=== PATIENT | female | born 1965 | race Caucasian/White ===

== ENCOUNTER 2019-09-07 13:32 | Emergency (ER) | payer OTHER, MEDICAID ==
[~2019-09-07] VITALS: Ht 165.1 cm; Wt 58.1 kg
[2019-09-07 13:39] VITALS: BP 115/72
--- NOTE | 2019-09-07 14:08 | NUR ---
C/O FALL ON THURSDAY AT [facility]. PER CAREGIVER PT FELL ON THURSDAY AND WAS UNCONSCIOUS FOR 2-3 MINUTES. CAREGIVER REPORTS THAT SINCE THE FALL, PT HAS HAD AN UNSTEADY GAIT. PTS BASELINE IS AMBULATING INDEPENDENTLY. CAREGIVER STATES PTS MENTAL STATUS IS UNCHANGED, DENIES N/V/D. PT ABLE TO STAND FROM WHEELCHAIR AND SIT ON BED. PUPILS PERRL. HX: CEREBRAL PALSY, EPILEPSY RX: SEE MED REC
--- NOTE | 2019-09-07 14:14 | NUR ---
PTR TO CT VIA [facility]
--- NOTE | 2019-09-07 14:32 | NUR ---
PT RETURNED FROM CT
--- NOTE | 2019-09-07 14:33 | NUR ---
UNABLE TO GIVE URINE AT THIS TIME
--- NOTE | 2019-09-07 14:41 | NUR ---
LAB AT BEDSIDE
[2019-09-07] MEDS ORDERED: COL100L GT (14:44)
[2019-09-07] MEDS ORDERED: LACT10SO1 PO (14:44)
[2019-09-07] MEDS ORDERED: FOLI0.8T PO (14:44)
[2019-09-07] MEDS ORDERED: OLAN2.5T1 PO (14:44)
[2019-09-07] MEDS ORDERED: FLUO40CA6 PO (14:44)
[2019-09-07] MEDS ORDERED: LAM200 PO (14:44)
[2019-09-07] MEDS ORDERED: BACL10TA4 PO (14:44)
[2019-09-07] MEDS ORDERED: RISP0.5T3 PO (14:44)
[2019-09-07] MEDS ORDERED: TRAZ-343 PO (14:44)
[2019-09-07] MEDS ORDERED: SENN8.8S12 PO (14:44)
[2019-09-07] MEDS ORDERED: [UNRECOGNIZED DRUG - CODE] PO (14:44)
[2019-09-07] MEDS ORDERED: MIRABULK PO (14:44)
[2019-09-07] MEDS ORDERED: CALC500C17 PO (14:44)
[2019-09-07] MEDS ORDERED: DIT5 PO (14:44)
[2019-09-07] MEDS ORDERED: CLON0.5T PO (14:44)
[2019-09-07 14:47] LABS: BASOPHILS % (AUTO) 0.1 % (0.0-2.0); EOSINOPHILS % (AUTO) 0.5 % (0.0-4.0); HEMATOCRIT 37.3 % (36-48); HEMOGLOBIN 12.9 g/dL (12.0-16.0); LYMPHOCYTES # (AUTO) 0.9 K/uL (2.5-16.5); LYMPHOCYTES % (AUTO) 10.9 % (20.5-51.1); MEAN CORPUSCULAR HEMOGLOBIN 32 pg (27-31); MEAN CORPUSCULAR HGB CONC 35 g/dL (33-37); MONOCYTES # (AUTO) 0.9 K/uL (0.8-1.0); NEUTROPHILS # (AUTO) 6.7 K/uL (1.8-7.7); NEUTROPHILS % (AUTO) 77.5 % (42.2-75.2); PLATELET COUNT (AUTO) 244 K/uL (140-450); RED BLOOD CELL COUNT(AUTO) 4.05 MIL/uL (4.20-5.40); RED CELL DISTRIBUTION WIDTH 12.7 % (11.6-13.7); WHITE BLOOD COUNT (AUTO) 8.6 K/uL (4.8-10.8)
[2019-09-07 15:12] LABS: ALBUMIN 3.5 g/dL (3.4-5.0); ANION GAP 12.2 (8-16); CARBON DIOXIDE 29.7 mmol/L (21-32); CREATININE 1.2 mg/dL (0.6-1.3); POTASSIUM 3.9 mmol/L (3.5-5.1); TOTAL BILIRUBIN 0.2 mg/dL (0.0-1.0)
[2019-09-07 15:53] LABS: FREE T4 (FREE THYROXINE) 1.33 ng/dL (0.76-1.46); THYROID STIMULATING HORMONE 1.07 uIU/mL (0.34-3.74)
[2019-09-07 16:23] VITALS: BP 132/76
--- NOTE | 2019-09-07 16:23 | NUR ---
Patient discharged with v/s stable. Written and verbal after care instructions given and explained. Patient alert, oriented and verbalized understanding of instructions. Wheel Chair Assisted with by caregiver. All questions addressed prior to discharge. ID band removed. Patient advised to follow up with PMD. Rx of MACROBID given. Patient educated on indication of medication including possible reaction and side effects. Opportunity to ask questions provided and answered. PT AND CAREGIVER GIVEN LAB AND CT RESULTS
[2019-09-07 19:30] LABS: APPEARANCE,URINE CLEAR (CLEAR); BILIRUBIN,URINE NEGATIVE (NEGATIVE); BLOOD, URINE 1+ (NEGATIVE); COLOR,URINE YELLOW (YELLOW); LEUKOCYTE ESTERASE ,URINE 3+ (NEGATIVE); NITRITE, URINE NEGATIVE (NEGATIVE); PH,URINE 7.5 (5.0-9.0); UGLUCOSE NEGATIVE (NEGATIVE)
[2019-09-07 19:47] LABS: WBC,URINE 16-25 (MOD) /HPF (0-5)
== END 2019-09-07 16:23 | disposition home or self-care (01) ==
LOC: MED 13:32
DX: S09.90XA Unspecified injury of head, initial encounter (principal); G40.909 Epilepsy, unspecified, not intractable, without status epilepticus; G80.9 Cerebral palsy, unspecified; Z79.899 Other long term (current) drug therapy; Z88.0 Allergy status to penicillin; W18.30XA Fall on same level, unspecified, initial encounter; Y93.89 Activity, other specified; Y92.89 Other specified places as the place of occurrence of the external cause; Y99.8 Other external cause status
CPT/HCPCS: 36415; 70450; 71045; 80053; 81001; 84439; 84443; 84479; 84484; 85025; 87086; 93005; 99285; Q0092

== ENCOUNTER 2019-09-12 02:55 | Inpatient (IN) | payer OTHER, MEDICAID ==
[2019-09-12] VITALS (64 sets, daily range): BP systolic 57–120; BP diastolic 24–70
[~2019-09-12] VITALS: Ht 165.1 cm; Wt 57.6 kg
[~2019-09-12 02:55] MED LIST: BACL10TA4 PO; CALC500C17 PO; CLON0.5T PO; COL100L GT; DIT5 PO; FLUO40CA6 PO; FOLI0.8T PO; LACT10SO1 PO; LAM200 PO; MIRABULK PO; OLAN2.5T1 PO; RISP0.5T3 PO; SENN8.8S12 PO; TRAZ-343 PO; [UNRECOGNIZED DRUG - CODE] PO
--- NOTE | 2019-09-12 02:55 | NUR ---
53 YEAR OLD FEMALE BIBA FROM [facility]ARE [facility]. PER EMS PATIENT STARTED HAVING SOB X 30MINS AGO AND O2 SATURATION WAS 72% BEFORE BREATHING TREATMENT ON ROUTE TO MAKE IT 86%. PATIENT ARRIVED TO EMERGENCY ROOM WITH 4 RNS, RT, AND DR LUCAS AT BEDSIDE. PATIENT GCS 3, AOX0, BREATHING LABORED WITH RETRACTIONS ON BREATHING MASK. SPO2 86%, RR 31, HR 125, BP 95/65, BLOOD SUGAR 127. SKIN WARM AND DRY. BED IN LOWEST POSITION, LOCKED, BED RAIL UPX2. PMH - NEURO EPILEPSY, SEIZURES, DEPRESSION ALLERGIES - PCN
--- NOTE | 2019-09-12 02:55 | NUR ---
PATIENT IS ON AMBU BAG BY RT, SPO2 95%
--- NOTE | 2019-09-12 02:55 | NUR ---
PATIENT ARRIVED IN ER. RT AT BEDSIDE, DR LUCAS AT BEDSIDE. MULTIPLE RNS AT BEDSIDE. EMT AT BEDSIDE.
--- NOTE | 2019-09-12 03:05 | NUR ---
INTUBATION PROCESS HAS BEGUN, MEDICATIONS OF ROCURONIUM AND ETOMIDATE WILL BE GIVEN ORDERED BY DR LUCAS. RT AT BEDSIDE, DR LUCAS AT BEDSIDE. 3 RNS AT BEDSIDE
--- NOTE | 2019-09-12 03:05 | NUR ---
Dyan bolanosmary in [facility] - 09/12/19 at 0635 by MEDJJ PATIENT IS ON AMBU BAG BY RT, SPO2 95%
--- NOTE | 2019-09-12 03:05 | NUR ---
Dyan jarquin in [facility] - 09/12/19 at 0613 by MEDCHARILE INTUBATION PROCESS HAS BEGUN, MEDICATIONS OF ROCURONIUM AND ETOMIDATE WILL BE GIVEN ORDERED BY DR LUCAS
[2019-09-12] MEDS ORDERED: VANCOMYCIN 1,000 MG in DEXTROSE 5% 250 ML IV ONE (03:15)
--- NOTE | 2019-09-12 03:15 | NUR ---
SPO2 96%, RR 21 PATIENT ON MECHANICAL VENTILATION, RT AT BEDSIDE.
--- NOTE | 2019-09-12 03:15 | NUR ---
INTUBATION BY DR LANCE WELLS
[2019-09-12] MEDS ORDERED: fentaNYL 1 MG in NACL 0.9% 80 ML IV PRN (03:20)
[2019-09-12] MEDS ORDERED: NACL 0.9% 1,000 ML IV ONE ×3 (03:20→06:45)
[2019-09-12] MEDS ORDERED: MIDAZOLAM MDV 50 MG in NACL 0.9% 40 ML IV PRN ×2 (03:20→13:00)
--- NOTE | 2019-09-12 03:25 | NUR ---
EKG PERFORMED AT BEDSIDE
[2019-09-12] MEDS ORDERED: ETOMIDATE 20 MG/10 ML VIAL IVP ONE (03:30)
[2019-09-12] MEDS ORDERED: ROCURONIUM 50 MG/5 ML VIAL IV ONE (03:30)
[2019-09-12] MEDS ORDERED: CEFEPIME 1,000 MG in DEXTROSE 5% 50 ML IV ONE (03:30)
--- NOTE | 2019-09-12 03:30 | NUR ---
Physician order given to place soft type restraints for patient to prevent pulling on tubing and intubation equipment. Resraints placed with quick-release ties to bed frame. Pt under observation with nurse 1-1. Restraints placed with 2 fingergap distance in upper bilateral extremities, radial pulse +2, cap refill < 2 seconds.
--- NOTE | 2019-09-12 03:35 | NUR ---
PATIENT MEDS FOR SEDATION NOT IN STOCK, COORDINATOR VOLUNTEER SERVICES CALLED REGARDING MEDS
[2019-09-12] MEDS ORDERED: fentaNYL 0.05 MG/ML VIAL ONE ×2 (03:44→03:46)
--- NOTE | 2019-09-12 03:44 | NUR ---
VERSED NOT IN STOCK, DYE STAND LOADER CALLED
[2019-09-12] MEDS ORDERED: MIDAZOLAM 2 MG/2 ML VIAL IVP ONE ×2 (03:45)
--- NOTE | 2019-09-12 03:46 | NUR ---
FLU SWAB OBTAINED
[2019-09-12] MEDS ORDERED: MIDAZOLAM MDV 50 MG/10 ML VIAL IV ONE (03:48)
[2019-09-12] MEDS ORDERED: VANCOMYCIN 1,000 MG VIAL ONE (03:51)
[2019-09-12] MEDS ORDERED: CEFEPIME 1,000 MG VIAL ONE (03:51)
--- NOTE | 2019-09-12 04:00 | NUR ---
MEDICATIONS FOR SEDATION RECEIVED FROM INFORMATION TECHNOLOGY DIRECTOR, WILL PREPARE MEDICATION AND GIVE ORDERED
--- NOTE | 2019-09-12 04:00 | NUR ---
PT BIBA HYPOXIC, AGONAL BREATHING, AND NON-RESPONSIVE. ER MD MADE AWARE. DECISION WAS MADE BY PHYSICIAN TO INTUBATE. PATIENT BAGGED WITH 100% FIO2. INTUBATED WITH 7. 5 ETT AT 24 CM TEETH LINE. ETT PLACEMENT CONFIRMED WITH COLORMETRIC CO2 DETECTOR, CHEST RISE, CONDENSATION IN ETT AND EQUAL BILATERAL BREATH SOUNDS. BREATH SOUNDS COARSE. AIRWAY SECURE AND PATENT. SPUTUM SAMPLE OBTAINED AND SENT TO LAB. ABG DRAWN AT PHYSICIAN ORDERED SETTINGS. ABG RESULTS GIVEN TO PHYSICIAN, NO NEW ORDERS AT THIS TIME. WILL TITRATE OXYGEN TO MAINTAIN ADEQUATE OXYGENATION. VENT CHECK DONE. VENT ALARMS ON AND AUDIBLE. AMBU BAG AT [facility]. WILL CONTINUE TO MONITOR CLOSELY.
[2019-09-12 04:01] LABS: EOSINOPHILS % (AUTO) 0.3 % (0.0-4.0); HEMATOCRIT 33.5 % (36-48); HEMOGLOBIN 11.6 g/dL (12.0-16.0); LYMPHOCYTES # (AUTO) 0.2 K/uL (2.5-16.5); MEAN CORPUSCULAR HEMOGLOBIN 32 pg (27-31); MEAN CORPUSCULAR HGB CONC 35 g/dL (33-37); MEAN CORPUSCULAR VOLUME 91.3 fL (80-94); MONOCYTES # (AUTO) 0.1 K/uL (0.8-1.0); MONOCYTES % (AUTO) 1.6 % (1.7-9.3); NEUTROPHILS % (AUTO) 95.7 % (42.2-75.2); PLATELET COUNT (AUTO) 170 K/uL (140-450); RED BLOOD CELL COUNT(AUTO) 3.67 MIL/uL (4.20-5.40); WHITE BLOOD COUNT (AUTO) 6.3 K/uL (4.8-10.8)
[2019-09-12 04:17] LABS: ALBUMIN 2.7 g/dL (3.4-5.0); ANION GAP 20.6 (8-16); CARBON DIOXIDE 20.9 mmol/L (21-32); CREATININE 3.5 mg/dL (0.6-1.3); POTASSIUM 3.5 mmol/L (3.5-5.1); TOTAL BILIRUBIN 0.7 mg/dL (0.0-1.0)
--- NOTE | 2019-09-12 04:30 | NUR ---
SOFT RESTRAINTS ASSESSED. RADIAL PULSE + 2, CAP REFILL < 3 SECONDS, NO DISCOLORATION
[2019-09-12 04:31] LABS: LYMPHOCYTES % (AUTO) 2.4 % (20.5-51.1)
--- NOTE | 2019-09-12 04:32 | NUR ---
DR LUCAS AT BEDSIDE
--- NOTE | 2019-09-12 04:45 | NUR ---
PER ERMD HE WANTS NACL FLUID TO BOLUS INSTEAD OF ORDERED 100 ML/HR. HE ALSO STATES HE WILL PUT ANOTHER ORDER FOR ANOTHER 1L BOLUS.
[2019-09-12] MEDS ORDERED: ONDANSETRON 4 MG/2 ML VIAL IVP PRN (05:00)
[2019-09-12] MEDS ORDERED: ACETAMINOPHEN 325 MG TAB PO PRN (05:00)
--- NOTE | 2019-09-12 05:20 | NUR ---
PATIENT IS IN PROCESS OF TRANSFERING, SPENCER DELVALLE AND RT AND EMT AT BEDSIDE ON ROUTE TO ICU
--- NOTE | 2019-09-12 05:20 | NUR ---
Dyan jarquin in ED - 09/12/19 at 0558 by MEDJJ PATIENT IS IN PROCESS OF TRANSFERING, RT AND EMT AT BEDSIDE ON ROUTE TO ICU
--- NOTE | 2019-09-12 05:30 | NUR ---
SOFT RESTRAINTS ASSESSED. RADIAL PULSE + 2, CAP REFILL < 3 SECONDS, NO DISCOLORATION.
--- NOTE | 2019-09-12 05:40 | NUR ---
Patient will be admitted to care of Dr Coyle. Admited to ICU. Will go to room 2. Belongings list completed. Report to Janell PALMER.
--- NOTE | 2019-09-12 05:40 | NUR ---
RECEIVED PT FROM SUPERVISOR ENGINES ROAD, ADELIA. PT UNABLE TO RESPOND VERBALLY. PERRL. INTUBATED. ETT 23CM AT LIP LINE. VENT SETTINGS FOLLOWS: AC MODE FI02 60%, TV 450, RATE 22, PEEP 5. HR 122 BPM ON MONITOR. + S1, S2 UPON AUSCULTATION. LUNGS CLEAR THROUGHOUT, SLIGHTLY DIMINISHED TO RLL. ABDOMEN FIRM/ DISTENDED. BULL PLACED WITH 2L STRAW-COLORED URINE WITH LARGE AMOUNT OF SEDIMENT. ABDOMEN NOW SOFT WITH ACTIVE BOWEL SOUNDS. IV TO RT HAND, RT FA, LT HAND, LT FA, ALL 20 GAUGE. NS RUNNING WIDE OPEN. FENTANYL INFUSING AT 3.2 ML/HR, VERSED AT 1MG/HR. BP 67/45. MD NOTIFIED OF HYPOTENSION. NEW ORDERS OBTAINED AND IMPLEMENTED. SKIN WARM, DRY, AND INTACT. SAFETY PRECAUTIONS IMPLEMENTED. BED LOW AND LOCKED. WILL FOLLOW-UP. Addendum: 09/12/19 at 0654 by Janell Ashley RN DRY WEIGHT 64KG PER ER Addendum: 09/12/19 at 0723 by Janell Ashley RN SOFT-WRIST RESTRAINTS IN PLACE D/T PT ATTEMPTING TO REMOVE ETT.
--- NOTE | 2019-09-12 05:40 | NUR ---
TRANSFER COMPLETED, RN SHREYAS UNDERSTANDS URINE WAS NOT OBTAINED WELL 2ND FLUID BOLUS OF NACL.
[2019-09-12] MEDS ORDERED: LORazepam 2 MG/ML VIAL IM/IVP PRN (05:55)
--- NOTE | 2019-09-12 06:00 | NUR ---
INSERTED BULL CATH AND EMPTIED AROUND 2 LITERS YELLOW URINE OUTPUT WITH LOTS OF WHITISH SEDIMENTS.
[2019-09-12 06:03] LABS: CHOL/HDL RATIO 7.6 (1-4.5); MAGNESIUM 2.4 mg/dL (1.8-2.4); PHOSPHORUS 3.9 mg/dL (2.5-4.9); THYROID STIMULATING HORMONE 1.16 uIU/mL (0.34-3.74)
[2019-09-12 06:10] LABS: PROTHROMBIN TIME 11.1 secs (10.8-13.4)
--- NOTE | 2019-09-12 06:26 | NUR ---
REC'D PT ON [place] VENT SETTINGS AC 12 VT 450 PEEP 5 FIO2 60% ALARMS ON AND AUDIBLE AND AMBU BAG AT HOB VENT IS PLUGGED INTO RED OUTLET, SXN PT SMALL AMT OF CREAM COLOR SECRETIONS, B\S ARE COARSE BILATERALLY, PT IS ORALLY INTUBATED WITH 7.5 ETT SECURED WITH ANCHOR FAST AT [address] MYLES GIVEN THE ABG RESULTS AND DECREASED RR TO 20 AND DECREASED FIO2 TO 40%
--- NOTE | 2019-09-12 06:38 | NUR ---
BP LOW 69/43 REFERRED TO RESIDENT ON DUTY DR. CROWELL WITH ORDER TO GIVE ANOTHER 1 LITER BOLUS NORMAL SALINE; INFORMED HIM TOO ABOUT PATIENT'S URINE OUT RIGHT AFTER INSERTING BULL CATHETER.
[2019-09-12] MEDS ORDERED: AZITHROMYCIN 500 MG in DEXTROSE 5% 250 ML IV SCH (06:40)
[2019-09-12] MEDS ORDERED: HEPARIN PER PHARMACY MC PRN (06:50)
[2019-09-12] MEDS ORDERED: cefTRIAXone 1,000 MG VIAL ONE (06:59)
[2019-09-12] MEDS ORDERED: AZITHROMYCIN 500 MG INJ VIAL IV ONE (07:00)
--- NOTE | 2019-09-12 07:30 | NUR ---
RECEIVED PT FROM PM SHIFT RN. PT INTUBATED. BEDSIDE MONITOR SHOWS ST 120S. BP: 67/43. RR 20. PT NON VERBAL. PUPILS 3 MM, ACTIVE. ETT TO VENT WITH SETTING FIO2=40 %, VT 450, A/C 20, PEEP 5. LUNG SOUND COURSE. PT HAS IV TO LEFT AC RUNNING 0.9% NS AT 1200 CC/HR. ABD SOFT, F/C IN PLACE WITH CLOUDY YELLOW URINE NOTED. SKIN INTACT. WILL CONTINUE TO MONITOR.
--- NOTE | 2019-09-12 07:50 | NUR ---
DR. YEE IN TO SEE PT. PT'S SECOND L 0.9% NS IS ALMOST DONE. PER DR. YEE, GIVE THE THIRD LITER OF 0.9% NS. CARRIED OUT.
[2019-09-12] MEDS: NACL 0.9% 1,000 ML IV SCH (08:00)
[2019-09-12 08:04] LABS: APPEARANCE,URINE CLEAR (CLEAR); BILIRUBIN,URINE NEGATIVE (NEGATIVE); BLOOD, URINE 3+ (NEGATIVE); COLOR,URINE YELLOW (YELLOW); LEUKOCYTE ESTERASE ,URINE 3+ (NEGATIVE); NITRITE, URINE NEGATIVE (NEGATIVE); UGLUCOSE NEGATIVE (NEGATIVE)
[2019-09-12 08:10] LABS: BARBITURATE, URINE NEG. ng/ml (NEG <=200); BENZODIAZEPINE, URINE NEG. ng/mL (NEG <=200); CANNABINOID, URINE NEG. ng/mL (NEG <=50); COCAINE, URINE NEG. ng/mL (NEG <=300); OPIATE, URINE NEG. ng/mL (NEG <=2000); PHENCYCLIDINE SCREEN,URINE NEG. ng/mL (NEG <=25)
--- NOTE | 2019-09-12 08:15 | NUR ---
DR. ROBLES AT BEDSIDE. PLAN IS TO INSERT CENTRAL LINE. CALLED ATILIO DHILLON [phone] FOR CONSENT. STATES SHE WILL CALL THEIR FABRIC AWNING REPAIRER TO CALL ME BACK.
[2019-09-12 08:31] LABS: RBC,URINE 11-20 (MOD) /HPF (0-5); URINE AMORPHOUS URATE 1+ /HPF (None Seen); WBC,URINE 80-100 /HPF (0-5)
--- NOTE | 2019-09-12 08:40 | NUR ---
SPOKE TO ROSARIO MUNOZ, WHOLESALER OF THE FACILITY RE: NEED FOR CONSENT FOR CENTRAL LINE. GAVE THE NAME OF [facility] INTER FOLD ROLL CUTTER LYNETTE BACA, . DR. ROBLES NOTIFIED.
--- NOTE | 2019-09-12 08:41 | NUR ---
US TECH AT BEDSIDE.
--- NOTE | 2019-09-12 08:49 | NUR ---
PATIENT HAS BEEN SCREENED AND CATEGORIZED HIGH NUTRITION RISK. PATIENT WILL BE SEEN WITHIN 1-2 DAYS OF ADMISSION. 09/12/19-09/13/[address]
[2019-09-12] MEDS ORDERED: NOREPINEPHRINE 4 MG in DEXTROSE 5% 250 ML IV PRN (08:50)
--- NOTE | 2019-09-12 09:00 | NUR ---
SPOKE LYNETTE BACA FROM [facility] RE; NEED FOR CENTRAL LINE. STATES TWO PHYSICIANS CAN SIGN THE CONSENT. DR. MARGARET BURCIAGA.
--- NOTE | 2019-09-12 09:13 | NUR ---
AT BEDSIDE TO INSERT CENTRAL LINE. TIME OUT DONE! ATIVAN 0.[address] ROBLES ORDERED.
--- NOTE | 2019-09-12 09:15 | NUR ---
CELESTE CLAIRE OF THE FACILITY CALLED, . UPDATED ON PT'S CONDITION. STATES SHE WILL BE HERE TO SEE PT. SHE WANTS TO BE CALLED IF WE NEED ANYTHING RE: PT.
--- NOTE | 2019-09-12 09:41 | NUR ---
DR. ROBLES ORDERED 1 L 0.9 % NS BOLUS.
[2019-09-12] MEDS: OLANZapine 2.5 MG TAB PO SCH (09:51)
[2019-09-12] MEDS: DOCUSATE SODIUM 100 MG GELCAP PO SCH ×2 (09:51→20:29)
[2019-09-12] MEDS: FAMOTIDINE 20 MG TAB PO SCH (09:51)
[2019-09-12] MEDS: LACTULOSE 20 GM/30 ML UDC PO SCH (09:51)
[2019-09-12] MEDS: risperiDONE 1 MG TAB PO SCH ×2 (09:52→20:29)
[2019-09-12] MEDS: clonazePAM 0.5 MG TAB GT SCH (09:53)
--- NOTE | 2019-09-12 09:57 | NUR ---
received phone call from PICC LINE NURSE HERBERTH, PER HERBERTH, HE WILL BE HERE ABOUT 1130. CHARGE NURSE MADE AWARE. Addendum: 09/12/19 at 1016 by Cassy Romeo RN NOTIFIED PICC LINE NURSE, PT HAS HEPARIN DRIP ORDER. PER PICC LINE NURSE, DO NOT START HEPARIN DRIP UNTIL PICC LINE INSERTION DONE. CHARGE NURSE JULIA MADE AWARE.
[2019-09-12] MEDS ORDERED: LORazepam 2 MG/ML VIAL IM/IVP SCH (10:00)
[2019-09-12] MEDS ORDERED: CRUSHER, PILL MC ONE (10:00)
[2019-09-12] MEDS: OXYBUTYNIN 5 MG TAB PO SCH ×2 (10:25→20:29)
[2019-09-12] MEDS: FLUoxetine 20 MG CAP PO SCH (10:25)
--- NOTE | 2019-09-12 11:36 | NUR ---
DISCHARGE PLANNING: THIS IS A 53 Y/O FEMALE PATIENT FROM [facility], WHO WAS BIBA DUE TO SOB. PAST MEDICAL HISTORY INCLUDE SEIZURE AND PSYCHIATRIC DISORDER. INITIAL DIAGNOSIS OF ACUTE RESPIRATORY FAILURE. WAS ORALLY INTUBATED INT HE ED, FIO2 40%. CURRENT LABS INCLUDE WBC 6.3, H/H 11.6/33.5, NA/K 141/3.5, BUN/CREA 83/3.5, LACTIC ACID ON ADMISSION 6.8-5.0, TROP 0.069-0.212. URINE, SPUTUM AND BLOOD CULTURES PENDING. ON LEVOPHED DRIP. ON AZITHROMYCIN AND ROCEPHIN. NEPHRO AND PULMO CONSULTS IN PLACE. DC PLAN PENDING ON PATIENT'S RESPONSE TO TREATMENT. Addendum: 09/14/19 at 1116 by Sugey Iglesias STILL IN ICU. ORALLY INTUBATED TO VENT, FIO2 30%. CURRENT LABS INCLUDE WBC 20.0, H/H 8.9/25.3, NA/K 145/3.0, BUN/CREA 23/0.9, LACTIC ACID 1.5, TROP 0.362. ON VANCOMYCIN AND MERREM. SEDATED WITH VERSED AND FENTANYL DRIP. CARDIO, PULMO, ID, SURGICAL AND NEPHRO CONSULTS IN PLACE. DC PLAN PENDING ON PATIENT'S RESPONSE TO TREATMENT. Addendum: 09/16/19 at 0915 by Sugey Iglesias CM STILL IN ICU, ORALLY INTUBATED FIO2 25%. CURRENT LABS INCLUDE WBC 6.7, H/H 9.2/26.5, NA/K 141/3.6, BUN/CREA 18/0.8, MAG 1.2 AND TROP 0.232. URINE AND BLOOD C/S CAME BACK POSITIVE FOR E COLI. SPUTUM C/S POSITIVE FOR MORAXELLA CATARRHALIS. ON VANCOMYCIN, TAMIFLU AND MEROPENEM. ON FENTANYL DRIP. PULMO, CARDIO, ID, NEPHRO AND SURGICAL CONSULTS IN PLACE. Addendum: 09/19/19 at 1458 by Sugey Iglesias CM RECEIVED A CALL BACK FROM PATIENT'S DAUGHTER RAY AGARWAL. DISCUSSED DC PLAN TO [facility] AND IS IN AGREEMENT. IMM AND CHOICE OF VENDOR LETTERS DISCUSSED WITH HER, ABLE TO VERBALIZE UNDERSTANDING. COPY PLACED IN THE CHART. Addendum: 09/22/19 at 1038 by Margo Epstein CM DC PLANNING: FAXED ALL THE PAPERWORK TO [facility], CM TO FOLLOW. Addendum: 09/22/19 at 1554 by Margo Epstein CM DC PLANNING RECEIVED A CALL FROM ANGIE AT [facility] ACCEPTED PATIENT. DC PLAN FOR THURSDAY CM TO FOLLOW Addendum: 09/23/19 at 1635 by Margo Epstein CM DC PLANNING: RECEIVED A CALL FROM АНДРЕЙ AT [facility] STATED THEY ARE UNABLE TO ACCEPT PATIENT BECAUSE OF HER DX ACUTE RESPIRATORY DISTRESS. FAXED TO CHANELL MCGRAW AND AYANNA NEAL CM TO FOLLOW Addendum: 09/24/19 at 1116 by Margo Epstein CM DC PLANNING: CALLED [facility] SPOKE WITH DANNY GARNICA STATED THEY ARE UNABLE TO ACCEPT PATIENT BECAUSE OF DX ACUTE RESP DISTRESS. NOTIFIED DR ROBLES ,FAXED TO CLAIRE NEAL, AYANNA NEAL ,ANDREW AND MICHELLE Schmid CM TO FOLLOW Addendum: 09/24/19 at 1501 by Margo Epstein CM DC PLANNING RECEIVED A CALL FROM RAY GARNICA AT [facility] ACCEPTED PT. AND CAN GO TO ROOM 29B , # TO GIVE REPORT [phone] ARRANGED TRANSPORT WITH [facility] TIME 5PM NOTIFIED [employer] PALMER CALLED MALIA MONUMENT LETTERER [phone] LEFT A MESSAGE THAT PT IS GOING TO [facility] Addendum: 09/24/19 at 1644 by Margo Epstein CM DC PLANNING: RECEIVED A CALL FROM LYNETTE HERRERA OF [facility]PER[facility] [phone] STATED SHE WANTED PT TO GO BACK TO [facility] WILL COME TO PICK HER UP . CANCELED [facility] AND [facility]
--- NOTE | 2019-09-12 11:45 | NUR ---
PICC line nurse at bedside, time out form done.
[2019-09-12] MEDS: hePARIN / DEXT 5% PREMIX 250 ML IV SCH (12:38)
--- NOTE | 2019-09-12 12:38 | NUR ---
started heparin drip at 1100 units/hr and bolus 4200 units given.
--- NOTE | 2019-09-12 12:50 | NUR ---
US TECH AT BEDSIDE.
--- NOTE | 2019-09-12 12:52 | NUR ---
PT. ADMITTED WITH LOW MARY SCALE AT RISK, CONTINUE TO FOLLOW PRESSURE ULCER PREVENTION INTERVENTIONS. -TURN AND REPOSITION PATIENT Q 2H -ASSESS AND MONITOR SKIN CONDITION DURING POSITION CHANGE -OFFLOAD BILATERAL HEELS BY PLACING PILLOWS UNDER CALVES AT ALL TIMES, UNLESS OTHERWISE CONTRAINDICATED -PRESSURE REDISTRIBUTION BY PLACING PILLOWS AND OFFLOADING SACRALCOCCYX -KEEP SKIN CLEAN AND DRY AT ALL TIMES.
--- NOTE | 2019-09-12 13:47 | NUR ---
09/12/19 INITIAL ASSESSMENT COMPLETED PLEASE REFER TO NUTRITION ASSESSMENT UNDER CARE ACTIVITY FOR ESTIMATED NUTRITIONAL NEEDS. 1. CONTINUE NPO MEDICALLY APPROPRIATE 2. IF/WHEN MEDICALLY STABLE CONSIDER TUBE FEEDING IF PATIENT IS STILL INTUBATED. RECOMMEND NEPRO 1.8 @ 40 ML/HR AND FREE WATER FLUSH OF 150 ML Q4H -THIS WILL PROVIDE 697 ML OF WATER, 1728 KCAL AND 77 GM OF PROTEIN, WHICH MEETS 100% OF NUTRIENT NEEDS 3. IF PATIENT IS EXTUBATED, AWAKE AND ALERT, CONSIDER ADVANCING DIET IF NO DYSPHAGIA IS PRESENT 4. RD TO FOLLOW-UP 2-3 DAYS, HIGH RISK ANTOLIN COPPOLA RD
--- NOTE | 2019-09-12 14:11 | NUR ---
PT LEFT FOR CT. ACCOMPANIED BY RN, RT AND FIBERGLASS BOAT PARTS FINISHER.
--- NOTE | 2019-09-12 14:48 | NUR ---
Sales Agent Business Services Note: SW attempted to conduct assessment. SW will follow up.
[2019-09-12] MEDS: NOREPINEPHRINE 16 MG in DEXTROSE 5% 250 ML IV PRN (15:34)
--- NOTE | 2019-09-12 17:32 | NUR ---
NUC MEDS TECH AT BEDSIDE.
[2019-09-12] MEDS ORDERED: KCL 20 MEQ/WATER INJ PREMIX 200 ML IV SCH (18:00)
--- NOTE | 2019-09-12 18:30 | NUR ---
PT STAYING IN BED, BEDSIDE MONITOR SHOWS ST 110S. NO S/S OF RESPIRATORY DISTRESS NOTED. BP IN NORMAL RANGE WHILE PT ON LEVOPHED.
[2019-09-12 18:46] LABS: HEMATOCRIT 31.7 % (36-48); HEMOGLOBIN 10.6 g/dL (12.0-16.0); MEAN CORPUSCULAR HEMOGLOBIN 31 pg (27-31); MEAN CORPUSCULAR HGB CONC 34 g/dL (33-37); MEAN CORPUSCULAR VOLUME 92.4 fL (80-94); PLATELET COUNT (AUTO) 167 K/uL (140-450); RED BLOOD CELL COUNT(AUTO) 3.43 MIL/uL (4.20-5.40); RED CELL DISTRIBUTION WIDTH 13.7 % (11.6-13.7)
[2019-09-12 18:55] LABS: WHITE BLOOD COUNT (AUTO) 31.1 K/uL (4.8-10.8)
[2019-09-12] MEDS: ACETYLCYSTEINE 10% (100 MG/ML) 100 MG/ML VIAL INH SCH (19:08)
[2019-09-12] MEDS: ALBUTEROL SULFATE/IPRATROPIU 3 ML SOL IH SCH (19:08)
--- NOTE | 2019-09-12 19:10 | NUR ---
ENDORSED TO PM SHIFT RN.
[2019-09-12] MEDS ORDERED: LEVOFLOXACIN 750 MG/D5W PREMIX 150 ML IV SCH (19:25)
--- NOTE | 2019-09-12 19:26 | NUR ---
MUCOMIST WAS GIVEN WITH HHNTX 10% AT 100ML WITH BRONCHODILATOR
[2019-09-12 19:27] LABS: ANION GAP 17.8 (8-16); CARBON DIOXIDE 21.6 mmol/L (21-32); POTASSIUM 3.4 mmol/L (3.5-5.1)
[2019-09-12 19:29] LABS: CREATININE 2.5 mg/dL (0.6-1.3)
--- NOTE | 2019-09-12 19:30 | NUR ---
APTT RESULTS BACK, PER LAB. HEPARIN DRIP HELD AT THIS TIME.
--- NOTE | 2019-09-12 19:30 | NUR ---
RECEIVED PT FROM LATA PALMER. PT UNABLE TO RESPOND VERBALLY. PERRL. INTUBATED. ETT 23CM AT LIP LINE. VENT SETTINGS FOLLOWS: AC MODE FI02 40%, TV 450, RATE 20, PEEP 5. HR 116 BPM ON MONITOR. + S1, S2 UPON AUSCULTATION. LUNGS CLEAR THROUGHOUT. ABDOMEN SOFT, NON-DISTENDED WITH ACTIVE BOWEL SOUNDS. BULL IN PLACE DRAINING STRAW-COLORED URINE WITH SEDIMENT. IV TO RT HAND, RT FA, LT HAND, LT FA, ALL 20 GAUGE. NS RUNNING @ 50ML/HR TO PICC TO MILAGRO. HEPARIN INFUSING @ 800U/HR. PT REMAINS ON APTT BLOOD DRAWS Q6H. HEPARIN BEING TITRATED PER PROTOCOL. SKIN WARM, DRY, AND INTACT. SOFT-WRIST RESTRAINTS IN PLACE D/T PT ATTEMPTING TO REMOVE ETT. CIRCULATION CHECK WNL, CAP REFILL <3SEC. SAFETY PRECAUTIONS REMAIN IN PLACE. BED LOW AND LOCKED. WILL FOLLOW-UP. DRY WEIGHT 64KG. Addendum: 09/13/19 at 2019 by Janell Ashley RN ERROR--------- INCORRECT DOCUMENTATION DATE/TIME
--- NOTE | 2019-09-12 19:30 | NUR ---
PT UNABLE TO RESPOND VERBALLY. PERRL. INTUBATED. ETT 23CM AT LIP LINE. VENT SETTINGS FOLLOWS: AC MODE FI02 40%, TV 450, RATE 20, PEEP 5. HR 116 BPM ON MONITOR. + S1, S2 UPON AUSCULTATION. LUNGS CLEAR THROUGHOUT. ABDOMEN SOFT, NON-DISTENDED AND NON-TENDER WITH BOWEL SOUNDS PRESENT X4. BULL IN PLACE WITH STRAW-COLORED URINE WITH LARGE AMOUNT OF SEDIMENT NOTED. PICC TO MILAGRO PLACED DURING AM SHIFT. NS INFUSING AT 50ML/HR. K-RIDER 20 MEQ, LEVOPHED 25MCG/HR (23.42ML/HR) DRY WEIGHT 64KG. BP 102/64. HR 116 BPM. IV TO RT HAND, RT FA, LT HAND, LT FA, ALL 20 GAUGE. SOFT-WRIST RESTRAINTS IN PLACE D/T PT ATTEMPTING TO REMOVE ETT. SKIN WARM, DRY. SAFETY PRECAUTIONS IMPLEMENTED. BED LOW AND LOCKED. WILL FOLLOW-UP.
[2019-09-12 20:15] LABS: BASOPHILS % (MANUAL) 0 % (0-2); EOSINOPHILS % (MANUAL) 0 % (0-4); LYMPHOCYTES % (MANUAL) 4 % (20-46); MONOCYTES % (MANUAL) 5 % (5-12)
[2019-09-12] MEDS: traZODone 50 MG TAB PO SCH (20:29)
[2019-09-12] MEDS ORDERED: metroNIDAZOLE 500 MG/NS PREMIX 100 ML IV SCH (21:00)
--- NOTE | 2019-09-12 21:40 | NUR ---
CALLED RESIDENT UPA @ THIS TIME TO REORDER PT/PTT/INR FOR 0000. PT REMAINS ON HEPARIN DRIP.
[2019-09-12] MEDS ORDERED: VANCOMYCIN PER PHARMACY MC PRN (22:30)
--- NOTE | 2019-09-12 22:51 | NUR ---
PHONE CALL FROM [facility] REGARDING MEROPENEM ORDERED BY DR CAMPBELL; PT IS ALLERGIC TO PENICILLIN; DR CAMPBELL STILL IN THE UNIT AND I INFORMED MD; DR CAMPBELL SAID TO GIVE THE MEROPENEM.
[2019-09-13] VITALS (95 sets, daily range): BP systolic 86–146; BP diastolic 38–85
--- NOTE | 2019-09-13 00:28 | NUR ---
BP 170/101, HR 96. CLONIDINE PRN ADMINISTERED ORDERED. SAFETY PRECAUTIONS REMAIN IN PLACE. BED LOW AND LOCKED. WILL CONT TO MONITOR. Addendum: 09/13/19 at 0121 by Janell Ashley RN ERROR WRONG CHART/ WRONG DOCUMENTATION
[2019-09-13 00:50] LABS: PROTHROMBIN TIME 12.5 secs (10.8-13.4)
--- NOTE | 2019-09-13 00:51 | NUR ---
PT RESTLESS WITH JERKING MOVEMENTS TO BUE. ATIVAN PRN ADMINISTERED ORDERED. SAFETY PRECAUTIONS REMAIN IN PLACE. BED LOW AND LOCKED, HOB 30 DEGREES. WILL CONT TO MONITOR.
[2019-09-13] MEDS: NACL 0.9% 1,000 ML IV SCH (00:56)
--- NOTE | 2019-09-13 02:00 | NUR ---
VAP ORAL CARE PROVIDED. REPOSITIONED WITH SCD'S IN PLACE. FLACC 0. SAFETY PRECAUTIONS REMAIN IN PLACE. WILL CONTINUE TO MONITOR FOR CHANGES.
[2019-09-13] MEDS ORDERED: VANCOMYCIN 1GM/DEXT 5% PREMIX 200 ML IV SCH (03:00)
[2019-09-13] MEDS: NOREPINEPHRINE 16 MG in DEXTROSE 5% 250 ML IV PRN ×2 (03:57→23:55)
--- NOTE | 2019-09-13 04:00 | NUR ---
BED BATH PROVIDED. REPOSITIONED WITH PRESSURE AREAS OFFLOADED. FLACC O. CONTINUES ON LEVOPHED TO MAINTAIN BP. BED LOW AND LOCKED WITH SIDE RAILS UP X3. WILL CONT TO MONITOR.
[2019-09-13] MEDS ORDERED: MEROPENEM 500 MG VIAL IV ONE (05:20)
[2019-09-13] MEDS: MEROPENEM 500 MG in NACL 0.9% 50 ML IV SCH ×3 (05:40→20:30)
--- NOTE | 2019-09-13 06:00 | NUR ---
RESPIRATORY AT BEDSIDE. FIO2 LOWERED TO 30% PER RT. SUJATA
[2019-09-13 06:18] LABS: HEMATOCRIT 29.3 % (36-48); HEMOGLOBIN 10.2 g/dL (12.0-16.0); MEAN CORPUSCULAR HEMOGLOBIN 32 pg (27-31); MEAN CORPUSCULAR HGB CONC 35 g/dL (33-37); MEAN CORPUSCULAR VOLUME 91.2 fL (80-94); PLATELET COUNT (AUTO) 166 K/uL (140-450); RED BLOOD CELL COUNT(AUTO) 3.21 MIL/uL (4.20-5.40); RED CELL DISTRIBUTION WIDTH 13.2 % (11.6-13.7)
[2019-09-13 06:25] LABS: HEPATITIS A ANTIBODY IGM Negative (Negative); HEPATITIS B CORE AB TOTAL Negative (Negative); HEPATITIS B SURFACE ANTIBODY Reactive (.); HEPATITIS B SURFACE ANTIGEN Negative (Negative)
[2019-09-13 06:43] LABS: ANION GAP 12.8 (8-16); CARBON DIOXIDE 24.6 mmol/L (21-32); CREATININE 1.7 mg/dL (0.6-1.3); POTASSIUM 3.4 mmol/L (3.5-5.1); WHITE BLOOD COUNT (AUTO) 27.5 K/uL (4.8-10.8)
[2019-09-13 06:44] LABS: EOSINOPHILS % (MANUAL) 2 % (0-4); LYMPHOCYTES % (MANUAL) 7 % (20-46); MONOCYTES % (MANUAL) 6 % (5-12)
[2019-09-13 06:47] LABS: MAGNESIUM 2.1 mg/dL (1.8-2.4); PHOSPHORUS 3.3 mg/dL (2.5-4.9)
[2019-09-13] MEDS: ACETYLCYSTEINE 10% (100 MG/ML) 100 MG/ML VIAL INH SCH ×3 (06:51→19:50)
[2019-09-13] MEDS: ALBUTEROL SULFATE/IPRATROPIU 3 ML SOL IH SCH ×3 (06:51→19:48)
--- NOTE | 2019-09-13 07:30 | NUR ---
RECEIVED PT FROM PM SHIFT RN. BEDSIDE MONITOR SHOWS ST 110S. ETT 23CM AT LIP LINE TO VENT SETTINGS AC VC FI02 = 30%, TV 450, RATE 20, PEEP 5. LUNGS CLEAR THROUGHOUT, NO S/S OF RESPIRATORY DISTRESS NOTED. PICC TO MILAGRO RUNNING HEPARIN AT 800 UNIT/HR AND LEVOPHED AT 16 MCG/MIN=14.94 ML/HRAND 1/2 NS INFUSING AT 50ML/HR. IV TO RT FA, LT HAND, LT FA, ALL 20 GAUGE. ABDOMEN SOFT, NON-TENDER WITH BOWEL SOUNDS PRESENT X4. BULL IN PLACE WITH STRAW-COLORED URINE WITH SEDIMENT NOTED. SKIN WARM, DRY. SAFETY PRECAUTIONS IMPLEMENTED. BED LOW AND LOCKED. WILL CONTINUE TO MONITOR.
[2019-09-13] MEDS: LACTULOSE 20 GM/30 ML UDC PO SCH (08:36)
[2019-09-13] MEDS: risperiDONE 1 MG TAB PO SCH ×2 (08:36→20:31)
[2019-09-13] MEDS: DOCUSATE SODIUM 100 MG GELCAP PO SCH (08:37)
[2019-09-13] MEDS: OLANZapine 2.5 MG TAB PO SCH (08:37)
[2019-09-13] MEDS: clonazePAM 0.5 MG TAB GT SCH (08:38)
[2019-09-13] MEDS: OSELTAMIVIR PHOSPHATE 30 MG CAP PO SCH ×2 (08:39→20:31)
[2019-09-13] MEDS: NACL 0.45% 1,000 ML IV SCH ×2 (08:50→13:07)
[2019-09-13] MEDS: OXYBUTYNIN 5 MG TAB PO SCH ×2 (09:00→20:30)
[2019-09-13] MEDS: DOCUSATE 100 MG/10 ML UDC GT SCH ×2 (09:00→20:31)
[2019-09-13] MEDS ORDERED: KCL 20 MEQ/WATER INJ PREMIX 100 ML IV SCH (09:00)
[2019-09-13] MEDS: FLUoxetine 20 MG CAP PO SCH (09:00)
[2019-09-13] MEDS: FAMOTIDINE 20 MG TAB PO SCH (09:00)
--- NOTE | 2019-09-13 09:50 | NUR ---
received phone call from afsaneh Sutton, hold po meds and he will call me back to notify time to do Hida scan. hold prozac, pepcisaw, thaniatropan. charge nurse made aware.
[2019-09-13] MEDS ORDERED: PROBIOTIC SCREEN 1 EA MISC MC PRN (10:25)
--- NOTE | 2019-09-13 10:45 | NUR ---
received phone call from tyrone Cote, the ETA FOR HIDA SCAN IS 2PM-3PM.
--- NOTE | 2019-09-13 11:51 | NUR ---
@[address], accompanied with RN, RT, AND FIRE CREW WORKER. CAME BACK AT 1151 . PT TOLERATED WELL.
--- NOTE | 2019-09-13 13:00 | NUR ---
APTT 49.4, HEPARIN DRIP RATE NO CHANGE PER PROTOCOL.
--- NOTE | 2019-09-13 14:32 | NUR ---
PER ROSARIO MUNOZ. PT HAD FLU SHOT IN APR 2019, NO RECORD FOR PNA SHOT.
[2019-09-13] MEDS: hePARIN / DEXT 5% PREMIX 250 ML IV SCH (16:38)
--- NOTE | 2019-09-13 19:30 | NUR ---
[facility] REST[facility] IN BED COMFORTABLY. PERRL. UNABLE TO RESPOND VERBALLY. ORALLY INTUBATED WITH ETT @ 24CM @ LIP LINE. VENT SETTING FOLLOWS: AC/VC: FI02 30%, TV 450, RATE 20, PEEP 5. ST ON MONITOR, 110 BPM, SINUS RHYTHM. LUNGS CLEAR THROUGHOUT. +S1, S2 UPON AUSCULTATION. BOWEL SOUNDS ACTIVE X4. ABD SOFT, NON-DISTENDED, AND NON-TENDER UPON PALPATION. INDWELLING URINARY CATH IN PLACE DRAINING CLEAR, YELLOW URINE TO GRAVITY. NO SEDIMENT NOTED AT THIS TIME. PICC TO MILAGRO INFUSING 1/2 NS @ 50ML/HR, HEPARIN @ 800U/HR, LEVOPHED @ 11.18ML/HR, VERSED @ 4MG/HR TO ACHIEVE RASS -1. FLACC 0. BED LOW AND LOCKED WITH SIDE RAILS UP X3. HOB AT 30 DEGREES. WILL CONT TO MONITOR FOR CHANGES.
--- NOTE | 2019-09-13 20:11 | NUR ---
RECEIVED INTUBATED PT WITH ETT SIZE 7.5 SECURED WITH ANCHOR-FAST AT 24CM @ THE LIP. PT IS ON VENT SETTINGS AC 20, 450, PEEP 5, FiO2 30%. VENT PLUGGED IN RED OUTLET, ALARMS SET AND AUDIBLE, BVM AT BEDSIDE, AND HOB > 30. PT IS IN NO APPARENT RESPIRATORY DISTRESS AT THIS TIME: RR 20, SPO2 97%, AND COARSE BREATH SOUNDS ON THE UPPER LOBES AND COARSE BREATH SOUNDS ON THE LOWER BASES. HHN TX GIVEN ORDERED WITH NO ADVERSE REACTIONS. SUCTION SMALL AMOUNT OF WANG THICK SECRETIONS FROM ETT. WILL CONTINUE TO MONITOR PT.
[2019-09-13] MEDS: traZODone 50 MG TAB PO SCH (20:31)
--- NOTE | 2019-09-13 22:00 | NUR ---
REPOSITIONED WITH PRESSURE AREAS OFFLOADED. ORAL CARE PROVIDED. FLACC O. SAFETY PRECAUTIONS REMAIN IN PLACE. BED LOW AND LOCKED WITH SIDE RAILS UP X3. WILL CONT TO MONITOR.
[2019-09-13] MEDS: MIDAZOLAM MDV 100 MG in NACL 0.9% 80 ML IV PRN (23:23)
[2019-09-14] VITALS (106 sets, daily range): BP systolic 91–147; BP diastolic 47–105
--- NOTE | 2019-09-14 | NUR ---
PT RESTING IN BED. FLACC 0. SAFETY PRECAUTIONS REMAIN IN PLACE. WILL CONT TO MONITOR
--- NOTE | 2019-09-14 02:00 | NUR ---
REPOSITIONED AT THIS TIME WITH PRESSURE AREAS OFFLOADED. SAFETY PRECAUTIONS IN PLACE. WILL CONT TO MONITOR.
--- NOTE | 2019-09-14 04:00 | NUR ---
BED BATH PROVIDED AT THIS TIME. ORAL CARE PROVIDED. FLACC 0. BED LOW AND LOCKED. HOB 30 DEGREES. WILL CONT TO MONITOR.
[2019-09-14] MEDS: MEROPENEM 500 MG in NACL 0.9% 50 ML IV SCH ×3 (04:28→21:41)
[2019-09-14] MEDS: ACETYLCYSTEINE 10% (100 MG/ML) 100 MG/ML VIAL INH SCH ×3 (06:45→20:22)
[2019-09-14] MEDS: ALBUTEROL SULFATE/IPRATROPIU 3 ML SOL IH SCH ×3 (06:45→20:22)
[2019-09-14 06:58] LABS: BASOPHILS % (AUTO) 0.1 % (0.0-2.0); EOSINOPHILS # (AUTO) 0.1 K/uL (0-0.4); EOSINOPHILS % (AUTO) 0.4 % (0.0-4.0); HEMATOCRIT 25.3 % (36-48); HEMOGLOBIN 8.9 g/dL (12.0-16.0); LYMPHOCYTES # (AUTO) 1.6 K/uL (2.5-16.5); LYMPHOCYTES % (AUTO) 8.1 % (20.5-51.1); MEAN CORPUSCULAR HEMOGLOBIN 32 pg (27-31); MEAN CORPUSCULAR HGB CONC 35 g/dL (33-37); MONOCYTES # (AUTO) 0.8 K/uL (0.8-1.0); MONOCYTES % (AUTO) 4.1 % (1.7-9.3); NEUTROPHILS # (AUTO) 17.5 K/uL (1.8-7.7); NEUTROPHILS % (AUTO) 87.3 % (42.2-75.2); PLATELET COUNT (AUTO) 162 K/uL (140-450); RED BLOOD CELL COUNT(AUTO) 2.81 MIL/uL (4.20-5.40); RED CELL DISTRIBUTION WIDTH 13.2 % (11.6-13.7)
[2019-09-14 06:59] LABS: ANION GAP 10.3 (8-16); CARBON DIOXIDE 26.7 mmol/L (21-32); CREATININE 0.9 mg/dL (0.6-1.3)
[2019-09-14 07:05] LABS: MAGNESIUM 1.8 mg/dL (1.8-2.4); PHOSPHORUS 1.5 mg/dL (2.5-4.9)
--- NOTE | 2019-09-14 07:16 | NUR ---
RECIVED PT ON VENT WITH SETTINGS CHARTED BREATH SOUNDS PRESENT BILAT CLEAR SXN PT WITH MIN AMT OFF WHITE SECS ETT SITE SECURE AMBU BAG AT BEDSIDE VENT PLUGGED INTO RED OUTLET WILL CONTINUE TO MONITOR PT ON VENT
--- NOTE | 2019-09-14 07:30 | NUR ---
RECEIVED BEDSIDE REPORT FROM CAMPAIGN MANAGER RN. PT IS SEDATED, RASS -1. FALCC 0. PERRL. TEMP 98.0. NORMAL SINUS RHYTHM ON MONITOR. S1 S2 HEARD. CAP REFILL < 2 SEC. PULSES PALPABLE TO ALL EXTREMITIES. PT IS ETT TO VENT W/ SETTINGS: A/C VC FIO2 30%, VT 450, RR 20, PEEP 5. ETT 24 CM TAPED AT LIP LINE. LUNGS SOUND CLEAR BILATERALLY. NO SOB NOTED. BREATHING EVEN AND UNLABORED. NGT IN PLACE TO LEFT NARE, PLACEMENT CONFIRMED, NO RESIDUALS. ABDOMEN ROUND, SOFT, NONTENDER W/ ACTIVE BOWEL SOUNDS X 4 QUADRANTS. PICC LINE TO RIGHT UPPER ARM AND PERIPHERAL IV G20 TO RIGHT FOREARM ASYMPTOMATIC, PATENT AND INTACT. PT IS RECEIVING LEVOPHED DRIP AT 8 MCG/MIN, VERSED DRIP AT 4 MG/HR, HEPARIN DRIP AT 800 UNITS/HR AND IV FLUID 1/2NS AT 50 ML/HR. BULL CATH IN PLACE DRAINING CLEAR DARK YELLOW URINE TO GRAVITY. SKIN INTACT, DRY AND WARM TO TOUCH. SCDS IN PLACE FOR VTE PROPHYLAXIS. HOB AT 30 DEGREES. BED IN LOWEST POSITION, LOCKED. CALL LIGHT WITHIN REACH. SAFETY PRECAUTIONS IN PLACE. NO S/SX OF DISTRESS NOTED AT THIS TIME. WILL CONTINUE TO MONITOR.
--- NOTE | 2019-09-14 08:25 | NUR ---
DR. VAUGHN IN TO SEE PT. WILL FOLLOW UP ON ORDERS.
--- NOTE | 2019-09-14 08:30 | NUR ---
DR. GILLETTE AND RESIDENT GROUP IN TO SEE PT. DR. ROBLES MADE AWARE OF POTASSIUM LEVEL 3.0 AND PHOSPHORUS 1.5. WILL FOLLOW UP ON ORDERS.
[2019-09-14] MEDS ORDERED: KCL 20 MEQ/WATER INJ PREMIX 200 ML IV SCH (09:00)
[2019-09-14] MEDS ORDERED: VANCOMYCIN 750 MG in DEXTROSE 5% 250 ML IV SCH (09:00)
[2019-09-14] MEDS ORDERED: SODIUM PHOS / POTASSIUM PHOS 1 PKT PDR NG SCH (09:00)
[2019-09-14] MEDS: VANCOMYCIN 1,000 MG in DEXTROSE 5% 250 ML IV SCH (09:21)
[2019-09-14] MEDS: OXYBUTYNIN 5 MG TAB PO SCH ×2 (09:21→20:55)
[2019-09-14] MEDS: LACTULOSE 20 GM/30 ML UDC PO SCH (09:21)
[2019-09-14] MEDS: OLANZapine 2.5 MG TAB PO SCH (09:22)
[2019-09-14] MEDS: clonazePAM 0.5 MG TAB GT SCH (09:22)
[2019-09-14] MEDS: FAMOTIDINE 20 MG TAB PO SCH (09:22)
[2019-09-14] MEDS: OSELTAMIVIR PHOSPHATE 30 MG CAP PO SCH ×2 (09:23→20:57)
[2019-09-14] MEDS: LACTOBACILLUS RHAMNOSUS GG 1 EACH CAP PO SCH (09:23)
[2019-09-14] MEDS: DOCUSATE 100 MG/10 ML UDC GT SCH ×2 (09:23→22:08)
[2019-09-14] MEDS: FLUoxetine 20 MG CAP PO SCH (09:23)
[2019-09-14] MEDS: risperiDONE 1 MG TAB PO SCH ×2 (09:24→20:56)
--- NOTE | 2019-09-14 09:30 | NUR ---
MEDICATIONS ADMINISTERED ORDERED. PT TOLERATED WELL.
--- NOTE | 2019-09-14 10:20 | NUR ---
PT SEEN AND EXAMINED BY DR. ELKINS. NO NEW ORDER RECEIVED AT THIS TIME.
--- NOTE | 2019-09-14 12:00 | NUR ---
VAP ORAL CARE GIVEN. TURNED AND REPOSITIONED FOR COMFORT AND PRESSURE AREAS OFF LOADED. PT STILL ON LEVOPHED AND VERSED DRIPS. RASS -1. AFEBRILE. FLACC 0. SAFETY PRECAUTIONS IN PLACE. WILL CONTINUE TO MONITOR.
--- NOTE | 2019-09-14 14:20 | NUR ---
ROSARIO UMNOZ OF [facility]S HOME IN THE UNIT. UPDATES GIVEN ON PT'S CONDITION.
--- NOTE | 2019-09-14 16:00 | NUR ---
VAP ORAL CARE GIVEN. TURNED AND REPOSITIONED. PT TOLERATED WELL.
--- NOTE | 2019-09-14 17:44 | NUR ---
CONTINUED TO MONITOR PT ON VENT WITH SETTINGS CHARTED BREATH SOUNDS PRESENT BILAT COARSE SXN PT WITH MIN AMT OFF WHITE SECS ETT SECURE AMBU BAG AT BEDSIDE VENT PLUGGED INTO RED OUTLET
--- NOTE | 2019-09-14 19:21 | NUR ---
REPORT GIVEN TO AUDIO VISUAL DESIGN ENGINEER RN FOR CONTINUITY OF CARE. NO S/SX OF ACUTE DISTRESS NOTED AT THIS TIME.
--- NOTE | 2019-09-14 19:30 | NUR ---
RECEIVED REPORT FROM LATA PATIENT IS INTUBATED WITH ETT SIZE NO.7.5 AND ON CONTINOUS MRCHANICAL VENT ON AC VC WITH FIO2 30%,PEEP OF 5.PATIENT IS ASLEEP AT THIS TIME AND PATIENT IS ON VERSED DRIP AT 4M/HRAND ON LEVOPHED AT 8 MCG/MIN INFUSING THRU HIS PICC LINE ON RIGHT UPPER FOREARM.PATIENT IS IN SINUS RYTHM.NGT IN PLACE ON LEFT NARES AND CLAMPED PATIENT IS NPO AND NGT STAS FOR MEDS ONLY.BULL CATH IN PLace urine is clear mikey. patient repositioned to side with head of bewd elevated
--- NOTE | 2019-09-14 20:22 | NUR ---
RECEIVED INTUBATED PT WITH ETT SIZE 7.5 SECURED WITH ANCHOR-FAST AT 23CM @ THE TEETH. PT IS ON VENT SETTINGS AC 20, 450, PEEP 5, FiO2 30%. VENT PLUGGED IN RED OUTLET, ALARMS SET AND AUDIBLE, BVM AT BEDSIDE, AND HOB > 30. PT IS IN NO APPARENT RESPIRATORY DISTRESS AT THIS TIME: RR 20, HR 86, SPO2 97%, AND COARSE BREATH SOUNDS ON THE UPPER LOBES AND LOWER BASES. HHN TX GIVEN ORDERED WITH NO ADVERSE REACTIONS. SUCTION SMALL AMOUNT OF YELLOW THICK SECRETIONS FROM ETT. WILL CONTINUE TO MONITOR PT.
--- NOTE | 2019-09-14 21:00 | NUR ---
PATIENT IS AWAKE AND APPEARING ANXIOUS NOW SCRATCHING HER FACE AND NOSE AND SOMETIMES TRIES TO HOLD THE ETT. PATIENT IS SHOWING FASCIAL FROWNING. FENTANYL DRIP RESTARTED. AT 0.5MCG/KG/MIN
[2019-09-14] MEDS: traZODone 50 MG TAB PO SCH (21:07)
[2019-09-14] MEDS ORDERED: fentaNYL 0.05 MG/ML VIAL ONE (21:25)
[2019-09-14] MEDS: fentaNYL 1 MG in NACL 0.9% 80 ML IV PRN (21:55)
[2019-09-15] VITALS (98 sets, daily range): BP systolic 84–138; BP diastolic 39–84
[2019-09-15] MEDS: VANCOMYCIN 1,000 MG in DEXTROSE 5% 250 ML IV SCH ×2 (03:12→20:44)
[2019-09-15] MEDS: fentaNYL 1 MG in NACL 0.9% 80 ML IV PRN (03:32)
[2019-09-15] MEDS: MEROPENEM 500 MG in NACL 0.9% 50 ML IV SCH ×3 (05:46→20:44)
[2019-09-15 06:24] LABS: BASOPHILS % (AUTO) 0.3 % (0.0-2.0); EOSINOPHILS # (AUTO) 0.1 K/uL (0-0.4); EOSINOPHILS % (AUTO) 1.4 % (0.0-4.0); HEMOGLOBIN 8.9 g/dL (12.0-16.0); LYMPHOCYTES # (AUTO) 2.2 K/uL (2.5-16.5); LYMPHOCYTES % (AUTO) 23.8 % (20.5-51.1); MEAN CORPUSCULAR HEMOGLOBIN 32 pg (27-31); MEAN CORPUSCULAR HGB CONC 36 g/dL (33-37); MEAN CORPUSCULAR VOLUME 90.7 fL (80-94); MONOCYTES # (AUTO) 0.5 K/uL (0.8-1.0); MONOCYTES % (AUTO) 5.5 % (1.7-9.3); NEUTROPHILS # (AUTO) 6.3 K/uL (1.8-7.7); PLATELET COUNT (AUTO) 162 K/uL (140-450); RED BLOOD CELL COUNT(AUTO) 2.76 MIL/uL (4.20-5.40); RED CELL DISTRIBUTION WIDTH 13.1 % (11.6-13.7); WHITE BLOOD COUNT (AUTO) 9.2 K/uL (4.8-10.8)
[2019-09-15 06:59] LABS: ANION GAP 10.3 (8-16); CARBON DIOXIDE 26.9 mmol/L (21-32); CREATININE 0.8 mg/dL (0.6-1.3); POTASSIUM 3.2 mmol/L (3.5-5.1)
[2019-09-15 07:01] LABS: MAGNESIUM 1.2 mg/dL (1.8-2.4); PHOSPHORUS 1.6 mg/dL (2.5-4.9)
--- NOTE | 2019-09-15 07:15 | NUR ---
RECEIVED REPORT BEDSIDE FROM SCHOOL COMMISSIONER RN, PT IS AT RASS -1, FLACC 0, PERRL, TEMP 97.9F, NORMAL SINUS RHYTHM HR 71, PULSES PALPABLE BILATERALLY UPPER AND LOWER EXTREMITIES, PT IS ETT TO VENT FI02 25%, AC 20 VT 450 RESP 20, PEEP 5, NO SOB OBSERVED LUNG SOUNDS COARSE BILATERAL BREATHING EVEN UNLABORED. PATIENT HAS PATENT NG TUBE LEFT NARE WITH RESIDUAL 0ML, ABDOMEN NON TENDER WITH ACTIVE BOWEL SOUNDS ALL 4 QUADRANTS, PT HAS PICC LINE RIGHT UPPER ARM, IV 20 GAUGE RIGHT FOREARM, VERSED DRIP 6 ML/HR, HALF NS 50 ML/HR, NOREPINEPHRINE INFUSING 4 MCG/MIN, BULL CATHETER DRAINING CLEAR DARK YELLOW URINE. SKIN IS INTACT WITH SCARS NOTED ALONG THE PATIENTS BACK SKIN IS BLANCHABLE. FALL PRECAUTIONS, IN PLACE NO RESTRAINTS IN PLACE, NO AGITATION OBSERVED, HOB ABOVE 30 DEGREE, BED AT LOWEST SETTING. Addendum: 09/15/19 at 1610 by Stoney Ivey RN PATIENT DRY WEIGHT 63 KG
[2019-09-15] MEDS: ACETYLCYSTEINE 10% (100 MG/ML) 100 MG/ML VIAL INH SCH ×3 (07:28→18:54)
[2019-09-15] MEDS: ALBUTEROL SULFATE/IPRATROPIU 3 ML SOL IH SCH ×3 (07:28→18:54)
[2019-09-15] MEDS: LACTULOSE 20 GM/30 ML UDC PO SCH (08:27)
[2019-09-15] MEDS: DOCUSATE 100 MG/10 ML UDC GT SCH ×2 (08:32→20:44)
[2019-09-15] MEDS: LACTOBACILLUS RHAMNOSUS GG 1 EACH CAP PO SCH (08:34)
[2019-09-15] MEDS: OLANZapine 2.5 MG TAB PO SCH (08:34)
[2019-09-15] MEDS: risperiDONE 1 MG TAB PO SCH ×2 (08:35→20:45)
[2019-09-15] MEDS: FAMOTIDINE 20 MG TAB PO SCH (08:35)
[2019-09-15] MEDS: OXYBUTYNIN 5 MG TAB PO SCH ×2 (08:35→20:47)
[2019-09-15] MEDS: FLUoxetine 20 MG CAP PO SCH (08:38)
[2019-09-15] MEDS: clonazePAM 0.5 MG TAB GT SCH (08:39)
--- NOTE | 2019-09-15 08:45 | NUR ---
pt placed on cpap weaning attempt cpap peep 5 ps 10 pt unable to [address] dr damon aware
[2019-09-15] MEDS ORDERED: POTASSIUM CHLORIDE 20% 40 MEQ/15 ML UDC PO SCH (09:00)
[2019-09-15] MEDS ORDERED: POTASSIUM CHLORIDE 20% 40 MEQ/15 ML UDC GT SCH (09:00)
[2019-09-15] MEDS ORDERED: MAG SULF 2000 MG/WATER PREMIX 50 ML IV SCH (09:00)
[2019-09-15] MEDS: OSELTAMIVIR PHOSPHATE 75 MG CAP PO SCH ×2 (09:44→20:45)
--- NOTE | 2019-09-15 10:00 | NUR ---
BATHED PT AND ASSESSED SKIN INTEGRITY, SKIN INTACT AND DRY. POSITIONED PATIENT IN A POSITION OF COMFORT SUPPORTED WITH PILLOWS TO PREVENT PRESSURE INJURY
[2019-09-15] MEDS ORDERED: POTASSIUM PHOSPHATE 15 MM in NACL 0.9% 250 ML IV SCH (11:00)
[2019-09-15] MEDS: NACL 0.45% 1,000 ML IV SCH ×2 (11:03→20:50)
--- NOTE | 2019-09-15 12:00 | NUR ---
PT AGITATED CHEWING ON TUBE RT PUT ON BITE GAURD TURNED OFF LIGHT FOR PT, PT CALMED DOWN WILL CONTINUE TO MONITOR
--- NOTE | 2019-09-15 14:00 | NUR ---
STARTED TUBE FEEDING FOR PT 20ML FIRST 4 HOURS AND 150 ML WATER FLUSH Q4 HOURS, PATIENT SEDATED RASS -1 WILL CONTINUE TO MONITOR
--- NOTE | 2019-09-15 15:05 | NUR ---
09/15/19 RD FOLLOW UP COMPLETED PLEASE REFER TO NUTRITION ASSESSMENT UNDER CARE ACTIVITY FOR ESTIMATED NUTRITIONAL NEEDS. 1. RECOMMEND VITAL AF 1.2 @ 50 ML/HR X 24HR -THIS WILL PROVIDE 1440 KCAL AND 90 GM OF PROTEIN WHICH MEETS 100% OF ESTIMATED NUTRIENT NEEDS 2. RECOMMEND FREE WATER FLUSH OF 115 ML Q6H 3. IF PATIENT IS EXTUBATED, AWAKE AND ALERT, CONSIDER A SWALLOW EVALUATION TO BEGIN PO INTAKE 4. RD TO FOLLOW-UP 2-3 DAYS, HIGH RISK ANTOLIN COPPOLA RD
--- NOTE | 2019-09-15 17:15 | NUR ---
CONTINUED TO MONITOR PT ON VENT WITH SETTINGS CHARTED BREATH SOUNDS PRESENT BILAT RALES SXN PT WITH MIN AMT OFF WHITE SECS BITE BLOCK PLACED ON PT PT BITTING ETT ETT SECURE AMBU BAG AT BEDSIDE VENT PLUGGED INTO RED OUTLET
--- NOTE | 2019-09-15 18:00 | NUR ---
CHANGED TUBE FEEDING TO 40ML/HR WITH 150 WATER FLUSH Q4 AFTER CHECKING RESIDUALS WILL CONTINUE TO MONITOR
--- NOTE | 2019-09-15 19:00 | NUR ---
GAVE CHANGE OF SHIFT REPORT TO MACHINE SEWER NURSE PT STABLE
--- NOTE | 2019-09-15 19:15 | NUR ---
PT SEDATED, RASS-1 @ THIS TIME. FLACC 0. FENTANYL @ 1.0 MCG/KG/HR, VERSED @ 6 MG/HR.
--- NOTE | 2019-09-15 19:15 | NUR ---
RECEIVED BEDSIDE SHIFT REPORT FROM DAY SHIFT NURSE. PT APPEARS RESTLESS. A&OX1 TO NAME. GCS=9. ABLE TO FOLLOW COMMANDS. EYES PERRL 3MM. PT HAS NGT OF THE LEFT NARE. PT IS ETT TO VENT. TUBE TAPED AT 25. FIO2 25% VT 450 RATE 20 PEEP 5. LUNG SOUNDS CLEAR THROUGHOUT ALL LOBES. BOWEL SOUNDS PRESENT. PT HAS TUBE FEEDING VIA NEPRO AT 40 ML/HR W/ FWF AT 150 Q4HR. PT HAS BULL CATHETER. CLEAR YELLOW URINE NOTED. PT HAS PIV ON RIGHT FOREARM 20G THAT IS ASYMPTOMATIC, PATENT AND INTACT. PT ALSO HAS RIGHT UPPER ARM PICC LINE. PT HAS VERSED AT 5 MG/HR AND FENTANYL AT 1 MCG/KG/MIN TO MAINTAIN RASS OF -1. PT IS ON LEVOPHED AT 4 MCG/MIN TO MAINTAIN SBP ABOVE 90. THERE IS OLD SCARRING AND SCRATCHES IN THE SACRAL AREA. BED IS LOCKED IN LOW POSITION, CALL LIGHT WITHIN REACH. WILL CONTINUE TO MONITOR.
--- NOTE | 2019-09-15 19:25 | NUR ---
DR AGUILAR @ BEDSIDE, PT HAS EYES OPEN RESTLESS @ THIS TIME. RR 28-30. DR AGUILAR STATED SHE WOULD TALK TO DR SANTOS MINING SUPPORT WORKER REGARDING SEDATION 1934: RASS SCORE CHANGED RASS SCORE TO -2. Addendum: 09/15/19 at 2207 by Herve Marroquin RN * DR AGUILAR ORDERED TO INCREASE SEDATION RASS -2
[2019-09-15] MEDS: traZODone 50 MG TAB PO SCH (20:46)
--- NOTE | 2019-09-15 21:17 | NUR ---
PT APPEARS RESTLESS, ANXIOUS, RR28-30 FOLLOWING COMMANDS @ THIS TIME. RASS +1, FENTANYL INCREASED TO 94.5 MCG/HR, SAFETY PRECAUTIONS IN PLACE, TUBES LINES REPOSITIONED FROM PT REACH. WILL CONTINUE TO OBSERVE.
--- NOTE | 2019-09-15 21:32 | NUR ---
PT APPEARS RELAXED, SEDATED, FLACC 0, RASS-2 RR20 SPO2 98%.
--- NOTE | 2019-09-15 22:23 | NUR ---
CHECKED ON PT. PT EYES ARE CLOSED. APPEARS TO BE RESTING. NO APPARENT SIGNS OF DISTRESS. BED IS LOCKED IN LOW POSITION. CALL LIGHT WITHIN REACH. WILL CONTINUE TO MONITOR.
[2019-09-15] MEDS: MIDAZOLAM MDV 100 MG in NACL 0.9% 80 ML IV PRN (23:18)
[2019-09-15] MEDS: NOREPINEPHRINE 16 MG in DEXTROSE 5% 250 ML IV PRN (23:25)
--- NOTE | 2019-09-15 23:45 | NUR ---
SPOKE TO MD FOR CHANGE IN DIET FORMULA FROM KRISTEN TO VITAL AF.
[2019-09-16] VITALS (105 sets, daily range): BP systolic 84–136; BP diastolic 45–84
--- NOTE | 2019-09-16 00:30 | NUR ---
CHECKED IN ON PT. PT EYES ARE CLOSED. APPEARS TO BE SLEEPING. NO APPARENT SIGNS OF DISTRESS. BED IS LOCKED IN LOWEST POSITION. CALL LIGHT WITHIN REACH. WILL CONTINUE TO MONITOR.
--- NOTE | 2019-09-16 00:35 | NUR ---
PROVIDED VAP ORAL CARE AND TURNED PT.
--- NOTE | 2019-09-16 02:50 | NUR ---
pt restless, fighting ventilator, coughing. pt suctioned, no secretions noted. Rass+2 Fentanyl drip increased to 126 mcg/kg/hr.
[2019-09-16] MEDS: LORazepam 2 MG/ML VIAL IVP PRN ×5 (03:06→21:42)
--- NOTE | 2019-09-16 03:06 | NUR ---
pt agitated, Ett tube placement assessed @ 22cm @ this time, lung sounds equal clear even RR 28. Rass 0 to -1 @ this time. PRN ativan given for agitaiton. [id number] @ this time. RT called for ETT placement. RT then advanced tubing to correct positioning to 24 cm@ teeth.
--- NOTE | 2019-09-16 03:11 | NUR ---
pt reassessed, sedated rass -2 @ this time. flacc 0. pt repositioned for comfort. will continue to observe.
--- NOTE | 2019-09-16 04:00 | NUR ---
STOPPED NEPRO TUBE FEEDING. STARTED VITAL AF 20 ML/HR W/ FWF 115 Q6HR.
[2019-09-16] MEDS: fentaNYL 1 MG in NACL 0.9% 80 ML IV PRN ×3 (04:02→20:23)
[2019-09-16] MEDS: MEROPENEM 500 MG in NACL 0.9% 50 ML IV SCH ×3 (05:08→20:40)
--- NOTE | 2019-09-16 06:30 | NUR ---
MD @ BEDSIDE PT AWAKE TRYING TO PULL TUBES, STATED TO INCREASE SEDATION. FENTANYL DRIP INCREASED. WILL CONTINUE TO OBSERVE.
[2019-09-16 06:31] LABS: BASOPHILS % (AUTO) 0.4 % (0.0-2.0); EOSINOPHILS # (AUTO) 0.1 K/uL (0-0.4); EOSINOPHILS % (AUTO) 1.4 % (0.0-4.0); HEMATOCRIT 26.5 % (36-48); HEMOGLOBIN 9.2 g/dL (12.0-16.0); LYMPHOCYTES # (AUTO) 1.4 K/uL (2.5-16.5); LYMPHOCYTES % (AUTO) 21.4 % (20.5-51.1); MEAN CORPUSCULAR HEMOGLOBIN 32 pg (27-31); MEAN CORPUSCULAR HGB CONC 35 g/dL (33-37); MEAN CORPUSCULAR VOLUME 92.9 fL (80-94); MONOCYTES # (AUTO) 0.6 K/uL (0.8-1.0); MONOCYTES % (AUTO) 8.6 % (1.7-9.3); NEUTROPHILS # (AUTO) 4.6 K/uL (1.8-7.7); NEUTROPHILS % (AUTO) 68.2 % (42.2-75.2); PLATELET COUNT (AUTO) 179 K/uL (140-450); RED BLOOD CELL COUNT(AUTO) 2.86 MIL/uL (4.20-5.40); RED CELL DISTRIBUTION WIDTH 13.2 % (11.6-13.7); WHITE BLOOD COUNT (AUTO) 6.7 K/uL (4.8-10.8)
[2019-09-16 06:56] LABS: MAGNESIUM 1.2 mg/dL (1.8-2.4); PHOSPHORUS 3.5 mg/dL (2.5-4.9)
[2019-09-16 07:04] LABS: ANION GAP 12.8 (8-16); CARBON DIOXIDE 25.8 mmol/L (21-32); CREATININE 0.8 mg/dL (0.6-1.3); POTASSIUM 3.6 mmol/L (3.5-5.1)
[2019-09-16] MEDS: ALBUTEROL SULFATE/IPRATROPIU 3 ML SOL IH SCH ×3 (07:12→19:37)
[2019-09-16] MEDS: ACETYLCYSTEINE 10% (100 MG/ML) 100 MG/ML VIAL INH SCH ×3 (07:12→19:37)
--- NOTE | 2019-09-16 07:15 | NUR ---
RECEIVED CHANGE OF SHIFT REPORT FROM PM RN
--- NOTE | 2019-09-16 08:00 | NUR ---
G TUBE RESIDUAL 40ML, INCREASED TUBE FEEDING TO 40ML/HR, WATER FLUSH 115ML Q6H
[2019-09-16] MEDS: FAMOTIDINE 20 MG TAB PO SCH (08:23)
[2019-09-16] MEDS: OSELTAMIVIR PHOSPHATE 75 MG CAP PO SCH ×2 (08:23→20:40)
[2019-09-16] MEDS: LACTOBACILLUS RHAMNOSUS GG 1 EACH CAP PO SCH (08:24)
[2019-09-16] MEDS: OLANZapine 2.5 MG TAB PO SCH (08:25)
[2019-09-16] MEDS: risperiDONE 1 MG TAB PO SCH ×2 (08:26→20:40)
[2019-09-16] MEDS: LACTULOSE 20 GM/30 ML UDC PO SCH (08:26)
[2019-09-16] MEDS: DOCUSATE 100 MG/10 ML UDC GT SCH ×2 (08:26→20:40)
[2019-09-16] MEDS: FLUoxetine 20 MG CAP PO SCH (08:28)
[2019-09-16] MEDS: clonazePAM 0.5 MG TAB GT SCH (08:29)
[2019-09-16] MEDS: OXYBUTYNIN 5 MG TAB PO SCH ×2 (08:29→20:40)
[2019-09-16] MEDS: VANCOMYCIN 1,000 MG in DEXTROSE 5% 250 ML IV SCH ×2 (08:29→21:37)
[2019-09-16] MEDS ORDERED: MAG SULF 2000 MG/WATER PREMIX 50 ML IV SCH (09:30)
--- NOTE | 2019-09-16 09:50 | NUR ---
DR YEE WANTS TO SEE IF PT CAN DO WEANING TRIAL. DR YEE SAID TRY TO DECREASE SEDATION. IF PT CAN'T NOT BE WEAN OFF, TURN SEDATION BACK.
--- NOTE | 2019-09-16 10:00 | NUR ---
SEDATION WAS TURNED OFF AT 0950 FOR SBT. PATIENT BECAME APNEIC EVEN THOUGH PT WAS ABLE TO OPEN EYES AND FOLLOW COMMANDS. MADE DR YEE AWARE.
--- NOTE | 2019-09-16 10:00 | NUR ---
ATTEMPTED TO PLACE PT ON SBT CPAP 5 PS 10 WITH NURSE BEDSIDE PT BECAME APNEIC. RETRIED PT ON SBT PT ALARMS TO LOW RR TO APNEIC.
--- NOTE | 2019-09-16 10:30 | NUR ---
PT NOT ABLE TO TOLERATE SBT. RESUMED SEDATION
--- NOTE | 2019-09-16 12:30 | NUR ---
G TUBE RESIDUAL 90ML. KEPT THE RATE AT 40ML WILL RECHECK LATER.
[2019-09-16] MEDS: NACL 0.45% 1,000 ML IV SCH (12:34)
--- NOTE | 2019-09-16 14:24 | NUR ---
PT IRRITABLE AT THIS TIME MOVING AROUND IN BED. NURSE BEDSIDE. WILL CONTINUE TO MONITOR.
--- NOTE | 2019-09-16 15:20 | NUR ---
MADE DR ROBLES AWARE THAT PT URINE OUTPUT IS ABOUT 2300ML SO FAR FOR THE SHIFT.
--- NOTE | 2019-09-16 17:39 | NUR ---
PT REMAINS ON DOCUMENTED VENT SETTINGS. ETT IS SECURE WITH PATENT AIRWAY. VENT ALARMS REMAIN ON AND FUNCTIONING.
[2019-09-16] MEDS: MIDAZOLAM MDV 100 MG in NACL 0.9% 80 ML IV PRN (18:00)
--- NOTE | 2019-09-16 19:30 | NUR ---
REPORT RECEIVED FROM AM NURSE AT BEDSIDE. PT IN STABLE CONDITION. AAOX1-2. NO COMPLAINTS OF PAIN. FLACC 0. NO SOB ET TUBE TO VENT. VENT SETTINGS ACVC FIO2 25%, VT 450, RR 20, PEEP 5. AFEBRILE. PT HAS NG TUBE LEFT NARES RUNNING TUBE FEEDING VITAL AF 1.2@40ML/HR WITH 115ML H2O FLUSH Q6H PATENT AND INTACT. BULL IN PLACE. RASS-2. DRY WEIGHT 63KG. IV SITE R FA 20G RUNNING 1/2NS@50ML/HR PATENT AND INTACT. R UA PICC LINE DOUBLE LUMEN RUNNING LEVOPHED@6MCG/MIN OR 5.61ML/HR PATENT AND INTACT. FENTANYL@2.5MCG/KG/HR OR 15.75ML/HR PATENT AND ITNACT. VERSED 7MG/HR OR 7ML/HR PATENT AND INTACT. SKIN WARM, DRY, AND INTACT WITH NO OPEN WOUNDS. BED LOCKED IN LOW POSITION. CALL TONG WITHIN REACH. SAFETY PRECAUTION IN PLACE. ALL NEEDS MET AT THIS TIME.
--- NOTE | 2019-09-16 20:00 | NUR ---
ORAL CARE GIVEN.
--- NOTE | 2019-09-16 20:23 | NUR ---
FENTANYL NEW BAG HUNG. PREVIOUS BAG 0ML WASTE.
--- NOTE | 2019-09-16 20:40 | NUR ---
ALLAN TORRES AND RUNNING. COLACE, KLONIPIN, DITROPAN, RISPERDAL, TAMIFLU, AND DESYREL GIVEN THROUGH GTUBE. HEPARIN GIVEN SUBQ. PT TOLERATED WELL.
[2019-09-16] MEDS: traZODone 50 MG TAB PO SCH (20:41)
--- NOTE | 2019-09-16 21:37 | NUR ---
OSWALD TORRES AND CYNTHIA.
--- NOTE | 2019-09-16 21:42 | NUR ---
ATIVAN GIVEN FOR AGITATION. PT TOLERATED WELL.
[2019-09-17] VITALS (102 sets, daily range): BP systolic 82–149; BP diastolic 36–120
--- NOTE | 2019-09-17 | NUR ---
ORAL CARE GIVEN.
--- NOTE | 2019-09-17 00:16 | NUR ---
INCREASED VERSED DRIP DUE TO SEDATION LEVEL DECREASING. RASS-1. INCREASED VERSED TO 8MG/HR.
[2019-09-17] MEDS: fentaNYL 1 MG in NACL 0.9% 80 ML IV PRN ×4 (02:35→19:10)
--- NOTE | 2019-09-17 02:35 | NUR ---
FENTANYL DRIP NEW BAG HUNG. 0ML WASTE PREVIOUS BAG.
[2019-09-17] MEDS: MEROPENEM 500 MG in NACL 0.9% 50 ML IV SCH ×4 (02:45→21:08)
[2019-09-17] MEDS: LORazepam 2 MG/ML VIAL IVP PRN ×2 (02:45→20:04)
--- NOTE | 2019-09-17 02:45 | NUR ---
ATIVAN GIVEN FOR AGITATION. PT TOLERATED WELL.
--- NOTE | 2019-09-17 03:15 | NUR ---
FENTANYL INCREASED TO 18.9ML/HR RASS-1. INCREASED RATE FOR GOAL RASS-2
--- NOTE | 2019-09-17 04:15 | NUR ---
BULL CARE COMPLETE. ORAL CARE DONE. LINENS CHANGED.
--- NOTE | 2019-09-17 04:49 | NUR ---
ALLAN HUNG AND RUNNING. PT TOLERATING WELL.
--- NOTE | 2019-09-17 05:00 | NUR ---
LEVOPHED DRIP REDUCED BY 2MCG/MIN. CURRENTLY@4MCG/MIN OR 3.73ML/HR.
--- NOTE | 2019-09-17 05:30 | NUR ---
FEEDING CHANGED. Addendum: 09/17/19 at 0614 by Steve Ahumada RN 0 ML RESIDUAL.
--- NOTE | 2019-09-17 06:28 | NUR ---
NEW FENTANYL BAG HUNG. PREVIOUS BAG 0ML RESIDUAL.
[2019-09-17] MEDS: ALBUTEROL SULFATE/IPRATROPIU 3 ML SOL IH SCH ×3 (06:51→19:34)
[2019-09-17] MEDS: ACETYLCYSTEINE 10% (100 MG/ML) 100 MG/ML VIAL INH SCH (06:51)
[2019-09-17] MEDS: MIDAZOLAM MDV 100 MG in NACL 0.9% 80 ML IV PRN (06:51)
--- NOTE | 2019-09-17 06:51 | NUR ---
NEW VERSED BAG HUNG. PREVIOUS BAG 0ML WASTED.
--- NOTE | 2019-09-17 06:51 | NUR ---
RECEIVED INTUBATED PT WITH A 7.5 ETT SECURED @24 TEETH/GUMS ON VENT. SETTINGS AC 20, VT 450, PEEP 5 AND FIO2 25%. PT IS SEDATED AT THIS TIME NOT IN ANY DISTRESS. AIRWAY IS PATENT AND ETT IS SECURE WITH ANCHOR FAST DEVICE. VENT IS PLUGGED INTO A RED OUTLET WITH ALARMS ON AND FUNCTIONING. WILL CONTINUE TO MONITOR.
[2019-09-17 07:00] LABS: BASOPHILS # (AUTO) 0.1 K/uL (0.00-0.22); BASOPHILS % (AUTO) 0.8 % (0.0-2.0); EOSINOPHILS # (AUTO) 0.2 K/uL (0-0.4); EOSINOPHILS % (AUTO) 2.4 % (0.0-4.0); HEMATOCRIT 27.3 % (36-48); HEMOGLOBIN 9.3 g/dL (12.0-16.0); LYMPHOCYTES # (AUTO) 2.1 K/uL (2.5-16.5); LYMPHOCYTES % (AUTO) 29.3 % (20.5-51.1); MEAN CORPUSCULAR HEMOGLOBIN 32 pg (27-31); MEAN CORPUSCULAR HGB CONC 34 g/dL (33-37); MEAN CORPUSCULAR VOLUME 93.5 fL (80-94); MONOCYTES # (AUTO) 0.6 K/uL (0.8-1.0); MONOCYTES % (AUTO) 8.9 % (1.7-9.3); NEUTROPHILS # (AUTO) 4.1 K/uL (1.8-7.7); NEUTROPHILS % (AUTO) 58.6 % (42.2-75.2); PLATELET COUNT (AUTO) 216 K/uL (140-450); RED BLOOD CELL COUNT(AUTO) 2.92 MIL/uL (4.20-5.40); RED CELL DISTRIBUTION WIDTH 13.3 % (11.6-13.7)
--- NOTE | 2019-09-17 07:00 | NUR ---
RECEIVED SHIFT REPORT FROM ALISIA PALMER
[2019-09-17 07:01] LABS: MAGNESIUM 1.3 mg/dL (1.8-2.4); PHOSPHORUS 3.2 mg/dL (2.5-4.9)
--- NOTE | 2019-09-17 07:15 | NUR ---
REPORT GIVEN TO AM NURSE AT BEDSIDE. PT IN STABLE CONDITION.
[2019-09-17 07:23] LABS: ANION GAP 9.4 (8-16); CARBON DIOXIDE 29.1 mmol/L (21-32); CREATININE 0.7 mg/dL (0.6-1.3); POTASSIUM 3.5 mmol/L (3.5-5.1)
--- NOTE | 2019-09-17 08:00 | NUR ---
ORAL CARE PERFORMED
--- NOTE | 2019-09-17 09:01 | NUR ---
09/17/19 RD FOLLOW UP COMPLETED PLEASE REFER TO NUTRITION PROGRESS NOTE UNDER CARE ACTIVITY FOR ESTIMATED NUTRITION NEEDS. RD RECOMMENDATIONS: 1. RECOMMEND MOTILITY AGENT D/T HIGH GASTRIC RESIDUALS. 2. IF/WHEN GRV < 100 ML, RESUME VITAL AF 1.2 @ 20 ML/HR, INCREASING BY 10 ML Q4H TOLERATED UNTIL GOAL RATE OF 50 ML/HR IS REACHED. -THIS WILL PROVIDE 1440 KCAL AND 90GM OF PROTEIN WHICH MEETS 100% OF ESTIMATED NUTRIENT NEEDS 3. CONTINUE FWF 115 ML Q6H 4. IF PATIENT IS EXTUBATED, AWAKE AND ALERT, CONSIDER A SWALLOW EVALUATION TO BEGIN PO INTAKE 5. RD TO FOLLOW-UP 2-3 DAYS, HIGH RISK SHARONA FIELDS, MS, RDN
[2019-09-17] MEDS: DOCUSATE 100 MG/10 ML UDC GT SCH ×2 (09:27→20:11)
[2019-09-17] MEDS: LACTULOSE 20 GM/30 ML UDC PO SCH (09:27)
[2019-09-17] MEDS: OLANZapine 2.5 MG TAB PO SCH (09:28)
[2019-09-17] MEDS: LACTOBACILLUS RHAMNOSUS GG 1 EACH CAP PO SCH (09:28)
[2019-09-17] MEDS: OSELTAMIVIR PHOSPHATE 75 MG CAP PO SCH ×2 (09:28→20:11)
[2019-09-17] MEDS: FAMOTIDINE 20 MG TAB PO SCH (09:29)
[2019-09-17] MEDS: risperiDONE 1 MG TAB PO SCH ×2 (09:31→20:11)
[2019-09-17] MEDS: clonazePAM 0.5 MG TAB GT SCH (09:32)
[2019-09-17] MEDS: MAG SULF 2000 MG/WATER PREMIX 50 ML IV SCH ×2 (09:40→11:26)
[2019-09-17] MEDS: FLUoxetine 20 MG CAP PO SCH (09:41)
[2019-09-17] MEDS: OXYBUTYNIN 5 MG TAB PO SCH ×2 (09:42→20:11)
[2019-09-17] MEDS: DEXMEDETOMIDINE HCL 400 MCG in NACL 0.9% 96 ML IV PRN ×3 (10:18→22:30)
--- NOTE | 2019-09-17 11:16 | NUR ---
PT SLIGHTLY AGITATED MOVING IN BED. NOT IN RESPIRATORY DISTRESS.WILL CONTINUE TO MONITOR.
--- NOTE | 2019-09-17 11:45 | NUR ---
PRECEDEX INCREASED TO 14.17 ML/HR. VERSED DECREASED TO 5 ML/HR.
[2019-09-17] MEDS: NACL 0.45% 1,000 ML IV SCH (12:56)
--- NOTE | 2019-09-17 14:30 | NUR ---
RT AT BEDSIDE, ATTEMPTED SBT. PT DID NOT TOLERATE. APNEIC.
[2019-09-17] MEDS: NOREPINEPHRINE 16 MG in DEXTROSE 5% 250 ML IV PRN (15:41)
--- NOTE | 2019-09-17 17:10 | NUR ---
PT REMAINS ON DOCUMENTED VENT SETTINGS. ETT REMAINS SECURE WITH A PATENT AIRWAY. VENT ALARMS ON AND FUNCTIONING.
--- NOTE | 2019-09-17 19:25 | NUR ---
PT AGITATED RASS+1, ANXIOUS, REDIRECTED PT, EDUCATED PT ABOUT ETT TUBE AND SAFETY PRECAUTIONS, INCREASED PRECEDEX DRIP TO 1.2 MCG/KG/HR. WILL CONTINUE TO OBSERVE
--- NOTE | 2019-09-17 19:30 | NUR ---
REASSESSED PT, RASS-2 @ THIS TIME. WILL CONTINUE TO OBSERVE.
--- NOTE | 2019-09-17 19:35 | NUR ---
RECEIVED REPORT FROM DAY SHIFT RN. PT SEDATED RASS- 2 PRECEDEX @ 1.2 MCG/KG/HR, FENTANYL DRIP @2.0 MCG/KG/HR, OPENS EYES TO NAME UNABLE TO FOLLOW COMMANDS @ THIS TIME, PT ABLE TO X4 EXTREMITIES. ETT TO VENT 7.5, 24 CM @ TEETH, CREAMY SECRETIONS NOTED, LUNGS COARSE BREATH SOUNDS. SINUS RHYTHM 80S, PALPABLE PULSES TO EXTREMITIES, LEVOPHED DRIP @ 4 MCG/MIN. ABD SOFT NON DISTENDED, NGT TO L NARES + PLACEMENT VIA AUSCULTATION, 50 ML RESIDUAL NOTED VITAL AF TUBE FEEDING RUNNING @ 50 ML/HR. BULL CATH IN PLACE, YELLOW URINE WITH SEDIMENTS. SKIN INTACT, BLANCHABLE REDNESS NOTED. PICC LINE TO R UPPER ARM NOTED PATENT. SCDS IN PLACE, HOB > 30 DEGREES NOTED. SAFETY AND SEIZURE PRECAUTIONS IN PLACE. WILL CONTINUE TO OBSERVE.
--- NOTE | 2019-09-17 19:45 | NUR ---
RECEIVED PT FROM DAY SHIFT ON DOCUMENTED SETTINGS. VENT PLUGGED INTO RED OUTLET. BMV AT BEDSIDE. ALARMS AUDIBLE AND WORKING. ETT 7.5@ 24 SECURED WITH ANKORFAST. PT IS AWAKE AND ALERT. WILL CONT TO MONITOR
--- NOTE | 2019-09-17 20:04 | NUR ---
PT TURNED REPOSITIONED, VAP ORAL CARE DONE, PT AGITATED, FIGHTING VENTILATOR, PRN ATIVAN GIVEN. WILL CONTINUE TO OBSERVE.
--- NOTE | 2019-09-17 20:09 | NUR ---
PT RASS-2 NOW, WILL CONTINUE TO OBSERVE.
[2019-09-17] MEDS: traZODone 50 MG TAB PO SCH (20:12)
[2019-09-17] MEDS ORDERED: OLANZapine 5 MG TAB PO SCH (21:40)
--- NOTE | 2019-09-17 21:40 | NUR ---
PT AWAKE AGITATED, BITING TUBE, PAGED DR. PAGAN FOR FURTHER ORDERS, ZYPREXA PO ORDERED, WILL CONTINUE TO OBSERVE.
--- NOTE | 2019-09-17 21:59 | NUR ---
PT REEDUCATED ABOUT VENTILATOR AND ETT TUBE, ZYPREXA GIVEN PER MD ORDER. WILL CONTINUE TO OBSERVE.
--- NOTE | 2019-09-17 22:30 | NUR ---
PT CALM RELAXED IN BED, RASS-2, FLACC 0.
[2019-09-18] VITALS (96 sets, daily range): BP systolic 80–132; BP diastolic 38–88
--- NOTE | 2019-09-18 00:15 | NUR ---
VAP ORAL CARE DONE, PT TURNED AND REPOSITIONED, PT CONTINUES TO BITE ETTUBE OCCASSIONALLY, REDIRECTED PT, PT ABLE TO FOLLOW COMMANDS WILL CONTINUE TO OBSERVE.
[2019-09-18] MEDS: NACL 0.45% 1,000 ML IV SCH (03:11)
--- NOTE | 2019-09-18 03:30 | NUR ---
AM CARE DONE, PT TURNED REPOSITIONED, LINEN CHANGED, PT TOLERATED TURNING WELL, ABLE TO MOVE ON COMMAND. SCDS TAKEN OFF REAPPLIED. SKIN INTACT. NO DISTRESS NOTED.
[2019-09-18] MEDS: fentaNYL 1 MG in NACL 0.9% 80 ML IV PRN ×2 (04:12→04:18)
[2019-09-18] MEDS: MEROPENEM 500 MG in NACL 0.9% 50 ML IV SCH ×3 (04:21→20:44)
[2019-09-18] MEDS: DEXMEDETOMIDINE HCL 400 MCG in NACL 0.9% 96 ML IV PRN ×3 (05:08→20:53)
--- NOTE | 2019-09-18 05:15 | NUR ---
PT MOVING EXTREMITIES, RESTRAINTS IN PLACE, RELEASED AND REAPPLIED. PT CONTINUES TO TRY TO SWING LEGS ON TO SIDE RAILS, REDIRECTED. PT NODDING HEAD, FOLLOWING COMMANDS. WILL CONTINUE TO OBSERVE.
--- NOTE | 2019-09-18 06:06 | NUR ---
PT REMAINS ON DOCUMENTED SETTING. BMV AT BEDSIDE. VENT PLUGGED INTO RED OUTLET. ALARMS AUDIBLE AND WORKING. ETT IS SECURED WITH AN ANKORFAST. PT IS IN NO DISTRESS. WILL CONT TO MONITOR.
[2019-09-18] MEDS: ALBUTEROL SULFATE/IPRATROPIU 3 ML SOL IH SCH ×3 (07:01→19:48)
[2019-09-18 07:14] LABS: BASOPHILS # (AUTO) 0.1 K/uL (0.00-0.22); BASOPHILS % (AUTO) 0.9 % (0.0-2.0); EOSINOPHILS # (AUTO) 0.2 K/uL (0-0.4); EOSINOPHILS % (AUTO) 3.5 % (0.0-4.0); HEMATOCRIT 25.9 % (36-48); HEMOGLOBIN 8.7 g/dL (12.0-16.0); LYMPHOCYTES # (AUTO) 1.7 K/uL (2.5-16.5); LYMPHOCYTES % (AUTO) 30.1 % (20.5-51.1); MEAN CORPUSCULAR HEMOGLOBIN 32 pg (27-31); MEAN CORPUSCULAR HGB CONC 34 g/dL (33-37); MEAN CORPUSCULAR VOLUME 93.9 fL (80-94); MONOCYTES # (AUTO) 0.4 K/uL (0.8-1.0); MONOCYTES % (AUTO) 7.6 % (1.7-9.3); NEUTROPHILS # (AUTO) 3.3 K/uL (1.8-7.7); NEUTROPHILS % (AUTO) 57.9 % (42.2-75.2); PLATELET COUNT (AUTO) 212 K/uL (140-450); RED BLOOD CELL COUNT(AUTO) 2.76 MIL/uL (4.20-5.40); WHITE BLOOD COUNT (AUTO) 5.8 K/uL (4.8-10.8)
--- NOTE | 2019-09-18 07:19 | NUR ---
ATTEMPTED SBT CPAP 5 PS 10, PT INADEQUATE VT, THEN PT BECAME APNEIC. NURSE BEDSIDE AND AWARE.
--- NOTE | 2019-09-18 07:30 | NUR ---
RECEIVED REPORT FROM PM NOTE. DRY WEIGHT 63 KG. PT UNDER SEDATION: FENTANYL 12.6ML/HR, PRECEDEX 18.9ML/HR, LEVOPHED 1.87 ML/HR. IV FLUID 1/2 NS @ 50ML/HR. PT. NG TUBE FEEDING ON LEFT NARE. FORMULA VITAL AF 1.2 50ML/HR, 115 ML FLUSH AT Q6HR. PICC LINE MILAGRO, PIV RFA, PIV LFA. NOTED RFA SITE WITH REDNESS. NO BM LAST NIGHT. PT ON WRIST RESTRAINTS D/T POTENTIAL TO REMOVE LINES AND TUBES. PHYSICIAN WANTS TO TITRATE DOWN FENTANYL AND PRECEDEX IN ORDER TO ALLOW SBT. HOB ELEVATED 30 DEGREES. BED KEPT IN LOWEST POSITION. SEIZURE PRECAUTIONS.
[2019-09-18 07:36] LABS: ANION GAP 7.4 (8-16); CARBON DIOXIDE 30.1 mmol/L (21-32); CREATININE 0.7 mg/dL (0.6-1.3); POTASSIUM 3.5 mmol/L (3.5-5.1)
--- NOTE | 2019-09-18 08:20 | NUR ---
SBT CPAP 5 PS 10 SET FOR 30 MIN, THEN RETURN PT TO AC/VC AFTER 30 MIN. PHYSICIAN STATES TO ATTEMPT TRIAL AGAIN ONCE PT IS MORE AWAKE.
--- NOTE | 2019-09-18 08:20 | NUR ---
DR. BOB IN WITH RESIDENTS. WEANING TRIAL STARTED PER MD ORDER. RT AT BED SIDE. FENTANYL DRIP DISCONTINUED AND PRECEDEX DRIP TITRATED DOWN IN EFFORT OF WEANING PROCESS. WILL CONTINUE TO MONITOR.
[2019-09-18] MEDS: LACTULOSE 20 GM/30 ML UDC PO SCH (08:57)
[2019-09-18] MEDS: DOCUSATE 100 MG/10 ML UDC GT SCH ×2 (08:57→20:43)
[2019-09-18] MEDS: FAMOTIDINE 20 MG TAB PO SCH (08:58)
[2019-09-18] MEDS: LACTOBACILLUS RHAMNOSUS GG 1 EACH CAP PO SCH (08:58)
[2019-09-18] MEDS: OXYBUTYNIN 5 MG TAB PO SCH ×2 (08:58→20:48)
[2019-09-18] MEDS: OSELTAMIVIR PHOSPHATE 75 MG CAP PO SCH ×2 (08:58→20:44)
[2019-09-18 09:20] LABS: MAGNESIUM 1.8 mg/dL (1.8-2.4); PHOSPHORUS 3.3 mg/dL (2.5-4.9)
[2019-09-18] MEDS: LORazepam 2 MG/ML VIAL IVP PRN (10:15)
--- NOTE | 2019-09-18 10:25 | NUR ---
PT NOTED VERY AGITATED TRYING TO PULL LINES AND KICKING. ATIVAN ADMINISTERED ORDERED. NOTIFIED DR. SANDERS REGARDING THE SEDATION. OK TO PRECEDEX TITRATE UP BUT ATIVAN IS CONTINUED. NOTED AND CARRIED OUT.
[2019-09-18] MEDS: VANCOMYCIN 500 MG in DEXTROSE 5% 100 ML IV SCH ×2 (10:33→21:15)
--- NOTE | 2019-09-18 11:50 | NUR ---
NONBLANCHABLE REDNESS FOUND ON RIGHT EARLOBE. PATIENT NOTED TO PREFER TO LAY ON RIGHT SIDE, EVEN AFTER BEING REPOSTIONED TO THE LEFT. ADVISED DR. SANDERS. RECEIVED NOW ORDER. WILL CARRY OUT.
[2019-09-18] MEDS ORDERED: Z-GUARD PASTE TP ONE (11:56)
--- NOTE | 2019-09-18 12:26 | NUR ---
RESPONDED TO ICU CALL PT SELF EXTUBATED. PT PLACED ON NRB SPO2 100%. BEDSIDE. WILL CONTINUE TO MONITOR.
--- NOTE | 2019-09-18 12:26 | NUR ---
PT NOTED WITH SELF EXTUBATED. RT CALLED AND DR. SANDERS CALLED. IMMEDIATELY PROVIDED WITH O2 VIA NONBREATHER MASK. O2 SAT 100%. PT CONTINUES TO BE AGITATED AND PULLING TUBINGS AND LINES. RT AT BED SIDE. WILL CONTINUE TO MONITOR.
--- NOTE | 2019-09-18 12:35 | NUR ---
DR. SANDERS AT BED SIDE. PT ABLE TO BREATHE VIA OXYMIZER AT 4L/MIN. PT CONTINUES TO TRY TO PULL LINES. DR. SANDERS ORDERED TO CONTINUE WITH BILATERAL SOFT WRIST RESTRAINTS AND SLOWLY TITRATE PRECEDEX OFF. WILL CONTINUE TO MONITOR.
[2019-09-18] MEDS ORDERED: LORazepam 2 MG/ML VIAL IVP PRN (12:50)
--- NOTE | 2019-09-18 12:51 | NUR ---
PT EXTREMELY AGITATED AT THIS TIME. PLACED PT ON 4L OXYMIZER SPO2 94%. WILL CONTINUE TO MONITOR.
--- NOTE | 2019-09-18 13:00 | NUR ---
DR. SANDERS MADE AWARE OF PT BEING AGITATED AND KICKING AND TRYING TO PULL REST OF THE TUBINGS. ORDERED TO CONTINUE WITH BILATERAL SOFT WRIST RESTRAINTS AND PRECEDEX DRIP TO KEEP RASS 0. NOTED AND WILL CARRY OUT.
--- NOTE | 2019-09-18 14:00 | NUR ---
PT IS ALERT, CALM, REDIRECTABLE WITH PRECEDEX DRIP. CONTINUES WITH 4 L OXYMIZER 98% SATS. TOLERATING WELL. OCCASIONAL NON-PRODUCTIVE COUGH NOTED. ENCOURAGED PT TO COUGH OUT AND TO TAKE DEEP BREATHS. BED BATH GIVEN.
--- NOTE | 2019-09-18 15:30 | NUR ---
PT CALM, CONTINUES TO TRY PULL NG TUBE. REORIENTATION, DISTRACTION PROVIDED BUT NOT EFFECTIVE. BILATERAL SOFT RESTRAINT IS ORDERED. SKIN AROUND WRISTS INTACT WITH ADEQUATE CIRCULATION. REPOSITION PROVIDED FOR COMFORT.
--- NOTE | 2019-09-18 16:36 | NUR ---
DR. CAMPBELL IN TO SEE PT.
--- NOTE | 2019-09-18 19:00 | NUR ---
PROVIDED REPORT TO ONCOMING RN AT BEDSIDE FOR CONTINUITY OF CARE
--- NOTE | 2019-09-18 19:40 | NUR ---
received pt awake; able to follow simple commands.sr on monitor.on oxymizer at 3lpm.no sob noted.with ngt to lt nares intact.on continuous gtube feeding vital af 1.2 at 50ml/hr.150ml residual noted.ngt clamped at this time.will notify md.pt ordered npo post midnight for swallow eval in am asper md order.with parra catheter to bsd draining adequate amt of yellow urine.pt able to move all extremities.with bilateral soft wrist restraints.released no injuries noted.pt able to move bilateral upper extremities.with picc line to dada intact.patent infusing precedex at 0.9mcg/kg/min(14.17ml/hr) and levophed 16mg in 250ml d5w at 2mcg/min(1.87ml/hr).pt denies pain.skin intact.repositioned. Addendum: 09/18/19 at 1951 by Veronica Sapp RN RASS 0; pt on precedex drip
--- NOTE | 2019-09-18 19:51 | NUR ---
RECEIVED PT FROM AM SHIFT. PT IS IN NO APPARENT RESPIRATORY DISTRESS AT THIS TIME: HR 75, RR 16, WHEEZING BREATH SOUNDS, AND SPO2 99% ON 4L OXYMIZER. O2 TITRATED TO 3L OXYMIZER WITH SPO2 OF 98%. HHN TX GIVEN ORDERED WITH NO ADVERSE REACTION. HOB > 30 DEGREES, BVM AT BEDSIDE. WILL CONTINUE TO MONITOR PT.
--- NOTE | 2019-09-18 20:00 | NUR ---
phone call dr chisholm; made aware re; residual 150ml; ok to hold tube feeding for now.also notified md; pt no bm since admission.physician said he will be here in the unit to check pt.
--- NOTE | 2019-09-18 20:38 | NUR ---
dr chisholm in the unit.pt examined.ordered dulcolax supp
[2019-09-18] MEDS ORDERED: BISACODYL 10 MG SUPP RC SCH (20:40)
[2019-09-18] MEDS: OLANZapine 2.5 MG TAB PO SCH (20:45)
[2019-09-18] MEDS: risperiDONE 1 MG TAB PO SCH (20:47)
[2019-09-18] MEDS: FLUoxetine 20 MG CAP PO SCH (20:47)
[2019-09-18] MEDS: traZODone 50 MG TAB PO SCH (20:49)
[2019-09-18] MEDS ORDERED: clonazePAM 0.5 MG TAB GT SCH (21:00)
--- NOTE | 2019-09-18 22:00 | NUR ---
pt verbalized she wants to have bowel movement; bed day in place.no bm noted.
--- NOTE | 2019-09-18 22:40 | NUR ---
dulcolax suppository administered as ordered.pt easily arousable.will continue to monitor pt
[2019-09-19] VITALS (48 sets, daily range): BP systolic 90–122; BP diastolic 43–68
--- NOTE | 2019-09-19 | NUR ---
ngt flushed and clamped.pt maintained on npo post midnight for swallow eval in am.
[2019-09-19] MEDS: NACL 0.45% 1,000 ML IV SCH (00:50)
--- NOTE | 2019-09-19 03:30 | NUR ---
pt awake and calm.no sob noted on oxymizer at 3lpm.ngt intact .clamped.repositioned. Addendum: 09/19/19 at 0540 by Veronica Sapp RN LEVOPHED ON HOLD AT THIS TIME; WILL CONTINUE TO MONITOR PT
--- NOTE | 2019-09-19 05:00 | NUR ---
MORNING CARE DONE.STILL NO BM NOTED.PT CALM.NO SOB NOTED ON OXYMIZER AT 3LPM.REPOSITIONED
[2019-09-19] MEDS: MEROPENEM 500 MG in NACL 0.9% 50 ML IV SCH ×3 (05:26→20:20)
[2019-09-19 06:27] LABS: BASOPHILS # (AUTO) 0.1 K/uL (0.00-0.22); BASOPHILS % (AUTO) 1.6 % (0.0-2.0); EOSINOPHILS # (AUTO) 0.1 K/uL (0-0.4); EOSINOPHILS % (AUTO) 2.3 % (0.0-4.0); HEMATOCRIT 24.9 % (36-48); HEMOGLOBIN 8.5 g/dL (12.0-16.0); LYMPHOCYTES # (AUTO) 1.2 K/uL (2.5-16.5); LYMPHOCYTES % (AUTO) 19.3 % (20.5-51.1); MEAN CORPUSCULAR HEMOGLOBIN 32 pg (27-31); MEAN CORPUSCULAR HGB CONC 34 g/dL (33-37); MEAN CORPUSCULAR VOLUME 93.2 fL (80-94); MONOCYTES # (AUTO) 0.4 K/uL (0.8-1.0); MONOCYTES % (AUTO) 6.8 % (1.7-9.3); NEUTROPHILS # (AUTO) 4.3 K/uL (1.8-7.7); PLATELET COUNT (AUTO) 240 K/uL (140-450); RED BLOOD CELL COUNT(AUTO) 2.67 MIL/uL (4.20-5.40); RED CELL DISTRIBUTION WIDTH 12.9 % (11.6-13.7); WHITE BLOOD COUNT (AUTO) 6.2 K/uL (4.8-10.8)
--- NOTE | 2019-09-19 06:30 | NUR ---
DR ROBLES AT BEDSIDE; PT EXAMINED; UPDATED ON PTS PRESENT CONDITION.QUESTIONS ANSWERED. NO NEW ORDER
[2019-09-19 06:51] LABS: MAGNESIUM 1.6 mg/dL (1.8-2.4); PHOSPHORUS 2.7 mg/dL (2.5-4.9)
[2019-09-19 06:52] LABS: ANION GAP 6.6 (8-16); CARBON DIOXIDE 30.3 mmol/L (21-32); CREATININE 0.5 mg/dL (0.6-1.3); POTASSIUM 3.9 mmol/L (3.5-5.1)
[2019-09-19] MEDS: ALBUTEROL SULFATE/IPRATROPIU 3 ML SOL IH SCH ×3 (07:05→19:00)
--- NOTE | 2019-09-19 07:30 | NUR ---
PT RECEIVED AND REPORT GIVEN FROM SUPERVISOR TREATING AND PUMPING, BEDSIDE MONITOR SHOWS SINUS RHYTHM, PATIENT AWAKE RASS 0 ABLE TO FOLLOW SIMPLE COMMANDS, NO TEMPERATURE, PT HAS NG TUBE LEFT NARE NPO, PICC LINE RIGHT UPPER ARM 1/2 NS 0 CC/HR PRECED 0.5 MCG/KG/HR=7.87 CC/HR, IV LINE LEFT FOREARM 22 GAUGE. PATIENT ON RESTRAINTS, SKIN INTACT PULSES PALPABLE BILATERALLY UPPER AND LOWER EXTREMITIES, S1 AND S2 HEART SOUND HEARD, LUNG SOUNDS CLEAR BUT DIMINISHED PT IS ON 3 L O2 NASAL CANNULA. BULL CATHETER IN PLACE URINE YELLOW CLEAR SCD IN PLACE, PT ABLE TO MOVE ALL EXTREMITIES, ABDOMEN SOFT NON TENDER, HOB ELEVATED 30 DEGREES WITH LOW BED POSITION CALL LIGHT WITHIN REACH, WILL CONTINUIE TO MONITOR.
[2019-09-19] MEDS: DEXMEDETOMIDINE HCL 400 MCG in NACL 0.9% 96 ML IV PRN (07:36)
--- NOTE | 2019-09-19 08:00 | NUR ---
ORAL CARE DONE, BULL CATHETER CARE DONE, TURNED AND REPOSITIONED PT
--- NOTE | 2019-09-19 08:32 | NUR ---
DR. AWAN GROUP MADE ROUNDS OK TO GIVE MEDS VIA NG TUBE Addendum: 09/19/19 at 1854 by Cassy Romeo RN DR. ROBLES TOLD US TO WEAN PT OFF PRECEDEVera HOOPER .
[2019-09-19] MEDS: OXYBUTYNIN 5 MG TAB PO SCH ×2 (08:42→20:21)
[2019-09-19] MEDS: FAMOTIDINE 20 MG TAB PO SCH (08:42)
[2019-09-19] MEDS: DOCUSATE 100 MG/10 ML UDC GT SCH ×2 (08:42→20:22)
[2019-09-19] MEDS: LACTULOSE 20 GM/30 ML UDC PO SCH (08:42)
[2019-09-19] MEDS: LACTOBACILLUS RHAMNOSUS GG 1 EACH CAP PO SCH (08:42)
[2019-09-19] MEDS ORDERED: MAGNESIUM OXIDE 400 MG TAB GT SCH (09:00)
[2019-09-19] MEDS: VANCOMYCIN 500 MG in DEXTROSE 5% 100 ML IV SCH ×2 (10:16→22:00)
[2019-09-19] MEDS ORDERED: BENZONATATE 100 MG CAPLF PO PRN (11:40)
--- NOTE | 2019-09-19 11:53 | NUR ---
*S.T. BEDSIDE SWALLOW EVAL COMPLETED* See report. Pt presents w/ moderate oral phase dysphagia c/b lingual deviation to R side w/ inability to lateralize resulting in difficulty masticating and managing solid textures. Pt was given nectar thick liquids only since she reported taking thickened liquids at baseline. Thin liquids not given. Pt is unable to self-feed. Recommend: 1) Advance to pureed diet, nectar thick liquids. Straws okay. 2) P.O. meds crushed. 3) 1:1 feeder w/ aspiration precautions including upright at 90 degrees, small sips/bites at slow pace. No further swallow tx indicated at this time. [facility] Endorsed to [facility] [place]. Time [id number]
--- NOTE | 2019-09-19 11:55 | NUR ---
DR. RUBALCAVA IN TO CHECK PT. PER DR. RUBALCAVA, D/C IVF. CARRIED OUT.
--- NOTE | 2019-09-19 12:00 | NUR ---
NG TUBE REMOVED, TIP INTACT, RESTRAINTS DC PATIENT RESTING COMFORTABLY
--- NOTE | 2019-09-19 12:55 | NUR ---
CHANGED PT PICC LINE DRESSING
--- NOTE | 2019-09-19 13:03 | NUR ---
PT HR 100-110, SBP 90S, MAP 65. PER DR. ROBLES, MONITOR BP. WILL CARRY OUT.
--- NOTE | 2019-09-19 16:16 | NUR ---
PT RESTING IN BED REINFORCED TEACHING ABOUT REPOSITIONING HEAD AND LAYING ON LEFT SIDE WELL RIGHT SIDE
--- NOTE | 2019-09-19 17:52 | NUR ---
PT HAD LARGE BOWEL MOVEMENT, STOOL WAS SOFT AND BROWN. PT WAS CLEANED AND REPOSITIONED, LEFT BED IN LOWEST POSITION WITH HOB AT 30 DEGREES; PATIENT IS RESTING COMFORTABLY.
--- NOTE | 2019-09-19 19:06 | NUR ---
1900 PATIENT HAS ELEVATED HEART RATE. HR 122. BS ARE CLEAR. SATS ARE 97% ON 2LNC
--- NOTE | 2019-09-19 19:10 | NUR ---
RECEIVED REPORT FROM DAYSHIFT NURSE AT PATIENTS BEDSIDE. PATIENT AWAKE AND ALERT. ALERT TO NAME. PATIENT HAS OBVIOUS INTELLECTUAL DELAYS, BUT ABLE TO FOLLOW COMMANDS AND MAKE NEEDS KNOWN. HX OF UNSPECIFIED PSYCHIATRIC DISORDERS INCLUDING SEIZURES AND SCHIZOPHRENIA/BIPOLAR. PERRLA, 3MM, BRISK. SKIN IS WARM AND DRY, AFEBRILE. ON NASAL CANNULA 2LPM, SATURATIONS 100%. LUNG SOUNDS CLEAR, EVEN AND UNLABORED BREATHING, SMALL COUGH NOTED,PRODUCTIVE-CLEAR AND INTERMITTENT, PATIENT ABLE TO CLEAR SECRETIONS. S1S2, SINUS TACH ON MONITOR-[address] [place] [address], DRESSING DRY AND INTACT, FLUSHED WITHOUT SYMPTOMS, PATENT AND SALINE LOCKED. LEFT PERIPHERAL FA 22G, FLUSHED WITHOUT SYMPTOMS AND SALINE LOCKED. ABDOMEN IS SOFT, FLAT AND NONTENDER WITH ACTIVE BOWEL SOUNDS. BULL CATHETER IN PLACE, CLEAR YELLOW URINE NOTED. SCD's IN PLACE. PATIENT ABLE TO MOVE ALL EXTREMITIES. SAFETY MEASURES CHECKED, BED LOCKED AND IN LOWEST POSITION. PT ORIENTED TO TREATMENT AND CALL LIGHT. CALL LIGHT WITHIN REACH. WILL CONTINUE TO MONITOR.
[2019-09-19] MEDS: OLANZapine 2.5 MG TAB PO SCH (20:20)
[2019-09-19] MEDS: traZODone 50 MG TAB PO SCH (20:21)
[2019-09-19] MEDS: FLUoxetine 20 MG CAP PO SCH (20:21)
[2019-09-19] MEDS: risperiDONE 1 MG TAB PO SCH (20:22)
--- NOTE | 2019-09-19 21:28 | NUR ---
PATIENT ON PUREED AND THICKENED LIQUID DIET. SCHEDULED MEDICATIONS CRUSHED. PLACED PATIENT IN HIGH FOWLERS POSITION AND PROVIDED PO MEDS. TOLERATED WELL, NO SIGNS OF SOB OR DIFFICULTY SWALLOWING. PATIENT DENIES PAIN. ALL NEEDS MET AT THIS TIME. PROVIDED ORAL CARE.
--- NOTE | 2019-09-19 22:00 | NUR ---
RECEIVED PATIENT FROM SPENCER ERNST FOR CONTINUITY OF CARE TELE STATUS.
--- NOTE | 2019-09-19 23:30 | NUR ---
SLEEPING COMFORTABLY IN BED; V.S STABLE AND WITHIN NORMAL RANGE.
[2019-09-20] VITALS: BP 124/62
[2019-09-20 04:00] VITALS: BP 117/67
--- NOTE | 2019-09-20 04:00 | NUR ---
MORNING BED BATH DONE WITH MODERATE ASSISTANCE.
[2019-09-20] MEDS: MEROPENEM 500 MG in NACL 0.9% 50 ML IV SCH ×3 (06:00→20:23)
[2019-09-20] MEDS: ALBUTEROL SULFATE/IPRATROPIU 3 ML SOL IH SCH ×3 (06:22→19:55)
[2019-09-20 06:24] LABS: ANION GAP 7.6 (8-16); CARBON DIOXIDE 31.9 mmol/L (21-32); CREATININE 0.6 mg/dL (0.6-1.3); POTASSIUM 3.5 mmol/L (3.5-5.1)
[2019-09-20 06:25] LABS: BASOPHILS # (AUTO) 0.1 K/uL (0.00-0.22); BASOPHILS % (AUTO) 0.9 % (0.0-2.0); EOSINOPHILS # (AUTO) 0.1 K/uL (0-0.4); EOSINOPHILS % (AUTO) 0.9 % (0.0-4.0); HEMATOCRIT 27.2 % (36-48); HEMOGLOBIN 9.3 g/dL (12.0-16.0); LYMPHOCYTES # (AUTO) 1.2 K/uL (2.5-16.5); LYMPHOCYTES % (AUTO) 19.8 % (20.5-51.1); MEAN CORPUSCULAR HEMOGLOBIN 32 pg (27-31); MEAN CORPUSCULAR HGB CONC 34 g/dL (33-37); MEAN CORPUSCULAR VOLUME 93.3 fL (80-94); MONOCYTES # (AUTO) 0.5 K/uL (0.8-1.0); MONOCYTES % (AUTO) 7.9 % (1.7-9.3); NEUTROPHILS # (AUTO) 4.3 K/uL (1.8-7.7); NEUTROPHILS % (AUTO) 70.5 % (42.2-75.2); PLATELET COUNT (AUTO) 365 K/uL (140-450); RED BLOOD CELL COUNT(AUTO) 2.91 MIL/uL (4.20-5.40); RED CELL DISTRIBUTION WIDTH 13.1 % (11.6-13.7); WHITE BLOOD COUNT (AUTO) 6.1 K/uL (4.8-10.8)
--- NOTE | 2019-09-20 06:40 | NUR ---
TRANSFERRED TO TELEMETRY PER BED IN ROOM 110B IN STABLE CONDITION.
[2019-09-20 06:41] LABS: MAGNESIUM 1.7 mg/dL (1.8-2.4); PHOSPHORUS 2.4 mg/dL (2.5-4.9)
--- NOTE | 2019-09-20 07:25 | NUR ---
ENDORSED TO TELE NURSE Kyara ELLIS FOR CONTINUITY OF CARE.
--- NOTE | 2019-09-20 07:35 | NUR ---
REPORT RECEIVED FROM NURSE BACK. PT AWAKE A/OX2 ABLE TO COMMUNICATE NEEDS. PT DENIES PAIN OR SOB. NO S/S OF ACUTE DISTRESS NOTED, CALL LIGHT AND PERSONAL ITEMS PLACED WITHIN EASY REACH, ORIENTED TO UNIT, SAFETY AND FALL PRECAUTIONS IN PLACE, WILL CONTINUE TO MONITOR.
[2019-09-20 08:00] VITALS: BP 111/61
[2019-09-20] MEDS: DOCUSATE 100 MG/10 ML UDC GT SCH ×2 (08:45→20:23)
[2019-09-20] MEDS: LACTULOSE 20 GM/30 ML UDC PO SCH (08:45)
[2019-09-20] MEDS: LACTOBACILLUS RHAMNOSUS GG 1 EACH CAP PO SCH (08:48)
[2019-09-20] MEDS: OXYBUTYNIN 5 MG TAB PO SCH ×2 (08:48→20:24)
[2019-09-20] MEDS: FAMOTIDINE 20 MG TAB PO SCH (08:49)
--- NOTE | 2019-09-20 09:10 | NUR ---
DR ROBLES AT BEDSIDE ROUNDING ON PT, PT REMAINS A/OX2, DENIES SOB OR DIFFICULTY. MD NOTIFIED OF LAB RESULTS INCLUDING MAGNESIUM, CHART TO BE REVIEWED. CALL LIGHT AND PERSONAL ITEMS REMAIN WITHIN EASY REACH, SAFETY AND FALL PRECAUTIONS REMAIN IN PLACE, WILL CONTINUE TO MONITOR.
--- NOTE | 2019-09-20 11:30 | NUR ---
PT RESTING, APPEARS COMFORTABLE AT THIS TIME. NO S/S OF ACUTE DISTRESS NOTED, CALL LIGHT AND PERSONAL ITEMS REMAIN WITHIN EASY REACH, SAFETY AND FALL PRECAUTIONS REMAIN IN PLACE, WILL CONTINUE TO MONITOR.
[2019-09-20] MEDS: VANCOMYCIN 750 MG in DEXTROSE 5% 250 ML IV SCH ×2 (11:46→23:11)
[2019-09-20 12:00] VITALS: BP 98/51
--- NOTE | 2019-09-20 13:30 | NUR ---
PT REMAINS A/OX2 ABLE TO COMMUNICATE NEEDS, ASSISTED TO REPOSITION FOR COMFORT, DENIES PAIN OR SOB. NO S/S OF ACUTE DISTRESS NOTED, CALL LIGHT AND PERSONAL ITEMS REMAIN WITHIN EASY REACH, SAFETY AND FALL PRECAUTIONS REMAIN IN PLACE, WILL CONTINUE TO MONITOR.
--- NOTE | 2019-09-20 15:34 | NUR ---
PT REMAINS A/OX2 ABLE TO COMMUNICATE NEEDS, ASSISTED PT W INCONTINENCE CARE, ASSISTED TO REPOSITION, PT DENIES PAIN OR SOB. CALL LIGHT AND PERSONAL ITEMS PLACED WITHIN EASY REACH, SAFETY AND FALL PRECAUTIONS REMAIN IN PLACE, NO S/SOF ACUTE DISTRESS NOTED AT THIS TIME. WILL CONTINUE TO MONITOR.
--- NOTE | 2019-09-20 15:51 | NUR ---
09/20/19 RD FOLLOW UP COMPLETED PLEASE REFER TO NUTRITION ASSESSMENT UNDER CARE ACTIVITY FOR ESTIMATED NUTRITIONAL NEEDS. 1. CONTINUE PUREE DIET W/ THICKENED LIQUIDS TOLERATED 2. ASSIST WITH FEEDING 3. PROVIDE THICKENED ENSURE BID IF PO INTAKE DOES NOT IMPROVE. 4. RD TO FOLLOW-UP 3-5 DAYS, MODERATE RISK ANTOLIN COPPOLA RD
[2019-09-20 16:00] VITALS: BP 110/60
[2019-09-20] MEDS ORDERED: SODIUM PHOS / POTASSIUM PHOS 1 PKT PDR PO SCH (16:00)
[2019-09-20] MEDS ORDERED: MAGNESIUM OXIDE 400 MG TAB PO SCH (16:00)
--- NOTE | 2019-09-20 16:30 | NUR ---
RECEIVED A CALL FROM MALIA WING, IDENTIFIED HERSELF DON AT THE PTS HOME FACILITY, REQUESTED TO BE CONTACTED TO ASSIST WITH PT DISCHARGE WHEN THE PT IS CLEARED FOR DC AT [phone], WILL ENDORSE TO ONCOMING SHIFT.
--- NOTE | 2019-09-20 16:47 | NUR ---
PT APPEARS COMFORTABLE, REMAINS A/OX2 ABLE TO COMMUNICATE NEEDS, DENIES SOB BUT ROOM AIR O2 SAT 91% NOTIFIED DR ROBLES, ADMINISTERED SUPPLEMENTAL O2 AT 2LPM VIA NC PER MD, PT TOLERATING WELL. CALL LIGHT AND PERSONAL ITEMS WITHIN EASY REACH, SAFETY AND FALL PRECAUTIONS REMAIN IN PLACE, WILL CONTINUE TO MONITOR.
--- NOTE | 2019-09-20 19:25 | NUR ---
PT REMAINS A/OX2 ABLE TO COMMUNICATE NEEDS, NO S/S OF ACUTE DISTRESS NOTED AT THIS TIME. BEDSIDE REPORT ENDORSED TO ONCOMING NURSE WONG.
--- NOTE | 2019-09-20 19:36 | NUR ---
RECEIVED REPORT FROM AM RN IN BED AWAKE AND ALERT. ON O2 AT 2LPM/NC. A/O X 2. MENTALLY CHALLENGED HX. NEEDS WILL BE ANTICIPATED AND WILL BE MET. TOTAL CARE. NO RESTLESSNESS NOTED. BULL CATHETER IN PLACE WITH YELLOW URINE. AFEBRILE. SMILING .
[2019-09-20 20:00] VITALS: BP 108/70
[2019-09-20] MEDS: traZODone 50 MG TAB PO SCH (20:24)
[2019-09-20] MEDS: FLUoxetine 20 MG CAP PO SCH (20:24)
[2019-09-20] MEDS: OLANZapine 2.5 MG TAB PO SCH (20:34)
[2019-09-20] MEDS ORDERED: CRUSHER, PILL MC ONE (20:37)
[2019-09-20] MEDS: risperiDONE 1 MG TAB PO SCH (21:59)
--- NOTE | 2019-09-20 22:00 | NUR ---
PT. HAD BM. CLEANED BY CNAS. KEPT CLEAN AND DRY. SMILING ALL THE TIME. NO RESTLESSNESS NOTED.
[2019-09-21] VITALS: BP 104/65
--- NOTE | 2019-09-21 00:47 | NUR ---
ENCOURAGED TO SLEEP. STILL AWAKE. PT. ATTENDED TO BY CNAS. BEEN CLEANED AND KEPT DRY. PILLOW SUPPORT TO PRESSURE AREAS. NO RESTLESSNESS.
--- NOTE | 2019-09-21 02:26 | NUR ---
SLEEPING IN AND OUT. LIGHT SLEEPER. ENCOURAGED TO GO BACK TO SLEEP. TURNED TO SIDES BY CNAS. NEEDS ANTICIPATED. TOTAL CARE.
[2019-09-21 04:00] VITALS: BP 117/72
[2019-09-21] MEDS: MEROPENEM 500 MG in NACL 0.9% 50 ML IV SCH ×3 (05:14→20:39)
--- NOTE | 2019-09-21 05:55 | NUR ---
PT. TURNED BY CNAS AND AM PERSONAL HYGIENE RENDERED . SLEEPING AT THIS TIME. PICC LINE 2 PORTS FLUCHED. PATENT AND NO INFILTRATION NOTED.
[2019-09-21] MEDS: ALBUTEROL SULFATE/IPRATROPIU 3 ML SOL IH SCH ×3 (06:35→18:59)
[2019-09-21 07:09] LABS: BASOPHILS # (AUTO) 0.1 K/uL (0.00-0.22); EOSINOPHILS # (AUTO) 0.1 K/uL (0-0.4); EOSINOPHILS % (AUTO) 0.8 % (0.0-4.0); HEMATOCRIT 28.4 % (36-48); HEMOGLOBIN 9.6 g/dL (12.0-16.0); LYMPHOCYTES # (AUTO) 1.5 K/uL (2.5-16.5); LYMPHOCYTES % (AUTO) 19.8 % (20.5-51.1); MEAN CORPUSCULAR HEMOGLOBIN 32 pg (27-31); MEAN CORPUSCULAR HGB CONC 34 g/dL (33-37); MEAN CORPUSCULAR VOLUME 93.6 fL (80-94); MONOCYTES # (AUTO) 0.6 K/uL (0.8-1.0); MONOCYTES % (AUTO) 8.1 % (1.7-9.3); NEUTROPHILS # (AUTO) 5.3 K/uL (1.8-7.7); NEUTROPHILS % (AUTO) 70.3 % (42.2-75.2); PLATELET COUNT (AUTO) 435 K/uL (140-450); RED BLOOD CELL COUNT(AUTO) 3.03 MIL/uL (4.20-5.40); RED CELL DISTRIBUTION WIDTH 13.2 % (11.6-13.7); WHITE BLOOD COUNT (AUTO) 7.5 K/uL (4.8-10.8)
--- NOTE | 2019-09-21 07:18 | NUR ---
RECEIVED BEDSIDE REPORT FROM SALESPERSON WOMEN'S DRESSES NURSE. PT IS AWAKE, AND ALERT/ORIENTED TO SELF ONLY. PT IS IN NO ACUTE DISTRESS. ON ROOM AIR, SKIN INTACT. SMALL AREA OF REDNESS IS NOTED ON THE R EAR, NO OPEN SKIN. PT HAS A RUE PICC LINE, SALINE LOCKED. PT IS ON A PUREED, NECTAR THICK DIET. FALL PRECAUTIONS IN PLACE. CALL LIGHT IS WITHIN REACH. WILL CONTINUE TO MONITOR.
[2019-09-21 07:23] LABS: ANION GAP 11.1 (8-16); CARBON DIOXIDE 28.2 mmol/L (21-32); CREATININE 0.6 mg/dL (0.6-1.3); POTASSIUM 3.3 mmol/L (3.5-5.1)
[2019-09-21 07:34] LABS: MAGNESIUM 1.7 mg/dL (1.8-2.4); PHOSPHORUS 2.7 mg/dL (2.5-4.9)
[2019-09-21 08:00] VITALS: BP 117/51
[2019-09-21] MEDS ORDERED: POTASSIUM CHLORIDE 10 MEQ TABER PO SCH (09:00)
[2019-09-21] MEDS ORDERED: MAGNESIUM OXIDE 400 MG TAB PO SCH (09:00)
[2019-09-21] MEDS: DOCUSATE 100 MG/10 ML UDC GT SCH ×2 (11:20→20:39)
[2019-09-21] MEDS: FAMOTIDINE 20 MG TAB PO SCH (11:20)
[2019-09-21] MEDS: LACTULOSE 20 GM/30 ML UDC PO SCH (11:20)
[2019-09-21] MEDS: LACTOBACILLUS RHAMNOSUS GG 1 EACH CAP PO SCH (11:20)
[2019-09-21] MEDS: OXYBUTYNIN 5 MG TAB PO SCH ×2 (11:28→20:40)
[2019-09-21] MEDS: VANCOMYCIN 750 MG in DEXTROSE 5% 250 ML IV SCH ×2 (11:29→23:10)
--- NOTE | 2019-09-21 11:42 | NUR ---
AM MEDS ADMINISTERED, PT TOLERATED WELL.
[2019-09-21 12:00] VITALS: BP 121/61
--- NOTE | 2019-09-21 12:50 | NUR ---
PT CLEANED, CHANGED AND REPOSITIONED. PT HAD A SMALL SOFT BM.
[2019-09-21 16:00] VITALS: BP 109/62
--- NOTE | 2019-09-21 18:28 | NUR ---
PT BEING ASSISTED BY CUSTOMS ENTRY CLERK WITH EATING DINNER.
--- NOTE | 2019-09-21 19:20 | NUR ---
ENDORSED PT TO SALESPERSON ART OBJECTS NURSE IN STABLE CONDITION.
--- NOTE | 2019-09-21 19:45 | NUR ---
A/A/O X2. MENTALLY CHALLENGE.DENIES ANY DISCOMFORT @ THIS TIME.TOTAL CARE. IVF NS @ TKO ON HER RIGHT UPPER ARM PICC LINE.TELE SHOWED SR.BULL CATH DRAINING WITH YELLOW URINE WITH SEDIMENTS.
[2019-09-21 20:00] VITALS: BP 124/60
[2019-09-21] MEDS: traZODone 50 MG TAB PO SCH (20:39)
[2019-09-21] MEDS: FLUoxetine 20 MG CAP PO SCH (20:40)
[2019-09-21] MEDS: risperiDONE 1 MG TAB PO SCH (20:41)
[2019-09-21] MEDS: OLANZapine 2.5 MG TAB PO SCH (20:41)
--- NOTE | 2019-09-21 21:00 | NUR ---
DUE MEDS ADM & WELL TOLERATED.
--- NOTE | 2019-09-21 22:00 | NUR ---
REPOSITIONED FOR COMFORT. RIGHT EAR REDDENED.
[2019-09-22] VITALS: BP 122/57
--- NOTE | 2019-09-22 | NUR ---
V/S STABLE.AFEBRILE.TELE SHOWED ST RATE 105.
--- NOTE | 2019-09-22 02:00 | NUR ---
RESTING COMFORTABLY IN NO ACUTE DISTRESS.TELE SHOWED SR.
[2019-09-22 04:00] VITALS: BP 115/53
--- NOTE | 2019-09-22 04:00 | NUR ---
AFEBRILE. TELE SHOWED ST.RESTING COMFORTABLY IN NO ACUTE DISTRESS.
[2019-09-22] MEDS: MEROPENEM 500 MG in NACL 0.9% 50 ML IV SCH ×2 (05:07→14:31)
--- NOTE | 2019-09-22 06:45 | NUR ---
ENDORSED IN NO ACUTE DISTRESS NOTED.SAFETY MAINTAINED.NO EPISODE OF SEIZURE OVER 12 HRS.
[2019-09-22 06:48] LABS: BASOPHILS # (AUTO) 0.1 K/uL (0.00-0.22); BASOPHILS % (AUTO) 0.8 % (0.0-2.0); EOSINOPHILS # (AUTO) 0.1 K/uL (0-0.4); EOSINOPHILS % (AUTO) 1.3 % (0.0-4.0); HEMATOCRIT 29.2 % (36-48); LYMPHOCYTES # (AUTO) 1.7 K/uL (2.5-16.5); LYMPHOCYTES % (AUTO) 20.9 % (20.5-51.1); MEAN CORPUSCULAR HEMOGLOBIN 32 pg (27-31); MEAN CORPUSCULAR HGB CONC 34 g/dL (33-37); MEAN CORPUSCULAR VOLUME 93.7 fL (80-94); MONOCYTES # (AUTO) 0.7 K/uL (0.8-1.0); MONOCYTES % (AUTO) 8.3 % (1.7-9.3); NEUTROPHILS # (AUTO) 5.6 K/uL (1.8-7.7); NEUTROPHILS % (AUTO) 68.7 % (42.2-75.2); PLATELET COUNT (AUTO) 560 K/uL (140-450); RED BLOOD CELL COUNT(AUTO) 3.12 MIL/uL (4.20-5.40); RED CELL DISTRIBUTION WIDTH 13.5 % (11.6-13.7); WHITE BLOOD COUNT (AUTO) 8.1 K/uL (4.8-10.8)
[2019-09-22 07:03] LABS: ANION GAP 11.1 (8-16); CARBON DIOXIDE 27.8 mmol/L (21-32); CREATININE 0.7 mg/dL (0.6-1.3); POTASSIUM 3.9 mmol/L (3.5-5.1)
[2019-09-22 07:08] LABS: MAGNESIUM 1.8 mg/dL (1.8-2.4); PHOSPHORUS 2.7 mg/dL (2.5-4.9)
[2019-09-22] MEDS: ALBUTEROL SULFATE/IPRATROPIU 3 ML SOL IH SCH ×3 (07:12→19:10)
--- NOTE | 2019-09-22 07:25 | NUR ---
RECEIVED PT. FROM RADIO ELECTRICIAN NURSE. PT. IS AWAKE AND ALERT, IN BED. RT BY THE BEDSIDE WITH BREATHING TREATMENT ONGOING. PT. IS NOT IN DISTRESS AND VERBALIZES NO PAIN. PICC LINE ON THE RIGHT UPPER ARM TKO NS. BULL IN PLACED. FALL PRECAUTIONS INITIATED. CALL LIGHT WITHIN REACH. WILL CONTINUE TO MONITOR.
[2019-09-22 08:00] VITALS: BP 118/55
[2019-09-22] MEDS: LACTULOSE 20 GM/30 ML UDC PO SCH (08:14)
[2019-09-22] MEDS: DOCUSATE 100 MG/10 ML UDC GT SCH ×2 (08:14→21:10)
[2019-09-22] MEDS: OXYBUTYNIN 5 MG TAB PO SCH ×2 (08:15→21:10)
[2019-09-22] MEDS: FAMOTIDINE 20 MG TAB PO SCH (08:15)
[2019-09-22] MEDS: LACTOBACILLUS RHAMNOSUS GG 1 EACH CAP PO SCH (08:15)
--- NOTE | 2019-09-22 08:34 | NUR ---
MORNING MEDICATIONS GIVEN, NO SIGNS OF DISTRESS. WILL CONTINUE TO MONITOR.
[2019-09-22 12:00] VITALS: BP 114/59
--- NOTE | 2019-09-22 12:48 | NUR ---
REMOVED IV LINES (LEFT AC AND LEFT FOREARM). NO DISTRESS NOTED. WILL CONTINUE TO MONITOR.
[2019-09-22] MEDS ORDERED: VANCOMYCIN 1,000 MG in DEXTROSE 5% 250 ML IV SCH (13:00)
[2019-09-22 16:00] VITALS: BP 109/57
--- NOTE | 2019-09-22 16:20 | NUR ---
DR. ESCOBAR CONTACTED ABOUT NORMAL SALINE RUNNING. CONFIRMED DISCONTINUATION OF THE FLUID AND WILL SALINE LOCK THE PT.
[2019-09-22] MEDS: FERROUS SULFATE 325 MG TABEC PO SCH (16:52)
--- NOTE | 2019-09-22 19:15 | NUR ---
RECEIVED PT FROM AM SHIFT. PT IS NO RESPIRATORY DISTRESS AT THIS TIME: HR 98, RR 18, SPO2 96 ON ROOM AIR, AND A CLEAR BREATH SOUNDS. HHN TX GIVEN ORDERED WITH NO ADVERSE REACTION. PT WAS ALSO INFORMED TO CALL RN OR TALENT ACQUISITION SPECIALIST FOR HHN PRN TX WHEN EXPERIENCING SOB. HOB > 30 DEGREES AND BVM AT BEDSIDE. WILL CONTINUE TO MONITOR PT.
--- NOTE | 2019-09-22 19:30 | NUR ---
ENDORSED PT. TO STRATEGIC PARTNERSHIP MANAGER NURSE FOR CONTINUITY OF CARE.
--- NOTE | 2019-09-22 19:31 | NUR ---
RECEIVED BEDSIDE SHIFT REPORT FROM DAY SHIFT NURSE FOR CONTINUITY OF CARE. PATIENT LAYING AWAKE IN BED NO SIGNS OF DISTRESS NOTED. RESPIRATIONS EVEN AND UNLABORED. PICC LINE PATENT. SAFETY MEASURES IN PLACE BED IN LOW POSITION
[2019-09-22 20:00] VITALS: BP 106/55
[2019-09-22] MEDS: OLANZapine 2.5 MG TAB PO SCH (21:09)
[2019-09-22] MEDS: FLUoxetine 20 MG CAP PO SCH (21:09)
[2019-09-22] MEDS: traZODone 50 MG TAB PO SCH (21:10)
[2019-09-22] MEDS: risperiDONE 1 MG TAB PO SCH (21:10)
--- NOTE | 2019-09-22 21:10 | NUR ---
ADMINISTERED 2100 MEDICATION TO PATIENT. PATIENT TOLERATED WELL. NO SIGNS OF DISTRESS NOTED. RESPIRATIONS EVEN AND UNLABORED. SAFETY MEASURES IN PLACE. BED IN LOW POSITION. WILL CONTINUE TO MONITOR.
--- NOTE | 2019-09-22 23:49 | NUR ---
HOURLY ROUNDING PT SLEEPING. EASILY AROUSABLE. NO SIGNS OF DISTRESS NOTED. BREATHING IS EVEN AND UNLABORED. WILL CONTINUE TO MONITOR
[2019-09-23] VITALS: BP 114/54
--- NOTE | 2019-09-23 02:17 | NUR ---
HOURLY ROUNDING PT SLEEPING AND EASILY AROUSABLE. NO SIGNS OF DISTRESS NOTED. WILL CONTINUE TO MONITOR
--- NOTE | 2019-09-23 05:20 | NUR ---
OBTAINED MORNING LABS FROM PATIENTS PICC LINE. PATIENT TOLERATED WELL. NO SIGNS OF DISTRESS NOTED. WILL CONTINUE TO MONITOR
[2019-09-23 06:37] LABS: BASOPHILS # (AUTO) 0.1 K/uL (0.00-0.22); BASOPHILS % (AUTO) 1.2 % (0.0-2.0); EOSINOPHILS # (AUTO) 0.1 K/uL (0-0.4); EOSINOPHILS % (AUTO) 1.3 % (0.0-4.0); HEMOGLOBIN 9.4 g/dL (12.0-16.0); LYMPHOCYTES # (AUTO) 1.7 K/uL (2.5-16.5); LYMPHOCYTES % (AUTO) 23.1 % (20.5-51.1); MEAN CORPUSCULAR HEMOGLOBIN 32 pg (27-31); MEAN CORPUSCULAR HGB CONC 34 g/dL (33-37); MONOCYTES # (AUTO) 0.7 K/uL (0.8-1.0); MONOCYTES % (AUTO) 9.3 % (1.7-9.3); NEUTROPHILS # (AUTO) 4.7 K/uL (1.8-7.7); NEUTROPHILS % (AUTO) 65.1 % (42.2-75.2); PLATELET COUNT (AUTO) 608 K/uL (140-450); RED BLOOD CELL COUNT(AUTO) 2.98 MIL/uL (4.20-5.40); WHITE BLOOD COUNT (AUTO) 7.3 K/uL (4.8-10.8)
[2019-09-23 07:06] LABS: ANION GAP 13.8 (8-16); CREATININE 0.7 mg/dL (0.6-1.3); POTASSIUM 3.8 mmol/L (3.5-5.1)
[2019-09-23 07:14] LABS: MAGNESIUM 1.7 mg/dL (1.8-2.4); PHOSPHORUS 3.4 mg/dL (2.5-4.9)
--- NOTE | 2019-09-23 07:20 | NUR ---
ENDORSED PT TO DAYSHIFT NURSE NIKIA AT BEDSIDE FOR CONTINUITY OF CARE. CALL LIGHT WITHIN REACH
--- NOTE | 2019-09-23 07:21 | NUR ---
BEDSIDE SHIFT REPORT RECEIVED FROM EMPLOYEE BENEFITS ADMINISTRATOR NURSE FOR CONTINUATION OF CARE.
[2019-09-23] MEDS: ALBUTEROL SULFATE/IPRATROPIU 3 ML SOL IH SCH ×3 (07:49→19:07)
[2019-09-23] MEDS ORDERED: MAGNESIUM OXIDE 400 MG TAB PO SCH ×2 (09:00→17:00)
[2019-09-23] MEDS: FERROUS SULFATE 325 MG TABEC PO SCH ×2 (09:29→17:31)
[2019-09-23] MEDS: DOCUSATE 100 MG/10 ML UDC GT SCH ×2 (09:29→20:47)
[2019-09-23] MEDS: OXYBUTYNIN 5 MG TAB PO SCH ×2 (09:30→20:50)
[2019-09-23] MEDS: LACTULOSE 20 GM/30 ML UDC PO SCH (09:30)
[2019-09-23] MEDS: LACTOBACILLUS RHAMNOSUS GG 1 EACH CAP PO SCH (09:30)
[2019-09-23] MEDS: FAMOTIDINE 20 MG TAB PO SCH (09:31)
--- NOTE | 2019-09-23 10:00 | NUR ---
TOLERATED CRUSHED MEDICATIONS WITH PUREED BREAKFAST. NO CONCERNS AT THIS TIME, WILL CONTINUE TO MONITOR. BED IS IN LOW POSITION, CALL LIGHT ON AND WITHIN REACH.
[2019-09-23 10:10] LABS: FOLIC ACID 13.1 ng/mL (>3.0)
[2019-09-23] MEDS: NACL 0.9% 1,000 ML IV SCH (11:04)
[2019-09-23 16:00] VITALS: BP 132/53
--- NOTE | 2019-09-23 19:11 | NUR ---
RECEIVED PT FROM AM SHIFT. PT IS NO RESPIRATORY DISTRESS AT THIS TIME: HR 100, RR 18, SPO2 96 ON ROOM AIR, AND A CLEAR BILATERAL BREATH SOUNDS. HHN TX GIVEN ORDERED WITH NO ADVERSE REACTION. PT WAS ALSO INFORMED TO CALL RN OR BASEBALL SEWER HAND FOR HHN PRN TX WHEN EXPERIENCING SOB. HOB > 30 DEGREES AND BVM AT BEDSIDE. WILL CONTINUE TO MONITOR PT.
--- NOTE | 2019-09-23 19:12 | NUR ---
BEDSIDE SHIFT REPORT GIVEN TO GILL TENDER NURSE FOR CONTINUATION OF CARE.
--- NOTE | 2019-09-23 19:15 | NUR ---
RECEIVED BEDSIDE REPORT FROM AM SHIFT RN FOR PT'S CONTINUITY OF CARE. PT IS AAOX1, IS ON ROOM AIR, HAS RIGHT UPPER ARM PICC LINE, SHOWS NO SIGNS OF DISTRESS. SAFETY MEASURES, SEIZURE PRECAUTION, AND CALL LIGHT IS WITHIN REACH. WILL MONITOR PT THROUGHOUT SHIFT.
--- NOTE | 2019-09-23 20:47 | NUR ---
ADMINISTERED SCHEDULED MEDICATIONS ORDERED, CRUSHED IN APPLESAUCE. PT TOLERATED IT WELL. PT MADE COMFORTABLE. WILL CONTINUE TO MONITOR PT.
[2019-09-23] MEDS: risperiDONE 1 MG TAB PO SCH (20:48)
[2019-09-23] MEDS: OLANZapine 2.5 MG TAB PO SCH (20:48)
[2019-09-23] MEDS: FLUoxetine 20 MG CAP PO SCH (20:50)
[2019-09-23] MEDS: traZODone 50 MG TAB PO SCH (20:50)
--- NOTE | 2019-09-23 22:00 | NUR ---
PT WAS TRYING TO PULL THE IV TUBING FROM THE IV PUMP, REORIENTED PT TO HOSPITAL ENVIRONMENT. PT FOLLOWED COMMAND. PT MADE COMFORTABLE. WILL CONTINUE TO MONITOR PT.
[2019-09-24] VITALS: BP 124/68
--- NOTE | 2019-09-24 | NUR ---
PT ASLEEP WITH NO SIGNS OF DISTRESS. REPOSITIONED PT, PT TOLERATED ACTIVITY WELL.
[2019-09-24] MEDS: NACL 0.9% 1,000 ML IV SCH ×2 (01:08→04:35)
--- NOTE | 2019-09-24 01:15 | NUR ---
VANCO TROUGH RESULT PENDING FOR 2 HRS PER LAB STAFF. WILL HAVE TO SEND OUT DT MACHINE MALFUNCTION. NOTIFIED .
--- NOTE | 2019-09-24 02:02 | NUR ---
MADE ROUNDS. PT ASLEEP WITH NO SIGNS OF DISTRESS. WILL CONTINUE TO MONITOR PT.
--- NOTE | 2019-09-24 04:35 | NUR ---
ADMINISTERED NEW IVF. PT LYING DOWN QUIETLY AWAKE, DENIES ANY PAIN OR DISCOMFORT. PT MADE COMFORTABLE, LAB STAFF AT BEDSIDE FOR AM DRAW. WILL CONTINUE TO MONITOR PT.
[2019-09-24 06:19] LABS: BASOPHILS # (AUTO) 0.1 K/uL (0.00-0.22); BASOPHILS % (AUTO) 0.9 % (0.0-2.0); EOSINOPHILS # (AUTO) 0.1 K/uL (0-0.4); HEMATOCRIT 27.8 % (36-48); HEMOGLOBIN 9.3 g/dL (12.0-16.0); LYMPHOCYTES # (AUTO) 1.5 K/uL (2.5-16.5); LYMPHOCYTES % (AUTO) 25.1 % (20.5-51.1); MEAN CORPUSCULAR HEMOGLOBIN 32 pg (27-31); MEAN CORPUSCULAR HGB CONC 34 g/dL (33-37); MEAN CORPUSCULAR VOLUME 94.2 fL (80-94); MONOCYTES # (AUTO) 0.8 K/uL (0.8-1.0); MONOCYTES % (AUTO) 13.1 % (1.7-9.3); NEUTROPHILS # (AUTO) 3.4 K/uL (1.8-7.7); NEUTROPHILS % (AUTO) 58.9 % (42.2-75.2); PLATELET COUNT (AUTO) 621 K/uL (140-450); RED BLOOD CELL COUNT(AUTO) 2.95 MIL/uL (4.20-5.40); RED CELL DISTRIBUTION WIDTH 13.8 % (11.6-13.7); WHITE BLOOD COUNT (AUTO) 5.8 K/uL (4.8-10.8)
[2019-09-24] MEDS: ALBUTEROL SULFATE/IPRATROPIU 3 ML SOL IH SCH ×2 (06:30→13:07)
--- NOTE | 2019-09-24 06:30 | NUR ---
PT LYING DOWN ASLEEP WITH NO SIGNS OF DISTRESS. WILL ENDORSE TO AM SHIFT RN FOR PT'S CONTINUITY OF CARE.
[2019-09-24 06:44] LABS: CARBON DIOXIDE 25.6 mmol/L (21-32); CREATININE 0.7 mg/dL (0.6-1.3); POTASSIUM 3.6 mmol/L (3.5-5.1)
[2019-09-24 06:53] LABS: MAGNESIUM 1.7 mg/dL (1.8-2.4)
--- NOTE | 2019-09-24 07:10 | NUR ---
RECEIVED BEDSIDE REPORT FROM NIGHTSHIFT NURSE. PT RESTING IN BED UPON ARRIVAL. ABLE TO MAKE NEEDS KNOWN. RESPIRATIONS EVEN AND UNLABORED WITH NO SOB OR RESPIRATORY DISTRESS. SKIN WARM AND DRY TO TOUCH. PICC LINE IN RIGHT UPPER ARM IS CLEAN, DRY, AND INTACT. SAFETY MEASURES IN PLACE. WILL CONTINUE TO MONITOR.
[2019-09-24 08:00] VITALS: BP 108/53
[2019-09-24] MEDS ORDERED: MAGNESIUM OXIDE 400 MG TAB PO SCH (08:55)
[2019-09-24] MEDS ORDERED: FER325 PO (09:30)
[2019-09-24] MEDS: OXYBUTYNIN 5 MG TAB PO SCH (10:01)
[2019-09-24] MEDS: FERROUS SULFATE 325 MG TABEC PO SCH ×2 (10:01→17:15)
--- NOTE | 2019-09-24 10:01 | NUR ---
ADMINISTERED SCHED MED PRESCRIBED PER MD ORDER. PT TOLERATED WELL. MEDICATION EDUCATION PERFORMED. PT VERBALIZED UNDERSTANDING. SAFETY MEASURES IN PLACE. WILL CONTINUE TO MONITOR.
[2019-09-24] MEDS: LACTULOSE 20 GM/30 ML UDC PO SCH (10:02)
[2019-09-24] MEDS: DOCUSATE 100 MG/10 ML UDC GT SCH (10:02)
[2019-09-24] MEDS: LACTOBACILLUS RHAMNOSUS GG 1 EACH CAP PO SCH (10:03)
[2019-09-24] MEDS: FAMOTIDINE 20 MG TAB PO SCH (10:03)
--- NOTE | 2019-09-24 12:10 | NUR ---
HOURLY ROUNDING. PT RESTING IN BED UPON ARRIVAL. ABLE TO MAKE NEEDS KNOWN. RESPIRATIONS EVEN AND UNLABORED WITH NO SOB OR RESPIRATORY DISTRESS. SKIN WARM AND DRY TO TOUCH. SAFETY MEASURES IN PLACE. WILL CONTINUE TO MONITOR
--- NOTE | 2019-09-24 14:30 | NUR ---
HOURLY ROUNDING. PT IS ASLEEP. RESPONSIVE TO VERBAL AND TACTILE STIMULI. NO DISTRESS NOTED. SAFETY MEASURES IN PLACE.
[2019-09-24 16:00] VITALS: BP 113/56
--- NOTE | 2019-09-24 16:15 | NUR ---
PT IS NO LONGER TO [facility] PER LYNETTE MOSLEY'S REQUEST. PT WILL NOW BE GOING TO [facility]. LYNETTE WILL ARRIVE AND BE THE ONE TAKING THE PATIENT TO THE SNF. PT IS AWARE. SAFETY MEASURES IN PLACE
--- NOTE | 2019-09-24 16:20 | NUR ---
REPORT GIVEN TO SPENCER FINLEY AT [facility]. NURSE VERBALIZED UNDERSTANDING AND READ BACK INFORMATION. SAFETY MEASURES IN PLACE. WILL CONTINUE TO MONITOR
[2019-09-24 16:45] VITALS: BP 113/56
--- NOTE | 2019-09-24 18:10 | NUR ---
WENT OVER DISCHARGE INSTRUCTIONS WITH PATIENT AND SENIOR PROCUREMENT MANAGER. INSTRUCTED TO VISIT ED FOR ANY SIGNS OF DISTRESS. PT UNABLE TO COMPREHEND. SENIOR PROCUREMENT MANAGER VERBALIZED UNDERSTANDING. INTACT BULL CATHETER AND INTACT PICC LINE WERE REMOVED. PT TOLERATED WELL. ID BAND AND ALLERGY BAND REMOVED. PT CHANGED INTO ORANGE GOWN AND HER BELONGINGS WERE GATHERED. PT IS SAFELY TRANSFERRED TO [facility] VIA PRIVATE VEHICLE. PT IS STABLE.
== END 2019-09-24 18:10 | DRG 870 ==
LOC: MED 02:55 → MIC 05:03 → MTU 09-20 06:40
PROVIDERS: ADMIT General Practice; ATTEND General Practice
PROC: 5A1955Z Respiratory Ventilation, Greater than 96 Consecutive Hours (ICD-10-PCS; principal; 2019-09-12)
PROC: 05HY33Z Insertion of Infusion Device into Upper Vein, Percutaneous Approach (ICD-10-PCS; 2019-09-12)
PROC: B54MZZA Ultrasonography of Right Upper Extremity Veins, Guidance (ICD-10-PCS; 2019-09-12)
PROC: 0BH17EZ Insertion of Endotracheal Airway into Trachea, Via Natural or Artificial Opening (ICD-10-PCS; 2019-09-12)
DX: A41.59 Other Gram-negative sepsis (principal); E43 Unspecified severe protein-calorie malnutrition; R65.21 Severe sepsis with septic shock; J69.0 Pneumonitis due to inhalation of food and vomit; I21.A1 Myocardial infarction type 2; J15.6 Pneumonia due to other Gram-negative bacteria; J96.01 Acute respiratory failure with hypoxia; N17.0 Acute kidney failure with tubular necrosis; N39.0 Urinary tract infection, site not specified; A41.51 Sepsis due to Escherichia coli [E. coli]; Z68.23 Body mass index [BMI] 23.0-23.9, adult; F20.9 Schizophrenia, unspecified; G40.909 Epilepsy, unspecified, not intractable, without status epilepticus; R13.11 Dysphagia, oral phase; Z88.0 Allergy status to penicillin; Z79.899 Other long term (current) drug therapy; N13.9 Obstructive and reflux uropathy, unspecified; K72.90 Hepatic failure, unspecified without coma; E87.6 Hypokalemia; E83.42 Hypomagnesemia; E83.39 Other disorders of phosphorus metabolism; D64.9 Anemia, unspecified; Z68.21 Body mass index [BMI] 21.0-21.9, adult
CPT/HCPCS: 31500; 36415; 36600; 70450; 71045; 71250; 76705; 76770; 78445; 78582; 80048; 80053; 80202; 80305; 81001; 82140; 82607; 82728; 82746; 82803; 83036; 83540; 83605; 83690; 83735; 83880; 84100; 84300; 84443; 84484; 85025; 85045; 85379; 85610; 85730; 86704; 86706; 86708; 86709; 86803; 86886; 86900; 86901; 87040; 87070; 87081; 87086; 87186; 87205; 87340; 87804; 92610; 93005; 93970; 94002; 94003; 94640; 96361; 96365; 96368; 97110; 97116; 97161-GP; 97530; 99291; C1751; J0456; J0692; J0696; J1642; J1644; J2060; J2185; J2250; J3010; J3370; J3475; J3480; J3490; J7030; J7060; Q0092

== ENCOUNTER 2019-09-25 00:54 | Emergency (ER) | payer OTHER, MEDICAID ==
[~2019-09-25] VITALS: Ht 165.1 cm; Wt 63.5 kg
[~2019-09-25 00:54] MED LIST changes: +FER325 PO
--- NOTE | 2019-09-25 01:02 | NUR ---
PT ZAIN AND TAKEN TO BED 6 VIA GURNEY.
[2019-09-25 01:05] VITALS: BP 132/75
--- NOTE | 2019-09-25 01:10 | NUR ---
BIBA FOR C/O MULTIPLE SEIZURES TODAY AT B/C. PT VERBALLY NON-RESPONSIVE, WITHDRAWS TO PAINFUL STIMULI. DOES NOT OPEN EYES OR TRACE. PUPILS 3MM, SLUGGISH. UNABLE TO FOLLOW SIMPLE COMMANDS. SPO2 WNL. NO RESPIRATORY DISTRESS NOTED. PMH- LIMITED D/T PT CONDITION, SEIZURES, DM, PSYCHIATRIC. ALLERGIES- PENICILLIN MEDS-UNKNOWN
--- NOTE | 2019-09-25 01:44 | NUR ---
CONTACT ADMINISTRATION LYNETTE MOSLEY [phone], FACILITY [facility]
[2019-09-25 01:45] LABS: BASOPHILS % (AUTO) 0.9 % (0.0-2.0); EOSINOPHILS # (AUTO) 0.1 K/uL (0-0.4); EOSINOPHILS % (AUTO) 2.7 % (0.0-4.0); HEMATOCRIT 31.5 % (36-48); HEMOGLOBIN 10.6 g/dL (12.0-16.0); LYMPHOCYTES # (AUTO) 1.8 K/uL (2.5-16.5); LYMPHOCYTES % (AUTO) 33.5 % (20.5-51.1); MEAN CORPUSCULAR HEMOGLOBIN 32 pg (27-31); MEAN CORPUSCULAR HGB CONC 34 g/dL (33-37); MEAN CORPUSCULAR VOLUME 94.4 fL (80-94); MONOCYTES # (AUTO) 0.5 K/uL (0.8-1.0); MONOCYTES % (AUTO) 9.6 % (1.7-9.3); NEUTROPHILS # (AUTO) 2.8 K/uL (1.8-7.7); NEUTROPHILS % (AUTO) 53.3 % (42.2-75.2); PLATELET COUNT (AUTO) 710 K/uL (140-450); RED BLOOD CELL COUNT(AUTO) 3.34 MIL/uL (4.20-5.40); WHITE BLOOD COUNT (AUTO) 5.4 K/uL (4.8-10.8)
[2019-09-25 02:09] LABS: ANION GAP 11.4 (8-16); CARBON DIOXIDE 30.4 mmol/L (21-32); CREATININE 0.6 mg/dL (0.6-1.3); POTASSIUM 3.8 mmol/L (3.5-5.1)
[2019-09-25 02:11] LABS: PHENYTOIN (DILANTIN) 0.9 ug/ml (10.0-20.0)
--- NOTE | 2019-09-25 02:21 | NUR ---
PT TRANSFER TO CT AND XR [facility]IA [facility].
[2019-09-25 02:24] LABS: PHENOBARBITAL < 1 ug/ml (15-40)
--- NOTE | 2019-09-25 02:33 | NUR ---
PT RETURNED BACK FROM CT AND XR VIA [facility].
--- NOTE | 2019-09-25 03:58 | NUR ---
CALLLED [facility] AND GAVE REPORT TO LYNETTE MOSLEY, BUSINESS PROJECT ANALYST. ALL QUESTIONS AND CONCERNS ANSWERED AT THIS TIME. LYNETTE SAID THEY ARE ABLE TO ARRANGE TRANSPORTATION BUT, NOT UNTIL 0500 TODAY. ERMD AWARE.
--- NOTE | 2019-09-25 04:02 | NUR ---
LYE BATH OPERATOR: LYNETTE MOSLEY PHONE # [phone].
--- NOTE | 2019-09-25 05:25 | NUR ---
PT IS SLEEPING COMFORTABLY. EQUAL CHEST RISE AND FALL. NO DISTRESS NOTED.
--- NOTE | 2019-09-25 06:03 | NUR ---
CALLED ADMINASTRATOR LYNETTE MOSLEY FROM [facility] FOR FOLLOW UP ON TRANSPORTATION. LYNETTE SAID SHES STILL WAITING ON THE EMPLOYEES TO CALL HER BACK. SHE ALSO SAID ANOTHER TRANSPORT EMPLOYEE COMES IN AT 0700.
[2019-09-25 06:59] VITALS: BP 113/56
--- NOTE | 2019-09-25 06:59 | NUR ---
Patient discharged with v/s stable. Written and verbal after care instructions given and explained. Patient verbalized understanding. Wheel Chair Assisted with by caregiver. All questions addressed prior to discharge. Advised to follow up with PMD.
== END 2019-09-25 06:59 | disposition home or self-care (01) ==
LOC: MED 00:54
DX: R56.9 Unspecified convulsions (principal); Z88.0 Allergy status to penicillin; Z79.899 Other long term (current) drug therapy
CPT/HCPCS: 36415; 70450; 71045; 80048; 80156; 80184; 80185; 82140; 83605; 84484; 85025; 93005; 99285; Q0092

== ENCOUNTER 2020-05-04 11:26 | Emergency (ER) | payer OTHER, MEDICAID ==
[~2020-05-04] VITALS: Ht 165.1 cm; Wt 53.5 kg
[2020-05-04 11:38] VITALS: BP 107/73
--- NOTE | 2020-05-04 11:58 | NUR ---
PATIENT PRESENTS TO ED WITH RIGHT HAND NUMBNESS SINCE TODAY . PT STATES SHE CAN FEEL ALL FINGERS AND NO PAIN . DENIES N/V/D; SKIN IS PINK/WARM/DRY; AAOX2 WITH EVEN AND STEADY GAIT; LUNGS CLEAR BL; HR EVEN AND REGULAR; PT DENIES ANY FEVER, CP, SOB, OR COUGH AT THIS TIME; PATIENT STATES PAIN OF 0/10 AT THIS TIME; VSS; PATIENT POSITIONED FOR COMFORT; HOB ELEVATED; BEDRAILS UP X2; BED DOWN. ER MD MADE AWARE OF PT STATUS.
[2020-05-04 15:21] VITALS: BP 107/73
== END 2020-05-04 15:21 | disposition home or self-care (01) ==
LOC: MED 11:26
DX: R20.0 Anesthesia of skin (principal); E11.9 Type 2 diabetes mellitus without complications; R56.9 Unspecified convulsions; Z88.0 Allergy status to penicillin; Z79.899 Other long term (current) drug therapy; Z96.653 Presence of artificial knee joint, bilateral
CPT/HCPCS: 99282

== ENCOUNTER 2022-06-22 08:57 | Inpatient (IN) | payer OTHER, MEDICAID ==
[~2022-06-22] VITALS: Ht 160 cm; Wt 59.0 kg
[~2022-06-22 08:57] MED LIST changes: -COL100L GT; -DIT5 PO; +DOCU50LI8 GT; -FOLI0.8T PO; +FOLI0.8T9 PO; +LACT-103 PO; -LACT10SO1 PO; +OXYB5TAB44 PO; -SENN8.8S12 PO; +SENN8.8S21 PO
--- NOTE | 2022-06-22 08:59 | NUR ---
pt placed in bed 08 from [facility]
--- NOTE | 2022-06-22 09:00 | NUR ---
PT RECEIVED, CARE ASSUMED. PT BIB EMS FROM SNF FOR EVALUATION OF ALOC. STAFF STATED, THAT PT IS MORE ALTERED THAN USUAL. AWAITING TO BE SEEN BY
[2022-06-22 09:04] VITALS: BP 93/61
[2022-06-22] MEDS ORDERED: NACL 0.9% 1,000 ML IV ONE (09:05)
--- NOTE | 2022-06-22 09:55 | NUR ---
Flu swab obtained, handed to tech at bedside.
[2022-06-22 10:08] LABS: APPEARANCE,URINE CLOUDY (CLEAR); BILIRUBIN,URINE NEGATIVE (NEGATIVE); BLOOD, URINE NEGATIVE (NEGATIVE); COLOR,URINE AMBER (YELLOW); LEUKOCYTE ESTERASE ,URINE 1+ (NEGATIVE); NITRITE, URINE POSITIVE (NEGATIVE); UGLUCOSE NEGATIVE (NEGATIVE)
[2022-06-22 10:19] LABS: BARBITURATE, URINE NEGATIVE ng/ml (NEG <=200); BENZODIAZEPINE, URINE POSITIVE ng/mL (NEG <=200); CANNABINOID, URINE NEGATIVE ng/mL (NEG <=50); COCAINE, URINE NEGATIVE ng/mL (NEG <=300); OPIATE, URINE NEGATIVE ng/mL (NEG <=2000); PHENCYCLIDINE SCREEN,URINE NEGATIVE ng/mL (NEG <=25)
[2022-06-22 10:20] LABS: EOSINOPHILS % (AUTO) 0.1 % (0.0-4.0); HEMATOCRIT 33.2 % (36-48); HEMOGLOBIN 11.3 g/dL (12.0-16.0); LYMPHOCYTES # (AUTO) 0.4 K/uL (2.5-16.5); LYMPHOCYTES % (AUTO) 3.7 % (20.5-51.1); MEAN CORPUSCULAR HEMOGLOBIN 32 pg (27-31); MEAN CORPUSCULAR HGB CONC 34 g/dL (33-37); MEAN CORPUSCULAR VOLUME 92.7 fL (80-94); MONOCYTES # (AUTO) 0.6 K/uL (0.8-1.0); MONOCYTES % (AUTO) 4.9 % (1.7-9.3); NEUTROPHILS # (AUTO) 10.6 K/uL (1.8-7.7); NEUTROPHILS % (AUTO) 91.3 % (42.2-75.2); PLATELET COUNT (AUTO) 162 K/uL (140-450); RED BLOOD CELL COUNT(AUTO) 3.58 MIL/uL (4.20-5.40); RED CELL DISTRIBUTION WIDTH 14.5 % (11.6-13.7); WHITE BLOOD COUNT (AUTO) 11.6 K/uL (4.8-10.8)
[2022-06-22 10:29] LABS: OTHER CASTS, URINE None Seen /LPF (None Seen)
--- NOTE | 2022-06-22 10:30 | NUR ---
56 y/o female biba from [facility] x today. Per staff at facility, "patient is not acting at baseline and is not acting like herself." Patient denies any pain or discomfort. Medical History:Cerebral Palsy ALLERGY:PENICILLINS
[2022-06-22 10:32] LABS: ALBUMIN 2.6 g/dL (3.4-5.0); ASPARTATE AMINOTRANSFERASE 51 U/L (15-37); CARBON DIOXIDE 32.1 mmol/L (21-32); CHLORIDE 113 mmol/L (98-107); CREATININE 0.9 mg/dL (0.6-1.3); GFR ARICAN-AMERICAN 83 mL/min (>90); GLUCOSE 121 mg/dL (74-106); POTASSIUM 3.1 mmol/L (3.5-5.1); SODIUM SERUM 151 mmol/L (136-145); TOTAL BILIRUBIN 0.3 mg/dL (0.0-1.0); UREA NITROGEN, BLOOD 28 mg/dL (7-18)
--- NOTE | 2022-06-22 10:43 | NUR ---
Ultrasound at bedside.
[2022-06-22] MEDS ORDERED: KCL 20 MEQ/WATER INJ PREMIX 100 ML IV ONE (10:45)
[2022-06-22 11:48] LABS: MAGNESIUM 1.5 mg/dL (1.8-2.4); PHOSPHORUS 2.7 mg/dL (2.5-4.9)
[2022-06-22] MEDS ORDERED: cefTRIAXone 1,000 MG VIAL ONE (11:53)
[2022-06-22] MEDS ORDERED: DEXTROSE 5% 1,000 ML IV ONE (12:05)
--- NOTE | 2022-06-22 12:11 | NUR ---
Patient is alert and verbally responsive. All needs met by staff.
--- NOTE | 2022-06-22 14:22 | NUR ---
Spoke to Jennifer and updated her on patients status.
[2022-06-22] MEDS ORDERED: HYDROcodone/APAP 5/325 MG 1 TAB TAB GT PRN (14:35)
[2022-06-22] MEDS ORDERED: ACETAMINOPHEN 650 MG/20.3 ML UDC GT PRN (14:50)
--- NOTE | 2022-06-22 15:25 | NUR ---
Called Jennifer to ask for a list of medication. No answer left a voicemail.
--- NOTE | 2022-06-22 15:30 | NUR ---
Called and spoke to Jennifer for a list of medication. Per Jennifer, she will see if anyone can drop it off. Staff is unable to fax list of medication.
[2022-06-22] MEDS ORDERED: AZITHROMYCIN 500 MG INJ VIAL IV ONE (15:46)
--- NOTE | 2022-06-22 16:00 | NUR ---
Staff from [facility] dropped off med list and emergency contact info.
[2022-06-22] MEDS: AZITHROMYCIN 500 MG in DEXTROSE 5% 250 ML IV SCH (16:01)
--- NOTE | 2022-06-22 16:32 | NUR ---
Called Jennifer, to ask if there is an updated med list. No answer. Left voicemail.
[2022-06-22] MEDS ORDERED: ASCO500T95 PO (16:47)
[2022-06-22] MEDS ORDERED: GABA100C PO (16:47)
[2022-06-22] MEDS ORDERED: CHLO473S62 PO (16:47)
[2022-06-22] MEDS ORDERED: TRAZ-343 PO (16:47)
[2022-06-22] MEDS ORDERED: RISP0.5T3 PO (16:47)
[2022-06-22] MEDS ORDERED: MULT-2171 PO (16:47)
[2022-06-22] MEDS ORDERED: OLAN7.5T1 PO (16:47)
--- NOTE | 2022-06-22 18:20 | NUR ---
Per Jam at [facility], ok to crush Baclofen and give with apple sauce.
[2022-06-22] MEDS ORDERED: CRUSHER, PILL MC ONE ×2 (18:38→21:14)
[2022-06-22] MEDS: BACLOFEN 10 MG TAB GT SCH (18:43)
--- NOTE | 2022-06-22 18:58 | NUR ---
Patient was turned and repositioned, diaper changed. Patient had a BM.
--- NOTE | 2022-06-22 19:20 | NUR ---
Report given to SPENCER Ortiz for transfer of care.
--- NOTE | 2022-06-22 19:30 | NUR ---
RECEIVED REPORT ON PATIENT. PATIENT RESTING IN BED WITH EYES CLOSED. DOESNT APPEAR TO BE IN DISTRESS. PATIENT ATTACHED ON BEDSIDE MONITOR. BED LOW AND LOCKED. BENJAMIN SIDE RAILS FOR SAFETY. CALL LIGHT IN REACH. ALL NEEDS MET.
--- NOTE | 2022-06-22 20:30 | NUR ---
RT AT BEDSIDE
[2022-06-22] MEDS: IPRATROPIUM 0.02% 0.5 MG/2.5 ML NEBU INH SCH (20:32)
[2022-06-22] MEDS: ALBUTEROL 0.083% 2.5 MG/3 ML NEBU INH SCH (20:33)
[2022-06-22] MEDS: CALCIUM CARB 600 MG TAB GT SCH (21:27)
[2022-06-22] MEDS: risperiDONE 1 MG TAB GT SCH (21:27)
[2022-06-22] MEDS: DOCUSATE 100 MG/10 ML UDC GT SCH (21:27)
[2022-06-22] MEDS: traZODone 50 MG TAB GT SCH (21:27)
[2022-06-22] MEDS: FERROUS SULFATE 300 MG/5 ML UDC GT SCH (21:27)
--- NOTE | 2022-06-22 21:27 | NUR ---
PATIENT MEDICATED PER ORDERS. TOLERATED WELL.
--- NOTE | 2022-06-22 23:18 | NUR ---
PATIENT PULLED OUT IV, CANNULA INTACT. 4X4 PLACED. BED LOW AND LOCKED. BENJAMIN SIDE RAILS FOR SAFETY. ALL NEEDS MET
--- NOTE | 2022-06-22 23:18 | NUR ---
PATIENT ANXIOUS AND AGGITATED. PULLED OUT IV AND BEDSIDE MONITOR LEADS. PRN MEDICATION GIVEN ORDERED.
[2022-06-22] MEDS: LORazepam 2 MG/ML VIAL IVP PRN (23:24)
--- NOTE | 2022-06-23 00:09 | NUR ---
PATIENT RESTING IN BED WITH EYES CLOSED. DOESNT APPEAR TO BE IN DISTRESS. PATIENT ATTACHED ON BEDSIDE MONITOR. BED LOW AND LOCKED. BENJAMIN SIDE RAILS FOR SAFETY. CALL LIGHT IN REACH. ALL NEEDS MET.
--- NOTE | 2022-06-23 01:30 | NUR ---
CHANGED AND REPOSITIONED PT. PROVIDED NEW LINEN. PATIENT CONTINUES TO BE ON LAUNDROMAT WORKER. BED LOW AND LOCKED. BENJAMIN SIDE RAILS FOR SAFETY. ALL NEEDS MET.
[2022-06-23] MEDS: IPRATROPIUM 0.02% 0.5 MG/2.5 ML NEBU INH SCH ×3 (01:39→19:40)
--- NOTE | 2022-06-23 01:39 | NUR ---
RT AT BEDSIDE
[2022-06-23] MEDS: ALBUTEROL 0.083% 2.5 MG/3 ML NEBU INH SCH ×3 (01:40→19:40)
--- NOTE | 2022-06-23 05:33 | NUR ---
LAB AT BEDSIDE
--- NOTE | 2022-06-23 05:46 | NUR ---
PATIENT SITTING IN BED. DOESNT APPEAR TO BE IN DISTRESS. PATIENT ATTACHED ON BEDSIDE MONITOR. BED LOW AND LOCKED. BENJAMIN SIDE RAILS FOR SAFETY. CALL LIGHT IN REACH. ALL NEEDS MET.
--- NOTE | 2022-06-23 06:00 | NUR ---
MATT HAD A BOWEL MOVEMENT. CHANGED AND PROVIDED NEW LINEN. PATIENT CONTINUES TO BE ON PERSONNEL SPECIALIST. BED LOW AND LOCKED. BENJAMIN SIDE RAILS FOR SAFETY. ALL NEEDS MET.
[2022-06-23 06:23] LABS: BASOPHILS % (AUTO) 0.2 % (0.0-2.0); EOSINOPHILS # (AUTO) 0.1 K/uL (0-0.4); HEMATOCRIT 31.9 % (36-48); LYMPHOCYTES % (AUTO) 11.7 % (20.5-51.1); MEAN CORPUSCULAR HEMOGLOBIN 32 pg (27-31); MEAN CORPUSCULAR HGB CONC 34 g/dL (33-37); MEAN CORPUSCULAR VOLUME 92.6 fL (80-94); MONOCYTES # (AUTO) 0.3 K/uL (0.8-1.0); MONOCYTES % (AUTO) 3.6 % (1.7-9.3); NEUTROPHILS # (AUTO) 7.5 K/uL (1.8-7.7); NEUTROPHILS % (AUTO) 83.5 % (42.2-75.2); PLATELET COUNT (AUTO) 122 K/uL (140-450); RED BLOOD CELL COUNT(AUTO) 3.45 MIL/uL (4.20-5.40); RED CELL DISTRIBUTION WIDTH 14.7 % (11.6-13.7)
[2022-06-23 07:02] LABS: ALBUMIN 2.2 g/dL (3.4-5.0); ANION GAP 10.2 (8-16); CARBON DIOXIDE 31.6 mmol/L (21-32); CREATININE 0.7 mg/dL (0.6-1.3); MAGNESIUM 1.6 mg/dL (1.8-2.4); PHOSPHORUS 2.6 mg/dL (2.5-4.9); TOTAL BILIRUBIN 0.3 mg/dL (0.0-1.0)
--- NOTE | 2022-06-23 07:20 | NUR ---
REPORT GIVEN TO USAMA AGUILA. TRANSFER OF CARE
--- NOTE | 2022-06-23 07:25 | NUR ---
REPORT RECEIVED FROM STARLA PALMER. ASSUMED CARE AT THIS TIME
--- NOTE | 2022-06-23 07:28 | NUR ---
RT AT BEDSIDE
[2022-06-23 07:34] LABS: POTASSIUM 2.8 mmol/L (3.5-5.1)
[2022-06-23 08:00] VITALS: BP 96/50
--- NOTE | 2022-06-23 08:27 | NUR ---
X-Ray at bedside.
--- NOTE | 2022-06-23 08:37 | NUR ---
Patient will be admitted to care of MD ESCOBAR. Admited to [facility]. Will go to room TELE . Belongings list completed. Report to DASHA PALMER .
[2022-06-23] MEDS ORDERED: OXYBUTYNIN 5 MG TAB GT SCH (09:00)
[2022-06-23] MEDS ORDERED: SENNA 8.6 MG TAB GT SCH (09:00)
[2022-06-23] MEDS ORDERED: VITAMIN D 400 IU TAB GT SCH (09:00)
[2022-06-23] MEDS ORDERED: FOLIC ACID 1 MG TAB GT SCH (09:00)
[2022-06-23] MEDS ORDERED: FLUoxetine 20 MG CAP GT SCH (09:00)
[2022-06-23] MEDS ORDERED: POLYETHYLENE GLYCOL 17 GM/PKT GT SCH (09:00)
[2022-06-23] MEDS: CALCIUM CARB 600 MG TAB GT SCH ×2 (09:41→21:00)
[2022-06-23] MEDS: DOCUSATE 100 MG/10 ML UDC GT SCH ×2 (09:41→21:00)
[2022-06-23] MEDS: FERROUS SULFATE 300 MG/5 ML UDC GT SCH ×2 (09:42→21:00)
[2022-06-23] MEDS: BACLOFEN 10 MG TAB GT SCH ×3 (09:43→17:00)
--- NOTE | 2022-06-23 10:10 | NUR ---
PATIENT HAS BEEN SCREENED AND CATEGORIZED LOW NUTRITION RISK. PATIENT WILL BE SEEN WITHIN 7 DAYS OF ADMISSION. 06/29/[address] Addendum: 06/23/22 at [address] REFERRAL RECEIVED NOT APPLICABLE MADY [address]ITING RD Addendum: 06/25/22 at [address] PATIENT HAS BEEN RE-SCREENED AND CATEGORIZED MODERATE NUTRITION RISK. PATIENT WILL BE SEEN WITHIN 3-5 DAYS OF ADMISSION. 06/25/2212/16/[address]
[2022-06-23] MEDS ORDERED: POTASSIUM CHL 40 MEQ/ D5-1/2NS 1,000 ML IV SCH (10:25)
[2022-06-23] MEDS: KCL 20 MEQ/WATER INJ PREMIX 100 ML IV SCH ×2 (12:51→14:55)
--- NOTE | 2022-06-23 13:00 | NUR ---
DC PLANNING SHELLIE OUTREACHED TO PT BOARD AND CARE AND SPOKE WITH LYNETTE MOSLEY, B&C ADMIN TO GATHER COLLATERAL INFORMATION. LYNETTE BAH PT IS RESIDENT OF [facility], WHICH IS AN INTERMEDIATE CARE FACILITY FOR INDIVIDUALS WITH INTELLECTUAL DISABILITIES. PT ADMITTED TO FACILITY IN 2018. LYNETTE BAH PT IS FOLLOWED BY DR. SKY AT FACILITY AND IS COMPLIANT WITH ALL CARE. LYNETTE REPORTS WHEN PT BECOMES ANGRY SHE WILL YELL AND SCREAM HOWEVER, LYNETTE REPORTS PT DOES NOT DISPLAY ANY PHYSICAL AGGRESSION. PT IS REPORTED TO BE VERBAL AND ABLE TO MAKE NEEDS KNOWN. PT UTILIZES FWW, WC AT FACILITY AND REQUIRES ASSISTANCE W/ ADL'S. LYNETTE REPORTS NO KNOWN FAMILY INVOLVEMENT AND REPORTS PT IS NOT CONSERVED. PT IS HOWEVER [facility], [facility], RANDAL BACA, . LYNETTE BAH DC PLAN IS FOR PT TO RETURN TO FACILITY. LYNETTE BAH [facility] DOES PROVIDE TRANSPORTATION HOWEVER, TRANSPORTATION MUST BE ARRANGED PRIOR TO 3PM. SHELLIE INQUIRED ON RESOURCES NEEDED, LYNETTE DECLINED. Addendum: 06/24/22 at 0814 by Sharif HARDIN Amended: Links added. Addendum: 07/01/22 at 1224 by Sharif HARDIN OUTREACHED TO [facility] TO FOLLOW UP ON PTS MDM THE NUMBER PROVIDED FOR [facility] WORKER CONNECTS WITH A WORKER BY THE NAME OF AMALIA REGAN. NO ANSWER BY [facility] ADMIN, THEREFOR MESSAGE WAS LEFT REQUESTING A RETURN PHONE CALL. Addendum: 07/01/22 at 1484 by Sharif HARDIN OBTAINED [facility] WORKER LYNETTE BACA'S PHONE NUMBER FROM . OUTREACHED TO LYNETTE BACA [phone] WHO REPORTS [facility] IS DECISION MAKER FOR PT, PT HAS NO ACTIVE FAMILY INVOLVEMENT. LYNETTE BAH [facility] HAS MADE HER AWARE PT IS CURRENTLY IN ICU, INTUBATED. LYNETTE OLVIN [facility] OFFICE WILL BE CLOSED FROM WEDNESDAY 07/04-07/07 AND 07/11-07/15. SW INQUIRED ON WHO TO REACH IN THE EVENT MEDICAL DECISIONS HAVE TO BE MADE, LYNETTE REPORTS TO CALL HER AND LEAVE MESSAGE AND TO CALL [facility] DIRECT NUMBER AT [phone], A MESSAGE SHOULD BE LEFT AND SOMEONE SHOULD RETURN PHONE CALL. LYNETTE REQUESTING CLINICAL UPDATE ON PT. LYNETTE TRANSFERRED TO FOR CLINICAL UPDATE.
[2022-06-23] MEDS: clonazePAM 0.5 MG TAB PO SCH ×2 (14:24→21:00)
[2022-06-23] MEDS: AZITHROMYCIN 500 MG in DEXTROSE 5% 250 ML IV SCH (15:07)
[2022-06-23 16:00] VITALS: BP 100/58
[2022-06-23 20:00] VITALS: BP 112/63
[2022-06-23] MEDS: DEXTROSE 5% 1,000 ML IV SCH (20:45)
[2022-06-23] MEDS: traZODone 50 MG TAB GT SCH (21:00)
[2022-06-23] MEDS: risperiDONE 1 MG TAB GT SCH (21:00)
[2022-06-23] MEDS: FAMOTIDINE 20 MG/2 ML VIAL IV SCH (21:00)
--- NOTE | 2022-06-23 21:59 | NUR ---
REFER TO DR Sharmaine ESCOBAR Addendum: 06/24/22 at 0820 by Bhavna Holley RN REFER TO DR. ESCOBAR . IF PT IS NPO OR NPO EXCEPT MEDS , I TOLD HIM PT'S ABD IS BLOATED , AND ST EVAL IS NOT YET DONE , PER DR. ESCOBAR . STAT X RAY ABD Addendum: 06/24/22 at 0821 by Bhavna Holley RN INFORM SHAWN IF WILL REMAIN PT ON NPO WHILE WAITING THE RESULT OF ABD. XRAY . I TOLD HIM HOW ABOUT THE LAMICTAL - NO RESPONSE FROM DR. ESCOBAR .
[2022-06-24] VITALS: BP 111/70
[2022-06-24] MEDS: ALBUTEROL SULFATE/IPRATROPIU 3 ML SOL IH SCH ×4 (01:37→20:35)
--- NOTE | 2022-06-24 02:32 | NUR ---
O2 AT 2 .5 LLPM/ NC - HIGHEST O2 SAT 90% , VERY OCASSIONALLY 93% - REFERRED TO RT - PER RT THAT IS OK , WILL CONT. TO MONITOR .CALL LIGHT WITHIN REACH .
[2022-06-24 04:00] VITALS: BP 105/62
--- NOTE | 2022-06-24 04:00 | NUR ---
ROUNDS , NO S/SX OF ACUTE DISTRESS NOTED . O2 SAT WNL .
--- NOTE | 2022-06-24 04:35 | NUR ---
SATS DROPPED TO 87% PLACED PT ON 4LNC WITH BUBBLE HUMIDIFIER
--- NOTE | 2022-06-24 06:00 | NUR ---
ROUNDS , O2SAT 9 3 % , NO S/SX OFACUTE DISTRESS NOTED .
[2022-06-24 06:08] LABS: BASOPHILS % (AUTO) 0.1 % (0.0-2.0); EOSINOPHILS % (AUTO) 0.2 % (0.0-4.0); HEMATOCRIT 32.9 % (36-48); HEMOGLOBIN 11.4 g/dL (12.0-16.0); LYMPHOCYTES # (AUTO) 0.4 K/uL (2.5-16.5); LYMPHOCYTES % (AUTO) 4.5 % (20.5-51.1); MEAN CORPUSCULAR HEMOGLOBIN 32 pg (27-31); MEAN CORPUSCULAR HGB CONC 35 g/dL (33-37); MEAN CORPUSCULAR VOLUME 92.6 fL (80-94); MONOCYTES # (AUTO) 0.3 K/uL (0.8-1.0); MONOCYTES % (AUTO) 3.2 % (1.7-9.3); NEUTROPHILS # (AUTO) 8.4 K/uL (1.8-7.7); PLATELET COUNT (AUTO) 131 K/uL (140-450); RED BLOOD CELL COUNT(AUTO) 3.56 MIL/uL (4.20-5.40); RED CELL DISTRIBUTION WIDTH 15.2 % (11.6-13.7); WHITE BLOOD COUNT (AUTO) 9.1 K/uL (4.8-10.8)
[2022-06-24] MEDS: DEXTROSE 5% 1,000 ML IV SCH (06:23)
[2022-06-24 06:28] LABS: ANION GAP 11.1 (8-16); CARBON DIOXIDE 31.4 mmol/L (21-32); CREATININE 0.6 mg/dL (0.6-1.3); POTASSIUM 3.5 mmol/L (3.5-5.1)
[2022-06-24 08:00] VITALS: BP 96/61
--- NOTE | 2022-06-24 08:00 | NUR ---
RECEIVED PT. IN BED, AWAKE, ALERT AND ORIENTED TO PERSON. PATIENT IS POOR HISTORIAN BUT ABLE TO COMMUNICATE NEEDS. NOT IN ANY FORM OF DISTRESS. DR. ESCOBAR SEEN AND EXAMINED THE PATIENT.
--- NOTE | 2022-06-24 08:06 | NUR ---
PMHX: CERBRAL PALSY SEIZURES; PATIENT UNABLE TO FOLLOW COMMANDS FOR INCENTIVE SPIROMETRY THERAPY
[2022-06-24] MEDS: ENOXAPARIN 40 MG/0.4 ML SYR SUBQ SCH (09:00)
[2022-06-24] MEDS: FAMOTIDINE 20 MG/2 ML VIAL IV SCH ×2 (09:00→21:00)
[2022-06-24] MEDS ORDERED: HYDROcodone/APAP 5/325 MG 1 TAB TAB PO PRN (09:40)
[2022-06-24] MEDS: clonazePAM 0.5 MG TAB PO SCH ×2 (10:34→21:00)
[2022-06-24] MEDS: BACLOFEN 10 MG TAB PO SCH ×2 (13:53→17:27)
[2022-06-24] MEDS: POLYETHYLENE GLYCOL 17 GM/PKT PO SCH ×2 (14:26→21:00)
[2022-06-24] MEDS: POTASSIUM CHL 30 MEQ/ D5-1/2NS 1,000 ML IV SCH (14:27)
[2022-06-24] MEDS ORDERED: FUROSEMIDE 20 MG/2 ML VIAL IVP SCH (14:55)
[2022-06-24] MEDS: AZITHROMYCIN 500 MG in DEXTROSE 5% 250 ML IV SCH (15:00)
[2022-06-24 16:00] VITALS: BP 96/74
[2022-06-24] MEDS: SENNA 8.6 MG TAB PO SCH (17:27)
[2022-06-24 20:00] VITALS: BP 99/52
[2022-06-24] MEDS: PANTOPRAZOLE 40 MG TABEC PO SCH (21:00)
[2022-06-24] MEDS: DOCUSATE 100 MG/10 ML UDC PO SCH (21:00)
[2022-06-24] MEDS: risperiDONE 1 MG TAB PO SCH (21:00)
[2022-06-24] MEDS: traZODone 50 MG TAB PO SCH (21:00)
[2022-06-24] MEDS ORDERED: FERROUS SULFATE 300 MG/5 ML UDC PO SCH (21:00)
[2022-06-24] MEDS: CALCIUM CARB 600 MG TAB PO SCH (21:00)
[2022-06-24] MEDS: METOCLOPRAMIDE 10 MG/2 ML INJ VIAL IVP SCH (21:00)
[2022-06-24 23:54] VITALS: BP 100/58
[2022-06-25] VITALS (12 sets, daily range): BP systolic 81–128; BP diastolic 43–74
[2022-06-25] MEDS: POTASSIUM CHL 30 MEQ/ D5-1/2NS 1,000 ML IV SCH (00:47)
[2022-06-25] MEDS: ALBUTEROL SULFATE/IPRATROPIU 3 ML SOL IH SCH ×4 (01:06→19:40)
[2022-06-25] MEDS: LORazepam 2 MG/ML VIAL IVP PRN ×2 (02:23→02:30)
[2022-06-25] MEDS: METOCLOPRAMIDE 10 MG/2 ML INJ VIAL IVP SCH ×3 (05:31→20:10)
--- NOTE | 2022-06-25 07:26 | NUR ---
CLOSING NO CHANGE ON STATUS, NO DISTRESS NOTED, REPORT GIVEN TO SPENCER JOY PER SBAR AT BEDSIDE.
[2022-06-25 07:28] LABS: MAGNESIUM 1.7 mg/dL (1.8-2.4); PHOSPHORUS 3.6 mg/dL (2.5-4.9)
[2022-06-25 07:35] LABS: ALBUMIN 2.2 g/dL (3.4-5.0); ANION GAP 8.7 (8-16); CARBON DIOXIDE 31.7 mmol/L (21-32); CREATININE 0.8 mg/dL (0.6-1.3); POTASSIUM 3.4 mmol/L (3.5-5.1); TOTAL BILIRUBIN 0.3 mg/dL (0.0-1.0)
[2022-06-25] MEDS ORDERED: SENNA 8.6 MG TAB PO SCH (09:00)
[2022-06-25] MEDS ORDERED: POLYETHYLENE GLYCOL 17 GM/PKT PO SCH (09:00)
[2022-06-25] MEDS ORDERED: OXYBUTYNIN 5 MG TAB PO SCH (09:00)
[2022-06-25] MEDS ORDERED: POTASSIUM CHLORIDE 10 MEQ TABER PO SCH (09:06)
[2022-06-25] MEDS: ENOXAPARIN 40 MG/0.4 ML SYR SUBQ SCH (09:11)
[2022-06-25] MEDS: FAMOTIDINE 20 MG/2 ML VIAL IV SCH ×2 (09:12→20:11)
[2022-06-25] MEDS: FOLIC ACID 1 MG TAB PO SCH (09:12)
[2022-06-25] MEDS: DOCUSATE 100 MG/10 ML UDC PO SCH ×2 (09:12→20:09)
[2022-06-25] MEDS: VITAMIN D 400 IU TAB PO SCH (09:12)
[2022-06-25] MEDS: CALCIUM CARB 600 MG TAB PO SCH ×2 (09:12→20:28)
[2022-06-25] MEDS: BACLOFEN 10 MG TAB PO SCH ×3 (09:13→17:43)
[2022-06-25] MEDS: clonazePAM 0.5 MG TAB PO SCH ×2 (09:13→20:14)
[2022-06-25] MEDS: PANTOPRAZOLE 40 MG TABEC PO SCH ×2 (09:13→20:10)
[2022-06-25] MEDS: POLYETHYLENE GLYCOL 17 GM/PKT PO SCH ×2 (09:13→20:11)
[2022-06-25] MEDS: FLUoxetine 20 MG CAP PO SCH (09:14)
[2022-06-25] MEDS: SENNA 8.6 MG TAB PO SCH ×3 (09:14→17:44)
[2022-06-25] MEDS ORDERED: MAG SULF 2000 MG/WATER PREMIX 50 ML IV SCH ×2 (09:30→11:00)
[2022-06-25] MEDS ORDERED: POTASSIUM CHLORIDE 10 MEQ TABER PO ONE (10:50)
--- NOTE | 2022-06-25 11:29 | NUR ---
PT SATURATION VARIES FROM LOW 80S TO HIGH 90S, SHE PULLS OFF THE OXY MASK REPEATEDLY. SWITCHED TO 5L BUBBLE WITH NASAL CANNULA. INFORMED NURSE. WILL CONTINUE TO MONITOR.
--- NOTE | 2022-06-25 12:17 | NUR ---
PATIENT DESATING TO 70'S ON 15L BUBBLE MASK NC. RT CALLED. DR. ESCOBAR NOTIFIED. ORDERS GIVEN FOR CHEST X-RAY AND ABG'S. RT NOTIFIED TO DO ABG'S. RT PLACED PATIENT ON NON REBREATHER. DR. SMITH CALLED TO BE NOTIFIED. Noy KING RN.
--- NOTE | 2022-06-25 12:28 | NUR ---
ORDERS RECEIVED TO TRANSFER PATIENT TO ICU. Noy KING RN.
--- NOTE | 2022-06-25 13:00 | NUR ---
RECEIVED BEDSIDE REPORT FROM RUFINO. PT TRANSFERRED FROM [facility] TO ICU VIA GURNEY WITH HIGH FLOW 40L, 100% O2. A&O X1. SR ON MONITOR. MECHANICAL SOFT DIET. INCONTINENT. NO BULL IN PLACE. IV TO LT WRIST 22G, RUNNING D5 1/2 NS KCL 30 MEQ @20 MLS/HR. BED TO LOWEST POSITION, HOB ELEVATED TO 30 DEGREE, CALL LIGHT WITHIN REACH, WILL CONTINUE TO MONITOR.
--- NOTE | 2022-06-25 13:01 | NUR ---
PATIENT TRANSFERRED TO ICU BED 5 VIA BED. REPORT GIVEN TO SPENCER FAJARDO. Noy KING RN.
--- NOTE | 2022-06-25 13:10 | NUR ---
REPORTED PT STATUS TO DR SMITH, ORDERED TO PUT PT ON BIPAP.
--- NOTE | 2022-06-25 13:57 | NUR ---
PER PT PLACED ON BIPAP 18/8, R20 AND FIO2 100%. BIPAP SETTINGS TAKEN DOWN BY ICU NURSE VIA TELEPHONE. ALARMS ON AND FUNCTIONING. WILL CONTINUE TO MONITOR.
--- NOTE | 2022-06-25 14:00 | NUR ---
DR MANN ROUNDING AT BEDSIDE. ORDER NPO AND INSERT NGT.
--- NOTE | 2022-06-25 14:07 | NUR ---
TX NOT GIVEN AT THIS TIME DUE TO PT RESPONSE TO BIPAP. WILL CONTINUE TO MONITOR.
[2022-06-25] MEDS: AZITHROMYCIN 500 MG in DEXTROSE 5% 250 ML IV SCH (15:30)
--- NOTE | 2022-06-25 15:40 | NUR ---
PAGED DR SMITH, REGARDING PT BP TRENDING DOWN.
--- NOTE | 2022-06-25 15:50 | NUR ---
RECEIVED ORDERS PER DR SMITH VIA PHONE CALL, NS 500ML BOLUS AND MIDODRINE 10 MG Q 6H PO, HOLD IF SBP >120. IF PT BP NOT IMPROVED AFTER 1 HOUR, START VASOPRESSOR AND GET PICC LINE INSERTION.
[2022-06-25] MEDS ORDERED: NACL 0.9% 500 ML IV SCH (16:00)
--- NOTE | 2022-06-25 16:03 | NUR ---
06/25/22 RD INITIAL ASSESSMENT COMPLETED PLEASE REFER TO NUTRITION ASSESSMENT UNDER CARE ACTIVITY FOR ESTIMATED NUTRITIONAL NEEDS. 1. MONITOR NPO STATUS 2. WHEN/IF PT REQUIRES TF, RECOMMEND JEVITY 1.2 @ 55ML/HR, FWF 100ML Q6H TO MEET 100% ESTIMATED ENERGY NEEDS -RECOMMEND STARTING AT 20ML/HR AND INCREASING BY 10ML Q4H TOLERATED 3. RECOMMEND REPEATING SWALLOW EVAL TO ADVANCE DIET 4. RD TO FOLLOW-UP 2-3 DAYS, HIGH RISK REVIEWED BY FAUSTINO WHITING RD Addendum: 06/26/22 at [address] FNS CONSULT HAS BEEN RECEIVED FOR TUBE FEEDING. PATIENT WILL BE SEEN WITHIN 1-2 DAYS OF RECEIVING THE FNS CONSULT. RD WILL PROVIDE TUBE FEEDING RECOMMENDATIONS. REVIEWED BY FAUSTINO WHITING RD
[2022-06-25] MEDS: MIDODRINE 5 MG TAB PO SCH ×2 (16:26→22:00)
[2022-06-25] MEDS: NOREPINEPHRINE 4 MG in DEXTROSE 5% 250 ML IV PRN (17:21)
--- NOTE | 2022-06-25 17:21 | NUR ---
STARTED LEVO @2 MCG/MIN.
--- NOTE | 2022-06-25 19:26 | NUR ---
ENDORSED TO ORDER EDITOR NURSE VAN RN FOR CONTINUITY OF CARE. ALL QUESTIONS ANSWERED.
--- NOTE | 2022-06-25 19:50 | NUR ---
AT BEDSIDE, NOTICED PT DESATURATING INTO LOW 80s ON BiPAP IPAP 18, EPAP 8, FiO2 100%. TITRATED BiPAP SETTING TO IPAP 20, EPAP 12. SPO2 IMPROVED TO 87% TO 89%. WILL CONTINUE TO MONITOR
--- NOTE | 2022-06-25 20:00 | NUR ---
RECEIVED REPORT FROM AM SHIFT SPENCER GUTIERREZ. PT A&O X0. UNABLE TO ANSWER GENERAL QUESTIONS. PT IS ON BIPAP. NPO DIET. SR TO BEDSIDE MONITOR. PERIPHERAL IV ACCESS TO 22 GAUGE ON LEFT WRIST. LEFT AC 20 GAUGE. D5 1/2 NS KCL MEQ AT 20 ML/HR. LEVO RUNNING AT 20MCG/KG/HR. FLACC 0.
[2022-06-25] MEDS: risperiDONE 1 MG TAB PO SCH (20:10)
--- NOTE | 2022-06-25 20:25 | NUR ---
Dr. VO CALLED BACK. DOCTOR WAS UPDATED ON PTs CHANGE IN CONDITION. INCREASED IN BiPAP SETTINGS AND SPO2 STILL IN 80s. DOCTOR SAID TO GET READY FOR INTUBATION.
[2022-06-25] MEDS: traZODone 50 MG TAB PO SCH (20:29)
--- NOTE | 2022-06-25 20:30 | NUR ---
PT 02 DROPPING TO 80'S. RT CAMMY PAGECarri VO. ORDERED FOR INTUBATION.
--- NOTE | 2022-06-25 20:55 | NUR ---
Dr. VO AT BEDSIDE, PT WAS INTUBATED WITH ETT SIZE 8.0 AND SECURED 23cm AT TEETH. NOTICED COLOR CHANGE ON CO2 DETECTOR. BILATERAL BREATH SOUNDS ON AUSCULTATION. PT WAS PLACED ON VENT SETTINGS AC/PRVC RR 20, VT350, PEEP14, FiO2 100%. VENT CONNECTED TO RED OUTLET. ALARMS SET AND AUDIBLE.
--- NOTE | 2022-06-25 20:55 | NUR ---
INTUBATION BY DR. VO DONE.
[2022-06-25] MEDS: PROPOFOL 1000 MG/100 ML PREMIX 100 ML IV PRN (21:15)
--- NOTE | 2022-06-25 21:40 | NUR ---
EMERGENCY CENTRAL LINE PLACEMENT TO LEFT IJ. Addendum: 06/26/22 at 0656 by Todd Hatch RN CENTRAL LINE TO LEFT SUBCLAVIAN.
[2022-06-25] MEDS ORDERED: VANCOMYCIN PER PHARMACY MC PRN (21:50)
[2022-06-25] MEDS ORDERED: fentaNYL citrate 0.05 MG/ML VIAL IVP PRN (21:50)
--- NOTE | 2022-06-25 21:58 | NUR ---
CHEST X-RAY DONE FOR INTUBATION AND CENTRAL LINE. BOTH ARE IN PLACE.
--- NOTE | 2022-06-25 22:15 | NUR ---
BULL CATHETER INSERTION SUCCESSFUL. INTACT AND FLOWING WELL.
--- NOTE | 2022-06-25 22:19 | NUR ---
PHONE CALL TO LESLIE MEADOWS, PULMO CLOTHING WORKER, PER PHYSICIAN OK TO USE CENTRAL LINE AND OK TO INSERT BULL CATHETER.ALSO INFORMED DR VO THAT AFTER HOURS PHARMACY CALLED EARLIER TO VERIFY ANTIBIOTIC ORDERS, PER DR VO, PT FOR VANCO AND CEFIPIME AND TO VINEET [email or web address].[email or web address], PHARMACIST NOTIFIED
[2022-06-25] MEDS ORDERED: VANCOMYCIN 1,000 MG VIAL ONE (22:56)
[2022-06-25] MEDS ORDERED: VANCOMYCIN 1,000 MG in DEXTROSE 5% 250 ML IV ONE (23:00)
--- NOTE | 2022-06-25 23:28 | NUR ---
TITRATED FiO2 FROM 90% TO 70%. PT TOLERATING WELL AT THIS TIME. WILL CONTINUE TO MONITOR
[2022-06-26] VITALS (16 sets, daily range): BP systolic 91–122; BP diastolic 55–74
--- NOTE | 2022-06-26 01:00 | NUR ---
PT INTUBATED. TEMP 96.
[2022-06-26] MEDS: ALBUTEROL SULFATE/IPRATROPIU 3 ML SOL IH SCH ×2 (01:40→20:33)
--- NOTE | 2022-06-26 01:48 | NUR ---
TITRATED FiO2 FROM 70% TO 50%. SPO2 99%. PT TOLERATING WELL AT THIS TIME. WILL CONTINUE TO MONITOR
[2022-06-26] MEDS ORDERED: NOREPINEPHRINE 4 MG/4 ML VIAL IV ONE (03:22)
[2022-06-26] MEDS: NOREPINEPHRINE 4 MG in DEXTROSE 5% 250 ML IV PRN ×2 (03:34→11:15)
[2022-06-26] MEDS: PROPOFOL 1000 MG/100 ML PREMIX 100 ML IV PRN ×3 (03:36→19:39)
[2022-06-26] MEDS: MIDODRINE 5 MG TAB PO SCH ×5 (04:00→21:36)
--- NOTE | 2022-06-26 04:50 | NUR ---
TITRATED PEEP FROM [id number] TO [id number]. SPO2 98%. WILL CONTINUE TO MONITOR PT.
--- NOTE | 2022-06-26 05:00 | NUR ---
MIDODRINE HELD DUE TO SBP HIGHER THAN 120. AM MEDS GIVEN.
[2022-06-26] MEDS ORDERED: CEFEPIME 1,000 MG VIAL ONE (05:42)
[2022-06-26 05:53] LABS: BASOPHILS % (AUTO) 0.3 % (0.0-2.0); EOSINOPHILS # (AUTO) 0.1 K/uL (0-0.4); EOSINOPHILS % (AUTO) 0.8 % (0.0-4.0); HEMATOCRIT 31.6 % (36-48); HEMOGLOBIN 10.7 g/dL (12.0-16.0); LYMPHOCYTES # (AUTO) 0.7 K/uL (2.5-16.5); LYMPHOCYTES % (AUTO) 10.3 % (20.5-51.1); MEAN CORPUSCULAR HEMOGLOBIN 32 pg (27-31); MEAN CORPUSCULAR HGB CONC 34 g/dL (33-37); MONOCYTES # (AUTO) 0.4 K/uL (0.8-1.0); MONOCYTES % (AUTO) 5.6 % (1.7-9.3); NEUTROPHILS # (AUTO) 5.5 K/uL (1.8-7.7); PLATELET COUNT (AUTO) 154 K/uL (140-450); RED CELL DISTRIBUTION WIDTH 15.2 % (11.6-13.7); WHITE BLOOD COUNT (AUTO) 6.6 K/uL (4.8-10.8)
[2022-06-26] MEDS: METOCLOPRAMIDE 10 MG/2 ML INJ VIAL IVP SCH ×3 (05:53→21:30)
[2022-06-26] MEDS: CEFEPIME 500 MG in DEXTROSE 5% 50 ML IV SCH ×3 (05:53→22:40)
--- NOTE | 2022-06-26 07:20 | NUR ---
REPORT GIVEN TO AM SHIFT SPENCER WEBB.
--- NOTE | 2022-06-26 07:21 | NUR ---
RECEIVED BEDSIDE REPORT FROM FORKLIFT TRUCK MECHANIC RNLYUDMILA, FOR CONTINUITY OF CARE. PT A/OX0, PERRLA. ETT TO VENT AC/PRVC FIO2 50%, VT 350, RR 20, PEEP 10. SR ON MONITOR. TRIPLE LUMEN CENTRAL LINE TO L SUBCLAVIAN INFUSING PROPOFOL AT 30MCG/KG/MIN, LEVOPHED AT 10 MCG/MIN, D5 1/2NS/20MEQ K+ AT 20 ML/HR, AND NS TKO. 22G IV TO L WRIST AND 20G IV TO LAC SALINE LOCK. NGT TO L NARE, CLAMPED. F/C TO GRAVITY. BILATERAL SOFT WRIST RESTRAINTS IN PLACE, NO S/SX OF INJURY. GENERALIZED WEAKNESS. BED LOCKED AND IN LOWEST POSITION. Addendum: 06/26/22 at 1741 by Antonia Stallworth RN 5D 1/2NS/30MEQ K+, NOT 20MEQ K+
[2022-06-26 07:24] LABS: POTASSIUM 3.1 mmol/L (3.5-5.1)
[2022-06-26 07:25] LABS: ANION GAP 11.1 (8-16); CREATININE 0.8 mg/dL (0.6-1.3)
[2022-06-26 07:26] LABS: MAGNESIUM 2.1 mg/dL (1.8-2.4); PHOSPHORUS 3.5 mg/dL (2.5-4.9)
[2022-06-26] MEDS: POLYETHYLENE GLYCOL 17 GM/PKT PO SCH ×2 (08:14→21:26)
[2022-06-26] MEDS: FAMOTIDINE 20 MG/2 ML VIAL IV SCH ×2 (08:14→21:29)
[2022-06-26] MEDS: ENOXAPARIN 40 MG/0.4 ML SYR SUBQ SCH (08:14)
[2022-06-26] MEDS: SENNA 8.6 MG TAB PO SCH ×3 (08:15→16:35)
[2022-06-26] MEDS: DOCUSATE 100 MG/10 ML UDC PO SCH ×2 (08:15→21:23)
[2022-06-26] MEDS: VITAMIN D 400 IU TAB PO SCH (08:15)
[2022-06-26] MEDS: BACLOFEN 10 MG TAB PO SCH ×3 (08:15→16:35)
[2022-06-26] MEDS: clonazePAM 0.5 MG TAB PO SCH ×2 (08:22→21:25)
[2022-06-26] MEDS: PANTOPRAZOLE 40 MG INJ VIAL IVP SCH ×2 (08:23→21:30)
[2022-06-26] MEDS: FOLIC ACID 1 MG TAB PO SCH (08:27)
[2022-06-26] MEDS: FLUoxetine 20 MG CAP PO SCH (08:27)
[2022-06-26] MEDS: CALCIUM CARB 600 MG TAB PO SCH ×2 (08:28→21:23)
[2022-06-26] MEDS ORDERED: POTASSIUM CHLORIDE 20% 40 MEQ/15 ML UDC GT SCH (09:15)
[2022-06-26] MEDS ORDERED: MAG SULF 2000 MG/WATER PREMIX 50 ML IV SCH (09:45)
--- NOTE | 2022-06-26 10:13 | NUR ---
RT TITRATED PEEP FROM 10 TO 8. ABG RESULTS SHOWED PO2 IS 100%. PAGED DR LENZ @1475 TO NOTIFY CHANGE TO THE PEEP. PT IS STABLE AND TOLERATING TITRATION WELL. SPO2 99% HR 66. NO DISTRESS NOTED. RN AND CHARGE AWARE OF CHANGE.
[2022-06-26] MEDS: methylPREDNISolone SS 40 MG/ML VIAL IVP SCH ×2 (10:14→21:30)
[2022-06-26] MEDS: DEXT 5% / NACL 0.45% 1,000 ML IV SCH ×2 (10:15→19:50)
[2022-06-26] MEDS: VANCOMYCIN 750 MG in DEXTROSE 5% 250 ML IV SCH ×2 (10:15→23:00)
--- NOTE | 2022-06-26 10:31 | NUR ---
DC PLANN[age] YRS OLD FEMALE PATIENT WAS ADMITTED FROM [facility] WITH A DX OF UTI ALOC. PATIENT HAS A HX OF CEREBRAL PALSY DM,SZ, INSOMNIA AND OVER ACTIVE BLADDER AND CONSTIPATION. PT WAS TRANSFERRED TO ICU INTUBATED SEDATED FIO2 50% ON PROPOFOL AND LEVO DRIP. PULMO AND NEPHRO FOLLOWING. CALLED [facility] TUB OPERATOR RANDAL BACA [phone] UPDATED PT'S CLINICAL. PER RANDAL PATIENT HAS NO FAMILY MEMBER. FOR ANY DECISION MAKER TO CONTACT HER. NOTIFIED DR SHAWN Sethi CM TO FOLLOW Addendum: 07/04/22 at 1057 by Margo Epstein RN DC PLANNING: PATIENT STILL INTUBATED SEDATED FIO2 65% CONTINUED PROPOFOL AND LEVO DRIP CONTINUED IV ABX CEFEPIME AND FLAGYL. PER DR VO NOTES NO MAJOR CHANGE WILL LIKELY REQUIRE TRACHEOSTOMY. CALLED RANDAL [facility] TUB OPERATOR HER VOICE MAIL STATED SHE WILL BE ON VACATION AND BE BACK ON JUL 15, 2022. CM TO FOLLOW Addendum: 07/08/22 at 1359 by Margo Epstein RN DC PLANNING: CALLED [facility] [phone] SPOKE WITH AUBREY CHAVEZ COVERING FOR LYNETTE NOTIFIED HER THAT PT'S NEEDS A CONSENT TO BE SIGNED FOR TRACH AND PEG BY DR DANIELS PROVIDE DR DANIELS'S PHONE NUMBER. PER DIDIER WILL SUBMIT THE PAPERWORK AND WILL CALL US BACK AJIT TO FOLLOW Addendum: 07/09/22 at 0856 by Margo Epstein RN LATE ENTRY: 07/08/22 AT 15:30 RECEIVED A MESSAGE FROM DIDIER CHAVEZ [facility] TUB OPERATOR STATED TO HOLD OFF THE PLAN TO HAVE TRACH AND PEG FOR A FEW DAYS. WILL NOTIFY MD. FONG TO FOLLOW Addendum: 07/11/22 at 0845 by Marog Epstein RN DC PLANNING: CM DISCUSSED THE PLAN WITH DR VO ([facility]) STATED HE SPOKE WITH [facility] TUB OPERATOR RANDAL AND NOT WILLING TO AUTHORIZE TO PERFORM TRACH AND PEG. RECOMMENDED LTAC EVAL, DR ESCOBAR AGREED AND FAXED TO [facility]. CM TO FOLLOW Addendum: 07/11/22 at 1504 by Margo Epstein RN DC PLANNING: PER DAMON PATIENT GOT ACCEPTED AT [facility]. CALLED [facility] SPOKE WITH THE ADMIN RANDAL DISCUSSED THE TRANSFER TO [facility] PER RANDAL WANTED TO SEE HER BEFORE WE TRANSFER HER. PATIENT IS ON BIPAP FOR THE LAST 2 HRS TOLERATING WELL AND HOLD OFF LT[facility]. CM TO FOLLOW Addendum: 07/15/22 at 1154 by Margo Epstein RN DC PLANNING: PATIENT FAILED CPAP, SBT TRIAL, REINTUBATED SEDATED FIO2 28% ON PRECEDEX AND LEVOPHED DRIP. BIANCA LE, CALLED [facility] SPOKE WITH DAMON, REQUESTED LATEST CLINICAL TO BE FAXED AND WILL CONTACT [facility] TUB OPERATOR PROVIDE RANDAL BACA'S NUMBER CM TO FOLLOW. Addendum: 07/15/22 at 1536 by Margo Epstein RN DC PLANNING: CALLED [facility] TUB OPERATOR [phone] SPOKE WITH RANDAL LIVE SHE IS AWAITING FOR THE NURSE TO REVIEW THE CASE TO PROVIDE CONSENT FOR TRACH AND PEG PLACEMENT. SHE STATED MIGHT BE READY TODAY. CM TO FOLLOW Addendum: 07/21/22 at 1118 by Margo Epstein RN DC PLANNING: PATIENT GOT ACCEPTED AT [facility] CAN GO TO ROOM 2C # TO GIVE REPORT [phone] ARRANGED [employer] WITH [employer] CALLED AND LEFT A MESSAGE FOR RANDAL BACA [phone]. NOTIFIED BUSINESS CENTER MANAGERSharmaine FONG TO FOLLOW Addendum: 07/21/22 at 1139 by Margo Epstein RN DC PLANNING: [facility] WILL SOLDERER DIPPER PATIENT WITH IN 90 MIN. NOTIFIED DELROY PALMER.
[2022-06-26] MEDS ORDERED: DEXTROSE 50% 50 ML SYR IVP PRN (12:45)
--- NOTE | 2022-06-26 12:55 | NUR ---
DR CONDON CHANGED VENT SETTINGS VT FROM 350 TO 450 STATED THEY WERE TOO SMALL OF VOLUMES FOR PT. ALSO TITRATED PTs PEEP FROM 8 TO 6. PT IS TOLERATING CHANGES WELL. NO DISTRESS NOTED. NO NEW ORDERS PLACED BY . PT CURRENT SETTINS NOW ARE AC/PRVC 450 RR20 +6 50% . WILL CONTINUE TO MONITOR.
[2022-06-26] MEDS: metroNIDAZOLE 500 MG/NS PREMIX 100 ML IV SCH ×2 (13:31→21:30)
[2022-06-26] MEDS: POTASSIUM CHL 30 MEQ/ D5-1/2NS 1,000 ML IV SCH (14:00)
[2022-06-26] MEDS: AZITHROMYCIN 500 MG in DEXTROSE 5% 250 ML IV SCH (15:09)
--- NOTE | 2022-06-26 16:30 | NUR ---
STARTED TUBE FEEDING PER ORDER AND DIETARY RECOMMENDATION. NGT TO L NARE INFUSING JEVITY AT 20ML/HR FWF 100 Q6H. GOAL OF 55ML/HR.
[2022-06-26] MEDS: BLOOD GLUCOSE MONITORING 1 DEV DEV FS SCH (18:26)
[2022-06-26] MEDS: INSULIN LISPRO SLIDING SCALE 100 UNITS/ML VIAL SUBQ PRN (18:29)
--- NOTE | 2022-06-26 19:30 | NUR ---
ENDORSED BEDSIDE REPORT TO LYUDMILA FUEL CELL REPAIRER RN, FOR CONTINUITY OF CARE.
--- NOTE | 2022-06-26 19:51 | NUR ---
RECEIVED REPORT FROM AM SHIFT SPENCER WEBB. VENT SETTINGS FI02 50 VT 450 RATE 20 PEEP 6. JEVITY 1.2 RUNNING AT 20ML/HR FREE WATER FLUSH AT 100 Q6H. BULL CATHETER INTACT AND FLOWING WELL WITH YELLOW URINE. SR TO BEDSIDE MONITOR. CENTRAL LINE TO LEFT SUBCLAVIAN. LEFT WRIST PERIPHERAL IV ACCESS 22 GAUGE. LEFT AC PERIPHERAL IV ACCESS 20 GAUGE. FLACC 0.
--- NOTE | 2022-06-26 20:33 | NUR ---
RECEIVED REPORT FROM AM SHIFT. PATIENT WAS SEEN AND ASSESSED. PATIENT IS INTUBATED WITH ETT SIZE 8.0 AND SECURED WITH A BITING BLOCK ANCHOR-FAST 23cm @ TEETH. PATIENT IS ON VENTILATOR SUPPORT. VENTILATOR PLUGGED IN RED OUTLET. VENTILATOR ALARMS SET APPROPRIATELY AND AUDIBLE TO ENVIRONMENT. AMBU BAG AT BEDSIDE. HEAD OF BED GREATER THAN 30 DEGREES. NOTICED ADEQUATE BILATERAL CHEST RISE AND FALL. PATIENT IS IN NO RESPIRATORY DISTRESS AT THIS TIME. VENT SETTINGS: AC/PRVC RR 20, TARGETED Vt 450, PEEP 6, FiO2 50% WITH SPO2 OF 98%. BILATERAL BREATH SOUNDS ON AUSCULTATION; UPPER LOBES: COARSE CRACKLES LOWER LOBES: COARSE CRACKLES. SUCTION: SMALL AMOUNT OF WHITE/YELLOW THICK SECRETIONS FROM ETT AND SMALL WHITE THIN ORALLY. SCHEDULE TX GIVEN ORDERED AND PT TOLERATED WELL WITH NO ADVERSE REACTION. WILL CONTINUE TO MONITOR PATIENT.
[2022-06-26] MEDS: risperiDONE 1 MG TAB PO SCH (21:23)
[2022-06-26] MEDS: traZODone 50 MG TAB PO SCH (21:24)
--- NOTE | 2022-06-26 21:50 | NUR ---
PM MEDS GIVEN.
[2022-06-27] VITALS (27 sets, daily range): BP systolic 93–126; BP diastolic 38–75
[2022-06-27] MEDS: INSULIN LISPRO SLIDING SCALE 100 UNITS/ML VIAL SUBQ PRN ×4 (00:30→17:59)
[2022-06-27] MEDS: BLOOD GLUCOSE MONITORING 1 DEV DEV FS SCH ×4 (00:31→17:25)
[2022-06-27] MEDS: ALBUTEROL SULFATE/IPRATROPIU 3 ML SOL IH SCH ×4 (00:52→20:15)
--- NOTE | 2022-06-27 01:20 | NUR ---
PT TEMP 96.2.
[2022-06-27] MEDS: MIDODRINE 5 MG TAB PO SCH ×2 (04:00→09:29)
[2022-06-27] MEDS: PROPOFOL 1000 MG/100 ML PREMIX 100 ML IV PRN ×4 (04:45→22:10)
[2022-06-27] MEDS: CEFEPIME 500 MG in DEXTROSE 5% 50 ML IV SCH ×3 (05:39→21:23)
[2022-06-27] MEDS: metroNIDAZOLE 500 MG/NS PREMIX 100 ML IV SCH ×3 (05:39→21:20)
[2022-06-27] MEDS: METOCLOPRAMIDE 10 MG/2 ML INJ VIAL IVP SCH ×3 (05:40→21:35)
[2022-06-27] MEDS: DEXT 5% / NACL 0.45% 1,000 ML IV SCH (05:50)
[2022-06-27 05:56] LABS: BASOPHILS % (AUTO) 0.2 % (0.0-2.0); HEMATOCRIT 29.7 % (36-48); HEMOGLOBIN 10.1 g/dL (12.0-16.0); LYMPHOCYTES # (AUTO) 0.2 K/uL (2.5-16.5); LYMPHOCYTES % (AUTO) 4.6 % (20.5-51.1); MEAN CORPUSCULAR HEMOGLOBIN 31 pg (27-31); MEAN CORPUSCULAR HGB CONC 34 g/dL (33-37); MEAN CORPUSCULAR VOLUME 92.6 fL (80-94); MONOCYTES # (AUTO) 0.2 K/uL (0.8-1.0); MONOCYTES % (AUTO) 3.1 % (1.7-9.3); NEUTROPHILS # (AUTO) 4.7 K/uL (1.8-7.7); NEUTROPHILS % (AUTO) 92.1 % (42.2-75.2); PLATELET COUNT (AUTO) 167 K/uL (140-450); RED BLOOD CELL COUNT(AUTO) 3.21 MIL/uL (4.20-5.40); RED CELL DISTRIBUTION WIDTH 15.2 % (11.6-13.7); WHITE BLOOD COUNT (AUTO) 5.1 K/uL (4.8-10.8)
[2022-06-27 06:40] LABS: ALBUMIN 1.9 g/dL (3.4-5.0); ANION GAP 14.2 (8-16); CARBON DIOXIDE 25.7 mmol/L (21-32); CREATININE 0.9 mg/dL (0.6-1.3); PHOSPHORUS 2.5 mg/dL (2.5-4.9); POTASSIUM 3.9 mmol/L (3.5-5.1); TOTAL BILIRUBIN 0.3 mg/dL (0.0-1.0)
--- NOTE | 2022-06-27 07:15 | NUR ---
RECEIVED PT ON PRVC 450,20,+6, 40%. VENT WHEELS ARE LOCKED, PLUGGED INTO RED OUTLET, AMBUBAG AT BEDSIDE, ALARMS ARE SET AND AUDIBLE. EQUAL CHEST RISE. SATURATION IN THE HIGH 90S. WILL CONTINUE TO MONITOR.
--- NOTE | 2022-06-27 07:30 | NUR ---
Received report on pt. Pt intubated and sedated with diprivan drip. Pt in no signs of pain or distress. Also on levophed drip and multiple IVF. NGT in place with tube feeding. Perry in place draining urine to gravity. Bilateral soft wrist restraints in place for safety.
--- NOTE | 2022-06-27 07:37 | NUR ---
REPORT GIVEN TO AM SHIFT SPENCER DUMONT.
[2022-06-27] MEDS: ENOXAPARIN 40 MG/0.4 ML SYR SUBQ SCH (09:14)
[2022-06-27] MEDS: FAMOTIDINE 20 MG/2 ML VIAL IV SCH ×2 (09:15→21:34)
[2022-06-27] MEDS: PANTOPRAZOLE 40 MG INJ VIAL IVP SCH ×2 (09:15→21:35)
[2022-06-27] MEDS: methylPREDNISolone SS 40 MG/ML VIAL IVP SCH ×2 (09:16→21:35)
[2022-06-27] MEDS: CALCIUM CARB 600 MG TAB PO SCH ×2 (09:18→21:41)
[2022-06-27] MEDS: VITAMIN D 400 IU TAB PO SCH (09:19)
[2022-06-27] MEDS: DOCUSATE 100 MG/10 ML UDC PO SCH ×2 (09:20→21:41)
[2022-06-27] MEDS: FOLIC ACID 1 MG TAB PO SCH (09:20)
[2022-06-27] MEDS: clonazePAM 0.5 MG TAB PO SCH ×2 (09:21→21:44)
[2022-06-27] MEDS: POLYETHYLENE GLYCOL 17 GM/PKT PO SCH ×2 (09:24→21:41)
[2022-06-27] MEDS: BACLOFEN 10 MG TAB PO SCH ×3 (09:24→16:22)
[2022-06-27] MEDS: SENNA 8.6 MG TAB PO SCH ×3 (09:24→16:22)
[2022-06-27] MEDS: FLUoxetine 20 MG CAP PO SCH (09:26)
--- NOTE | 2022-06-27 11:17 | NUR ---
PT. WITH LOW MARY SCALE AT MODERATE TO HIGH RISK, CONTINUE TO FOLLOW PRESSURE INJURY PREVENTION INTERVENTIONS. -POSITIONING: TURN AND REPOSITION PATIENT Q 2H OR SOONER USE PILLOWS TO KEEP BONY PROMINENCES FROM DIRECT CONTACT WITH SURFACES USE REPOSITIONING WEDGES TO PROVIDE 30-DEGREE ANGLE FOR SIDE LYING POSITIONS OFFLOADING OR FOAM DRESSING TO ALL TUBING TO PREVENT MEDICAL DEVICES RELATED PRESSURE INJURY -RE-EVALUATING AND MANAGING INCONTINENCE MONITOR SKIN CONDITION DURING POSITION CHANGE DO NOT MASSAGE REDNESS, BONY PROMINENCES FREQUENT JOHN-CARE AND PROVIDE BARRIER CREAMS PRN IF SOILING MOISTURE CONTROL BY OFFER BED [place]/URINAL /ABSORBENT PAD TO WICK AND HOLD MOISTURE KEEP SKIN DRY AND PROTECT FROM FRICTION -MANAGE FRICTION/SHEAR/MOBILITY KEEP HOB AT THE LOWEST LEVEL OF ELEVATION NO MORE THAN 30 DEGREE UNLESS OTHERWISE CONTRAINDICATED USE LIFT SHEET OR TRANSFER DEVICE TO MOVE PATIENT AND PREVENT LATERAL SHEER. PROTECT HEELS, ELBOWS BONY PROMINENCES WITH SKIN BERRIES OR FOAM DRESSING IF EXPOSED TO FRICTION OFFLOAD BILATERAL HEELS BY PLACING PILLOWS UNDER CALVES AT ALL TIMES, UNLESS OTHERWISE CONTRAINDICATED -PRESSURE REDISTRIBUTION SURFACE THERAPY CANDY ISOFLEX MATTRESS -NUTRITION: PLEASE FOLLOW RD RECOMMENDATIONS AND OFFER NUTRITION SUPPLEMENTS IF ORDERED. PLEASE CONTACT WOUND CARE NURSE FOR ANY QUESTION AND CHANGE OF WOUND CONDITION.
[2022-06-27] MEDS: VANCOMYCIN 750 MG in DEXTROSE 5% 250 ML IV SCH ×2 (11:27→21:47)
--- NOTE | 2022-06-27 12:03 | NUR ---
06/27/22 RD FOLLOW UP COMPLETED PLEASE REFER TO NUTRITION ASSESSMENT UNDER CARE ACTIVITY FOR ESTIMATED NUTRITIONAL NEEDS. 1. RECOMMEND GLUCERNA 1.2 @ 50ML/HR, FWF 150ML Q6H D/T PT WITH INCREASED BLOOD GLUCOSE LEVELS -RECOMMEND STARTING AT 20ML/HR AND INCREASING BY 20ML Q4H TOLERATED -WITH PROPOFOL @ 13.9ML/HR, PT WILL RECEIVE [id number] AND 72 GM PROTEIN, MEETING 100% OF ESTIMATED NUTRITIONAL NEEDS 2. IF PT IS OFF PROPOFOL, RECOMMEND INCREASING TF GOAL RATE TO 60ML/HR WITH FWF 150ML Q8H 3. MONITOR WEIGHT CHANGES AND NUTRITION-RELATED LAB VALUES 4. RD TO FOLLOW-UP 3-5 DAYS, MODERATE RISK FAUSTINO WHITING RD
[2022-06-27] MEDS: POTASSIUM CHL 30 MEQ/ D5-1/2NS 1,000 ML IV SCH (14:10)
[2022-06-27] MEDS: MIDODRINE 5 MG TAB NG SCH ×3 (15:43→23:46)
[2022-06-27] MEDS: AZITHROMYCIN 500 MG in DEXTROSE 5% 250 ML IV SCH (15:44)
[2022-06-27] MEDS: NOREPINEPHRINE 4 MG in DEXTROSE 5% 250 ML IV PRN (16:26)
--- NOTE | 2022-06-27 19:06 | NUR ---
Endorsed plan of care to RN
--- NOTE | 2022-06-27 20:00 | NUR ---
ASSUMED CARE OF THIS PATIENT SEDATED ON PROPOFOL.ON VENT SETTINGS WITH NO CHANGES.NO EPISODE OF DESATURATION AND RESPIRATORY DISTRESS.sUCTIONED EVERY 2 HOURS AND PRNtUBE FEEDING TOLERATED WELL ,NO DIARRHE AND VOMITINGfOLEY DRAINING ADEQUATE AMOUNT OF IRINE.WILL PROCEED WITH PRESENT PLAN OF CARE.
[2022-06-27] MEDS: traZODone 50 MG TAB PO SCH (21:42)
[2022-06-27] MEDS: risperiDONE 1 MG TAB PO SCH (21:46)
[2022-06-28] VITALS (25 sets, daily range): BP systolic 95–129; BP diastolic 50–71
[2022-06-28] MEDS: INSULIN LISPRO SLIDING SCALE 100 UNITS/ML VIAL SUBQ PRN ×4 (00:17→18:34)
[2022-06-28] MEDS: BLOOD GLUCOSE MONITORING 1 DEV DEV FS SCH ×4 (00:17→18:31)
[2022-06-28] MEDS: PROPOFOL 1000 MG/100 ML PREMIX 100 ML IV PRN ×5 (01:18→21:00)
[2022-06-28] MEDS: ALBUTEROL SULFATE/IPRATROPIU 3 ML SOL IH SCH ×4 (01:36→20:04)
[2022-06-28] MEDS: METOCLOPRAMIDE 10 MG/2 ML INJ VIAL IVP SCH ×3 (05:00→20:22)
[2022-06-28] MEDS: metroNIDAZOLE 500 MG/NS PREMIX 100 ML IV SCH ×3 (05:00→20:21)
[2022-06-28] MEDS: CEFEPIME 500 MG in DEXTROSE 5% 50 ML IV SCH ×3 (05:00→22:02)
[2022-06-28 06:00] LABS: BASOPHILS % (AUTO) 0.2 % (0.0-2.0); EOSINOPHILS % (AUTO) 0.3 % (0.0-4.0); HEMATOCRIT 27.3 % (36-48); HEMOGLOBIN 9.3 g/dL (12.0-16.0); LYMPHOCYTES # (AUTO) 0.6 K/uL (2.5-16.5); LYMPHOCYTES % (AUTO) 7.3 % (20.5-51.1); MEAN CORPUSCULAR HEMOGLOBIN 32 pg (27-31); MEAN CORPUSCULAR HGB CONC 34 g/dL (33-37); MEAN CORPUSCULAR VOLUME 93.6 fL (80-94); MONOCYTES # (AUTO) 0.5 K/uL (0.8-1.0); MONOCYTES % (AUTO) 5.7 % (1.7-9.3); NEUTROPHILS # (AUTO) 7.4 K/uL (1.8-7.7); PLATELET COUNT (AUTO) 219 K/uL (140-450); RED BLOOD CELL COUNT(AUTO) 2.92 MIL/uL (4.20-5.40); RED CELL DISTRIBUTION WIDTH 15.3 % (11.6-13.7); WHITE BLOOD COUNT (AUTO) 8.5 K/uL (4.8-10.8)
--- NOTE | 2022-06-28 06:00 | NUR ---
WILL ENDORSE TO INCOMING RN.
[2022-06-28] MEDS: MIDODRINE 5 MG TAB NG SCH ×3 (06:14→18:32)
[2022-06-28 06:19] LABS: ANION GAP 12.8 (8-16); CARBON DIOXIDE 26.5 mmol/L (21-32); CREATININE 0.8 mg/dL (0.6-1.3); POTASSIUM 4.3 mmol/L (3.5-5.1)
[2022-06-28 06:27] LABS: MAGNESIUM 1.9 mg/dL (1.8-2.4)
--- NOTE | 2022-06-28 07:27 | NUR ---
SBAR REPORT RECEIVED FROM RASHI PALMER, ALL CARES ASSUMED. PT INTUBATED AND SEDATED WITH PROPOFOL. ETT TO VENT, AC/PRVC 20, 500. BULL CATHETER DRAINING TO GRAVITY. BED IN LOW AND LOCKED POSITION. Addendum: 06/28/22 at 0831 by Agency 08 SPENCER RN WRONG CHART FOR NOTE.
--- NOTE | 2022-06-28 07:27 | NUR ---
SBAR REPORT RECEIVED FROM RASHI RN, ALL CARES ASSUMED. PT INTUBATED AND SEDATED WITH PROPOFOL. ETT TO VENT, AC/PRVC 20, 450, 40%, 5. BULL CATHETER DRAINING TO GRAVITY. NGT TO L NARE INFUSING TUBE FEED. BED IN LOW AND LOCKED POSITION.
[2022-06-28 07:35] LABS: NEUTROPHILS % (AUTO) 86.5 % (42.2-75.2)
[2022-06-28] MEDS: DOCUSATE 100 MG/10 ML UDC PO SCH ×2 (08:13→21:00)
[2022-06-28] MEDS: clonazePAM 0.5 MG TAB PO SCH ×2 (08:15→20:27)
[2022-06-28] MEDS: BACLOFEN 10 MG TAB PO SCH ×3 (08:16→17:00)
[2022-06-28] MEDS: FLUoxetine 20 MG CAP PO SCH (08:16)
[2022-06-28] MEDS: VITAMIN D 400 IU TAB PO SCH (08:16)
[2022-06-28] MEDS: POLYETHYLENE GLYCOL 17 GM/PKT PO SCH ×2 (08:16→21:00)
[2022-06-28] MEDS: ENOXAPARIN 40 MG/0.4 ML SYR SUBQ SCH (08:17)
[2022-06-28] MEDS: FAMOTIDINE 20 MG/2 ML VIAL IV SCH ×2 (08:20→20:22)
[2022-06-28] MEDS: PANTOPRAZOLE 40 MG INJ VIAL IVP SCH ×2 (08:20→20:22)
[2022-06-28] MEDS: CALCIUM CARB 600 MG TAB PO SCH ×2 (08:21→20:24)
[2022-06-28] MEDS: methylPREDNISolone SS 40 MG/ML VIAL IVP SCH ×2 (08:21→20:23)
[2022-06-28] MEDS: FOLIC ACID 1 MG TAB PO SCH (08:22)
[2022-06-28] MEDS: SENNA 8.6 MG TAB PO SCH ×3 (08:24→17:00)
[2022-06-28] MEDS: VANCOMYCIN 750 MG in DEXTROSE 5% 250 ML IV SCH ×2 (11:19→23:48)
[2022-06-28] MEDS: POTASSIUM CHL 30 MEQ/ D5-1/2NS 1,000 ML IV SCH ×2 (14:14→22:13)
--- NOTE | 2022-06-28 14:30 | NUR ---
PT CURRENTLY ON GLUCERNA 1.2 @ 50ML/HR. RECOMMEND SWITCHING TO VITAL AF 1.2 WITH THE SAME RATE AND FWF ONCE PT FINISHES THE CURRENT GLUCERNA 1.2 BOTTLE D/T GLUCERNA 1.2 ON BACKORDER. VITAL AF 1.2 PROVIDES THE SAME AMOUNT OF CALORIES WITH LOW CARB AND HIGH PROTEIN, SUITABLE FOR PTS WITH DIABETES. RECOMMEND MONITORING NUTRITION-RELATED LABS. FAUSTINO WHITING RD
[2022-06-28] MEDS: AZITHROMYCIN 500 MG in DEXTROSE 5% 250 ML IV SCH (15:40)
[2022-06-28] MEDS: NOREPINEPHRINE 4 MG in DEXTROSE 5% 250 ML IV PRN (18:57)
--- NOTE | 2022-06-28 19:35 | NUR ---
SBAR REPORT GIVEN TO RASHI RN, ALL CARES ENDORSED.
--- NOTE | 2022-06-28 19:37 | NUR ---
SBAR REPORT GIVEN TO RASHI RN, ALL CARES ENDORSED.
--- NOTE | 2022-06-28 20:00 | NUR ---
ASSUMED CARE OF THIS PATIENT WITH PROPOFOL DRIP IN PROGRESS AT SAME DOSE,VENT SETTING UNCHANGED ,TUBE FEEDING ALSO ONGOING.lEVOPHED COTINUES AT 2MCG AND RECEIVING MULTIPLE ANTIBIOTICS.NO EPISODE OF DESATURATION AND DISTRESS/
[2022-06-28] MEDS: risperiDONE 1 MG TAB PO SCH ×2 (20:28→20:33)
[2022-06-28] MEDS: traZODone 50 MG TAB PO SCH (20:34)
[2022-06-28] MEDS ORDERED: CEFEPIME 1,000 MG VIAL ONE (21:44)
[2022-06-29] VITALS (24 sets, daily range): BP systolic 98–114; BP diastolic 48–68
[2022-06-29] MEDS: MIDODRINE 5 MG TAB NG SCH ×4 (00:10→17:25)
[2022-06-29] MEDS: ALBUTEROL SULFATE/IPRATROPIU 3 ML SOL IH SCH ×4 (00:13→19:13)
[2022-06-29] MEDS: BLOOD GLUCOSE MONITORING 1 DEV DEV FS SCH ×4 (00:13→17:31)
[2022-06-29] MEDS: INSULIN LISPRO SLIDING SCALE 100 UNITS/ML VIAL SUBQ PRN ×4 (00:16→17:37)
[2022-06-29] MEDS: PROPOFOL 1000 MG/100 ML PREMIX 100 ML IV PRN ×3 (00:41→19:51)
[2022-06-29] MEDS ORDERED: CEFEPIME 1,000 MG VIAL ONE (04:09)
[2022-06-29] MEDS: CEFEPIME 500 MG in DEXTROSE 5% 50 ML IV SCH ×3 (04:41→20:36)
[2022-06-29] MEDS: metroNIDAZOLE 500 MG/NS PREMIX 100 ML IV SCH ×3 (04:41→20:34)
[2022-06-29] MEDS: METOCLOPRAMIDE 10 MG/2 ML INJ VIAL IVP SCH ×3 (04:45→20:33)
[2022-06-29 05:46] LABS: BASOPHILS % (AUTO) 0.3 % (0.0-2.0); EOSINOPHILS % (AUTO) 0.4 % (0.0-4.0); HEMATOCRIT 26.1 % (36-48); HEMOGLOBIN 8.9 g/dL (12.0-16.0); LYMPHOCYTES # (AUTO) 0.5 K/uL (2.5-16.5); MEAN CORPUSCULAR HEMOGLOBIN 32 pg (27-31); MEAN CORPUSCULAR HGB CONC 34 g/dL (33-37); MEAN CORPUSCULAR VOLUME 93.9 fL (80-94); MONOCYTES # (AUTO) 0.3 K/uL (0.8-1.0); MONOCYTES % (AUTO) 4.5 % (1.7-9.3); NEUTROPHILS # (AUTO) 6.8 K/uL (1.8-7.7); PLATELET COUNT (AUTO) 193 K/uL (140-450); RED BLOOD CELL COUNT(AUTO) 2.78 MIL/uL (4.20-5.40); RED CELL DISTRIBUTION WIDTH 15.2 % (11.6-13.7); WHITE BLOOD COUNT (AUTO) 7.6 K/uL (4.8-10.8)
[2022-06-29 05:52] LABS: PHOSPHORUS 3.8 mg/dL (2.5-4.9)
[2022-06-29 05:53] LABS: CARBON DIOXIDE 29.6 mmol/L (21-32); CREATININE 0.7 mg/dL (0.6-1.3); POTASSIUM 5.6 mmol/L (3.5-5.1)
--- NOTE | 2022-06-29 06:00 | NUR ---
TO DAY SHIFT RN.MONITORING IN PROGRESS,RESTRAINTS IN PLACE.WILL CONTINUE TO MONITOR AND ENDORSE
[2022-06-29 07:17] LABS: LYMPHOCYTES % (AUTO) 6.5 % (20.5-51.1); NEUTROPHILS % (AUTO) 88.3 % (42.2-75.2)
--- NOTE | 2022-06-29 07:27 | NUR ---
SBAR REPORT RECEIVED FROM RASHI RN, ALL CARES ASSUMED. PT INTUBATED, SEDATED WITH PROPOFOL DRIP. AC/PRVC, 20, 450, 40%, 5. NG TUBE INFUSING JEVITY TUBE FEED. . BULL CATHETER DRAINING TO GRAVITY.
[2022-06-29] MEDS: FOLIC ACID 1 MG TAB PO SCH (08:07)
[2022-06-29] MEDS: VITAMIN D 400 IU TAB PO SCH (08:07)
[2022-06-29] MEDS: BACLOFEN 10 MG TAB PO SCH ×3 (08:07→17:25)
[2022-06-29] MEDS: CALCIUM CARB 600 MG TAB PO SCH ×2 (08:07→20:34)
[2022-06-29] MEDS: clonazePAM 0.5 MG TAB PO SCH ×2 (08:10→21:00)
[2022-06-29] MEDS: FLUoxetine 20 MG CAP PO SCH (08:10)
[2022-06-29] MEDS: methylPREDNISolone SS 40 MG/ML VIAL IVP SCH ×2 (08:11→20:32)
[2022-06-29] MEDS: PANTOPRAZOLE 40 MG INJ VIAL IVP SCH ×2 (08:11→20:32)
[2022-06-29] MEDS: FAMOTIDINE 20 MG/2 ML VIAL IV SCH ×2 (08:11→20:33)
[2022-06-29] MEDS: POLYETHYLENE GLYCOL 17 GM/PKT PO SCH ×2 (08:15→21:00)
[2022-06-29] MEDS: DOCUSATE 100 MG/10 ML UDC PO SCH ×2 (08:15→21:00)
[2022-06-29] MEDS: ENOXAPARIN 40 MG/0.4 ML SYR SUBQ SCH (08:15)
[2022-06-29] MEDS: SENNA 8.6 MG TAB PO SCH ×3 (08:15→17:00)
[2022-06-29] MEDS: VANCOMYCIN 750 MG in DEXTROSE 5% 250 ML IV SCH ×2 (12:23→23:00)
[2022-06-29] MEDS: AZITHROMYCIN 500 MG in DEXTROSE 5% 250 ML IV SCH (15:32)
[2022-06-29] MEDS: NACL 0.45% 1,000 ML IV SCH (15:34)
[2022-06-29] MEDS: NOREPINEPHRINE 4 MG in DEXTROSE 5% 250 ML IV PRN (15:34)
--- NOTE | 2022-06-29 19:15 | NUR ---
RECEIVED PATIENT ON BED WITH HOB ELEVATED TO 30 DEGREE; SEDATED WITH CONTINUOUS PROPOFOL DRIP AT 45 MCG/KG/HR. ORALLY INTUBATED AND VENTILATED AT60% FIO2. CARDIACSCOPE SHOWS ON SINUS RHYTHM HR 62/MIN NO ARRHYTHMIAS SEEN. COMMENCING ON IVF 1/2 NORMAL SALINE AT 20 ML/HR AND LEVOPHED DRIP AT 1 MCG/KG/HR VIA CENTRAL LINE TO LEFT SUBCLAVIAN, PATENT AND INTACT. ABDOMEN IS SOFT, NON TENDER WITH ACTIVE BOWEL SOUNDS. ON CONTINUOUS TUBE FEEDING JEVITY AT 40 ML/HR VIA NGT TO LEFT NARE; PATENT AND INTACT; NO RESIDUAL NOTED. WITH BULL CATH IN SITY TO GRAVITY DRAINAGE BAG DRAINING TO CLEAR YELLOW URINE OUTPUT.
--- NOTE | 2022-06-29 19:57 | NUR ---
sbar report given to eneida rn, all cares endorsed.
--- NOTE | 2022-06-29 20:30 | NUR ---
TURN AND REPOSITIONED THE PATIENT; ORAL CARE DONE WITH VAP KIT.
[2022-06-29] MEDS: traZODone 50 MG TAB PO SCH (21:00)
[2022-06-29] MEDS: risperiDONE 1 MG TAB PO SCH (21:00)
[2022-06-30] VITALS (27 sets, daily range): BP systolic 88–107; BP diastolic 48–64
[2022-06-30] MEDS: MIDODRINE 5 MG TAB NG SCH ×5 (00:27→23:23)
[2022-06-30] MEDS: INSULIN LISPRO SLIDING SCALE 100 UNITS/ML VIAL SUBQ PRN ×5 (00:49→23:17)
--- NOTE | 2022-06-30 01:00 | NUR ---
OFF TO LEVOPHED DRIP; BP IS WITHIN ACCEPTABLE RANGE AFTER MIDODRINE DOSE WAS GIVEN.
[2022-06-30] MEDS: ALBUTEROL SULFATE/IPRATROPIU 3 ML SOL IH SCH ×3 (01:06→19:00)
--- NOTE | 2022-06-30 04:30 | NUR ---
MORNING BED BATH DONE; KEPT CLEAN DRY AND COMFORTABLE.
[2022-06-30] MEDS: PROPOFOL 1000 MG/100 ML PREMIX 100 ML IV PRN ×3 (04:45→17:58)
[2022-06-30] MEDS: metroNIDAZOLE 500 MG/NS PREMIX 100 ML IV SCH ×3 (05:09→20:06)
[2022-06-30] MEDS: CEFEPIME 500 MG in DEXTROSE 5% 50 ML IV SCH ×3 (05:12→20:46)
[2022-06-30] MEDS: METOCLOPRAMIDE 10 MG/2 ML INJ VIAL IVP SCH ×3 (05:31→20:07)
[2022-06-30 05:36] LABS: BASOPHILS % (AUTO) 0.1 % (0.0-2.0); EOSINOPHILS % (AUTO) 0.3 % (0.0-4.0); HEMATOCRIT 24.6 % (36-48); HEMOGLOBIN 8.4 g/dL (12.0-16.0); LYMPHOCYTES # (AUTO) 0.5 K/uL (2.5-16.5); LYMPHOCYTES % (AUTO) 6.9 % (20.5-51.1); MEAN CORPUSCULAR HEMOGLOBIN 32 pg (27-31); MEAN CORPUSCULAR HGB CONC 34 g/dL (33-37); MEAN CORPUSCULAR VOLUME 94.7 fL (80-94); MONOCYTES # (AUTO) 0.2 K/uL (0.8-1.0); MONOCYTES % (AUTO) 3.4 % (1.7-9.3); NEUTROPHILS # (AUTO) 5.9 K/uL (1.8-7.7); NEUTROPHILS % (AUTO) 89.3 % (42.2-75.2); PLATELET COUNT (AUTO) 178 K/uL (140-450); RED CELL DISTRIBUTION WIDTH 15.3 % (11.6-13.7); WHITE BLOOD COUNT (AUTO) 6.6 K/uL (4.8-10.8)
[2022-06-30] MEDS: BLOOD GLUCOSE MONITORING 1 DEV DEV FS SCH ×5 (05:39→23:18)
[2022-06-30 06:04] LABS: ANION GAP 8.9 (8-16); CARBON DIOXIDE 29.5 mmol/L (21-32); CREATININE 0.7 mg/dL (0.6-1.3); POTASSIUM 5.4 mmol/L (3.5-5.1)
[2022-06-30 06:13] LABS: MAGNESIUM 1.9 mg/dL (1.8-2.4); PHOSPHORUS 3.2 mg/dL (2.5-4.9)
--- NOTE | 2022-06-30 07:30 | NUR ---
RECEIVED PATIENT FROM NIGHT LIP CUTTERSPENCER Zapata PATIENT ORALLY INTUBATED SIZE 8, AC/PRVC, 70%, 450 MLS. RATE 20, +5. SEDATED WITH PROPOFOL AT 35 MCG, SINUS MACKENZIE, SBP ON 90s, LEVOPHED OFF, BULL CATHETER IN SITU, SMALL BM WITH NIGHT, GLUCERNA 1.2 AT 40 MLS/HR., BLOOD SUGAR Q6H. PER REPORT SKIN INTACT.
[2022-06-30] MEDS: methylPREDNISolone SS 40 MG/ML VIAL IVP SCH ×2 (08:49→20:07)
[2022-06-30] MEDS: FAMOTIDINE 20 MG/2 ML VIAL IV SCH (08:49)
[2022-06-30] MEDS: BACLOFEN 10 MG TAB PO SCH ×3 (08:50→18:02)
[2022-06-30] MEDS: DOCUSATE 100 MG/10 ML UDC PO SCH ×2 (08:50→20:17)
[2022-06-30] MEDS: SENNA 8.6 MG TAB PO SCH ×3 (08:51→17:00)
[2022-06-30] MEDS: FLUoxetine 20 MG CAP PO SCH (08:51)
[2022-06-30] MEDS: FOLIC ACID 1 MG TAB PO SCH (08:52)
[2022-06-30] MEDS: CALCIUM CARB 600 MG TAB PO SCH ×2 (08:53→20:08)
[2022-06-30] MEDS: ENOXAPARIN 40 MG/0.4 ML SYR SUBQ SCH (08:54)
[2022-06-30] MEDS: POLYETHYLENE GLYCOL 17 GM/PKT PO SCH ×2 (08:55→20:23)
[2022-06-30] MEDS: clonazePAM 0.5 MG TAB PO SCH ×2 (08:55→20:22)
[2022-06-30] MEDS: VITAMIN D 400 IU TAB PO SCH (08:57)
[2022-06-30] MEDS: PANTOPRAZOLE 40 MG INJ VIAL IVP SCH ×2 (09:00→20:07)
[2022-06-30] MEDS ORDERED: SODIUM POLYSTYRENE 15 GM/60 ML UDBTL NG SCH (10:30)
[2022-06-30] MEDS: VANCOMYCIN 750 MG in DEXTROSE 5% 250 ML IV SCH (10:34)
--- NOTE | 2022-06-30 11:00 | NUR ---
UNABLE TO CHANGE DRESSING ON SACRUM DUE TO PATIENT'S INSTABILITY OF SpO2.
[2022-06-30] MEDS: NACL 0.45% 1,000 ML IV SCH (14:45)
[2022-06-30] MEDS: AZITHROMYCIN 500 MG in DEXTROSE 5% 250 ML IV SCH (15:05)
--- NOTE | 2022-06-30 19:30 | NUR ---
PATIENT HANDED OVER TO NIGHT RN MONSE. PROPOFOL AT 25 MCG, TITRATED DOWN EARLIER DUE TO SINUS MACKENZIE AND HYPOTENSION, SBP DROPS TO 88 mmHg. NS TKO. 0.45% 20 ML/HR STOPPED. PT. DESATURATING IN THE MORNING, WAS TITRATED UP FiO2, CXR DONE, ABG DONE RELAYED TO DR. CALLEJAS. VENT. SETTINGS WAS ORDERED BY DR. VO. K+, KAYEXALATE ORDERED BY DR. ESCOBAR, D/C PEPCID, KEEP PROTONIX.
--- NOTE | 2022-06-30 20:00 | NUR ---
RECEIVED PATIENT SEDATED ON PROPOFOL AT 25MCG.OPEN EYES AT TIMES BUT STILL DROWSY.AFEBRILE.ON VENTILATOR WITH SAME SETTING AND NO EPISODE OF RESPIRATORY DISTRESS.TUBE FEEDING TOLERATED WELL.NO NAUSEA AND VOMITING.WILL CONTINUE WITH PRESENT PLAN OF CARE.
[2022-06-30] MEDS: risperiDONE 1 MG TAB PO SCH (20:13)
[2022-06-30] MEDS: traZODone 50 MG TAB PO SCH (20:18)
[2022-07-01] VITALS (30 sets, daily range): BP systolic 84–102; BP diastolic 35–67
--- NOTE | 2022-07-01 | NUR ---
RECEIVED REPORT FROM ALEE PALMER PT IS SEDATED ON PROPOFOL SHE'S AT A RASS-3,ON 30MCG. SHE IS ETT TO VENTILATOR WITH AC/PRVC RATE 20. TV 400, FIO2 75%, PEEP 8. SHE IS COUGHING;SUCTIONED WITH MINIMAL SECRETION RETURN. SHE IS RECEIVING VITAL AF 1.2 AT 50 CC/HOUR AND FREE WATER 150 CC Q 8 HOURS. SHE HAD A RESIDUAL OF 140CC. SHE HAS A TIRPLE LUMEN CENTRAL LINE IN THE LEFT SUBCLAVIAN ONE OF THE PORTS IS CLOTTED OFF. UNABLE TO FLUSH. PT HAS GENERALIZED EDEMA. PT HAS A BULL CATH.AND SHE IS DRAINING A MODERATE AMOUNT OFCLEAR DARK YELLOW URINE .
[2022-07-01] MEDS: ALBUTEROL SULFATE/IPRATROPIU 3 ML SOL IH SCH ×4 (01:09→19:00)
[2022-07-01] MEDS: PROPOFOL 1000 MG/100 ML PREMIX 100 ML IV PRN (02:13)
[2022-07-01] MEDS: CEFEPIME 500 MG in DEXTROSE 5% 50 ML IV SCH ×3 (04:28→21:02)
[2022-07-01] MEDS: metroNIDAZOLE 500 MG/NS PREMIX 100 ML IV SCH ×3 (04:29→21:05)
[2022-07-01] MEDS: METOCLOPRAMIDE 10 MG/2 ML INJ VIAL IVP SCH ×3 (04:29→21:12)
[2022-07-01] MEDS: INSULIN LISPRO SLIDING SCALE 100 UNITS/ML VIAL SUBQ PRN ×3 (05:35→18:41)
[2022-07-01 05:46] LABS: BASOPHILS % (AUTO) 0.1 % (0.0-2.0); EOSINOPHILS # (AUTO) 0.1 K/uL (0-0.4); EOSINOPHILS % (AUTO) 0.7 % (0.0-4.0); HEMATOCRIT 24.2 % (36-48); HEMOGLOBIN 8.3 g/dL (12.0-16.0); LYMPHOCYTES # (AUTO) 0.5 K/uL (2.5-16.5); LYMPHOCYTES % (AUTO) 5.9 % (20.5-51.1); MEAN CORPUSCULAR HEMOGLOBIN 32 pg (27-31); MEAN CORPUSCULAR HGB CONC 34 g/dL (33-37); MEAN CORPUSCULAR VOLUME 94.5 fL (80-94); MONOCYTES # (AUTO) 0.3 K/uL (0.8-1.0); NEUTROPHILS # (AUTO) 8.2 K/uL (1.8-7.7); NEUTROPHILS % (AUTO) 90.3 % (42.2-75.2); PLATELET COUNT (AUTO) 230 K/uL (140-450); RED BLOOD CELL COUNT(AUTO) 2.56 MIL/uL (4.20-5.40); RED CELL DISTRIBUTION WIDTH 15.1 % (11.6-13.7); WHITE BLOOD COUNT (AUTO) 9.1 K/uL (4.8-10.8)
[2022-07-01] MEDS: BLOOD GLUCOSE MONITORING 1 DEV DEV FS SCH ×3 (05:47→18:40)
[2022-07-01] MEDS: MIDODRINE 5 MG TAB NG SCH ×3 (05:48→18:40)
--- NOTE | 2022-07-01 06:00 | NUR ---
WILL PROCEED WITH MONITORING AND ENDORSE TO INCOMING NICKO PALMER.
[2022-07-01 06:19] LABS: CARBON DIOXIDE 29.6 mmol/L (21-32); CREATININE 0.7 mg/dL (0.6-1.3); POTASSIUM 4.6 mmol/L (3.5-5.1)
[2022-07-01 06:28] LABS: MAGNESIUM 1.8 mg/dL (1.8-2.4)
--- NOTE | 2022-07-01 07:25 | NUR ---
SBAR REPORT RECEIVED FROM RASHI RN, ALL CARES ASSUMED. PT INTUBATED AND SEDATED WITH PROPOFOL DRIP. AC/PRVC 20, 400, 75%, 8. LEFT NG TUBE INFUSING TUBE FEEDING. BULL CATHETER DRAINING TO GRAVITY. BED IN LOW AND LOCKED POSITION.
[2022-07-01] MEDS: FLUoxetine 20 MG CAP PO SCH (09:00)
[2022-07-01] MEDS: FOLIC ACID 1 MG TAB PO SCH (09:00)
[2022-07-01] MEDS: CALCIUM CARB 600 MG TAB PO SCH ×2 (09:00→21:11)
[2022-07-01] MEDS: VITAMIN D 400 IU TAB PO SCH (09:04)
[2022-07-01] MEDS: BACLOFEN 10 MG TAB PO SCH ×3 (09:04→17:00)
[2022-07-01] MEDS: clonazePAM 0.5 MG TAB PO SCH ×2 (09:05→21:11)
[2022-07-01] MEDS: PANTOPRAZOLE 40 MG INJ VIAL IVP SCH ×2 (09:05→21:17)
[2022-07-01] MEDS: ENOXAPARIN 40 MG/0.4 ML SYR SUBQ SCH (09:06)
[2022-07-01] MEDS: methylPREDNISolone SS 40 MG/ML VIAL IVP SCH ×2 (09:06→21:19)
[2022-07-01] MEDS ORDERED: NACL 0.9% 1,000 ML IV SCH (10:40)
--- NOTE | 2022-07-01 15:51 | NUR ---
07/01/22 RD FOLLOW UP COMPLETED PLEASE REFER TO NUTRITION ASSESSMENT UNDER CARE ACTIVITY FOR ESTIMATED NUTRITIONAL NEEDS. 1. CONTINUE VITAL AF 1.2 @ 50ML/HR NGT, FWF 150 ML Q6H TOLERATED - WITH PROPOFOL @ 8.7ML/HR, PT WILL RECEIVE 1670 KCAL AND 90 GM PROTEIN, MEETING 100% OF ESTIMATED NUTRITIONAL NEEDS 2. MONITOR WEIGHT CHANGES AND NUTRITION-RELATED LAB VALUES 3. RD TO FOLLOW-UP 3-5 DAYS, MODERATE RISK REVIEWED BY FAUSTINO WHITING RD
[2022-07-01] MEDS: risperiDONE 1 MG TAB PO SCH (21:17)
[2022-07-01] MEDS: traZODone 50 MG TAB PO SCH (21:17)
--- NOTE | 2022-07-01 21:35 | NUR ---
2130 PT'S BLOOD PRESSURE TANKED AT 78/59; RECYCLED TO 97/53.
--- NOTE | 2022-07-01 23:00 | NUR ---
BLOOD PRESSURE TANKED AGAINTO 85/47 CONTINUED FOR FIVE CYCLES. PREPARED LEVOPHED FOR INFUSION. IN THE INTERIM MARY CHANGE THE CUFF AND THE SITE AND THE BLOOD PRESSURE CAME UP TO 95/59 AND STABILIZED THROUGHOUT THE SHIFT.
[2022-07-02] VITALS (29 sets, daily range): BP systolic 87–138; BP diastolic 40–67
[2022-07-02] MEDS: BLOOD GLUCOSE MONITORING 1 DEV DEV FS SCH ×4 (00:24→18:22)
[2022-07-02] MEDS: MIDODRINE 5 MG TAB NG SCH ×4 (00:24→17:01)
[2022-07-02] MEDS: INSULIN LISPRO SLIDING SCALE 100 UNITS/ML VIAL SUBQ PRN ×2 (00:26→06:12)
[2022-07-02] MEDS: PROPOFOL 1000 MG/100 ML PREMIX 100 ML IV PRN ×4 (01:03→21:53)
[2022-07-02] MEDS: ALBUTEROL SULFATE/IPRATROPIU 3 ML SOL IH SCH ×4 (01:14→19:00)
--- NOTE | 2022-07-02 03:30 | NUR ---
M CARE PROVIDED AND PT HAD A LARGE LOOSE STOOL.
[2022-07-02] MEDS: CEFEPIME 500 MG in DEXTROSE 5% 50 ML IV SCH ×3 (05:00→20:54)
[2022-07-02] MEDS: metroNIDAZOLE 500 MG/NS PREMIX 100 ML IV SCH ×3 (05:00→20:54)
[2022-07-02] MEDS: METOCLOPRAMIDE 10 MG/2 ML INJ VIAL IVP SCH ×3 (05:00→20:51)
[2022-07-02 05:37] LABS: CARBON DIOXIDE 28.1 mmol/L (21-32); CREATININE 0.6 mg/dL (0.6-1.3); POTASSIUM 4.1 mmol/L (3.5-5.1)
--- NOTE | 2022-07-02 07:20 | NUR ---
SBAR REPORT RECEIVED FROM MENG PALMER, ALL CARES ASSUMED. PT INTUBATED AND SEDATED WITH DIPRIVAN DRIP. ETT TO VENT, AC/PRVC 20, 400, 75%, 8. NG TUBE INFUSING TUBE FEEDING. BULL CATHETER DRAINING TO GRAVITY. BED IN LOW AND LOCKED POSITION.
[2022-07-02] MEDS: methylPREDNISolone SS 40 MG/ML VIAL IVP SCH ×2 (08:04→20:51)
[2022-07-02] MEDS: CALCIUM CARB 600 MG TAB PO SCH ×2 (08:04→20:53)
[2022-07-02] MEDS: VITAMIN D 400 IU TAB PO SCH (08:04)
[2022-07-02] MEDS: PANTOPRAZOLE 40 MG INJ VIAL IVP SCH ×2 (08:04→21:10)
[2022-07-02] MEDS: clonazePAM 0.5 MG TAB PO SCH ×2 (08:05→20:52)
[2022-07-02] MEDS: BACLOFEN 10 MG TAB PO SCH ×3 (08:05→17:01)
[2022-07-02] MEDS: ENOXAPARIN 40 MG/0.4 ML SYR SUBQ SCH (08:05)
[2022-07-02] MEDS: FLUoxetine 20 MG CAP PO SCH (09:00)
[2022-07-02] MEDS: FOLIC ACID 1 MG TAB PO SCH (09:00)
[2022-07-02 09:02] LABS: BASOPHILS % (AUTO) 0.2 % (0.0-2.0); EOSINOPHILS % (AUTO) 0.4 % (0.0-4.0); HEMATOCRIT 24.4 % (36-48); HEMOGLOBIN 8.3 g/dL (12.0-16.0); LYMPHOCYTES # (AUTO) 0.5 K/uL (2.5-16.5); LYMPHOCYTES % (AUTO) 5.6 % (20.5-51.1); MEAN CORPUSCULAR HEMOGLOBIN 32 pg (27-31); MEAN CORPUSCULAR HGB CONC 34 g/dL (33-37); MEAN CORPUSCULAR VOLUME 95.1 fL (80-94); MONOCYTES # (AUTO) 0.4 K/uL (0.8-1.0); MONOCYTES % (AUTO) 3.9 % (1.7-9.3); NEUTROPHILS # (AUTO) 8.4 K/uL (1.8-7.7); NEUTROPHILS % (AUTO) 89.9 % (42.2-75.2); PLATELET COUNT (AUTO) 266 K/uL (140-450); RED BLOOD CELL COUNT(AUTO) 2.56 MIL/uL (4.20-5.40); RED CELL DISTRIBUTION WIDTH 15.3 % (11.6-13.7); WHITE BLOOD COUNT (AUTO) 9.3 K/uL (4.8-10.8)
[2022-07-02] MEDS ORDERED: FUROSEMIDE 40 MG/4 ML VIAL IVP SCH (14:00)
--- NOTE | 2022-07-02 19:23 | NUR ---
SBAR REPORT GIVEN TO WONG RN, ALL CARES ENDORSED.
--- NOTE | 2022-07-02 19:30 | NUR ---
[id number] PATIENT ON BED ORALLY INTUBATED AND VENTILATED AT 70% FIO2; SEDATED WITH PROPOFOL DRIP AT 30 MCG/KG/MIN VIA CENTRAL LINE ON LEFT SUBCLAVIAN. CARDIACSCOPE SHOWS ON SINUS RHYTHM HR 84/MIN NO ARRHYTHMIA SEEN. ABDOMEN IS SOFT; ACTIVE BOWEL SOUNDS. ON CONTINUOUS TUBE FEEDING GLUCERNA AT 50 ML/HR VIA NGT TO LEFT NARE; TOLERATED WITH MINIMAL RESIDUAL. WITH BULL CATH IN SITU TO GRAVITY DRAINAGE BAG DRAINING TO CLEAR YELLOW URINE OUTPUT; PATENT AND INTACT.
--- NOTE | 2022-07-02 20:27 | NUR ---
RECEIVED REPORT FROM AM SHIFT. PATIENT WAS SEEN AND ASSESSED. PATIENT IS INTUBATED WITH ETT SIZE 8.0 AND SECURED WITH A BITING BLOCK ANCHOR-FAST 23cm @ TEETH. PATIENT IS ON VENTILATOR SUPPORT. VENTILATOR PLUGGED IN RED OUTLET. VENTILATOR ALARMS SET APPROPRIATELY AND AUDIBLE TO ENVIRONMENT. AMBU BAG AT BEDSIDE. HEAD OF BED GREATER THAN 30 DEGREES. NOTICED ADEQUATE BILATERAL CHEST RISE AND FALL. PATIENT IS IN NO RESPIRATORY DISTRESS AT THIS TIME.VENT SETTINGS: AC/PRVC RR 20, TARGETED Vt 400, PEEP 10, FiO2 70% WITH SPO2 OF 97%. BILATERAL BREATH SOUNDS ON AUSCULTATION; UPPER LOBES: COARSE CRACKLES, LOWER LOBES: COARSE CRACKLES. SUCTION: SMALL AMOUNT OF WHITE THIN/THICK SECRETIONS FROM ETT AND SMALL WHITE THIN ORALLY. SCHEDULE TX GIVEN ORDERED AND PT TOLERATED WELL WITH NO ADVERSE REACTION WILL CONTINUE TO MONITOR PATIENT.
[2022-07-02] MEDS: traZODone 50 MG TAB PO SCH (20:53)
[2022-07-02] MEDS: risperiDONE 1 MG TAB PO SCH (21:10)
--- NOTE | 2022-07-02 21:30 | NUR ---
HAD BM TO LARGE AMOUNT OF LOOSE WATERY YELLOW STOOL; KEPT CLEAN DRY AND COMFORTABLE.
[2022-07-03] VITALS (32 sets, daily range): BP systolic 90–126; BP diastolic 43–70
--- NOTE | 2022-07-03 | NUR ---
FEBRILE 100.9; COOLING MEASURES APPLIED. TYLENOL DOSE GIVEN THRU NGT.
[2022-07-03] MEDS: ALBUTEROL SULFATE/IPRATROPIU 3 ML SOL IH SCH ×4 (00:09→19:06)
[2022-07-03] MEDS: BLOOD GLUCOSE MONITORING 1 DEV DEV FS SCH ×4 (00:58→11:51)
[2022-07-03] MEDS: ACETAMINOPHEN 650 MG/20.3 ML UDC PO PRN (01:11)
--- NOTE | 2022-07-03 01:30 | NUR ---
TAPER DOWN PROPOFOL TO 25 MCG/KG/MIN.
[2022-07-03] MEDS: METOCLOPRAMIDE 10 MG/2 ML INJ VIAL IVP SCH ×3 (05:00→21:19)
[2022-07-03] MEDS: PROPOFOL 1000 MG/100 ML PREMIX 100 ML IV PRN ×3 (05:38→17:47)
[2022-07-03] MEDS: metroNIDAZOLE 500 MG/NS PREMIX 100 ML IV SCH ×3 (05:47→21:11)
[2022-07-03] MEDS: CEFEPIME 500 MG in DEXTROSE 5% 50 ML IV SCH ×3 (05:47→21:12)
[2022-07-03 06:28] LABS: ANION GAP 10.1 (8-16); CARBON DIOXIDE 30.5 mmol/L (21-32); CREATININE 0.8 mg/dL (0.6-1.3); POTASSIUM 3.6 mmol/L (3.5-5.1)
[2022-07-03 07:24] LABS: BASOPHILS % (AUTO) 0.3 % (0.0-2.0); EOSINOPHILS % (AUTO) 0.3 % (0.0-4.0); HEMATOCRIT 24.2 % (36-48); LYMPHOCYTES # (AUTO) 0.7 K/uL (2.5-16.5); LYMPHOCYTES % (AUTO) 5.9 % (20.5-51.1); MEAN CORPUSCULAR HEMOGLOBIN 32 pg (27-31); MEAN CORPUSCULAR HGB CONC 33 g/dL (33-37); MEAN CORPUSCULAR VOLUME 94.9 fL (80-94); MONOCYTES # (AUTO) 0.6 K/uL (0.8-1.0); MONOCYTES % (AUTO) 4.8 % (1.7-9.3); NEUTROPHILS # (AUTO) 10.3 K/uL (1.8-7.7); NEUTROPHILS % (AUTO) 88.7 % (42.2-75.2); PLATELET COUNT (AUTO) 337 K/uL (140-450); RED BLOOD CELL COUNT(AUTO) 2.55 MIL/uL (4.20-5.40); RED CELL DISTRIBUTION WIDTH 15.1 % (11.6-13.7); WHITE BLOOD COUNT (AUTO) 11.6 K/uL (4.8-10.8)
--- NOTE | 2022-07-03 08:00 | NUR ---
RECEIVED PT ON BED SEDATED, ON PROPOFOL DRIP AT 25 MCG/KG/MIN, ORALLY INTUBATED, TOLERATING CURRENT VENRT SETTING. ngt IN PLACE, GLUCERNA FEEDING AT 50 ML/HR GOING ON, RESIDUAL 10 ML. fREQUENT COUGHING NOTED, SECRETIONS SUCTIONED VERY SCANTY SECRETIONS SUCTIONED. pROPOFOL TITRATED UP TO 30 MCG/KG/MIN. REPOSITIONED TO SIDE, SUPPORTED WITH PILLOWS. ASPIRATION PRECAUTION OBSERVED. KEPT CLEAN AND DRY. SR. CONT TO MONITOR.
[2022-07-03] MEDS: PANTOPRAZOLE 40 MG INJ VIAL IVP SCH ×2 (08:55→21:19)
[2022-07-03] MEDS: methylPREDNISolone SS 40 MG/ML VIAL IVP SCH ×2 (08:57→21:20)
[2022-07-03] MEDS: MIDODRINE 5 MG TAB NG SCH ×3 (08:58→17:44)
[2022-07-03] MEDS: VITAMIN D 400 IU TAB PO SCH (08:58)
[2022-07-03] MEDS: BACLOFEN 10 MG TAB PO SCH ×3 (08:59→17:44)
[2022-07-03] MEDS: clonazePAM 0.5 MG TAB PO SCH ×2 (09:00→21:23)
[2022-07-03] MEDS: ENOXAPARIN 40 MG/0.4 ML SYR SUBQ SCH (09:01)
[2022-07-03] MEDS: FLUoxetine 20 MG CAP PO SCH (09:54)
[2022-07-03] MEDS: CALCIUM CARB 600 MG TAB PO SCH ×2 (09:55→21:20)
[2022-07-03] MEDS: FOLIC ACID 1 MG TAB PO SCH (09:56)
[2022-07-03] MEDS ORDERED: FUROSEMIDE 20 MG/2 ML VIAL IVP SCH (14:15)
[2022-07-03] MEDS ORDERED: Z-GUARD PASTE TP ONE (16:50)
[2022-07-03] MEDS ORDERED: Z-GUARD PASTE TP SCH (17:10)
[2022-07-03] MEDS: INSULIN LISPRO SLIDING SCALE 100 UNITS/ML VIAL SUBQ PRN (19:14)
--- NOTE | 2022-07-03 19:30 | NUR ---
RECEIVED REPORT FROM OUTGOING RN FOR CONTINUATION OF CARE. PT IS RESTING AT A RASS -3 AND NO DISTRESS NOTED. SHE REMAINS ORALLY ENTUBATED ON A VENTILATOR WITH CURRENT SETTING AC/PRVC RATE 20, TV 400, FIO2 65% AND PEEP10. SHE APPEARS TO BE TOLERATING THE SETTING WELL. SHE HAS AN ORAL G-TUBE IN PLACE WITH TUBE FEEDING VITAL AF INFUSING AT 50CCC/HOUR WITH FREE H20 FLUSH AT 150CC Q 8 HOURS. RESIDUAL WAS 40CC. SHE'S RECEIVING PROPOFOL 30 MCG/KG/MIN TO MAINTAIN A RASS-3. SHE HAS A BULL CATH DRAINING A SMALL AMT OF BAER YELLOW URINE PT HAS GENERALIZED EDEMA.
[2022-07-03] MEDS: traZODone 50 MG TAB PO SCH (21:22)
[2022-07-03] MEDS: risperiDONE 1 MG TAB PO SCH (21:24)
--- NOTE | 2022-07-03 22:00 | NUR ---
ORAL CARE GIVEN,INDUCED COUGHING FROM PATIENT.
[2022-07-04] VITALS (31 sets, daily range): BP systolic 93–131; BP diastolic 40–84
[2022-07-04] MEDS: INSULIN LISPRO SLIDING SCALE 100 UNITS/ML VIAL SUBQ PRN ×3 (00:02→12:02)
[2022-07-04] MEDS: BLOOD GLUCOSE MONITORING 1 DEV DEV FS SCH ×4 (00:06→17:34)
--- NOTE | 2022-07-04 01:00 | NUR ---
PT WAKING UP DURING LINE CHANGING FOR PROPOFOL. SHE BEGAN TO DESAT, AND MOVING ABOUT. SHE REGAIN HER NORMAL VALUES ONCE THE PROPOFOL WAS BACK ON BOARD.
[2022-07-04] MEDS: PROPOFOL 1000 MG/100 ML PREMIX 100 ML IV PRN ×4 (01:20→22:02)
[2022-07-04] MEDS: ALBUTEROL SULFATE/IPRATROPIU 3 ML SOL IH SCH ×4 (02:15→18:46)
[2022-07-04 05:27] LABS: BASOPHILS % (AUTO) 0.2 % (0.0-2.0); EOSINOPHILS % (AUTO) 0.1 % (0.0-4.0); HEMOGLOBIN 7.9 g/dL (12.0-16.0); LYMPHOCYTES # (AUTO) 0.6 K/uL (2.5-16.5); LYMPHOCYTES % (AUTO) 6.2 % (20.5-51.1); MEAN CORPUSCULAR HEMOGLOBIN 33 pg (27-31); MEAN CORPUSCULAR HGB CONC 34 g/dL (33-37); MEAN CORPUSCULAR VOLUME 94.7 fL (80-94); MONOCYTES # (AUTO) 0.5 K/uL (0.8-1.0); MONOCYTES % (AUTO) 4.6 % (1.7-9.3); NEUTROPHILS # (AUTO) 9.3 K/uL (1.8-7.7); NEUTROPHILS % (AUTO) 88.9 % (42.2-75.2); PLATELET COUNT (AUTO) 329 K/uL (140-450); RED BLOOD CELL COUNT(AUTO) 2.43 MIL/uL (4.20-5.40); RED CELL DISTRIBUTION WIDTH 15.3 % (11.6-13.7); WHITE BLOOD COUNT (AUTO) 10.4 K/uL (4.8-10.8)
[2022-07-04] MEDS: metroNIDAZOLE 500 MG/NS PREMIX 100 ML IV SCH ×3 (05:42→21:38)
[2022-07-04] MEDS: CEFEPIME 500 MG in DEXTROSE 5% 50 ML IV SCH ×3 (05:43→21:43)
[2022-07-04] MEDS: METOCLOPRAMIDE 10 MG/2 ML INJ VIAL IVP SCH ×3 (05:44→21:54)
[2022-07-04 06:44] LABS: ALBUMIN 1.5 g/dL (3.4-5.0); ANION GAP 14.6 (8-16); CARBON DIOXIDE 28.4 mmol/L (21-32); CREATININE 0.6 mg/dL (0.6-1.3); TOTAL BILIRUBIN 0.2 mg/dL (0.0-1.0)
--- NOTE | 2022-07-04 07:00 | NUR ---
RECEIVED PT PRVC 20,TV400,+10,60%. WHEELS ARE LOCKED, PLUGGED INTO RED OUTLET. AMBUBAG AT BEDSIDE, ALARMS ARE SET AND AUDIBLE. WILL CONTINUE TO MONITOR.
--- NOTE | 2022-07-04 08:00 | NUR ---
RECEIVED ON BED INTUBATED, SEDATED, ONN PROPOFOL DRIP AT 30 MCG/KGMIN FOR RASS (+3).NO /S GERDA/DISCOMFORT, NOT IN DISTRESS. TOLERATING NGT FEEDING, NOP RESIDUAL, ASPIRATION PRECAUTION OBSERVED. ASSESSMENT DONE. SACRAL DRESSING IN PLACE, INTACT, CLEAN AND DRY. REPOSITIONED TO SIDE, SUPPORTED WITH PILLOWS, OFF LOADED BOTH HEELS. CONT TO MONITOR.
[2022-07-04] MEDS: clonazePAM 0.5 MG TAB PO SCH ×2 (09:00→21:58)
[2022-07-04] MEDS: MIDODRINE 5 MG TAB NG SCH ×3 (09:36→17:34)
[2022-07-04] MEDS: FOLIC ACID 1 MG TAB PO SCH (09:37)
[2022-07-04] MEDS: CALCIUM CARB 600 MG TAB PO SCH ×2 (09:37→21:57)
[2022-07-04] MEDS: FLUoxetine 20 MG CAP PO SCH (09:38)
[2022-07-04] MEDS: PANTOPRAZOLE 40 MG INJ VIAL IVP SCH ×2 (09:40→21:51)
[2022-07-04] MEDS: methylPREDNISolone SS 40 MG/ML VIAL IVP SCH ×2 (09:40→21:51)
[2022-07-04] MEDS: VITAMIN D 400 IU TAB PO SCH (09:41)
[2022-07-04] MEDS: BACLOFEN 10 MG TAB PO SCH ×3 (09:42→17:34)
[2022-07-04] MEDS: ENOXAPARIN 40 MG/0.4 ML SYR SUBQ SCH (09:44)
--- NOTE | 2022-07-04 12:00 | NUR ---
PT WITH EPISODES OF BEING AWAKE, AGITATED, DESATS. PROPOFOL DRIP TITRATED UP TO 30 MCG/KG/MIN. CONT TO MONITOR.
--- NOTE | 2022-07-04 13:00 | NUR ---
PROPOFOL DRIP TITRATED BACK DOWN TO 25 MCG GOR BP 97/51, HR 58. CONT TO MONITOR.
--- NOTE | 2022-07-04 16:12 | NUR ---
07/04/22 RD FOLLOW UP COMPLETED PLEASE REFER TO NUTRITION ASSESSMENT UNDER CARE ACTIVITY FOR ESTIMATED NUTRITIONAL NEEDS. 1. CONTINUE VITAL AF 1.2 @ 50ML/HR NGT, FWF 150 ML Q6H TOLERATED 2. RECOMMEND JOSÉ MIGUEL BID - WITH PROPOFOL @ 10.4 ML/HR AND JOSÉ MIGUEL BID, PT WILL RECEIVE 1895 KCAL AND 95 GM PROTEIN, MEETING 100% OF ESTIMATED NUTRITIONAL NEEDS 2. MONITOR WEIGHT CHANGES AND NUTRITION-RELATED LAB VALUES 3. RD TO FOLLOW-UP 3-5 DAYS, MODERATE RISK REVIEWED BY FAUSTINO WHITING RD
--- NOTE | 2022-07-04 19:20 | NUR ---
RECEIVED REPORT FROM OUT GOING RN. PT RECEIVED WITH NO CHANGE IN STATUS. SHE REMAINS ON THE VENTILATOR VIA ETT AND HER VENT SETTINGS ARE AC/PRVC FIO2 70%, TV 400, RATE 20 AND PEEP 8. HER PROPOFOL WAS DECREASED TO 25MCG. NURSE REPORTED PT IS VERY SENSITIVE TO THE PROPOFOL. SHE TRIED TO TITRAE HER DOWN BUT PT BECAME WIDE AWAKE AT 20MCGS AND STARTED TO DESATURATE. SHE WAS ONLY ABLE TO GET THE PT DOWN TO 25MCG. SHE IS AT A RASS-3. SHE CONTINUES ON THE TUBE FEEDING VIA NG TUBE IN THE LEFT NARE. VITAL 1.2 AT 50CCC/HOUR AND FREE H2O 150 Q8HOUR. SHE HAS A BULL CATH DRAINING CLEAR YELLOW BAER YELLOW URINE. SHE IS WITHOUT EVIDENCE OF STRESS AT THIS TIME.
[2022-07-04] MEDS: FUROSEMIDE 20 MG/2 ML VIAL IVP SCH (21:00)
--- NOTE | 2022-07-04 21:35 | NUR ---
DR MENA CAME IN TP EVALUATE PT; NO NEW ORDERS GIVEN..
[2022-07-04] MEDS: risperiDONE 1 MG TAB PO SCH (21:50)
[2022-07-04] MEDS: traZODone 50 MG TAB PO SCH (21:55)
--- NOTE | 2022-07-04 22:30 | NUR ---
MOUTH SUCTIONED RESULTING A COPIOUS AMT OF WHITE CLABBERED SECRETION. ORAL CARE GIVEN. PROPOFOL INCREASED T0 30MCG BECAUSE PT IS AWAKE AND DESATING TO THE LOW 80'S
[2022-07-05] VITALS (32 sets, daily range): BP systolic 91–136; BP diastolic 44–84
[2022-07-05] MEDS: ALBUTEROL SULFATE/IPRATROPIU 3 ML SOL IH SCH ×4 (00:53→20:51)
[2022-07-05] MEDS: metroNIDAZOLE 500 MG/NS PREMIX 100 ML IV SCH ×3 (04:46→21:26)
[2022-07-05] MEDS: METOCLOPRAMIDE 10 MG/2 ML INJ VIAL IVP SCH ×3 (04:48→21:28)
[2022-07-05] MEDS: CEFEPIME 500 MG in DEXTROSE 5% 50 ML IV SCH ×2 (04:48→13:02)
[2022-07-05 05:00] LABS: HEMATOCRIT 28.2 % (36-48); HEMOGLOBIN 9.3 g/dL (12.0-16.0); MEAN CORPUSCULAR HEMOGLOBIN 32 pg (27-31); MEAN CORPUSCULAR HGB CONC 33 g/dL (33-37); MEAN CORPUSCULAR VOLUME 95.4 fL (80-94); PLATELET COUNT (AUTO) 339 K/uL (140-450); RED BLOOD CELL COUNT(AUTO) 2.95 MIL/uL (4.20-5.40); WHITE BLOOD COUNT (AUTO) 8.3 K/uL (4.8-10.8)
[2022-07-05 05:05] LABS: CARBON DIOXIDE 31.2 mmol/L (21-32)
[2022-07-05 05:40] LABS: CREATININE 0.6 mg/dL (0.6-1.3)
[2022-07-05 05:45] LABS: ANION GAP 6.5 (8-16); POTASSIUM 3.7 mmol/L (3.5-5.1)
[2022-07-05] MEDS: BLOOD GLUCOSE MONITORING 1 DEV DEV FS SCH ×4 (06:07→17:15)
[2022-07-05] MEDS: INSULIN LISPRO SLIDING SCALE 100 UNITS/ML VIAL SUBQ PRN ×3 (06:08→13:05)
[2022-07-05 06:42] LABS: LYMPHOCYTES % (MANUAL) 4 % (20-46); MONOCYTES % (MANUAL) 7 % (5-12)
--- NOTE | 2022-07-05 07:15 | NUR ---
RECEIVED PT ON PRVC 400,RR20, +8, 80%. VENT WHEELS ARE LOCKED, PLUGGED INTO RED OUTLET, AMBUBAG AT BESIDE, ALARMS ARE SET AND AUDIBLE. SATURATION WAS 96%. BREATH SOUNDS COARSE. EQUAL CHEST RISE. PT RESTING COMFORTABLY. WILL CONTINUE TO MONITOR.
--- NOTE | 2022-07-05 07:30 | NUR ---
RECEIVED ENDORSEMENT FROM M2G. PT. TRACH TO VENT FIO2 80%VT 400 RATE 20 PEEP 8. O2 SAT 98% , SKINDRY WARM NG TUBE FEEDING IS NOT FUNCTION AT THE TIME, ABD IS SOFT IVFLUID ON LT. IJ PROPOFOL INFUSING AT 30MCG/KG/MIN.
[2022-07-05] MEDS: FUROSEMIDE 20 MG/2 ML VIAL IVP SCH ×3 (08:28→21:28)
[2022-07-05] MEDS: PANTOPRAZOLE 40 MG INJ VIAL IVP SCH ×2 (08:29→21:28)
[2022-07-05] MEDS: methylPREDNISolone SS 40 MG/ML VIAL IVP SCH ×2 (08:29→21:28)
[2022-07-05] MEDS: MIDODRINE 5 MG TAB NG SCH ×3 (08:30→16:19)
[2022-07-05] MEDS: CALCIUM CARB 600 MG TAB PO SCH ×2 (08:31→21:20)
[2022-07-05] MEDS: VITAMIN D 400 IU TAB PO SCH (08:31)
[2022-07-05] MEDS: clonazePAM 0.5 MG TAB PO SCH ×2 (08:34→21:26)
[2022-07-05] MEDS: BACLOFEN 10 MG TAB PO SCH ×3 (08:36→16:19)
[2022-07-05] MEDS: FLUoxetine 20 MG CAP PO SCH (08:36)
[2022-07-05] MEDS: ENOXAPARIN 40 MG/0.4 ML SYR SUBQ SCH (08:36)
[2022-07-05] MEDS: FOLIC ACID 1 MG TAB PO SCH (08:39)
--- NOTE | 2022-07-05 09:00 | NUR ---
VISIT BY MANAGER RESPIRATORY CARE BABAK AT BEDSIDE.
--- NOTE | 2022-07-05 12:00 | NUR ---
BLOOD GLUCOSE 174 INSULIN COVER ORDERED.
--- NOTE | 2022-07-05 13:53 | NUR ---
SEEN BY DR. VO AT BEDSIDE, NEW ORDER RECEIVED.
[2022-07-05] MEDS: PROPOFOL 1000 MG/100 ML PREMIX 100 ML IV PRN (16:55)
--- NOTE | 2022-07-05 17:48 | NUR ---
BLOOD GLUCOSE 224 INSULIN COVER ORDERED.
--- NOTE | 2022-07-05 18:00 | NUR ---
BULL CATH DRAIN 1600 MLCLEAR YELLOW URINE.
--- NOTE | 2022-07-05 19:23 | NUR ---
pt resting, VS WITH IN NORMAL LIMIT, REPORT GIVE TO VAN FOR CONTINUETY CARE,
--- NOTE | 2022-07-05 19:45 | NUR ---
PT ALERT AND ORIENTED X0. VENT SETTINGS FI02 70% VT 400 RATE 20 PEEP 8. ACTIVE BOWEL SOUNDS. RESIDUAL 10ML FROM LEFT NARE NG TUBE. VITAL 50ML/HR. FREE FLUSH 150 ML/HR Q8HR. SINUS RHYTHM. CENTRAL LINE LEFT SUBCLAVIAN TRIPLE LUMEN. PROPOFOL 30MCG/KG/MG. FLACC 0.
[2022-07-05] MEDS ORDERED: cefTRIAXone 1,000 MG VIAL ONE (21:01)
[2022-07-05] MEDS: risperiDONE 1 MG TAB PO SCH (21:27)
[2022-07-05] MEDS: traZODone 50 MG TAB PO SCH (21:27)
--- NOTE | 2022-07-05 22:30 | NUR ---
PM MEDS GIVEN.
[2022-07-06] VITALS (30 sets, daily range): BP systolic 97–153; BP diastolic 50–97
--- NOTE | 2022-07-06 | NUR ---
FEVER 100.2. PRN TYLENOL 650MG LIQUID GIVEN. APPLIED COOLING MEASURES.
[2022-07-06] MEDS: BLOOD GLUCOSE MONITORING 1 DEV DEV FS SCH ×4 (00:16→18:09)
[2022-07-06] MEDS: ACETAMINOPHEN 650 MG/20.3 ML UDC PO PRN ×3 (00:17→17:12)
[2022-07-06] MEDS: INSULIN LISPRO SLIDING SCALE 100 UNITS/ML VIAL SUBQ PRN ×4 (00:18→18:08)
[2022-07-06] MEDS: PROPOFOL 1000 MG/100 ML PREMIX 100 ML IV PRN ×3 (00:19→19:37)
--- NOTE | 2022-07-06 02:00 | NUR ---
TEMP 98.8. PRN TYLENOL EFFECTIVE.
--- NOTE | 2022-07-06 04:30 | NUR ---
PT HAD LARGE LOOSE BM.
[2022-07-06] MEDS: metroNIDAZOLE 500 MG/NS PREMIX 100 ML IV SCH ×3 (05:00→20:47)
[2022-07-06] MEDS: METOCLOPRAMIDE 10 MG/2 ML INJ VIAL IVP SCH ×3 (05:00→20:48)
[2022-07-06] MEDS: FUROSEMIDE 20 MG/2 ML VIAL IVP SCH ×3 (05:00→20:47)
[2022-07-06 05:31] LABS: BASOPHILS % (AUTO) 0.2 % (0.0-2.0); EOSINOPHILS % (AUTO) 0.1 % (0.0-4.0); HEMATOCRIT 24.3 % (36-48); HEMOGLOBIN 8.3 g/dL (12.0-16.0); LYMPHOCYTES # (AUTO) 0.6 K/uL (2.5-16.5); LYMPHOCYTES % (AUTO) 5.6 % (20.5-51.1); MEAN CORPUSCULAR HEMOGLOBIN 33 pg (27-31); MEAN CORPUSCULAR HGB CONC 34 g/dL (33-37); MEAN CORPUSCULAR VOLUME 94.6 fL (80-94); MONOCYTES # (AUTO) 0.5 K/uL (0.8-1.0); MONOCYTES % (AUTO) 4.5 % (1.7-9.3); NEUTROPHILS # (AUTO) 9.6 K/uL (1.8-7.7); PLATELET COUNT (AUTO) 519 K/uL (140-450); RED BLOOD CELL COUNT(AUTO) 2.57 MIL/uL (4.20-5.40); RED CELL DISTRIBUTION WIDTH 15.5 % (11.6-13.7); WHITE BLOOD COUNT (AUTO) 10.7 K/uL (4.8-10.8)
[2022-07-06] MEDS: ALBUTEROL SULFATE/IPRATROPIU 3 ML SOL IH SCH ×4 (05:54→20:34)
[2022-07-06 05:56] LABS: ANION GAP 9.8 (8-16); CARBON DIOXIDE 32.9 mmol/L (21-32); CREATININE 0.7 mg/dL (0.6-1.3); POTASSIUM 3.7 mmol/L (3.5-5.1)
[2022-07-06 06:46] LABS: NEUTROPHILS % (AUTO) 89.6 % (42.2-75.2)
--- NOTE | 2022-07-06 07:15 | NUR ---
RECEIVED PT ON PRVC 400,RR20, +8,70%. VENT WHEELS ARE LOCKED, PLUGGED INTO RED OUTLET, AMBUBAG AT BED SIDE. ALARMS ARE SET AND AUDIBLE. PT RESTING. WILL CONTINUE TO MONITOR.
--- NOTE | 2022-07-06 07:25 | NUR ---
REPORT GIVEN TO AM SHIFT SPENCER TOWNSEND.
--- NOTE | 2022-07-06 07:30 | NUR ---
RECEIVED ENDOSEMENT FROM LYUDMILA. PT. ETT TO VENT AC/PRVC FIO2 70% TV 400 RATE 20PEEP 8. SHE OPEN EYES NOT [id number] RECEIVEENDOSEMENT FROM LYUDMILA PALMER PT. IS ETT TO VENT SETTING AC/PRVC FIO2 70% TV 400 RATE 20 PEEP 8.O2 SAT96%.SKIN DRY AND WARM TO TOUCH. IV HAS TLC ON LEFT SUBCLAVIE, INFUSING PROPOFOL 30 MCG/KG/MIN..NG TUBE WITH VITAL AF1.2 @ 50ML/HR . BULL CATH DRAIN CLEAR YELLOW URINE.
--- NOTE | 2022-07-06 07:55 | NUR ---
SEEN BY DR. GILLETTE AT BED SIDE , NO ORDER RECEIVED.
[2022-07-06] MEDS: PANTOPRAZOLE 40 MG INJ VIAL IVP SCH ×2 (08:47→20:47)
[2022-07-06] MEDS: methylPREDNISolone SS 40 MG/ML VIAL IVP SCH ×2 (08:48→20:48)
[2022-07-06] MEDS: CALCIUM CARB 600 MG TAB PO SCH ×2 (08:48→20:48)
[2022-07-06] MEDS: VITAMIN D 400 IU TAB PO SCH (08:49)
[2022-07-06] MEDS: FOLIC ACID 1 MG TAB PO SCH (08:49)
[2022-07-06] MEDS: FLUoxetine 20 MG CAP PO SCH (08:54)
[2022-07-06] MEDS: BACLOFEN 10 MG TAB PO SCH ×3 (08:55→17:11)
[2022-07-06] MEDS: ENOXAPARIN 40 MG/0.4 ML SYR SUBQ SCH (08:55)
[2022-07-06] MEDS: MIDODRINE 5 MG TAB NG SCH ×3 (08:58→17:11)
[2022-07-06] MEDS: clonazePAM 0.5 MG TAB PO SCH ×2 (09:00→20:50)
--- NOTE | 2022-07-06 10:00 | NUR ---
REPOSITION. ORAL CARE ,SUCTION AND SKIN CARE GIVEN.
--- NOTE | 2022-07-06 11:17 | NUR ---
SEEN BY DR VO AT BEDSIDE NO NEW ORDER.
--- NOTE | 2022-07-06 12:00 | NUR ---
BLOOD GLUCOSE 163 INSULIN COVERED ORDERED.
--- NOTE | 2022-07-06 12:45 | NUR ---
SEEN BY DR. ESCOBAR AT BEDSIDE NO NEW ORDERED.
--- NOTE | 2022-07-06 16:00 | NUR ---
TEMP 100.O COLD SPONGE ORAL CARE AND SKIN CARE GIVEN.
--- NOTE | 2022-07-06 17:00 | NUR ---
REPOSITION INCONTINENT SMALL AMOUT OF LOOSE YELLOW BM. SKIN CARE GIVEN.
--- NOTE | 2022-07-06 17:56 | NUR ---
BLOOD GLUCOSE 201 INSULIN COVER ORDERED.
--- NOTE | 2022-07-06 19:20 | NUR ---
RECEIVED PT. AWAKE, CONFUSE, FLAT AFFECT, BLANK STARE. EYES PERRL. CONT. ON ETT TO VENT A/C PRVC RATE 20, FIO2 65%, TV 400 AND PEEP 5. BILATERAL LUNG SOUNDS RONCHI. SINUS RHYTHM ON CASH GRAIN FARMER. IV TO LEFT SUBCLAVIAN TRIPLE LUMEN DRY, PATENT AND INTACT. INFUSING PROPOFOL DRIP AT 30 MCG/KG/MIN TO KEEP RASS -3 PER MD ORDERED. ABDOMINAL SOUNDS DIMINISHED. FEEDING TO LEFT NGT IN PLACED RUNNING VITAL AF 1.2 AT 50 ML/HR, TOLERATING WELL, WITH MINIMAL RESIDUAL. BULL CATHETER IN PLACED, TO GRAVITY, COLOR OF URINE CLEAR YELLOW. REPOSITIONED PT. PROVIDED SAFE AND QUIET NEVIRONMENT. NO S/S OF RESPIRATORY DISTRESS. NO S/S OF PAIN. WILL CONT. TO MONITOR.
[2022-07-06] MEDS ORDERED: ALBUTEROL SULFATE/IPRATROPIU 3 ML SOL IH ONE (20:26)
[2022-07-06] MEDS: risperiDONE 1 MG TAB PO SCH (20:51)
[2022-07-06] MEDS: traZODone 50 MG TAB PO SCH (20:52)
[2022-07-07] VITALS (30 sets, daily range): BP systolic 99–140; BP diastolic 50–76
[2022-07-07] MEDS: INSULIN LISPRO SLIDING SCALE 100 UNITS/ML VIAL SUBQ PRN ×3 (00:11→11:34)
[2022-07-07] MEDS: BLOOD GLUCOSE MONITORING 1 DEV DEV FS SCH ×4 (00:13→18:06)
[2022-07-07] MEDS: ALBUTEROL SULFATE/IPRATROPIU 3 ML SOL IH SCH ×4 (01:56→19:37)
[2022-07-07] MEDS: PROPOFOL 1000 MG/100 ML PREMIX 100 ML IV PRN (02:48)
[2022-07-07] MEDS: FUROSEMIDE 20 MG/2 ML VIAL IVP SCH ×3 (05:00→20:47)
[2022-07-07] MEDS: metroNIDAZOLE 500 MG/NS PREMIX 100 ML IV SCH ×3 (05:00→20:45)
[2022-07-07] MEDS: METOCLOPRAMIDE 10 MG/2 ML INJ VIAL IVP SCH ×3 (05:00→20:47)
--- NOTE | 2022-07-07 05:26 | NUR ---
LAB CAME DRAWN BLOOD FOR CMP AND CBC.
[2022-07-07 06:08] LABS: BASOPHILS % (AUTO) 0.2 % (0.0-2.0); EOSINOPHILS % (AUTO) 0.1 % (0.0-4.0); HEMATOCRIT 23.1 % (36-48); LYMPHOCYTES # (AUTO) 0.5 K/uL (2.5-16.5); MEAN CORPUSCULAR HEMOGLOBIN 33 pg (27-31); MEAN CORPUSCULAR HGB CONC 35 g/dL (33-37); MEAN CORPUSCULAR VOLUME 95.3 fL (80-94); MONOCYTES # (AUTO) 0.3 K/uL (0.8-1.0); MONOCYTES % (AUTO) 3.6 % (1.7-9.3); NEUTROPHILS # (AUTO) 6.5 K/uL (1.8-7.7); NEUTROPHILS % (AUTO) 89.1 % (42.2-75.2); PLATELET COUNT (AUTO) 496 K/uL (140-450); RED BLOOD CELL COUNT(AUTO) 2.42 MIL/uL (4.20-5.40); WHITE BLOOD COUNT (AUTO) 7.3 K/uL (4.8-10.8)
[2022-07-07 06:10] LABS: ALBUMIN 1.5 g/dL (3.4-5.0); ANION GAP 11.1 (8-16); CARBON DIOXIDE 33.6 mmol/L (21-32); CREATININE 0.7 mg/dL (0.6-1.3); MAGNESIUM 1.7 mg/dL (1.8-2.4); PHOSPHORUS 3.3 mg/dL (2.5-4.9); POTASSIUM 3.7 mmol/L (3.5-5.1); TOTAL BILIRUBIN 0.2 mg/dL (0.0-1.0)
--- NOTE | 2022-07-07 07:01 | NUR ---
ENDORSED PT. TO DAY SHIFT SPENCER TOWNSEND FOR CONTINUITY OF CARE.
--- NOTE | 2022-07-07 07:30 | NUR ---
RECEIVED ENDOSEMENT FROM EZEQUIEL RN , PT. IS ETT TO VENT AC/PRVC 55% VT 400 RATE 20 PEEP 8 ,TVSITE HAH TLC ON LEFT SUBCLAVIEN. NG TUBE FEEDING WITH AF 1.2 @50 ML/H H2O 150 ML/6HR. ABD SOFT BS ACTIVE. BULL CATH DRAIN CLEAR LUIZ URINE.
[2022-07-07] MEDS: PANTOPRAZOLE 40 MG INJ VIAL IVP SCH ×2 (08:08→20:47)
[2022-07-07] MEDS: methylPREDNISolone SS 40 MG/ML VIAL IVP SCH ×2 (08:08→20:47)
[2022-07-07] MEDS: MIDODRINE 5 MG TAB NG SCH ×3 (08:08→16:20)
[2022-07-07] MEDS: CALCIUM CARB 600 MG TAB PO SCH ×2 (08:08→20:48)
[2022-07-07] MEDS: VITAMIN D 400 IU TAB PO SCH (08:09)
[2022-07-07] MEDS: clonazePAM 0.5 MG TAB PO SCH ×2 (08:10→20:50)
[2022-07-07] MEDS: FOLIC ACID 1 MG TAB PO SCH (08:10)
[2022-07-07] MEDS: BACLOFEN 10 MG TAB PO SCH ×3 (08:12→16:20)
[2022-07-07] MEDS: FLUoxetine 20 MG CAP PO SCH (08:13)
[2022-07-07] MEDS: ENOXAPARIN 40 MG/0.4 ML SYR SUBQ SCH (08:13)
--- NOTE | 2022-07-07 10:30 | NUR ---
INCONTINENT LOOSE YELLOW BM REPOSITION SKIN CARE .
--- NOTE | 2022-07-07 12:00 | NUR ---
BLOOD GLUCOSE 174 INSULIN COVER ORDERED.
--- NOTE | 2022-07-07 15:30 | NUR ---
SEEN BY DR. VO PUT PT ON SEDATION VACATION. SHE WAS AWAKE FOLLOW SIMPLE COMMAND..
--- NOTE | 2022-07-07 18:00 | NUR ---
BLOOD GLUCOSE 144 NO INSULIN COVER NEEDED.
--- NOTE | 2022-07-07 19:24 | NUR ---
REPORT GIVE TO ROBIN PALMER.
--- NOTE | 2022-07-07 19:30 | NUR ---
RECEIVED PT. FROM DAY SHIFT SPENCER TOWNSEND. PT. AWAKE WITH PERIOD OF CONFUSION. ABLE TO FOLLOW SIMPLE COMMANDS. ETT TO VENT A/C PRVC RATE 20, FIO2 55%, TV 400, PEEP 5 WITH 02 SAT 93%. EYES PERRL. BILATERAL LUNGS SOUNDS RHONCHI. ON SINUS RHYTHM ON THE MONITOR. IV TO LEFT SUBCLAVIAN TRIPLE LUMEN CATHETER PATENT AND INTACT. INFUSING PROPOFOL DRIP AT 30 MCG/KG/MIN. PER DAY SHIFT REPORT, MD WANTS START PRECEDEX AND TITRATE DOWN PROPOFOL. THE PLAN TO EXTUBATE PER MD. PT. WITH LEFT NGT IN PLACED, RUNNING VITAL 1.2 AT 50 ML/HR, TOLERATING WELL, MINIMAL RESIDUAL. BULL CATHETER DRAINING TO GRAVITY, PATENT WITH URINE COLOR CLEAR YELLOW. SKIN SACRUM WITH OLD SCAR. PT. NO S/S OF DISTRESS. NO S/S OF PAIN. PLACED PT. IN COMFORTABLE POSITIONS. PROVIDED SAFE AND QUIET ENVIRONMENT. WILL CONT. TO MONITOR.
[2022-07-07] MEDS: DEXMEDETOMIDINE HCL 400 MCG in NACL 0.9% 96 ML IV PRN (20:14)
--- NOTE | 2022-07-07 20:15 | NUR ---
STARTED PRECEDEX DRIP 0.2 MCG/KG/HR AND WILL TITRATE DOWN PROPOFOL DRIP PER MD ORDERED.
[2022-07-07] MEDS: risperiDONE 1 MG TAB PO SCH (20:50)
[2022-07-07] MEDS: traZODone 50 MG TAB PO SCH (20:51)
[2022-07-08] VITALS (32 sets, daily range): BP systolic 94–146; BP diastolic 46–85
[2022-07-08] MEDS: INSULIN LISPRO SLIDING SCALE 100 UNITS/ML VIAL SUBQ PRN ×4 (00:52→19:00)
[2022-07-08] MEDS: BLOOD GLUCOSE MONITORING 1 DEV DEV FS SCH ×4 (00:55→18:58)
[2022-07-08] MEDS: ALBUTEROL SULFATE/IPRATROPIU 3 ML SOL IH SCH ×4 (01:10→20:10)
[2022-07-08] MEDS: METOCLOPRAMIDE 10 MG/2 ML INJ VIAL IVP SCH ×3 (05:00→20:29)
[2022-07-08] MEDS: metroNIDAZOLE 500 MG/NS PREMIX 100 ML IV SCH ×3 (05:00→20:29)
[2022-07-08] MEDS: FUROSEMIDE 20 MG/2 ML VIAL IVP SCH ×3 (05:00→20:29)
[2022-07-08 05:46] LABS: BASOPHILS % (AUTO) 0.4 % (0.0-2.0); EOSINOPHILS % (AUTO) 0.1 % (0.0-4.0); HEMATOCRIT 25.1 % (36-48); HEMOGLOBIN 8.6 g/dL (12.0-16.0); LYMPHOCYTES # (AUTO) 0.8 K/uL (2.5-16.5); LYMPHOCYTES % (AUTO) 9.8 % (20.5-51.1); MEAN CORPUSCULAR HEMOGLOBIN 33 pg (27-31); MEAN CORPUSCULAR HGB CONC 34 g/dL (33-37); MEAN CORPUSCULAR VOLUME 95.1 fL (80-94); MONOCYTES # (AUTO) 0.4 K/uL (0.8-1.0); MONOCYTES % (AUTO) 4.3 % (1.7-9.3); NEUTROPHILS # (AUTO) 7.1 K/uL (1.8-7.7); NEUTROPHILS % (AUTO) 85.4 % (42.2-75.2); PLATELET COUNT (AUTO) 590 K/uL (140-450); RED BLOOD CELL COUNT(AUTO) 2.64 MIL/uL (4.20-5.40); RED CELL DISTRIBUTION WIDTH 15.8 % (11.6-13.7); WHITE BLOOD COUNT (AUTO) 8.3 K/uL (4.8-10.8)
[2022-07-08] MEDS: DEXMEDETOMIDINE HCL 400 MCG in NACL 0.9% 96 ML IV PRN ×3 (06:06→19:40)
[2022-07-08 06:20] LABS: ANION GAP 9.8 (8-16); CARBON DIOXIDE 34.6 mmol/L (21-32); CREATININE 0.6 mg/dL (0.6-1.3); POTASSIUM 3.4 mmol/L (3.5-5.1)
--- NOTE | 2022-07-08 07:10 | NUR ---
RECEIVED BEDSIDE REPORT FROM ROBIN RESCUE INSTRUCTOR RN, FOR CONTINUITY OF CARE. PT A/OX0, PRECEDEX DRIP AT 1 MCG/KG/HR, DOES NOT FOLLOW COMMANDS, ABLE TO TRACK, MAINTAINS EYE CONTACT <10 SECONDS. ETT TO VENT AC/PRVC, FIO2 55%/VT 400/R 20/PEEP 5. SR ON MONITOR. TLC TO L SUBCLAVIAN INFUSING PRECEDEX AND NS TKO. NGT TO L NARE INFUSING VITAL CONTINUOUS TUBE FEEDING AT 50ML/HR WITH FWF 150 Q6H. F/C TO GRAVITY DRAINING CLEAR YELLOW URINE. BILATERAL SOFT WRIST RESTRAINTS IN PLACE FOR SAFETY AND PULLING AT LINES. NO S/SX OF INJURY. STANDARD PRECAUTION. BED LOCKED AND IN LOWEST POSITION.
--- NOTE | 2022-07-08 07:36 | NUR ---
REPORT GIVEN TO SPENCER WEBB FOR CONTINUITY OF CARE.
[2022-07-08] MEDS: VITAMIN D 400 IU TAB PO SCH (08:51)
[2022-07-08] MEDS: methylPREDNISolone SS 40 MG/ML VIAL IVP SCH ×2 (08:51→20:29)
[2022-07-08] MEDS: PANTOPRAZOLE 40 MG INJ VIAL IVP SCH ×2 (08:51→20:28)
[2022-07-08] MEDS: BACLOFEN 10 MG TAB PO SCH ×3 (08:54→17:59)
[2022-07-08] MEDS: FLUoxetine 20 MG CAP PO SCH (08:55)
[2022-07-08] MEDS: FOLIC ACID 1 MG TAB PO SCH (08:55)
[2022-07-08] MEDS: CALCIUM CARB 600 MG TAB PO SCH ×2 (08:55→20:32)
[2022-07-08] MEDS: MIDODRINE 5 MG TAB NG SCH ×3 (09:00→17:00)
[2022-07-08] MEDS: clonazePAM 0.5 MG TAB PO SCH ×2 (09:03→20:30)
[2022-07-08] MEDS: ENOXAPARIN 40 MG/0.4 ML SYR SUBQ SCH (09:04)
[2022-07-08] MEDS ORDERED: POTASSIUM CHLORIDE 20% 40 MEQ/15 ML UDC GT SCH (10:00)
--- NOTE | 2022-07-08 13:39 | NUR ---
PT ON SBT CPAP 5 PS 12, ALARMS ON AND FUNCTIONING. PT ONLY LASTED TOTAL OF 15 MINUTES BEFORE BECOMING TACHYPNEIC RR >35 AND LOW VT 250-300.
--- NOTE | 2022-07-08 15:06 | NUR ---
07/08/22 RD FOLLOW UP COMPLETED PLEASE REFER TO NUTRITION ASSESSMENT UNDER CARE ACTIVITY FOR ESTIMATED NUTRITIONAL NEEDS. 1. RECOMMEND INCREASE VITAL AF 1.2 @ 55ML/HR, FWF 150 ML Q6H TOLERATED 2. CONTINUE JOSÉ MIGUEL BID - WITH JOSÉ MIGUEL BID, PT WILL RECEIVE 1744 KCAL AND 104 GM PROTEIN, MEETING 90% OF ESTIMATED ENERGY NEEDS AND 100% ESTIMATED PROTEIN NEEDS 3. MONITOR WEIGHT CHANGES, NUTRITION-RELATED LAB VALUES, AND RESIDUALS. 4. RD TO FOLLOW-UP 3-5 DAYS, MODERATE RISK REVIEWED BY FAUSTINO WHITING RD
--- NOTE | 2022-07-08 18:38 | NUR ---
CHANGED TUBE FEEDING BAG AND TUBING TO GOAL RATE OF 55ML/HR FWF 150 Q6H PER DIETARY RECOMMENDATION.
--- NOTE | 2022-07-08 19:10 | NUR ---
ENDORSED BEDSIDE REPORT TO SPENCER RIDLEY FOR CONTINUITY OF CARE.
--- NOTE | 2022-07-08 19:30 | NUR ---
ASSUMED CARE OF PT.INITIAL ASSESSMENT COMPLETED.PT OPENS EYES, TRACKS.NOT FOLLOWING COMMANDS.SR ON MONITOR.ORALLY INTUBATED AC PRVC FIO2 50% TV400 RATE 20 PEEP5.W/LT SC TLC INTACT.FLUSHED GOOD BLOOD RETURN TO ALL 3 PORTS INFUSING PRECEDEX DRIP AT 1MCG/KG/HR AND NS AT 5ML/HR.W/LT NARES NGT 100ML RESIDUAL,.ON CONTINUOUS TUBE FEEDING VITAL AF 1.2 AND WATER FLUSH ORDERED.W/BULL CATHETER TO BSD DRAINING ADEQUATE AMT OF CLEAR YELLOW URINE.W/BILATERAL SOFT WRIST RESTRAINTS.NO SIGNS OF INJURIES NOTED.W/DRY INTACT DRESSING TO OPEN WOUND ON SACRUM.SEE WOUND ASSESSMENT.BED IN LOW POSITION.SAFETY PRECAUTION IN PLACE.FLACC 0
--- NOTE | 2022-07-08 20:00 | NUR ---
ORAL CARE USING VAP KIT RENDERED.PT ON PROTONIX FOR GI PROPHYLAXIS AND LOVENOX FOR DVT PROPHYLAXIS.REPOSITIONED.
[2022-07-08] MEDS: traZODone 50 MG TAB PO SCH (20:30)
[2022-07-08] MEDS: risperiDONE 1 MG TAB PO SCH (20:34)
[2022-07-09] VITALS (30 sets, daily range): BP systolic 94–145; BP diastolic 47–72
--- NOTE | 2022-07-09 | NUR ---
oral care done.intermittent productive coughing noted,creamy secretions,moderate amt.flacc 0.repositioned.
[2022-07-09] MEDS: INSULIN LISPRO SLIDING SCALE 100 UNITS/ML VIAL SUBQ PRN ×4 (00:41→17:53)
[2022-07-09] MEDS: BLOOD GLUCOSE MONITORING 1 DEV DEV FS SCH ×4 (00:41→17:46)
[2022-07-09] MEDS: DEXMEDETOMIDINE HCL 400 MCG in NACL 0.9% 96 ML IV PRN ×4 (00:53→20:27)
[2022-07-09] MEDS: ALBUTEROL SULFATE/IPRATROPIU 3 ML SOL IH SCH ×4 (01:20→20:44)
--- NOTE | 2022-07-09 03:12 | NUR ---
PTS CONDITION REMAINS UNCHANGED.FIO2 AT 50%.STILL ON PRECEDEX DRIP RASS -2.FLACC 0
--- NOTE | 2022-07-09 04:30 | NUR ---
MORNING CARE DONE.ORAL CARE RENDERED.MODERATE AMT OF CREAMY SECRETIONS SUCTIONED.FLACC 0.REPOSITIONED
[2022-07-09] MEDS: metroNIDAZOLE 500 MG/NS PREMIX 100 ML IV SCH ×3 (05:01→20:44)
[2022-07-09] MEDS: METOCLOPRAMIDE 10 MG/2 ML INJ VIAL IVP SCH ×3 (05:01→20:48)
[2022-07-09] MEDS: FUROSEMIDE 20 MG/2 ML VIAL IVP SCH ×3 (05:01→20:46)
[2022-07-09 06:26] LABS: ANION GAP 10.7 (8-16); CARBON DIOXIDE 33.9 mmol/L (21-32); CREATININE 0.7 mg/dL (0.6-1.3); POTASSIUM 3.6 mmol/L (3.5-5.1)
--- NOTE | 2022-07-09 07:12 | NUR ---
RECEIVED BEDSIDE REPORT FROM KEYANA HISTORY INSTRUCTOR RN, FOR CONTINUITY OF CARE. PT A/OX0, PRECEDEX DRIP AT 1 MCG/KG/HR. ETT TO VENT AC/PRVC, FIO2 50%/VT 400/R 20/PEEP 5. SR ON MONITOR. TLC TO L SUBCLAVIAN INFUSING PRECEDEX AND NS TKO. NGT TO L NARE INFUSING VITAL CONTINUOUS TUBE FEEDING AT 55ML/HR WITH FWF 150 Q6H. F/C TO GRAVITY DRAINING YELLOW URINE. BILATERAL SOFT WRIST RESTRAINTS IN PLACE FOR SAFETY AND PULLING AT LINES. NO S/SX OF INJURY. STANDARD PRECAUTION. BED LOCKED AND IN LOWEST POSITION.
[2022-07-09 07:58] LABS: BASOPHILS % (AUTO) 0.5 % (0.0-2.0); EOSINOPHILS % (AUTO) 0.2 % (0.0-4.0); HEMATOCRIT 24.3 % (36-48); HEMOGLOBIN 8.1 g/dL (12.0-16.0); LYMPHOCYTES # (AUTO) 1.2 K/uL (2.5-16.5); LYMPHOCYTES % (AUTO) 13.3 % (20.5-51.1); MEAN CORPUSCULAR HEMOGLOBIN 32 pg (27-31); MEAN CORPUSCULAR HGB CONC 33 g/dL (33-37); MEAN CORPUSCULAR VOLUME 96.3 fL (80-94); MONOCYTES # (AUTO) 0.5 K/uL (0.8-1.0); MONOCYTES % (AUTO) 5.6 % (1.7-9.3); NEUTROPHILS # (AUTO) 7.5 K/uL (1.8-7.7); NEUTROPHILS % (AUTO) 80.4 % (42.2-75.2); PLATELET COUNT (AUTO) 479 K/uL (140-450); RED BLOOD CELL COUNT(AUTO) 2.52 MIL/uL (4.20-5.40); RED CELL DISTRIBUTION WIDTH 16.2 % (11.6-13.7); WHITE BLOOD COUNT (AUTO) 9.3 K/uL (4.8-10.8)
[2022-07-09] MEDS: PANTOPRAZOLE 40 MG INJ VIAL IVP SCH ×2 (08:39→20:49)
[2022-07-09] MEDS: BACLOFEN 10 MG TAB PO SCH ×3 (08:39→17:46)
[2022-07-09] MEDS: methylPREDNISolone SS 40 MG/ML VIAL IVP SCH ×2 (08:39→20:49)
[2022-07-09] MEDS: MIDODRINE 5 MG TAB NG SCH ×3 (08:40→17:46)
[2022-07-09] MEDS: clonazePAM 0.5 MG TAB PO SCH ×2 (08:40→20:59)
[2022-07-09] MEDS: VITAMIN D 400 IU TAB PO SCH (08:40)
[2022-07-09] MEDS: FOLIC ACID 1 MG TAB PO SCH (08:41)
[2022-07-09] MEDS: CALCIUM CARB 600 MG TAB PO SCH ×2 (08:41→20:52)
[2022-07-09] MEDS: FLUoxetine 20 MG CAP PO SCH (08:41)
[2022-07-09] MEDS: ENOXAPARIN 40 MG/0.4 ML SYR SUBQ SCH (08:42)
--- NOTE | 2022-07-09 12:49 | NUR ---
SMALL LOOSE BM. CLEANED, TURNED AND REPOSITIONED. PT TOLERATED WELL.
[2022-07-09] MEDS: MIDAZOLAM 2 MG/2 ML VIAL IV PRN (17:46)
--- NOTE | 2022-07-09 19:05 | NUR ---
RECEIVED REPORT FROM CHELY PALMER. PT IS NOW EXTUBATED ON NASAL CANULA 4L. HE'S REQUESTED A BREATHING TREATMENT ND HE IS DESATURATING DOWN INTO THE 70'S. RESP THERAPIST ADMINISTERING A BREATHING TX. PT REQUEST H20 AND ICE. GIVEN. HE'S ANOX4. HE KNOWS ANAMIKA JUST PASSED. HE REMAINS IN BENJAMIN CHEST TUBE , THE RIGHT IS REDDISH IN COLOR AND THE LEFT IS YELLOWISH. HIS SPO2 WENT UP TO 95% S/P THE BREATHING TREATMENT. H STILL HAS HIS BULL CATH IN PLACE DRAINING CLEAG BAER YELLOW URINE. Addendum: 07/09/22 at 2018 by Agency SPENCER PALMER NOTE WRITTEN ON WRONG PATIENT. BELONGS TO LULU IN BED 8
--- NOTE | 2022-07-09 19:20 | NUR ---
RECEIVED REPORT FORM JASON PALMER FOR CONTINUITY OF CARE. PTIS AWAKE ALERT AND RESPONDING APPROPRIATELY TO COMMANDS. ON ACCESS PT HAD A TEMPERATURE OF 101.5 , TYLENOL 650 GIVEN VIA OG TUBE PT WAS TOLD SHE HAD A FEVER AND HER COVERS HAD TO BE REMOVED. SHE CONSENTED. PT CONTINUES TO TRY TO SELF EXTUBATE AND IS THEREFORE IN SOFT BENJAMIN WRIST RESTRAINTS. SHE'S RECEIVING TUBE FEEDING VITAL AF AT 55CC/HOUR AND SHE HAD A RESIDUAL OF 160CC. SHE REMAINS ON THE VENTILATOR VIA ETT WITH CURRENT VENT SETTINGS OF FIO2 40%, RATE 20 PEEP 5 AND TV 400. SHE HS A BULL CATH DRAINING A LIGHT BAER YELLOW CLEAR URINE WILL CONTINUE TO MONITOR PT'S TEMPERATURE CLOSELY.
--- NOTE | 2022-07-09 19:25 | NUR ---
ENDORSED BEDSIDE REPORT TO MENG JUICE TESTER CATARACT LENS GENERATOR, FOR CONTINUITY OF CARE.
[2022-07-09] MEDS: traZODone 50 MG TAB PO SCH (20:50)
[2022-07-09] MEDS: risperiDONE 1 MG TAB PO SCH (20:55)
[2022-07-10] VITALS (31 sets, daily range): BP systolic 95–149; BP diastolic 45–80
[2022-07-10] MEDS: BLOOD GLUCOSE MONITORING 1 DEV DEV FS SCH ×4 (00:11→18:15)
[2022-07-10] MEDS: INSULIN LISPRO SLIDING SCALE 100 UNITS/ML VIAL SUBQ PRN ×3 (00:12→12:57)
[2022-07-10] MEDS: ALBUTEROL SULFATE/IPRATROPIU 3 ML SOL IH SCH ×4 (00:15→19:40)
--- NOTE | 2022-07-10 00:30 | NUR ---
PT 'S TUBE FEEDING PAUSED DUE TO THE PT PULLING OGT OUT HALF WAY FROM THE STOMACH. TUBE REINSERTED AND CHECKED FOR PLACEMENT AND TUBE FEEDING RESTARTED. SHE HAD A RESIDUAL OF 40CC WHEN THE TUBE WAS REINSERTED.
[2022-07-10] MEDS: DEXMEDETOMIDINE HCL 400 MCG in NACL 0.9% 96 ML IV PRN ×6 (00:54→21:28)
[2022-07-10] MEDS: FUROSEMIDE 20 MG/2 ML VIAL IVP SCH ×3 (05:18→21:01)
[2022-07-10] MEDS: metroNIDAZOLE 500 MG/NS PREMIX 100 ML IV SCH ×3 (05:18→20:50)
[2022-07-10] MEDS: METOCLOPRAMIDE 10 MG/2 ML INJ VIAL IVP SCH ×3 (05:18→20:52)
--- NOTE | 2022-07-10 07:00 | NUR ---
RECEIVED PT ON PRVC 20, 400,+5,40%. VENT WHEELS ARE LOCKED, PLUGGED INTO RED OUTLET, ALARMS ARE SET AND AUDIBLE. AMBUBAG AT BEDSIDE. DAILY CPAP SCHEDULED THIS MORNING. WILL CONTINUE TO MONITOR.
--- NOTE | 2022-07-10 07:10 | NUR ---
REPORT GIVEN TO JASON FOR CONTINUITY OF CARE.
--- NOTE | 2022-07-10 07:15 | NUR ---
RECEIVED BEDSIDE REPORT FROM SUKUMAR FAN PRODUCT SAFETY EXPERT RN, FOR CONTINUITY OF CARE. PT A/OX0, PRECEDEX DRIP AT 1.2 MCG/KG/HR. OPENS EYES TO VOICE. ETT TO VENT AC/PRVC, FIO2 40%/VT 400/R 20/PEEP 5. SR ON MONITOR. TLC TO L SUBCLAVIAN INFUSING PRECEDEX AND NS TKO. NGT TO L NARE INFUSING VITAL CONTINUOUS TUBE FEEDING AT 55ML/HR WITH FWF 150 Q6H. F/C TO GRAVITY DRAINING YELLOW URINE. BILATERAL SOFT WRIST RESTRAINTS IN PLACE FOR SAFETY AND PULLING AT LINES. NO S/SX OF INJURY. STANDARD PRECAUTION. BED LOCKED AND IN LOWEST POSITION.
--- NOTE | 2022-07-10 07:16 | NUR ---
REPORT GIVEN TO SHANNON FOR CONTINUITY OF CARE. PT IS VERY POLITE AND HELPFUL. HE'S ABLE TO TURN MICHELLE. HE'S REQUESTING COFFEE AND HE NEEDS TO BE RETESTED FOR INFLUENZA. Addendum: 07/10/22 at 0729 by Agency 02 SPENCER RN NOTE ON THE WRONG PT ; INTENDED FOR WILLARD LAWSON
[2022-07-10] MEDS: CALCIUM CARB 600 MG TAB PO SCH ×2 (08:03→20:59)
[2022-07-10] MEDS: FOLIC ACID 1 MG TAB PO SCH (08:04)
[2022-07-10] MEDS: FLUoxetine 20 MG CAP PO SCH (08:04)
[2022-07-10] MEDS: MIDODRINE 5 MG TAB NG SCH ×3 (08:05→18:19)
[2022-07-10] MEDS: VITAMIN D 400 IU TAB PO SCH (08:05)
[2022-07-10] MEDS: PANTOPRAZOLE 40 MG INJ VIAL IVP SCH ×2 (08:05→20:51)
[2022-07-10] MEDS: BACLOFEN 10 MG TAB PO SCH ×3 (08:05→18:20)
[2022-07-10] MEDS: clonazePAM 0.5 MG TAB PO SCH ×2 (08:06→20:59)
[2022-07-10] MEDS: ENOXAPARIN 40 MG/0.4 ML SYR SUBQ SCH (08:08)
[2022-07-10] MEDS: methylPREDNISolone SS 40 MG/ML VIAL IVP SCH ×2 (08:09→20:54)
--- NOTE | 2022-07-10 09:12 | NUR ---
DAILY CPAP TRIAL ON PT 06/16. PT LASTED A TOTAL OF 10MIN BEFORE BECOMING TACHYPNEIC ABOVE 40 AND LOW VOLUMES 250-300. SWITCHED PT TO FULL SUPPORT. WILL CONTINUE TO MONITOR.
[2022-07-10 10:26] LABS: BASOPHILS # (AUTO) 0.1 K/uL (0.00-0.22); BASOPHILS % (AUTO) 0.9 % (0.0-2.0); EOSINOPHILS # (AUTO) 0.1 K/uL (0-0.4); EOSINOPHILS % (AUTO) 1.4 % (0.0-4.0); HEMATOCRIT 26.8 % (36-48); LYMPHOCYTES # (AUTO) 0.9 K/uL (2.5-16.5); LYMPHOCYTES % (AUTO) 9.5 % (20.5-51.1); MEAN CORPUSCULAR HEMOGLOBIN 32 pg (27-31); MEAN CORPUSCULAR HGB CONC 34 g/dL (33-37); MONOCYTES # (AUTO) 0.6 K/uL (0.8-1.0); NEUTROPHILS # (AUTO) 8.2 K/uL (1.8-7.7); NEUTROPHILS % (AUTO) 82.2 % (42.2-75.2); PLATELET COUNT (AUTO) 554 K/uL (140-450); RED BLOOD CELL COUNT(AUTO) 2.82 MIL/uL (4.20-5.40); RED CELL DISTRIBUTION WIDTH 16.8 % (11.6-13.7); WHITE BLOOD COUNT (AUTO) 9.9 K/uL (4.8-10.8)
[2022-07-10 10:30] LABS: ANION GAP 8.5 (8-16); CARBON DIOXIDE 34.4 mmol/L (21-32); CREATININE 0.6 mg/dL (0.6-1.3); POTASSIUM 3.9 mmol/L (3.5-5.1)
[2022-07-10 10:34] LABS: MAGNESIUM 1.7 mg/dL (1.8-2.4); PHOSPHORUS 2.4 mg/dL (2.5-4.9)
[2022-07-10] MEDS ORDERED: MAG SULF 2000 MG/WATER PREMIX 50 ML IV ONE (11:31)
[2022-07-10] MEDS ORDERED: MAG SULF 2000 MG/WATER PREMIX 50 ML IV SCH (12:00)
[2022-07-10] MEDS: ACETAMINOPHEN 650 MG/20.3 ML UDC PO PRN (13:03)
--- NOTE | 2022-07-10 13:36 | NUR ---
TEMPERATURE 100.3 AXILLARY, ADMINISTERED PRN TYLENOL.
[2022-07-10] MEDS ORDERED: SODIUM PHOSPHATE 15 MMOLE in NACL 0.9% 250 ML IV SCH (15:00)
--- NOTE | 2022-07-10 16:00 | NUR ---
TEMP 98.8.
--- NOTE | 2022-07-10 16:27 | NUR ---
PT FOUND WITH LIQUID BM. CLEANED, TURNED AND REPOSITIONED. INSERTED RECTAL TUBE PER MD ORDER. PT TOLERATED WELL.
--- NOTE | 2022-07-10 19:21 | NUR ---
ENDORSED BEDSIDE REPORT TO MENG PROCUREMENT OFFICER SALSA DANCE INSTRUCTOR, FOR CONTINUITY OF CARE.
--- NOTE | 2022-07-10 19:28 | NUR ---
RECEIVED REPORT FROM JASON FOR CONTINUITY OF CARE. PT IS IS LYING SUPINE IN POSITION WITH HEAD OF BED UP TO 35 DEGREES. HER MAG/PHOS WAS LOW TODAY AND SHE HAS NA PHOS INFUSING AT 42.5CC/HOUR. PT OPEN EYES WIDE WHEN HER TEMP WAS TAKEN. TEMP IS 99.8. SHEIS REPORTED TO HAVE HI TEMPERATURES TODAY AND WAS MEDICATED WITH TYLENOL X2.HE COUGHS A LOT AND IS IN DANGER IS DISLODGING HER ETT TUBE AND HER NGT. RESPIRATORY IS AWARE AND IS WATCHFUL. PT NOW HAS A RECTAL TUBE IN PLACE OWING TO TWO LIQUID STOOLS TODAY
[2022-07-10] MEDS: MIDAZOLAM 2 MG/2 ML VIAL IV PRN (19:55)
--- NOTE | 2022-07-10 20:02 | NUR ---
AT BEDSIDE, ETT USING 19cm @ TEETH. ETT PUSHED BACK TO 22cm @ TEETH. NO RESPIRATORY DISTRESS NOTED AT THIS TIME. WILL CONTINUE TO MONITOR PT. PT RECEIVING ADEQUATE VOLUME
--- NOTE | 2022-07-10 20:03 | NUR ---
RECEIVED REPORT FROM AM SHIFT. PATIENT WAS SEEN AND ASSESSED. PATIENT IS INTUBATED WITH ETT SIZE 8.0 AND SECURED WITH A BITING BLOCK ANCHOR-FAST (PUSHED BACK FROM 19cm) 22cm @ TEETH. PATIENT IS ON VENTILATOR SUPPORT. VENTILATOR PLUGGED IN RED OUTLET. VENTILATOR ALARMS SET APPROPRIATELY AND AUDIBLE TO ENVIRONMENT. AMBU BAG AT BEDSIDE. HEAD OF BED GREATER THAN 30 DEGREES. NOTICED ADEQUATE BILATERAL CHEST RISE AND FALL. PATIENT IS IN NO RESPIRATORY DISTRESS AT THIS TIME.VENT SETTINGS: AC/PRVC RR 20, TARGETED Vt 400, PEEP 5, FiO2 35% WITH SPO2 OF 96%. BILATERAL BREATH SOUNDS ON AUSCULTATION; UPPER LOBES: COARSE CRACKLES, LOWER LOBES: COARSE CRACKLES. SX SMALL AMOUNT OF WHITE THICK SECRETIONS FROM ETT. HHN SCHEDULE TX GIVEN ORDERED. PT TOLERATED WELL WITHOUT ADVERSE REACTION. WILL CONTINUE TO MONITOR PT.
--- NOTE | 2022-07-10 20:14 | NUR ---
RESPIRATORY THEAPIST AT THE BEDSID ATTEMPTING TO ADVANCE THE ET TUBE. PT COUGHING INTENSELY SHE WAS GIVEN 2MG VERSED TO AIDE IN HIS ADVANCING THE ET TUBE. THE VERSED DIDN'T AFFECT THE PT SUFFICIENTLY. SHE STILL PROVED TO BE DIFFICULT, BUT HE WAS STILL ABLE TO ADVANCE THE TUBE BACK TO THE ORIGINAL 22LIP LINE.
[2022-07-10] MEDS: traZODone 50 MG TAB PO SCH (20:55)
[2022-07-10] MEDS: risperiDONE 1 MG TAB PO SCH (20:56)
--- NOTE | 2022-07-10 23:42 | NUR ---
PT CONTIUE TO BE FEBRILE. COVERS REMOVED AND ICE PACKS APPLIED. SHE CAME DOWN TO 99. 8UT IN THE NET HOURS SHE'S BACK TO OVER 1000+. WILL CONTINUE TO MONITOR HER TEMPERATURE.
[2022-07-11] VITALS (32 sets, daily range): BP systolic 98–171; BP diastolic 45–96
[2022-07-11] MEDS: ALBUTEROL SULFATE/IPRATROPIU 3 ML SOL IH SCH ×2 (00:12→19:03)
[2022-07-11] MEDS: BLOOD GLUCOSE MONITORING 1 DEV DEV FS SCH ×5 (00:18→23:43)
[2022-07-11] MEDS: INSULIN LISPRO SLIDING SCALE 100 UNITS/ML VIAL SUBQ PRN ×4 (00:20→23:43)
[2022-07-11] MEDS: DEXMEDETOMIDINE HCL 400 MCG in NACL 0.9% 96 ML IV PRN ×4 (01:17→22:39)
--- NOTE | 2022-07-11 03:59 | NUR ---
WHILE administering am to pt she coughed out the ett to 19 at th lip line. respiratory is aware and will advance tube again.
--- NOTE | 2022-07-11 04:28 | NUR ---
NOTICE ETT PULL OUT TO 19 CM @ LIP. RN INFORMED. ETT WAS PUSHED BACK IN TO 22cm @ TEETH. PT GETTING ADEQUATE VOLUMES. SPO2 98%. PT IS IN NO RESPIRATORY DISTRESS AT THIS TIME. RN WAS NOTIFIED. WILL CONTINUE TO MONITOR PT.
[2022-07-11] MEDS: MIDAZOLAM 2 MG/2 ML VIAL IV PRN (04:45)
[2022-07-11] MEDS: metroNIDAZOLE 500 MG/NS PREMIX 100 ML IV SCH ×3 (04:51→20:42)
[2022-07-11] MEDS: METOCLOPRAMIDE 10 MG/2 ML INJ VIAL IVP SCH ×3 (05:06→20:43)
[2022-07-11] MEDS: FUROSEMIDE 20 MG/2 ML VIAL IVP SCH ×3 (05:27→20:42)
[2022-07-11 05:52] LABS: BASOPHILS % (AUTO) 0.3 % (0.0-2.0); EOSINOPHILS % (AUTO) 0.1 % (0.0-4.0); HEMOGLOBIN 8.7 g/dL (12.0-16.0); LYMPHOCYTES # (AUTO) 0.8 K/uL (2.5-16.5); LYMPHOCYTES % (AUTO) 9.4 % (20.5-51.1); MEAN CORPUSCULAR HEMOGLOBIN 33 pg (27-31); MEAN CORPUSCULAR HGB CONC 35 g/dL (33-37); MEAN CORPUSCULAR VOLUME 96.2 fL (80-94); MONOCYTES # (AUTO) 0.3 K/uL (0.8-1.0); MONOCYTES % (AUTO) 4.2 % (1.7-9.3); NEUTROPHILS # (AUTO) 7.1 K/uL (1.8-7.7); PLATELET COUNT (AUTO) 508 K/uL (140-450); RED CELL DISTRIBUTION WIDTH 16.5 % (11.6-13.7); WHITE BLOOD COUNT (AUTO) 8.3 K/uL (4.8-10.8)
[2022-07-11 06:49] LABS: ALBUMIN 1.8 g/dL (3.4-5.0); ANION GAP 12.7 (8-16); CARBON DIOXIDE 29.2 mmol/L (21-32); CREATININE 0.6 mg/dL (0.6-1.3); MAGNESIUM 1.9 mg/dL (1.8-2.4); PHOSPHORUS 2.8 mg/dL (2.5-4.9); POTASSIUM 3.9 mmol/L (3.5-5.1); TOTAL BILIRUBIN 0.3 mg/dL (0.0-1.0)
--- NOTE | 2022-07-11 07:30 | NUR ---
RECEIVED REPORT FROM MENG RN, PT. KANDI TRACH TO VENT AC/PRVC 35% FIO2 VT 400 RATE 20 PEEP5 SHE IS AWAKE AND ALERT FOLLOW COMMAND AT THE TIMEIV SITE TLC LEFT SUB CLAVIEN INFUSINF PRECEDEX AT 1.2 MCG/KG/HR.SKIN DRY AND WARM TO TOUCH. BULL CATH DRAIN CLEAR YELLOW URINE RECTAL TUBE DRAIN SMALL AMOUNT OF MCARTHUR LIQUID STOOL.
--- NOTE | 2022-07-11 07:50 | NUR ---
RECEIVED ON A VoradiusAPE R860 VENTILATOR PLUGGED INTO RED OUTLET TOLERATING WELL WITHOUT ADVERSE EACTIONS NOTED TO AN ENDOTRACHEAL TUBE #8.0 SECURED AT 22cm TEETH/GUM LINE WITH AN ANCHOR FAST CUFF PRESSURE CHECKED NOTED STABLE RESPONSIVE TO CARROTING MACHINE OFFBEARER VERBAL COMMANDS EQUAL CHEST RISE ENDOTRACHEAL SUCTION FOR SMALL THIN YELLOW SECRETIONS AIRWAY PATENT
[2022-07-11] MEDS: methylPREDNISolone SS 40 MG/ML VIAL IVP SCH ×2 (08:25→20:43)
[2022-07-11] MEDS: PANTOPRAZOLE 40 MG INJ VIAL IVP SCH ×2 (08:25→20:43)
[2022-07-11] MEDS: MIDODRINE 5 MG TAB NG SCH ×3 (08:25→17:56)
[2022-07-11] MEDS: CALCIUM CARB 600 MG TAB PO SCH ×2 (08:26→20:43)
[2022-07-11] MEDS: VITAMIN D 400 IU TAB PO SCH (08:26)
[2022-07-11] MEDS: BACLOFEN 10 MG TAB PO SCH ×3 (08:26→17:56)
[2022-07-11] MEDS: FLUoxetine 20 MG CAP PO SCH (08:27)
[2022-07-11] MEDS: FOLIC ACID 1 MG TAB PO SCH (08:28)
[2022-07-11] MEDS: clonazePAM 0.5 MG TAB PO SCH ×2 (08:29→20:44)
[2022-07-11] MEDS: ENOXAPARIN 40 MG/0.4 ML SYR SUBQ SCH (08:29)
--- NOTE | 2022-07-11 09:15 | NUR ---
REPOSITION ORAL CARE SKIN CARE GIVEN ,HAIR CARE GIVEN.
--- NOTE | 2022-07-11 09:58 | NUR ---
STABLE GOOD CHEST RISE AND AERATION THROUGHOUT BILATERAL LUNG CAREY AIRWAY PATENT INTERMITTENT AGITATION PLACED ON CPAP TRIAL WITH A PRESSURE SUPPORT OF [id number] FOR SpVt OF 6mL/kg (310ml)
--- NOTE | 2022-07-11 11:46 | NUR ---
RESTING WELL TOLERATING CPAP TRIAL NOTED GOOD CHEST RISE AIRWAY PATENT
--- NOTE | 2022-07-11 12:00 | NUR ---
BLOOD GLUCOSE 231 INSULIN COVER ORDERED.
--- NOTE | 2022-07-11 12:15 | NUR ---
PT. REMOVE HER NG TUBE OUT.
--- NOTE | 2022-07-11 15:30 | NUR ---
ON OR ABOUT THIS TIME; KAREN VO PLACED BACK ON PRVC MODE BY Benny KHAN RCP
--- NOTE | 2022-07-11 16:30 | NUR ---
NG TUBE REINSERTED CHEST X-RAY ORDERED.
--- NOTE | 2022-07-11 17:56 | NUR ---
CCHEST X-RAY SHOW THAT NGT IS IN RT PLACE. FEEDING RESTARTED.
--- NOTE | 2022-07-11 18:00 | NUR ---
NG TUBE RESTARTED .
--- NOTE | 2022-07-11 19:15 | NUR ---
CONDITION STABLE, REPORT GIVE TO MARY Schmid
--- NOTE | 2022-07-11 19:30 | NUR ---
ASSUMED CARE OF PT.INITIAL ASSESSMENT COMPLETED.PT OPENS EYES, TRACKS.BUT NOT FOLLOWING COMMANDS.SR ON MONITOR.ETT TO VENT FIO2 35% TV400 RATE 20 PEEP5.W/LT SC TLC INTACT.FLUSHED GOOD BLOOD RETURN TO ALL 3 PORTS INFUSING PRECEDEX DRIP AT 1.2MCG/KG/HR AND NS AT 5ML/HR.W/LT NARES NGT 20 ML RESIDUAL.ON CONTINUOUS TUBE FEEDING VITAL AF 1.2 AT 55ML/HR AND WATER FLUSH ORDERED. W/BULL CATHETER TO BSD DRAINING ADEQUATE AMT OF CLEAR YELLOW URINE.W/BILATERAL SOFT WRIST RESTRAINTS.NO SIGNS OF INJURIES NOTED.W/ RECTAL TUBE ALREADY IN PLACE.SCANTY AMT OF STOOL NOTED.W/DRY INTACT DRESSING TO OPEN WOUND ON SACRUM.SEE WOUND ASSESSMENT.BED IN LOW POSITION.SAFETY PRECAUTION IN PLACE.FLACC 0
[2022-07-11] MEDS: risperiDONE 1 MG TAB PO SCH (20:43)
[2022-07-11] MEDS: traZODone 50 MG TAB PO SCH (20:44)
--- NOTE | 2022-07-11 21:25 | NUR ---
phone call to nai diaz, pts mainframe systems administrator after she left a message to call technical publications writer.updated on pts present condition.will left a message for landscaping crew leader to call her in am
[2022-07-12] VITALS (23 sets, daily range): BP systolic 97–168; BP diastolic 47–80
--- NOTE | 2022-07-12 | NUR ---
ORAL CARE USING VAP KIT RENDERED.REPOSITIONED FOR COMFORT.FLACC 0
[2022-07-12] MEDS: ALBUTEROL SULFATE/IPRATROPIU 3 ML SOL IH SCH ×4 (01:14→19:45)
--- NOTE | 2022-07-12 02:43 | NUR ---
SEEN AND EXAMINED BY LEONARDO MONTERO.NEW ORDER RECEIVED.CARRIED OUT
[2022-07-12] MEDS ORDERED: cefTRIAXone 1,000 MG VIAL ONE (03:01)
[2022-07-12] MEDS: DEXMEDETOMIDINE HCL 400 MCG in NACL 0.9% 96 ML IV PRN ×5 (03:27→20:36)
--- NOTE | 2022-07-12 04:45 | NUR ---
MORNING CARE DONE,.ORAL CARE RENDERED.FLACC 0.REPOSITIONED
[2022-07-12] MEDS: FUROSEMIDE 20 MG/2 ML VIAL IVP SCH ×3 (05:19→20:50)
[2022-07-12] MEDS: METOCLOPRAMIDE 10 MG/2 ML INJ VIAL IVP SCH ×3 (05:19→20:53)
[2022-07-12 05:25] LABS: BASOPHILS % (AUTO) 0.5 % (0.0-2.0); HEMATOCRIT 27.4 % (36-48); HEMOGLOBIN 9.2 g/dL (12.0-16.0); LYMPHOCYTES # (AUTO) 0.7 K/uL (2.5-16.5); LYMPHOCYTES % (AUTO) 8.5 % (20.5-51.1); MEAN CORPUSCULAR HEMOGLOBIN 32 pg (27-31); MEAN CORPUSCULAR HGB CONC 34 g/dL (33-37); MEAN CORPUSCULAR VOLUME 95.5 fL (80-94); MONOCYTES # (AUTO) 0.3 K/uL (0.8-1.0); MONOCYTES % (AUTO) 4.5 % (1.7-9.3); NEUTROPHILS # (AUTO) 6.7 K/uL (1.8-7.7); NEUTROPHILS % (AUTO) 86.5 % (42.2-75.2); PLATELET COUNT (AUTO) 572 K/uL (140-450); RED BLOOD CELL COUNT(AUTO) 2.86 MIL/uL (4.20-5.40); RED CELL DISTRIBUTION WIDTH 16.7 % (11.6-13.7); WHITE BLOOD COUNT (AUTO) 7.8 K/uL (4.8-10.8)
[2022-07-12] MEDS: BLOOD GLUCOSE MONITORING 1 DEV DEV FS SCH ×3 (05:26→17:55)
[2022-07-12] MEDS: INSULIN LISPRO SLIDING SCALE 100 UNITS/ML VIAL SUBQ PRN ×3 (05:27→18:04)
[2022-07-12 05:30] LABS: ANION GAP 8.2 (8-16); CARBON DIOXIDE 30.4 mmol/L (21-32); CREATININE 0.7 mg/dL (0.6-1.3); POTASSIUM 3.6 mmol/L (3.5-5.1)
--- NOTE | 2022-07-12 06:21 | NUR ---
PTS CONDITION REMAINS UNCHANGED,STILL ETT TO VENT FIO2 35%.NGT IN PLACE,TOLERATING TUBE FEEDING.RT SC TLC INTACT INFUSING PRECEDEX DRIP AT 1.2MCG/KG/HR AND NS AT 5ML/HR.BULL CATH IN PLACE,2350ML URINE OUTPUT.FLACC 0
--- NOTE | 2022-07-12 07:30 | NUR ---
Received report on pt. Pt intubated and sedated with precedex drip but able to wake up and follow simple commands, RASS 0/-1. Pt in no signs of pain or distress. NGT with feeding, tolerating well, no residual noted. Pt also with flexiseal draining brown liquid. Eprry with yellow urine to gravity. Bilateral soft wrist restraints in place for safety. Bilateral heels with foam boots, offloaded with pillows.
[2022-07-12] MEDS ORDERED: DEXMEDETOMIDINE HCL 100 MCG/ML 2 ML VIAL IV ONE ×2 (07:46→12:06)
[2022-07-12] MEDS: methylPREDNISolone SS 40 MG/ML VIAL IVP SCH ×2 (08:37→20:53)
[2022-07-12] MEDS: PANTOPRAZOLE 40 MG INJ VIAL IVP SCH ×2 (08:37→20:51)
[2022-07-12] MEDS: VITAMIN D 400 IU TAB PO SCH (08:38)
[2022-07-12] MEDS: MIDODRINE 5 MG TAB NG SCH ×3 (08:38→17:00)
[2022-07-12] MEDS: BACLOFEN 10 MG TAB PO SCH ×3 (08:38→18:02)
[2022-07-12] MEDS: clonazePAM 0.5 MG TAB PO SCH ×2 (08:39→20:58)
[2022-07-12] MEDS: ENOXAPARIN 40 MG/0.4 ML SYR SUBQ SCH (08:40)
--- NOTE | 2022-07-12 11:00 | NUR ---
Dr. George and Dr. Damon rounding on pt. Informed both doctors to return call to Jennifer Friedman who requested for updates, as mentioned in report from PM nurse, number provided on facesheet.
--- NOTE | 2022-07-12 11:15 | NUR ---
Pt placed on CPAP trial by RT, Dr. Damon also present. Pt noted with tachypnea and desaturation despite being remaining on precedex drip for comfort. Pt placed back to ACPRVC mode by RT.
--- NOTE | 2022-07-12 11:15 | NUR ---
ATTEMPTED SBT WITH CPAP 5 PS 12. PT IMMEDIATELY HAD LOW VT'S AROUND 200 ML AND BECAME TACHYPNEIC. SBT STOPPED AFTER [address] JOHANNE BURCIAGA.
[2022-07-12] MEDS: CALCIUM CARB 600 MG TAB PO SCH ×2 (12:21→20:55)
[2022-07-12] MEDS: FLUoxetine 20 MG CAP PO SCH (12:22)
[2022-07-12] MEDS: FOLIC ACID 1 MG TAB PO SCH (12:23)
[2022-07-12] MEDS: MIDAZOLAM 2 MG/2 ML VIAL IV PRN (12:46)
--- NOTE | 2022-07-12 12:46 | NUR ---
Pt noted agitated but indicated no pain despite attempting to calm down and remaining on precedex drip. Adminstered PRN versed per MD order.
--- NOTE | 2022-07-12 14:44 | NUR ---
Covid swab collected and sent to lab.
--- NOTE | 2022-07-12 18:00 | NUR ---
Noted moderate amount of leakage on chux pad. Perform norman care, linen change, and sacral dressing change. Pt able to provide minimal assistance with turning and repositioning. Pt tolerated well.
--- NOTE | 2022-07-12 19:09 | NUR ---
Pt with no signs of distress or pain. Remains with RASS between 0/-1 and bilateral soft wrist restraints for safety, skin intact. Will endorse plan of care to RN.
--- NOTE | 2022-07-12 19:45 | NUR ---
RECEIVED PATIENT ON BED AWAKE, ABLE TO FOLLOW ONE STEP COMMAND; ORALLY INTUBATED AND VENTILATED AT 45% FIO2; S02 98%. CARDIACSCOPE SHOWS ON SINUS RHYTHM HR 63/MIN NO ARRHYTHMIAS SEEN. COMMENCING ON IV PRECEDEX AT 1.C MCG/KG/HR VIA CENTRAL LINE TO RIGHT SUBCLAVIAN, PATENT AND INTACT. ABDOMEN IS SOFT NON TENDER; ACTIVE BOWEL SOUNDS. ON CONTINUOUS TUBE FEEDING VITAL AF AT 55 ML/HR VIA NGT; TOLERATED WITH MINIMAL RESIDUAL. BULL CATH IN SITU TO GRAVITY DRAINAGE BAG DRAINING TO CLEAR YELLOW URINE OUTPUT. WITH RECTAL TUBE IN PLACE, WITH MODERATE OF LIQUID URINE OUTPUT; PATENT AND INTACT.
--- NOTE | 2022-07-12 20:30 | NUR ---
TURNED AND REPOSITIONE THE PATIENT; ORAL CARE DONE WITH VAP KIT.
[2022-07-12] MEDS: risperiDONE 1 MG TAB PO SCH (20:56)
[2022-07-12] MEDS: traZODone 50 MG TAB PO SCH (21:00)
[2022-07-13] VITALS (27 sets, daily range): BP systolic 83–121; BP diastolic 39–65
[2022-07-13] MEDS: DEXMEDETOMIDINE HCL 400 MCG in NACL 0.9% 96 ML IV PRN ×4 (00:48→21:33)
[2022-07-13] MEDS: ALBUTEROL SULFATE/IPRATROPIU 3 ML SOL IH SCH ×3 (00:49→20:25)
[2022-07-13] MEDS: INSULIN LISPRO SLIDING SCALE 100 UNITS/ML VIAL SUBQ PRN ×4 (00:51→17:44)
[2022-07-13] MEDS: FUROSEMIDE 20 MG/2 ML VIAL IVP SCH ×3 (05:00→20:41)
[2022-07-13] MEDS: METOCLOPRAMIDE 10 MG/2 ML INJ VIAL IVP SCH ×3 (05:00→20:40)
--- NOTE | 2022-07-13 05:30 | NUR ---
MORNING BED BATH DONE; KEPT CLEAN DRY AND COMFORTABLE.
--- NOTE | 2022-07-13 06:30 | NUR ---
BLOOD SUGAR CHECKED DONE; 4 UNITS INSULIN LISPRO GIVEN SUBQ PER SLIDING SCALE.
[2022-07-13 06:31] LABS: BASOPHILS % (AUTO) 0.2 % (0.0-2.0); EOSINOPHILS % (AUTO) 0.1 % (0.0-4.0); HEMATOCRIT 27.9 % (36-48); HEMOGLOBIN 9.2 g/dL (12.0-16.0); LYMPHOCYTES # (AUTO) 0.8 K/uL (2.5-16.5); MEAN CORPUSCULAR HEMOGLOBIN 32 pg (27-31); MEAN CORPUSCULAR HGB CONC 33 g/dL (33-37); MEAN CORPUSCULAR VOLUME 96.2 fL (80-94); MONOCYTES # (AUTO) 0.4 K/uL (0.8-1.0); MONOCYTES % (AUTO) 5.3 % (1.7-9.3); NEUTROPHILS # (AUTO) 5.7 K/uL (1.8-7.7); NEUTROPHILS % (AUTO) 83.4 % (42.2-75.2); PLATELET COUNT (AUTO) 512 K/uL (140-450); RED CELL DISTRIBUTION WIDTH 16.7 % (11.6-13.7); WHITE BLOOD COUNT (AUTO) 6.8 K/uL (4.8-10.8)
[2022-07-13] MEDS: BLOOD GLUCOSE MONITORING 1 DEV DEV FS SCH ×4 (06:58→17:42)
--- NOTE | 2022-07-13 07:15 | NUR ---
RECEIVED BEDSIDE REPORT FROM MARKETING OPERATIONS ANALYST WONG RN. PT IS SEDATED. SR ON MONITOR. ETT TO VENT. A/C PRVC, FIO2 30%, VT 400, RR 20, PEEP 5. CENTRAL LINE TO LT CHEST, RUNNING PRECEDEX @ 1.1 MCG/KG/H. NGT TUBE FEEDING TO LT NARE, VITAL 1.2 55MLS/HR, FWF 150ML Q6H. RECTAL TUBE IN PLACE. BULL IN PLACE, URINE CLEAR AND YELLOW. BED TO LOWEST POSITION, CALL LIGHT WITHIN REACH, WILL CONTINUE TO MONITOR.
--- NOTE | 2022-07-13 07:25 | NUR ---
ENDORSED AM SHIFT SPENCER GUTIERREZ FOR CONTINUITY OF CARE.
--- NOTE | 2022-07-13 08:10 | NUR ---
PLACED PT ON CPAP 15/5 28% PT TOLERATING SETTINGS WELL. HR 65 SPO2 96%. WILL CONTINUE TO MONITOR. NO RESP DISTRESS NOTED.
[2022-07-13] MEDS: methylPREDNISolone SS 40 MG/ML VIAL IVP SCH ×2 (09:16→20:41)
[2022-07-13] MEDS: PANTOPRAZOLE 40 MG INJ VIAL IVP SCH ×2 (09:16→20:40)
[2022-07-13] MEDS: CALCIUM CARB 600 MG TAB PO SCH ×2 (09:17→20:44)
[2022-07-13] MEDS: MIDODRINE 5 MG TAB NG SCH ×3 (09:17→16:58)
[2022-07-13] MEDS: VITAMIN D 400 IU TAB PO SCH (09:19)
[2022-07-13] MEDS: FOLIC ACID 1 MG TAB PO SCH (09:19)
[2022-07-13] MEDS: clonazePAM 0.5 MG TAB PO SCH ×2 (09:20→20:42)
[2022-07-13] MEDS: BACLOFEN 10 MG TAB PO SCH ×3 (09:21→16:58)
[2022-07-13] MEDS: FLUoxetine 20 MG CAP PO SCH (09:21)
[2022-07-13] MEDS: ENOXAPARIN 40 MG/0.4 ML SYR SUBQ SCH (09:22)
--- NOTE | 2022-07-13 11:58 | NUR ---
PT TAKEN OFF OF CPAP DUE TO RR ELEVATING TO THE 30S. PT LASTED ALMOST 4 HOURS ON CPAP 06/16. WILL CONTINUE TO MONITOR. RN AWARE OF PT ON FULL SUPPORT
--- NOTE | 2022-07-13 13:35 | NUR ---
RECEIVED ON A virocytSCAPE VENTILATOR PLUGGED INTO RED OUTLET TOLERATING WELL WITHOUT ADVERES REACTIONS NOTED TO A ENDOTRACHEAL TUBE 8.0 SECURED AT 22cm TEETH/GUM LINE WITH AN ANCHOR FAST CUFF PRESSURE CHECKED NOTED AMBU BAG AT BEDSIDE ASLEEP RESTING WELL EASILY AWAKENS EQUAL CHEST RISE ENDOTRACHEAL SUCTION FOR SMALL THIN YELLOW SECRETIONS AIRWAY PATENT
[2022-07-13 14:40] LABS: ANION GAP 12.2 (8-16); CARBON DIOXIDE 28.6 mmol/L (21-32); CREATININE 0.7 mg/dL (0.6-1.3); POTASSIUM 3.8 mmol/L (3.5-5.1)
--- NOTE | 2022-07-13 16:46 | NUR ---
RECEIVED PHONE CALL FROM LYNETTE/BARB. UPDATED PT INFORMATION VIA PHONE. LYNETTE STATED SHE AWARE THAT MD REACHED HER AND LEFT MESSAGE TO HER. LYNETTE IS NOT ABLE TO GIVE CONSENT. SHE TRIED TO REACH THE FAMILY, BUT NO ONE ANSWERED AND CALL BACK YET. Addendum: 07/13/22 at 1841 by Paul Hamilton RN LYNETTE FROM THE [facility]
--- NOTE | 2022-07-13 16:50 | NUR ---
07/13/21 RD FOLLOW UP COMPLETED. PLEASE REFER TO NUTRITION ASSESSMENT UNDER CARE ACTIVITY FOR ESTIMATED NUTRITIONAL NEEDS. 1. CONTINUE VITAL AF 1.2 @ 55ML/HR, FWF 150 ML Q6H TOLERATED. 2. CONTINUE JOSÉ MIGUEL BID TO PROMOTE WOUND HEALING. - WITH JOSÉ MIGUEL BID, PT WILL RECEIVE 1744 KCAL AND 104 GM PROTEIN, MEETING 100% OF ESTIMATED ENERGY NEEDS; ADEQUATE. 3.RECOMMEND BANATROL BID FOR DIARRHEA. 4. MONITOR WEIGHT CHANGES, NUTRITION-RELATED LAB VALUES, AND RESIDUALS. 5. RD TO FOLLOW-UP 5-7 DAYS, LOW RISK RACHEL GUTIERREZ RD
--- NOTE | 2022-07-13 17:06 | NUR ---
STABLE RESTING WELL GOOD CHEST RISE AIRWAY PATENT
--- NOTE | 2022-07-13 19:20 | NUR ---
ENDORSED TO WEIGHT REDUCTION SPECIALIST VAN RN FOR CONTINUITY OF CARE. ALL QUESTIONS ANSWERED.
--- NOTE | 2022-07-13 19:45 | NUR ---
PT ALERT AND ORIENTED X0. ETT TO VENT SETTINGS FI02 30% VT 400 RATE 18 PEEP 5. NGT VITAL 1.2 FEED RATE 55 ML/HR. SR TO BEDSIDE MONITOR. LEFT SUBCLAVIAN CENTRAL LINE TRIPLE LUMEN. BLUE PORT NOT FLUSHING WELL. PRECEDEX RUNNING 0.9 MCG/KG/HR. FLACC 0.
[2022-07-13] MEDS: risperiDONE 1 MG TAB PO SCH (20:41)
[2022-07-13] MEDS: traZODone 50 MG TAB PO SCH (20:41)
--- NOTE | 2022-07-13 22:00 | NUR ---
PM MEDS GIVEN.
[2022-07-14] VITALS (32 sets, daily range): BP systolic 91–153; BP diastolic 45–87
[2022-07-14] MEDS: BLOOD GLUCOSE MONITORING 1 DEV DEV FS SCH ×4 (00:19→17:37)
[2022-07-14] MEDS: INSULIN LISPRO SLIDING SCALE 100 UNITS/ML VIAL SUBQ PRN ×4 (00:30→17:39)
--- NOTE | 2022-07-14 03:00 | NUR ---
PT CLEANED AND REPOSITIONED NEEDED. ORAL CARE DONE.
[2022-07-14] MEDS: DEXMEDETOMIDINE HCL 400 MCG in NACL 0.9% 96 ML IV PRN ×4 (03:22→20:54)
[2022-07-14] MEDS: METOCLOPRAMIDE 10 MG/2 ML INJ VIAL IVP SCH ×3 (05:00→20:52)
[2022-07-14] MEDS: FUROSEMIDE 20 MG/2 ML VIAL IVP SCH ×2 (05:00→20:51)
[2022-07-14 05:46] LABS: BASOPHILS % (AUTO) 0.3 % (0.0-2.0); HEMATOCRIT 29.1 % (36-48); HEMOGLOBIN 9.6 g/dL (12.0-16.0); LYMPHOCYTES # (AUTO) 0.6 K/uL (2.5-16.5); LYMPHOCYTES % (AUTO) 10.5 % (20.5-51.1); MEAN CORPUSCULAR HEMOGLOBIN 32 pg (27-31); MEAN CORPUSCULAR HGB CONC 33 g/dL (33-37); MEAN CORPUSCULAR VOLUME 96.2 fL (80-94); MONOCYTES # (AUTO) 0.3 K/uL (0.8-1.0); MONOCYTES % (AUTO) 5.1 % (1.7-9.3); NEUTROPHILS # (AUTO) 5.2 K/uL (1.8-7.7); NEUTROPHILS % (AUTO) 84.1 % (42.2-75.2); PLATELET COUNT (AUTO) 545 K/uL (140-450); RED BLOOD CELL COUNT(AUTO) 3.03 MIL/uL (4.20-5.40); RED CELL DISTRIBUTION WIDTH 16.6 % (11.6-13.7); WHITE BLOOD COUNT (AUTO) 6.2 K/uL (4.8-10.8)
[2022-07-14 06:19] LABS: ALBUMIN 2.1 g/dL (3.4-5.0); ANION GAP 12.9 (8-16); CARBON DIOXIDE 28.1 mmol/L (21-32); CREATININE 0.7 mg/dL (0.6-1.3); TOTAL BILIRUBIN 0.2 mg/dL (0.0-1.0)
--- NOTE | 2022-07-14 07:15 | NUR ---
REPORT GIVEN TO AM SHIFT SPENCER WEBB.
--- NOTE | 2022-07-14 07:20 | NUR ---
RECEIVED BEDSIDE REPORT FROM LYUDMILA SUPERINTENDENT TESTS RN, FOR CONTINUITY OF CARE. PT AWAKE, ALERT AND FOLLOWS COMMANDS. OPENS EYES TO VOICE. ETT TO VENT AC/PRVC, FIO2 30%/VT 400/R 18/PEEP 5. SR ON MONITOR. TLC TO L SUBCLAVIAN INFUSING PRECEDEX DRIP AT 0.9 MCG/KG/HR AND NS TKO. NGT TO L NARE INFUSING VITAL CONTINUOUS TUBE FEEDING AT 55ML/HR WITH FWF 150 Q6H. F/C TO GRAVITY DRAINING YELLOW URINE. BILATERAL SOFT WRIST RESTRAINTS IN PLACE FOR SAFETY. NO S/SX OF INJURY. STANDARD PRECAUTION. BED LOCKED AND IN LOWEST POSITION.
--- NOTE | 2022-07-14 07:25 | NUR ---
RECEIVED ON A Inbox HealthAPE R860 VENTILATOR PLUGGED INTO RED OUTLET TOLERATING WELL WITHOUT ADVERSE REACTIONS NOTED TO A ENDOTRACHEAL #8.0 SECURED AT 22cm TEETH/GUM LINE WITH AN ANCHOR FAST CUFF PRESSURE CHECKED NOTED AMBU BAG AT BEDSIDE STABLE EQUAL CHEST RISE ENDOTRACHEAL SUCTION FOR SMALL THIN YELLOW SECRETIONS AIRWAY PATENT SATURATION 97% ON FIO2 OF 30% PEEP 5cmH2O POST HHN THERAPY TITRATED FIO2 TO 28% MECHANICAL RATE AND TOTAL RATE EQUATING TO 18 BPMR REVIEWED PREVIOUS TOTAL RATES DECREASED MECHANICAL RATE TO 16 BPM TO INCREASE SpVt AND SpRR JASON/RN NOTIFIED
[2022-07-14] MEDS: PANTOPRAZOLE 40 MG INJ VIAL IVP SCH ×2 (08:59→20:50)
[2022-07-14] MEDS: BACLOFEN 10 MG TAB PO SCH ×3 (08:59→17:24)
[2022-07-14] MEDS: methylPREDNISolone SS 40 MG/ML VIAL IVP SCH ×2 (09:00→20:51)
[2022-07-14] MEDS: FLUoxetine 20 MG CAP PO SCH (09:00)
[2022-07-14] MEDS: MIDODRINE 5 MG TAB NG SCH ×3 (09:00→17:25)
[2022-07-14] MEDS: VITAMIN D 400 IU TAB PO SCH (09:00)
[2022-07-14] MEDS: CALCIUM CARB 600 MG TAB PO SCH ×2 (09:01→20:52)
[2022-07-14] MEDS: FOLIC ACID 1 MG TAB PO SCH (09:01)
[2022-07-14] MEDS: clonazePAM 0.5 MG TAB PO SCH ×2 (09:02→20:52)
[2022-07-14] MEDS: ENOXAPARIN 40 MG/0.4 ML SYR SUBQ SCH (09:03)
--- NOTE | 2022-07-14 10:50 | NUR ---
RESTING WELL STABLE EQUAL CHEST RISE GOOD AERATION THROUGHOUT BILATERAL LUNG CAREY AIRWAY PATENT
--- NOTE | 2022-07-14 10:55 | NUR ---
NO DISTRESS NOTED GOOD CHEST RISE BED POSITION 40 DEGREES PLACED ON CPAP TRIAL NOTED WITH PRESSURE SUPPORT AT 12mqP2D TO MAINTAIN SpVt EQUAL/GREATER THAN 6ml/kg (RUSS=[id number]) TITRATE PRESSURE SUPPORT TOLERATED TRACEY/RN NOTIFIED
--- NOTE | 2022-07-14 13:30 | NUR ---
WOUND CARE DONE, FOAM DRESSING CHANGED AND SKIN CLEANED WITH SKINTEGRITY. PT TOLERATED WELL.
[2022-07-14] MEDS: ALBUTEROL SULFATE/IPRATROPIU 3 ML SOL IH SCH ×3 (13:48→19:30)
--- NOTE | 2022-07-14 13:48 | NUR ---
TOLERATING CPAP TRIAL NOTED GOOD CHEST RISE AND AERATION THROUGHOUT BILATERAL LUNG CAREY AIRWAY PATENT
--- NOTE | 2022-07-14 17:45 | NUR ---
CHANGED TUBE FEEDING AND TUBING. 55 ML/HR WITH FWF 150 Q5H. ADMINISTERED BANATROL AND JOSÉ MIGUEL ORDERED. PT TOLERATED WELL.
--- NOTE | 2022-07-14 19:00 | NUR ---
ASSUMED CARE OF PT.INITIAL ASSESSMENT COMPLETED.PT OPENS EYES, TRACKS.ABLE TO FOLLOW VERY SIMPLE COMMANDS.SR ON MONITOR.ORALLY INTUBATED TO VENT FIO2 28% TV400 RATE 16 PEEP5.W/LT SC TLC INTACT.FLUSHED GOOD BLOOD RETURN TO ALL 3 PORTS INFUSING PRECEDEX DRIP AT 0.9 MCG/KG/HR AND NS AT 5ML/HR.W/LT NARES NGT 20 ML RESIDUAL.ON CONTINUOUS TUBE FEEDING VITAL AF 1.2 AT 55ML/HR AND WATER FLUSH ORDERED. W/BULL CATHETER TO BSD DRAINING ADEQUATE AMT OF CLEAR YELLOW URINE.W/BILATERAL SOFT WRIST RESTRAINTS.NO SIGNS OF INJURIES NOTED.W/ RECTAL TUBE ALREADY IN PLACE.SCANTY AMT OF STOOL NOTED.W/DRY INTACT DRESSING TO OPEN WOUND ON SACRUM.SEE WOUND ASSESSMENT.BED IN LOW POSITION.SAFETY PRECAUTION IN PLACE.FLACC 0
--- NOTE | 2022-07-14 19:06 | NUR ---
ENDORSED BEDSIDE REPORT TO KEYANA REHABILITATION CASEWORKER RN, FOR CONTINUITY OF CARE.
--- NOTE | 2022-07-14 20:30 | NUR ---
ORAL CARE USING VAP KIT RENDERED.PT ON PROTONIX FOR GI PROPHYLAXIS AND LOVENOX FOR DVT PROPHYLAXIS.REPOSITIONED FOR COMFORT.WILL CONTINUE TO CLOSELY MONITOR PT
[2022-07-14] MEDS: traZODone 50 MG TAB PO SCH (20:53)
[2022-07-14] MEDS: risperiDONE 1 MG TAB PO SCH (20:54)
[2022-07-15] VITALS (29 sets, daily range): BP systolic 94–146; BP diastolic 46–85
--- NOTE | 2022-07-15 | NUR ---
ORAL CARE DONE.AFEBRILE.REPOSITIONED.FLACC 0
[2022-07-15] MEDS: BLOOD GLUCOSE MONITORING 1 DEV DEV FS SCH ×4 (00:30→18:25)
[2022-07-15] MEDS: INSULIN LISPRO SLIDING SCALE 100 UNITS/ML VIAL SUBQ PRN ×3 (00:31→11:37)
[2022-07-15] MEDS: ALBUTEROL SULFATE/IPRATROPIU 3 ML SOL IH SCH ×4 (01:17→19:24)
--- NOTE | 2022-07-15 02:00 | NUR ---
PTS CONDITION REMAINS UNCHANGED.NO S/SX OF RESPIRATORY DISTRESS NOTED.FLACC 0.REPOSITIONED FOR COMFORT
[2022-07-15] MEDS: DEXMEDETOMIDINE HCL 400 MCG in NACL 0.9% 96 ML IV PRN ×4 (02:43→19:21)
--- NOTE | 2022-07-15 04:44 | NUR ---
MORNING CARE DONE.ORAL CARE RENDERED.NO PAIN NOTED.AFEBRILE.
[2022-07-15] MEDS: METOCLOPRAMIDE 10 MG/2 ML INJ VIAL IVP SCH ×3 (05:08→20:51)
[2022-07-15 05:44] LABS: BASOPHILS % (AUTO) 0.3 % (0.0-2.0); HEMATOCRIT 30.1 % (36-48); HEMOGLOBIN 9.9 g/dL (12.0-16.0); LYMPHOCYTES # (AUTO) 0.8 K/uL (2.5-16.5); LYMPHOCYTES % (AUTO) 12.8 % (20.5-51.1); MEAN CORPUSCULAR HEMOGLOBIN 32 pg (27-31); MEAN CORPUSCULAR HGB CONC 33 g/dL (33-37); MEAN CORPUSCULAR VOLUME 96.8 fL (80-94); MONOCYTES # (AUTO) 0.3 K/uL (0.8-1.0); NEUTROPHILS # (AUTO) 5.2 K/uL (1.8-7.7); NEUTROPHILS % (AUTO) 81.9 % (42.2-75.2); PLATELET COUNT (AUTO) 487 K/uL (140-450); RED BLOOD CELL COUNT(AUTO) 3.11 MIL/uL (4.20-5.40); WHITE BLOOD COUNT (AUTO) 6.4 K/uL (4.8-10.8)
[2022-07-15 06:27] LABS: ALBUMIN 2.2 g/dL (3.4-5.0); ANION GAP 10.3 (8-16); CREATININE 0.6 mg/dL (0.6-1.3); POTASSIUM 4.3 mmol/L (3.5-5.1); TOTAL BILIRUBIN 0.2 mg/dL (0.0-1.0)
--- NOTE | 2022-07-15 07:00 | NUR ---
REPORT GIVEN TO SPENCER WEBB FOR CONTINUITY OF CARE.
--- NOTE | 2022-07-15 07:10 | NUR ---
RECEIVED BEDSIDE REPORT FROM KEYANA ACTIVE DIRECTORY SPECIALIST RN, FOR CONTINUITY OF CARE. PT AWAKE, ALERT AND FOLLOWS COMMANDS. OPENS EYES TO VOICE. ETT TO VENT AC/PRVC, FIO2 28%/VT 400/R 16/PEEP 5. SR ON MONITOR. TLC TO L SUBCLAVIAN INFUSING PRECEDEX DRIP AT 0.9 MCG/KG/HR AND NS TKO. NGT TO L NARE INFUSING VITAL CONTINUOUS TUBE FEEDING AT 55ML/HR WITH FWF 150 Q6H. F/C TO GRAVITY DRAINING YELLOW URINE. RECTAL TUBE IN PLACE DRAINING LIGHT BROWN/YELLOW DIARRHEA. BILATERAL SOFT WRIST RESTRAINTS IN PLACE FOR SAFETY. NO S/SX OF INJURY. STANDARD PRECAUTION. BED LOCKED AND IN LOWEST POSITION.
[2022-07-15] MEDS: methylPREDNISolone SS 40 MG/ML VIAL IVP SCH ×2 (08:28→20:51)
[2022-07-15] MEDS: VITAMIN D 400 IU TAB PO SCH (08:28)
[2022-07-15] MEDS: FUROSEMIDE 20 MG/2 ML VIAL IVP SCH ×2 (08:28→20:51)
[2022-07-15] MEDS: MIDODRINE 5 MG TAB NG SCH ×3 (08:28→18:11)
[2022-07-15] MEDS: PANTOPRAZOLE 40 MG INJ VIAL IVP SCH ×2 (08:28→20:51)
[2022-07-15] MEDS: BACLOFEN 10 MG TAB PO SCH ×3 (08:28→18:11)
[2022-07-15] MEDS: FLUoxetine 20 MG CAP PO SCH (08:29)
[2022-07-15] MEDS: FOLIC ACID 1 MG TAB PO SCH (08:29)
[2022-07-15] MEDS: CALCIUM CARB 600 MG TAB PO SCH ×2 (08:30→20:52)
[2022-07-15] MEDS: clonazePAM 0.5 MG TAB PO SCH ×2 (08:30→20:52)
[2022-07-15] MEDS: ENOXAPARIN 40 MG/0.4 ML SYR SUBQ SCH (08:31)
--- NOTE | 2022-07-15 10:30 | NUR ---
SEEN AND EXAMINED BY Navdeep GERMAN. NO NEW ORDERS.
--- NOTE | 2022-07-15 10:32 | NUR ---
SPOKE TO RANDAL REGARDING CONSENT FOR TRACH/PEG. ALL QUESTIONS ANSWERED. AWAITING CONSENT VIA FAX.
--- NOTE | 2022-07-15 10:38 | NUR ---
SEEN AND EXAMINED BY DR. WHITING. NO NEW ORDERS.
--- NOTE | 2022-07-15 15:00 | NUR ---
PT RECEIVED FULL BATH AND LINEN CHANGE. TOLERATED WELL. SACRAL WOUND DRESSING CHANGED AGAIN. SEE WOUND ASSESSMENT.
--- NOTE | 2022-07-15 19:05 | NUR ---
ENDORSED BEDSIDE REPORT TO KEYANA AUTO REPAIR TECHNICIAN RN, FOR CONTINUITY OF CARE.
--- NOTE | 2022-07-15 19:30 | NUR ---
ASSUMED CARE OF PT.INITIAL ASSESSMENT COMPLETED.PT OPENS EYES SPONTANEOUSLY, TRACKS.ABLE TO FOLLOW SIMPLE COMMANDS.SR ON MONITOR.ETT TO VENT FIO2 28% TV400 RATE 16 PEEP5.W/LT SC TLC INTACT,WITH GOOD BLOOD RETURN TO ALL 3 PORTS INFUSING PRECEDEX DRIP AT 0.9 MCG/KG/HR AND NS AT 5 ML/HR.W/LT NARES NGT 10 ML RESIDUAL NOTED.ON CONTINUOUS TUBE FEEDING VITAL AF 1.2 AT 55ML/HR AND WATER FLUSH ORDERED. W/BULL CATHETER TO BSD DRAINING ADEQUATE AMT OF CLEAR YELLOW URINE.W/BILATERAL SOFT WRIST RESTRAINTS.NO SIGNS OF INJURIES NOTED.W/ RECTAL TUBE ALREADY IN PLACE.SCANTY AMT OF STOOL NOTED.W/DRY INTACT DRESSING TO OPEN WOUND ON SACRUM.SEE WOUND ASSESSMENT.BED IN LOW POSITION.SAFETY PRECAUTION IN PLACE.FLACC 0
[2022-07-15] MEDS: risperiDONE 1 MG TAB PO SCH (20:52)
[2022-07-15] MEDS: traZODone 50 MG TAB PO SCH (20:53)
[2022-07-16] VITALS (25 sets, daily range): BP systolic 87–150; BP diastolic 41–73
--- NOTE | 2022-07-16 | NUR ---
ORAL CARE DONE.REPOSITIONED.AFEBRILE.BLOOD SUGAR CHECKED, INSULIN COVERAGE ADMINISTERED ORDERED
[2022-07-16] MEDS: BLOOD GLUCOSE MONITORING 1 DEV DEV FS SCH ×4 (00:03→17:25)
[2022-07-16] MEDS: INSULIN LISPRO SLIDING SCALE 100 UNITS/ML VIAL SUBQ PRN ×4 (00:04→17:25)
[2022-07-16] MEDS: DEXMEDETOMIDINE HCL 400 MCG in NACL 0.9% 96 ML IV PRN ×5 (00:30→23:49)
[2022-07-16] MEDS: ALBUTEROL SULFATE/IPRATROPIU 3 ML SOL IH SCH ×4 (01:14→19:23)
--- NOTE | 2022-07-16 04:00 | NUR ---
PTS CONDITION REMAINS UNCHANGED.FIO2 28%/VENT.STILL ON PRECEDEX DRIP PER PROTOCOL.FLACC 0
[2022-07-16] MEDS: METOCLOPRAMIDE 10 MG/2 ML INJ VIAL IVP SCH ×3 (04:53→21:28)
[2022-07-16 05:51] LABS: BASOPHILS % (AUTO) 0.3 % (0.0-2.0); HEMATOCRIT 31.2 % (36-48); HEMOGLOBIN 10.4 g/dL (12.0-16.0); LYMPHOCYTES # (AUTO) 0.8 K/uL (2.5-16.5); LYMPHOCYTES % (AUTO) 12.4 % (20.5-51.1); MEAN CORPUSCULAR HEMOGLOBIN 32 pg (27-31); MEAN CORPUSCULAR HGB CONC 34 g/dL (33-37); MEAN CORPUSCULAR VOLUME 96.1 fL (80-94); MONOCYTES # (AUTO) 0.3 K/uL (0.8-1.0); MONOCYTES % (AUTO) 5.4 % (1.7-9.3); NEUTROPHILS # (AUTO) 5.3 K/uL (1.8-7.7); NEUTROPHILS % (AUTO) 81.9 % (42.2-75.2); PLATELET COUNT (AUTO) 521 K/uL (140-450); RED BLOOD CELL COUNT(AUTO) 3.25 MIL/uL (4.20-5.40); RED CELL DISTRIBUTION WIDTH 16.1 % (11.6-13.7); WHITE BLOOD COUNT (AUTO) 6.5 K/uL (4.8-10.8)
[2022-07-16 06:25] LABS: ALBUMIN 2.4 g/dL (3.4-5.0); ANION GAP 10.7 (8-16); CARBON DIOXIDE 30.8 mmol/L (21-32); CREATININE 0.7 mg/dL (0.6-1.3); POTASSIUM 4.5 mmol/L (3.5-5.1); TOTAL BILIRUBIN 0.2 mg/dL (0.0-1.0)
--- NOTE | 2022-07-16 07:00 | NUR ---
REPORT GIVEN TO TIM PALMER FOR CONTINUITY OF CARE.
--- NOTE | 2022-07-16 07:05 | NUR ---
Received report on pt. Pt awake, intubated to vent, and lightly sedated with precedex drip. Pt indicated no signs of pain, no signs of acute distress noted. NGT with feeding, tolerating well, 30 ml residual. Perry in place draining urine to gravity. Flexiseal with liquid brown stool. Bilateral soft wrist restraints in place for safety.
--- NOTE | 2022-07-16 07:20 | NUR ---
RECEIVED PT ON 400,RR16,+5, 28%. VENT WHEELS ARE LOCKED, PLUGGED INTO RED OUT OUTLET, AMBUBAG AT BEDSIDE, ALARMS ARE SET AND AUDIBLE. PT IS RESTING COMFORTABLE, WILL CONTINUE TO MONITOR.
[2022-07-16] MEDS: PANTOPRAZOLE 40 MG INJ VIAL IVP SCH ×2 (08:23→21:29)
[2022-07-16] MEDS: methylPREDNISolone SS 40 MG/ML VIAL IVP SCH ×2 (08:23→21:29)
[2022-07-16] MEDS: FUROSEMIDE 20 MG/2 ML VIAL IVP SCH ×2 (08:23→21:28)
[2022-07-16] MEDS: CALCIUM CARB 600 MG TAB PO SCH ×2 (08:24→21:30)
[2022-07-16] MEDS: MIDODRINE 5 MG TAB NG SCH ×3 (08:24→16:50)
[2022-07-16] MEDS: FOLIC ACID 1 MG TAB PO SCH (08:25)
[2022-07-16] MEDS: VITAMIN D 400 IU TAB PO SCH (08:25)
[2022-07-16] MEDS: clonazePAM 0.5 MG TAB PO SCH ×2 (08:26→21:31)
[2022-07-16] MEDS: FLUoxetine 20 MG CAP PO SCH (08:28)
[2022-07-16] MEDS: ENOXAPARIN 40 MG/0.4 ML SYR SUBQ SCH (08:29)
--- NOTE | 2022-07-16 09:31 | NUR ---
0850 CPAP TRIAL 23/11 PT LASTED 40MIN. SWITCHED BACK TO PREVIOUS VENT SETTING DUE TO ELEVATED RESPIRATORY RATE ABOUT 45 AND LOW VOLUMES. WILL CONTINUE TO MONITOR.
[2022-07-16] MEDS: BACLOFEN 10 MG TAB PO SCH ×3 (10:12→16:50)
[2022-07-16] MEDS: MIDAZOLAM 2 MG/2 ML VIAL IV PRN (16:51)
--- NOTE | 2022-07-16 18:41 | NUR ---
No acute changes noted during shift. Pt remains intubated and sedated with precedex. Bilateral soft wrist restraints in place for safety. NGT with feeding. Perry draining urine to gravity. Awaiting decision for trach and PEG vs sending out to [facility] with procedure. Will endorse plan of care to oncoming RN.
--- NOTE | 2022-07-16 19:25 | NUR ---
RECEIVED REPORT FROM AM SHIFT. PATIENT WAS SEEN AND ASSESSED. PATIENT IS INTUBATED WITH ETT SIZE 8.0 AND SECURED WITH A BITING BLOCK ANCHOR-FAST 22cm @ TEETH. PATIENT IS ON VENTILATOR SUPPORT. VENTILATOR PLUGGED IN RED OUTLET. VENTILATOR ALARMS SET APPROPRIATELY AND AUDIBLE TO ENVIRONMENT. AMBU BAG AT BEDSIDE. HEAD OF BED GREATER THAN 30 DEGREES. NOTICED ADEQUATE BILATERAL CHEST RISE AND FALL. PATIENT IS IN NO RESPIRATORY DISTRESS AT THIS TIME.VENT SETTINGS: AC/PRVC RR 16, TARGETED Vt 400, PEEP 5, FiO2 28% WITH SPO2 OF 97%. BILATERAL BREATH SOUNDS ON AUSCULTATION; UPPER LOBES: CLEAR, LOWER LOBES: RALES. SX SCANT AMOUNT OF WHITE THIN SECRETIONS FROM ETT. HHN SCHEDULE TX GIVEN ORDERED. PT TOLERATED WELL WITHOUT ADVERSE REACTION. WILL CONTINUE TO MONITOR PT.
--- NOTE | 2022-07-16 19:30 | NUR ---
RECEIVED PATIENT ON BED SEDATED RASS-2 WITH CONTINUOUS PRECEDEX DRIP; ORALLY INTUBATED AND VENTILATED AT 28% FI02; CARDIACSCOPE SHOWS ON SINUS RHYTHM HR61/MIN NO ARRHYTHMIAS SEEN. ABDOMEN IS SOFT, HYPERACTIVE BOWEL SOUNDS. ON CONTINUOS TUBE FEEDING VITAL 1.2 AT 55 ML/HR TOLERATED WITH MINIMAL RESIDUAL. WITH RECTAL TUBE IN PLACE, DRAINING TO WATERY BROWN TO YELLOW STILL, MODERATE IN AMOUNT. BULL CATH IN SITU TO GRAVITY DRAINAGE BAG DRAINING TO CLEAR YELLOW URINE OUTPUT; INTACT.
--- NOTE | 2022-07-16 21:00 | NUR ---
TURNED AND REPOSITIONED PATIENT; ORAL CARE DONE WITH VAP KIT.
[2022-07-16] MEDS: traZODone 50 MG TAB PO SCH (21:31)
[2022-07-16] MEDS: risperiDONE 1 MG TAB PO SCH (21:31)
[2022-07-17] VITALS (29 sets, daily range): BP systolic 84–125; BP diastolic 45–70
--- NOTE | 2022-07-17 | NUR ---
ACCUCHECK DONE 4 UNITS INSULIN LISPRO GIVEN SUBQ PER SLIDING SCALE.
--- NOTE | 2022-07-17 | NUR ---
DR. WHITING ANESTHESIOLOGIST CALLED TO INQUIRE OF PT HISTORY AND HE GAVE ORDERS FOR AM LABS AND A 2 D ECHO. CHARGE NURSE WONG PLACED THE ORDERS. SHE CALLED DR. STOCKTON TO SEE WHO WOULD READ THE 2D ECHO . HE TEXRED BACK FOR DR. SANDERS TO READ IT.
[2022-07-17] MEDS: BLOOD GLUCOSE MONITORING 1 DEV DEV FS SCH ×5 (00:30→23:58)
[2022-07-17] MEDS: INSULIN LISPRO SLIDING SCALE 100 UNITS/ML VIAL SUBQ PRN ×2 (00:32→07:37)
[2022-07-17] MEDS: ALBUTEROL SULFATE/IPRATROPIU 3 ML SOL IH SCH ×4 (01:00→20:08)
[2022-07-17] MEDS ORDERED: DEXMEDETOMIDINE HCL 100 MCG/ML 2 ML VIAL IV ONE (03:52)
[2022-07-17] MEDS: METOCLOPRAMIDE 10 MG/2 ML INJ VIAL IVP SCH ×3 (05:00→20:57)
[2022-07-17 06:04] LABS: BASOPHILS % (AUTO) 0.2 % (0.0-2.0); HEMATOCRIT 31.4 % (36-48); HEMOGLOBIN 10.4 g/dL (12.0-16.0); LYMPHOCYTES # (AUTO) 0.4 K/uL (2.5-16.5); LYMPHOCYTES % (AUTO) 4.3 % (20.5-51.1); MEAN CORPUSCULAR HEMOGLOBIN 32 pg (27-31); MEAN CORPUSCULAR HGB CONC 33 g/dL (33-37); MEAN CORPUSCULAR VOLUME 96.3 fL (80-94); MONOCYTES # (AUTO) 0.3 K/uL (0.8-1.0); MONOCYTES % (AUTO) 2.6 % (1.7-9.3); NEUTROPHILS # (AUTO) 9.4 K/uL (1.8-7.7); NEUTROPHILS % (AUTO) 92.9 % (42.2-75.2); PLATELET COUNT (AUTO) 493 K/uL (140-450); RED BLOOD CELL COUNT(AUTO) 3.27 MIL/uL (4.20-5.40); RED CELL DISTRIBUTION WIDTH 15.7 % (11.6-13.7); WHITE BLOOD COUNT (AUTO) 10.1 K/uL (4.8-10.8)
--- NOTE | 2022-07-17 06:20 | NUR ---
BLOOD SUGAR CHECK; 4 UNITS INSULIN LISPRO GIVEN SUBQ PER SLIDING SCALE.
[2022-07-17 06:41] LABS: ANION GAP 13.9 (8-16); CARBON DIOXIDE 27.1 mmol/L (21-32); CREATININE 0.6 mg/dL (0.6-1.3); TOTAL BILIRUBIN 0.3 mg/dL (0.0-1.0)
--- NOTE | 2022-07-17 07:30 | NUR ---
received endorsement from eneida smyth ,pt is awake follow command , ett to vent. ac/prvc 28% fio2 vt 400 r 16 peep 5.o2 sat98% . iv has tlc on left subclavian , infusing Precedex at 1.2/kg/hr.
--- NOTE | 2022-07-17 07:50 | NUR ---
CALLED TO KEEP PT. NPO ANT NG TUBE TO SUCTION.
--- NOTE | 2022-07-17 08:00 | NUR ---
has parra cath drain clear yellow urine. RECTAL BAG HAS YELLOW LIQUID STOOL.
--- NOTE | 2022-07-17 08:09 | NUR ---
RECEIVED THE FAX OF CONSENT FROM [facility] TO DR. DANIELS.
--- NOTE | 2022-07-17 08:15 | NUR ---
CALL DR. DANIELS AND LEAVED MASSAGE WITH EELNA IN SURGERY .
[2022-07-17] MEDS: FOLIC ACID 1 MG TAB PO SCH (09:00)
[2022-07-17] MEDS: BACLOFEN 10 MG TAB PO SCH ×3 (09:00→19:00)
[2022-07-17] MEDS: FLUoxetine 20 MG CAP PO SCH (09:00)
[2022-07-17] MEDS: MIDODRINE 5 MG TAB NG SCH ×3 (09:00→17:00)
[2022-07-17] MEDS: ENOXAPARIN 40 MG/0.4 ML SYR SUBQ SCH (09:00)
[2022-07-17] MEDS: CALCIUM CARB 600 MG TAB PO SCH ×2 (09:00→21:04)
[2022-07-17] MEDS: PANTOPRAZOLE 40 MG INJ VIAL IVP SCH ×2 (09:16→20:59)
[2022-07-17] MEDS: FUROSEMIDE 20 MG/2 ML VIAL IVP SCH ×2 (09:16→20:59)
[2022-07-17] MEDS: methylPREDNISolone SS 40 MG/ML VIAL IVP SCH ×2 (09:17→20:58)
[2022-07-17] MEDS: VITAMIN D 400 IU TAB PO SCH (09:18)
--- NOTE | 2022-07-17 09:36 | NUR ---
SEEN BY DR ESCOBAR AT BED SIDE NO NEW ORDER RECEIVED.
[2022-07-17] MEDS: clonazePAM 0.5 MG TAB PO SCH ×2 (13:00→21:02)
--- NOTE | 2022-07-17 19:15 | NUR ---
Received report from Jaida FOR CONTINUITY OF CARE. PT IS AWAKE ALERT AND ORIENTED X3. PT IS EDUCATED ABOUT HER PENDING SURGERY. SHE SAID SHE DIDN'T KNOW SHE WAS HAVING SURGERY TOMORROW. EXPLAINED WHAT THE SURGERY ENTAILED ASKED IF SHE [id number] SHE SAID YES WHEN ASKED IF SHE WAS IN AGREEMENT WITH THE SURGERY; JOHN THOUGHT FOR A FEW SECONDS AND SAID YES. TUBE FEDING IS OFF AND HER RESIDUAL IS 12CC. HER BLOOD SUGAR IS 144. NO COVERAGE. SHE REMAINS ON THE VENT VIA EET. VENT SETTING AC/PRC 16 RATE, 400TV,28% FIO2 AND 5 PEEP. LUNGS SOUNDS CLEAR THROUGH OUT . SHE CONTINUES WITH THE RECTAL TUBE IN PLACE DRAINING MODERATE AMT OF LIGHT BROWN LIQUID STOOL. SHE IS SR ON THE BUS BOY AND HER BLOOD PRESSURE IS WNL. THE DRESSING ON HER CENTRAL LINE IS CLEAN,DRY AND INTACT. SHE HAS E COLI REPORTED IN HER URINE. SHE STILL HAS A BULL CATH DRAINING A MODERATE AMT OF CLEAR YELLOW URINE.
--- NOTE | 2022-07-17 19:30 | NUR ---
REPORT GIVE TO MENG PALMER,
--- NOTE | 2022-07-17 20:08 | NUR ---
RECEIVED REPORT FROM AM SHIFT. PATIENT WAS SEEN AND ASSESSED. PATIENT IS INTUBATED WITH ETT SIZE 8.0 AND SECURED WITH A BITING BLOCK ANCHOR-FAST 22cm @ TEETH. PATIENT IS ON VENTILATOR SUPPORT. VENTILATOR PLUGGED IN RED OUTLET. VENTILATOR ALARMS SET APPROPRIATELY AND AUDIBLE TO ENVIRONMENT. AMBU BAG AT BEDSIDE. HEAD OF BED GREATER THAN 30 DEGREES. NOTICED ADEQUATE BILATERAL CHEST RISE AND FALL. PATIENT IS IN NO RESPIRATORY DISTRESS AT THIS TIME.VENT SETTINGS: AC/PRVC RR 16, TARGETED Vt 400, PEEP 5, FiO2 28% WITH SPO2 OF 98%. BILATERAL BREATH SOUNDS ON AUSCULTATION; UPPER LOBES: CLEAR, LOWER LOBES: RALES. SX SCANT AMOUNT OF WHITE THIN SECRETIONS FROM ETT. HHN TX GIVEN ORDERED. PT TOLERATED WELL WITHOUT ADVERSE REACTION. WILL CONTINUE TO MONITOR PT
[2022-07-17] MEDS: risperiDONE 1 MG TAB PO SCH (21:02)
[2022-07-17] MEDS: traZODone 50 MG TAB PO SCH (21:05)
[2022-07-17] MEDS: DEXMEDETOMIDINE HCL 400 MCG in NACL 0.9% 96 ML IV PRN (21:51)
[2022-07-18] VITALS (30 sets, daily range): BP systolic 70–146; BP diastolic 41–90
--- NOTE | 2022-07-18 00:15 | NUR ---
COMPLETE BATH AND LINEN CHANGE PT ATTEMPTED TO ASSIST BUT GOT CONFUSED AND STARTED TO GET AGITATED. TALKED PT DOWN AND SHE BEGAN TO RELAX. ORAL CARE GIVEN AND HER BLOOD SUGSR WAS 167. ON INSULIN GIVEN BECAUSE PT IS NPO AND HER SURGERY IS AT 1400 07/18/21.
[2022-07-18] MEDS: ALBUTEROL SULFATE/IPRATROPIU 3 ML SOL IH SCH ×4 (00:24→19:21)
[2022-07-18] MEDS: DEXMEDETOMIDINE HCL 400 MCG in NACL 0.9% 96 ML IV PRN ×2 (01:32→21:52)
[2022-07-18] MEDS: METOCLOPRAMIDE 10 MG/2 ML INJ VIAL IVP SCH ×3 (05:22→21:49)
[2022-07-18] MEDS: BLOOD GLUCOSE MONITORING 1 DEV DEV FS SCH ×3 (05:46→17:32)
[2022-07-18 05:54] LABS: BASOPHILS % (AUTO) 0.1 % (0.0-2.0); HEMATOCRIT 31.6 % (36-48); HEMOGLOBIN 10.3 g/dL (12.0-16.0); LYMPHOCYTES # (AUTO) 0.5 K/uL (2.5-16.5); MEAN CORPUSCULAR HEMOGLOBIN 31 pg (27-31); MEAN CORPUSCULAR HGB CONC 33 g/dL (33-37); MONOCYTES # (AUTO) 0.2 K/uL (0.8-1.0); MONOCYTES % (AUTO) 2.9 % (1.7-9.3); NEUTROPHILS # (AUTO) 7.3 K/uL (1.8-7.7); PLATELET COUNT (AUTO) 502 K/uL (140-450); RED BLOOD CELL COUNT(AUTO) 3.29 MIL/uL (4.20-5.40); RED CELL DISTRIBUTION WIDTH 16.3 % (11.6-13.7)
[2022-07-18 06:20] LABS: PROTHROMBIN TIME 10.9 secs (10.8-13.4)
[2022-07-18 06:25] LABS: MAGNESIUM 1.9 mg/dL (1.8-2.4); PHOSPHORUS 3.6 mg/dL (2.5-4.9)
[2022-07-18 06:41] LABS: ALBUMIN 3.1 g/dL (3.4-5.0); ANION GAP 13.7 (8-16); CARBON DIOXIDE 30.4 mmol/L (21-32); CREATININE 0.6 mg/dL (0.6-1.3); POTASSIUM 4.1 mmol/L (3.5-5.1); TOTAL BILIRUBIN 0.4 mg/dL (0.0-1.0)
--- NOTE | 2022-07-18 06:50 | NUR ---
PT C/OAININ HER BREAST BENJAMIN AND SHEHAD NO BREAKTHROUGH PAIN MED ORDERED . SHE'S MAXED OUT ON PRECEDEX. SENT A TEXT TO DR. ESCOBAR.
[2022-07-18] MEDS ORDERED: DEXMEDETOMIDINE HCL 100 MCG/ML 2 ML VIAL IV ONE (06:57)
[2022-07-18] MEDS ORDERED: MORPHINE SULFATE 2 MG/ML SYR IVP PRN (07:20)
--- NOTE | 2022-07-18 07:26 | NUR ---
DR.. Evans TEXT BACK WITH ORDERS ROF BREAK THROUGH PAIN
--- NOTE | 2022-07-18 07:30 | NUR ---
RECEIVED ENDORSEMENT FROM GAYTAHRI FAN AWAKE FOLLOW COMMAND. SKIN IS WARM DRY TO TOUCH. ETT TO VENT AC PRVC 28% FIO2 VT 400 RATE 16 PEEP OF 5. IV FLUID TLC ON LEFT SUBCLAVIAN. INFUSING PRECEDEX AT 1.2/KG/H. BULL DRAIN CLEAR YELLOW URINE. RECTAL BAG HAS SMALL AMOUNT OF YELLOW LIQUID BM.
[2022-07-18] MEDS: PANTOPRAZOLE 40 MG INJ VIAL IVP SCH ×2 (08:32→21:49)
[2022-07-18] MEDS: FUROSEMIDE 20 MG/2 ML VIAL IVP SCH ×2 (08:32→21:49)
[2022-07-18] MEDS: methylPREDNISolone SS 40 MG/ML VIAL IVP SCH ×2 (08:32→21:49)
[2022-07-18] MEDS: MIDODRINE 5 MG TAB NG SCH ×3 (08:33→17:00)
[2022-07-18] MEDS: CALCIUM CARB 600 MG TAB PO SCH ×2 (08:33→21:47)
[2022-07-18] MEDS: VITAMIN D 400 IU TAB PO SCH (08:33)
[2022-07-18] MEDS: FOLIC ACID 1 MG TAB PO SCH (08:34)
[2022-07-18] MEDS: clonazePAM 0.5 MG TAB PO SCH ×2 (08:34→21:48)
[2022-07-18] MEDS: FLUoxetine 20 MG CAP PO SCH (08:36)
[2022-07-18] MEDS: BACLOFEN 10 MG TAB PO SCH ×3 (08:37→17:00)
[2022-07-18] MEDS: ENOXAPARIN 40 MG/0.4 ML SYR SUBQ SCH (09:00)
--- NOTE | 2022-07-18 09:00 | NUR ---
SAWYER ROCHA , PT. WILL HAVE SURGERY TO DAY,
--- NOTE | 2022-07-18 12:45 | NUR ---
ECHOCARDIOGRAM STARTED ,
[2022-07-18] MEDS ORDERED: PROPOFOL 200 MG/20 ML VIAL IV ONE ×2 (14:00→15:24)
[2022-07-18] MEDS ORDERED: ROCURONIUM 50 MG/5 ML VIAL IV ONE ×2 (14:00→15:25)
[2022-07-18] MEDS ORDERED: fentaNYL citrate 0.05 MG/ML - 50mL vial IV ONE (14:00)
[2022-07-18] MEDS ORDERED: SEVOFLURANE 250 ML BTL INH ONE (14:00)
[2022-07-18] MEDS ORDERED: BUPIVACAINE-MPF 0.25% 30 ML VIAL INJ ONE (14:00)
--- NOTE | 2022-07-18 14:15 | NUR ---
TO OR IN BED BY OR TEAM.
[2022-07-18] MEDS ORDERED: fentaNYL citrate 0.05 MG/ML VIAL ONE (14:45)
--- NOTE | 2022-07-18 15:36 | NUR ---
RETURN FROM OR IN BED CONNECT TO BED SIDE MONITOR . PT AWAKE SKIN DRY AND WARM G TUBE IN PLACE. TRACH IN PLACE
--- NOTE | 2022-07-18 15:50 | NUR ---
CHEST X RAY DONE PT. RESTING V/S WITH IN NORMAL LIMIT.
[2022-07-18] MEDS ORDERED: HYDROmorphone 1 MG/ML AMP IVP PRN (16:00)
[2022-07-18] MEDS ORDERED: NACL 0.9% 1,000 ML IV SCH (16:00)
[2022-07-18] MEDS ORDERED: LABETALOL 20 MG/4 ML VIAL IVP PRN (16:00)
[2022-07-18] MEDS ORDERED: hydrALAZINE 20 MG/ML VIAL IVP PRN (16:00)
[2022-07-18] MEDS ORDERED: ONDANSETRON 4 MG/2 ML VIAL IVP PRN (16:00)
--- NOTE | 2022-07-18 16:08 | NUR ---
DR. WHITING INFORMED REGARDING SURGERY DONE AND SAID TO TITRATION DOWN THE PRECEDEX.
[2022-07-18] MEDS ORDERED: BLOOD GLUCOSE MONITORING 1 DEV DEV FS SCH (16:15)
--- NOTE | 2022-07-18 19:20 | NUR ---
PT. AWAKE ALERT FOLLOW COMMAND, REPORT GIVE TO WONG.
--- NOTE | 2022-07-18 21:00 | NUR ---
TURNED AND REPOSITIONED PATIENT. ABLE TO FOLLOW SIMPLE COMMANDS
[2022-07-18] MEDS: risperiDONE 1 MG TAB PO SCH (21:57)
[2022-07-18] MEDS: traZODone 50 MG TAB PO SCH (21:57)
--- NOTE | 2022-07-18 23:49 | NUR ---
RECEIVED PATIENT ON BED SEDATED WITH PRECEDEX DRIP RASS-2. WITH NEWLY INSERTED TRACHEOSTOMY AT 30% FI02; SOW 99%. CARDIACSCOPE SHOWS ON SINUS RHYTHM HR 84.. ABDOMEN IS SOFT, ACTIVE BOWEL SOUNDS. WITH NEWLY INSERTED G TUBE IN PLACE. WITH BULL CATH TO GRAVITY DRAINAGE BAG DRAINING TO CLEAR LUIZ COLOR URINE OUTPUT.
[2022-07-19] VITALS (28 sets, daily range): BP systolic 89–160; BP diastolic 53–104
--- NOTE | 2022-07-19 | NUR ---
ALL OF THE PT'S PO MEDS WERE NOT ADMIN BECAUSE SHE WAS VOMITING AND SHE WAS NAUSEA.
--- NOTE | 2022-07-19 | NUR ---
OBSERVED PT PUTTING HER FINGER DOWN HER THROAT; CAUTIONED NOT TO DO THAT IT WILL MAKE HER VOMIT.
[2022-07-19] MEDS: ALBUTEROL SULFATE/IPRATROPIU 3 ML SOL IH SCH ×2 (01:07→19:00)
[2022-07-19] MEDS: DEXMEDETOMIDINE HCL 400 MCG in NACL 0.9% 96 ML IV PRN (02:45)
[2022-07-19] MEDS ORDERED: DEXMEDETOMIDINE HCL 100 MCG/ML 2 ML VIAL IV ONE (03:22)
[2022-07-19] MEDS: METOCLOPRAMIDE 10 MG/2 ML INJ VIAL IVP SCH ×3 (04:25→21:47)
--- NOTE | 2022-07-19 04:30 | NUR ---
MORNING BED BATH DONE; KEPT CLEAN DRY AND COMFORTABLE.
[2022-07-19 06:06] LABS: BASOPHILS % (AUTO) 0.1 % (0.0-2.0); HEMATOCRIT 31.1 % (36-48); HEMOGLOBIN 10.4 g/dL (12.0-16.0); LYMPHOCYTES # (AUTO) 0.5 K/uL (2.5-16.5); MEAN CORPUSCULAR HEMOGLOBIN 32 pg (27-31); MEAN CORPUSCULAR HGB CONC 34 g/dL (33-37); MEAN CORPUSCULAR VOLUME 96.3 fL (80-94); MONOCYTES # (AUTO) 0.3 K/uL (0.8-1.0); NEUTROPHILS # (AUTO) 7.9 K/uL (1.8-7.7); PLATELET COUNT (AUTO) 468 K/uL (140-450); RED BLOOD CELL COUNT(AUTO) 3.23 MIL/uL (4.20-5.40); RED CELL DISTRIBUTION WIDTH 16.4 % (11.6-13.7); WHITE BLOOD COUNT (AUTO) 8.7 K/uL (4.8-10.8)
[2022-07-19 06:37] LABS: ANION GAP 11.8 (8-16); CARBON DIOXIDE 27.7 mmol/L (21-32); CREATININE 0.8 mg/dL (0.6-1.3); POTASSIUM 3.5 mmol/L (3.5-5.1); TOTAL BILIRUBIN 0.5 mg/dL (0.0-1.0)
[2022-07-19] MEDS: BLOOD GLUCOSE MONITORING 1 DEV DEV FS SCH ×5 (06:49→23:57)
[2022-07-19 06:54] LABS: ALBUMIN 3.2 g/dL (3.4-5.0)
[2022-07-19 07:06] LABS: LYMPHOCYTES % (AUTO) 5.2 % (20.5-51.1); NEUTROPHILS % (AUTO) 91.7 % (42.2-75.2)
--- NOTE | 2022-07-19 07:15 | NUR ---
RECEIVED BEDSIDE REPORT FROM WONG WEAPONS SYSTEM INSTRUMENT MECHANIC RN, FOR CONTINUITY OF CARE. PT AWAKE, ALERT AND FOLLOWS COMMANDS. OPENS EYES SPONTANEOUSLY. TRACH TO VENT AC/VC, FIO2 30%/VT 400/R 16/PEEP 5. SR ON MONITOR. TLC TO L SUBCLAVIAN INFUSING PRECEDEX DRIP AT 0.5 MCG/KG/HR. G TUBE IN PLACE, CLAMPED, NPO EXCEPT MEDS. F/C TO GRAVITY DRAINING YELLOW URINE. STANDARD PRECAUTION. BED LOCKED AND IN LOWEST POSITION.
--- NOTE | 2022-07-19 07:45 | NUR ---
RECEIVED PT ON ACVC 400,16,+5, 30%. VENT WHEELS ARE LOCKED, PLUGGED INTO RED OUTLET, AMBUBAG AT BEDSIDE, ALARMS ARE SET AND AUDIBLE. PT IS RESTING COMFORTABLY. WILL CONTINUE TO MONITOR.
[2022-07-19] MEDS: FUROSEMIDE 20 MG/2 ML VIAL IVP SCH ×2 (08:59→21:46)
[2022-07-19] MEDS: methylPREDNISolone SS 40 MG/ML VIAL IVP SCH ×2 (08:59→21:48)
[2022-07-19] MEDS: MIDODRINE 5 MG TAB NG SCH ×3 (08:59→17:00)
[2022-07-19] MEDS: PANTOPRAZOLE 40 MG INJ VIAL IVP SCH ×2 (08:59→21:47)
[2022-07-19] MEDS: clonazePAM 0.5 MG TAB PO SCH ×2 (09:00→21:00)
[2022-07-19] MEDS: VITAMIN D 400 IU TAB PO SCH (09:00)
[2022-07-19] MEDS: ENOXAPARIN 40 MG/0.4 ML SYR SUBQ SCH (09:01)
[2022-07-19] MEDS: CALCIUM CARB 600 MG TAB PO SCH ×2 (09:01→21:00)
[2022-07-19] MEDS: FOLIC ACID 1 MG TAB PO SCH (09:02)
[2022-07-19] MEDS: FLUoxetine 20 MG CAP PO SCH (09:02)
[2022-07-19] MEDS: BACLOFEN 10 MG TAB PO SCH ×3 (09:08→16:46)
--- NOTE | 2022-07-19 09:30 | NUR ---
SEEN AND EXAMINED BY Navdeep CUELLAR, REMOVED SUTURES AND OK TO RESTART TUBE FEEDING.
--- NOTE | 2022-07-19 14:30 | NUR ---
RESTARTED VITAL TUBE FEEDING AT 20ML/HR FWF 150 Q6H.
[2022-07-19] MEDS: ONDANSETRON 4 MG/2 ML VIAL IVP PRN ×2 (16:38→21:18)
[2022-07-19] MEDS: ACETAMINOPHEN 650 MG/20.3 ML UDC PO PRN (16:46)
--- NOTE | 2022-07-19 16:50 | NUR ---
ADMINISTERED PRN TYLENOL FOR ORAL TEMP 101.2. PLACED ICE PACKS TO AXILLA, NECK, AND GROIN.
--- NOTE | 2022-07-19 18:02 | NUR ---
ORAL TEMP 99.8. COOLING MEASURES STILL IN USE.
--- NOTE | 2022-07-19 19:07 | NUR ---
ENDORSED BEDSIDE REPORT TO MENG MOTORBOAT MECHANIC HELPER MUD ANALYSIS SUPERVISOR, FOR CONTINUITY OF CARE.
--- NOTE | 2022-07-19 19:10 | NUR ---
RECEIVED REPORT FROM JASON PALMER FOR CONTINUITY OF CARE. PT IS AWKE AND ALERT WITH SOME DISTRESS NOTED. HER HEART RATE IS 135-145 AND HER TEMPERATURE IS 100.6 AXILLARY. SHE HAD TYLENOL AT 1645.NOW PACKED IN ICE. SHE HAS A FRESH TRACH, AND IS NOW TRACH TO VENT WITH SETTING AC/VC FIO2 30, TV 400 RATE 15 AND PEEP 5. THE FEEDING IS RESTARTED NOW AT 30CC/H WITH A GOAL OF 55CC. THE NGT IS IN THE LEFT NARE. SHE HAS FREE WATER AT 150 CC Q6H. SHE NO LONGER HAVE THE RECTAL TUBE.,BUT SHE STILL HAS THE BULL CATH. WILL CALL THE [facility]ENTER[facility] SPECIALIST DOCTOR ABOUT HER HEART RATE.
--- NOTE | 2022-07-19 19:20 | NUR ---
RECEIVED REPORT FROM DELROY PALMER.PT IS LYING ON HER RIGHT SIDE NO DISTRESS NOTED . PT STATES SHE FEELS [facility] BETTER THAN SHE FELT YESTERDAY. STATES HER ONLY PROBLEM NOW SHE'S A&OX4, SHE HAS A GOOD APPETITE. HER LUNGS ARE CLEAR SHE IS ON HI FLOW 02 AT 20L/30%. SHE HAS IV ACCESS IN THE [place] A 20 GAUGE. PT HAS BEEN DOWNGRADED TO TELEMETRY. 5
--- NOTE | 2022-07-19 20:33 | NUR ---
TEXT A MSG TO DR. SANDERS ABOUT PT RAPID HEART RATE. NO RESPONSE . CALLED DR. ESCOBAR AT 2100 HE ORDERED AN EKG AND HE WISHES DR. SANDERS TO READ. SENT ANOTHER TEXT TO DR. SANDERS . DR. SANDERS SHOSHANA BACK FOR THE EKG TO BE SENT TO HIM.
[2022-07-19] MEDS: risperiDONE 1 MG TAB PO SCH (21:00)
[2022-07-19] MEDS: traZODone 50 MG TAB PO SCH (21:00)
[2022-07-19] MEDS ORDERED: NACL 0.9% 1,000 ML IV SCH (21:30)
--- NOTE | 2022-07-19 21:30 | NUR ---
PHONE CALL FROM DR SANDERS, UPDATED ON PTS PRESENT CONDITION.PHYSICIAN AWARE OF EKG RESULT AND ECHO RESULT READ BACK TO HIM, NEW ORDER TO GIVE 1 LITER NS BOLUS.CARRIED OUT.MENG PALMER AWARE
--- NOTE | 2022-07-19 22:36 | NUR ---
PT CONTINUES TO BE NAUSEA AND HER HER RATE IS STILL 135-145 S/P THE 1 LITER OF NS.
[2022-07-19] MEDS: INSULIN LISPRO SLIDING SCALE 100 UNITS/ML VIAL SUBQ PRN (23:57)
[2022-07-20] VITALS (30 sets, daily range): BP systolic 107–151; BP diastolic 61–96
[2022-07-20] MEDS: ALBUTEROL SULFATE/IPRATROPIU 3 ML SOL IH SCH ×4 (01:00→19:36)
[2022-07-20] MEDS: METOCLOPRAMIDE 10 MG/2 ML INJ VIAL IVP SCH ×3 (05:36→20:09)
[2022-07-20] MEDS: ONDANSETRON 4 MG/2 ML VIAL IVP PRN ×3 (05:36→15:18)
[2022-07-20] MEDS: INSULIN LISPRO SLIDING SCALE 100 UNITS/ML VIAL SUBQ PRN ×4 (05:37→23:50)
[2022-07-20] MEDS: BLOOD GLUCOSE MONITORING 1 DEV DEV FS SCH ×4 (06:00→23:49)
[2022-07-20 06:03] LABS: BASOPHILS % (AUTO) 0.1 % (0.0-2.0); EOSINOPHILS % (AUTO) 0.1 % (0.0-4.0); HEMATOCRIT 34.6 % (36-48); HEMOGLOBIN 11.6 g/dL (12.0-16.0); LYMPHOCYTES # (AUTO) 0.4 K/uL (2.5-16.5); LYMPHOCYTES % (AUTO) 3.4 % (20.5-51.1); MEAN CORPUSCULAR HEMOGLOBIN 32 pg (27-31); MEAN CORPUSCULAR HGB CONC 34 g/dL (33-37); MEAN CORPUSCULAR VOLUME 96.4 fL (80-94); MONOCYTES # (AUTO) 0.5 K/uL (0.8-1.0); MONOCYTES % (AUTO) 3.6 % (1.7-9.3); NEUTROPHILS # (AUTO) 11.8 K/uL (1.8-7.7); NEUTROPHILS % (AUTO) 92.8 % (42.2-75.2); PLATELET COUNT (AUTO) 554 K/uL (140-450); RED BLOOD CELL COUNT(AUTO) 3.59 MIL/uL (4.20-5.40); RED CELL DISTRIBUTION WIDTH 16.7 % (11.6-13.7); WHITE BLOOD COUNT (AUTO) 12.7 K/uL (4.8-10.8)
[2022-07-20 06:42] LABS: ANION GAP 18.5 (8-16); CARBON DIOXIDE 26.2 mmol/L (21-32); CREATININE 0.8 mg/dL (0.6-1.3); TOTAL BILIRUBIN 0.9 mg/dL (0.0-1.0)
[2022-07-20 06:56] LABS: POTASSIUM 2.7 mmol/L (3.5-5.1)
--- NOTE | 2022-07-20 07:15 | NUR ---
RECEIVED BEDSIDE REPORT FROM SUKUMAR FAN MANAGER MONEY RN, FOR CONTINUITY OF CARE. PT AWAKE, ALERT AND FOLLOWS COMMANDS. OPENS EYES SPONTANEOUSLY. TRACH TO VENT AC/VC, FIO2 30%/VT 400/R 16/PEEP 5. SR ON MONITOR. TLC TO L SUBCLAVIAN SALINE LOCK. G TUBE IN PLACE, CLAMPED, TUBE FEEDING HELD FOR CONTINUOUS N/V. F/C TO GRAVITY DRAINING YELLOW URINE. STANDARD PRECAUTION. BED LOCKED AND IN LOWEST POSITION.
[2022-07-20] MEDS ORDERED: KCL 20 MEQ/WATER INJ PREMIX 200 ML IV SCH (08:00)
[2022-07-20] MEDS: MIDODRINE 5 MG TAB NG SCH ×3 (08:06→17:00)
[2022-07-20] MEDS: BACLOFEN 10 MG TAB PO SCH ×3 (08:06→16:50)
[2022-07-20] MEDS: VITAMIN D 400 IU TAB PO SCH (08:06)
[2022-07-20] MEDS: PANTOPRAZOLE 40 MG INJ VIAL IVP SCH ×2 (08:07→20:09)
[2022-07-20] MEDS: FUROSEMIDE 20 MG/2 ML VIAL IVP SCH ×2 (08:07→20:09)
[2022-07-20] MEDS: ACETAMINOPHEN 650 MG/20.3 ML UDC PO PRN ×2 (08:07→16:50)
[2022-07-20] MEDS: FOLIC ACID 1 MG TAB PO SCH (08:08)
[2022-07-20] MEDS: methylPREDNISolone SS 40 MG/ML VIAL IVP SCH ×2 (08:08→20:08)
[2022-07-20] MEDS: CALCIUM CARB 600 MG TAB PO SCH ×2 (08:09→20:09)
[2022-07-20] MEDS: FLUoxetine 20 MG CAP PO SCH (08:09)
[2022-07-20] MEDS: clonazePAM 0.5 MG TAB PO SCH ×2 (08:13→20:10)
[2022-07-20] MEDS: ENOXAPARIN 40 MG/0.4 ML SYR SUBQ SCH (08:14)
--- NOTE | 2022-07-20 12:00 | NUR ---
NO VOMITING FOR THE 3 HOURS, RESTARTED TUBE FEEDING AT 20 ML/HR FWF 75 ML Q3H. Addendum: 07/20/22 at 1920 by Antonia Stallworth RN ADJUSTED FWF 150 Q6H
--- NOTE | 2022-07-20 17:00 | NUR ---
AXILLARY TEMP 100.5, ADMINISTERED PRN TYLENOL AND ICE PACKS.
--- NOTE | 2022-07-20 17:08 | NUR ---
07/20/22 RD FOLLOW UP COMPLETED.PLEASE REFER TO NUTRITION ASSESSMENT UNDER CARE ACTIVITY FOR ESTIMATED NUTRITIONAL NEEDS. 1. CONTINUE VITAL AF 1.2 @ 20ML/HR, GRADUALLY INCREASING BY 10 ML Q4H UNTIL GOAL RATE OF @ 55ML/HR IS REACHED PT TOLERATES, FWF 150 ML Q6H TOLERATED. 2. CONTINUE JOSÉ MIGUEL BID TO PROMOTE WOUND HEALING. - WITH JOSÉ MIGUEL BID, PT WILL RECEIVE 1744 KCAL AND 104 GM PROTEIN, MEETING 100% OF ESTIMATED ENERGY NEEDS; ADEQUATE. 3. DISCONTINUE BANATROL DUE TO DIARRHEA BEING RESOLVED. 4. MONITOR WEIGHT CHANGES, NUTRITION-RELATED LAB VALUES, AND RESIDUALS. 5. RD TO FOLLOW-UP 5-7 DAYS, LOW RISK RACHEL GUTIERREZ RD
--- NOTE | 2022-07-20 19:18 | NUR ---
ENDORSED BEDSIDE REPORT TO KEYANA CHIEF MINISTER RN, FOR CONTINUITY OF CARE.
--- NOTE | 2022-07-20 19:27 | NUR ---
PHONE CALL TO DR CAMPBELL REGARDING CLARIFICATION OF ORDER FOR CEFEPIME; PT ALLERGIC TO PENICILLIN, PHYSICIAN SAID PT ALREADY RECEIVED THAT MEDICATION BEFORE AND ROCEPHIN, TO TELL PHARMACIST, OK TO GIVE.CALLED AFTER HOURS PHARMACY AND NOTIFY OF THE ABOVE.
--- NOTE | 2022-07-20 19:30 | NUR ---
ASSUMED CARE OF PT.INITIAL ASSESSMENT COMPLETED.PT OPENS EYES SPONTANEOUSLY, TRACKS.ABLE TO FOLLOW SIMPLE COMMANDS.ST ON MONITOR.TRACH TO VENT FIO2 30% TV 400 RATE 16 PEEP 5.W/LT SC TLC INTACT,WITH GOOD BLOOD RETURN TO ALL 3 PORTS.W/ G TUBE ALREADY IN PLACE,40 ML RESIDUAL NOTED.ON CONTINUOUS TUBE FEEDING VITAL AF 1.2 AT 20ML/HR AND WATER FLUSH ORDERED. W/BULL CATHETER TO BSD DRAINING ADEQUATE AMT OF CLEAR YELLOW URINE.W/DRY INTACT DRESSING TO OPEN WOUND ON SACRUM.SEE WOUND ASSESSMENT.FLACC 0
[2022-07-20] MEDS ORDERED: CEFEPIME 2,000 MG in DEXTROSE 5% 100 ML IV SCH (19:32)
[2022-07-20] MEDS: traZODone 50 MG TAB PO SCH (20:10)
[2022-07-20] MEDS: risperiDONE 1 MG TAB PO SCH (20:11)
[2022-07-20] MEDS ORDERED: CEFEPIME 1,000 MG VIAL ONE (20:48)
--- NOTE | 2022-07-20 22:41 | NUR ---
PT ASLEEP; NO S/SX OF RESP DISTRESS NOTED.FLACC 0.REPOSITIONED
--- NOTE | 2022-07-20 23:51 | NUR ---
BS 236, INSULIN COVERAGE ADMINISTERED ORDERED.ORAL CARE USING VAP KIT DONE.AFEBRILE.REPOSITIONED.FLACC 0
[2022-07-21] VITALS (11 sets, daily range): BP systolic 105–124; BP diastolic 7–80
--- NOTE | 2022-07-21 02:30 | NUR ---
PT ASLEEP; NO RESP DISTRESS NOTED.FLACC 0.REPOSITIONED
[2022-07-21] MEDS: ALBUTEROL SULFATE/IPRATROPIU 3 ML SOL IH SCH ×2 (03:35→07:00)
--- NOTE | 2022-07-21 04:30 | NUR ---
BM NOTED.MORNING CARE DONE.ORAL CARE RENDERED.AFEBRILE.
[2022-07-21] MEDS: METOCLOPRAMIDE 10 MG/2 ML INJ VIAL IVP SCH ×2 (04:54→13:00)
[2022-07-21 05:57] LABS: BASOPHILS % (AUTO) 0.1 % (0.0-2.0); HEMATOCRIT 34.3 % (36-48); HEMOGLOBIN 11.4 g/dL (12.0-16.0); LYMPHOCYTES # (AUTO) 0.5 K/uL (2.5-16.5); MEAN CORPUSCULAR HEMOGLOBIN 32 pg (27-31); MEAN CORPUSCULAR HGB CONC 33 g/dL (33-37); MEAN CORPUSCULAR VOLUME 96.9 fL (80-94); MONOCYTES # (AUTO) 0.7 K/uL (0.8-1.0); MONOCYTES % (AUTO) 6.7 % (1.7-9.3); NEUTROPHILS # (AUTO) 9.2 K/uL (1.8-7.7); NEUTROPHILS % (AUTO) 88.2 % (42.2-75.2); PLATELET COUNT (AUTO) 417 K/uL (140-450); RED BLOOD CELL COUNT(AUTO) 3.53 MIL/uL (4.20-5.40); RED CELL DISTRIBUTION WIDTH 16.4 % (11.6-13.7); WHITE BLOOD COUNT (AUTO) 10.4 K/uL (4.8-10.8)
[2022-07-21] MEDS: INSULIN LISPRO SLIDING SCALE 100 UNITS/ML VIAL SUBQ PRN ×2 (06:00→12:09)
[2022-07-21] MEDS: BLOOD GLUCOSE MONITORING 1 DEV DEV FS SCH ×2 (06:00→11:58)
[2022-07-21 07:12] LABS: ALBUMIN 2.8 g/dL (3.4-5.0); ANION GAP 14.3 (8-16); CARBON DIOXIDE 30.8 mmol/L (21-32); CREATININE 0.8 mg/dL (0.6-1.3); POTASSIUM 3.1 mmol/L (3.5-5.1); TOTAL BILIRUBIN 0.4 mg/dL (0.0-1.0)
--- NOTE | 2022-07-21 07:30 | NUR ---
RECEIVED PT IN HOSPITAL BED AWAKE ALERT, TRACH TO VENT TOLERATING VENT SETTINGS WELL. NSR ON MONITOR. AFEBRILE. GTUBE INFUSING FEEDINGS VITAL AF @30ML/HR TOLERATING WELL. F/C DRAINING TO GRAVITY. LEFT IJ TRIPLE LUMEN NOTED. INTACT AND PATENT. NAD. SAFETY MAINTAINED.
--- NOTE | 2022-07-21 07:50 | NUR ---
NOTIFIED RT OF [facility] FOR [place]AP [place]AL. STATES WILL COME CHANGES SETTINGS FOR PT
--- NOTE | 2022-07-21 08:00 | NUR ---
PT PLACED ON CPAP 12/ 30% PT IS TOLERATING SETTINGS WELL. NO RESP DISTRESS NOTED. WILL CONTINUE TO MONITOR. RN AWARE. PT BACK UP SETTINGS SET ON VENT TO PREVIOUS VENT SETTINGS. APNEA SET 20SECS .
--- NOTE | 2022-07-21 08:30 | NUR ---
PT TOLERATING CPAP WELL. NAD. SAFETY MAINTAINED.
[2022-07-21] MEDS: VITAMIN D 400 IU TAB PO SCH (09:00)
[2022-07-21] MEDS: CALCIUM CARB 600 MG TAB PO SCH (09:00)
[2022-07-21] MEDS: MIDODRINE 5 MG TAB NG SCH ×2 (09:00→13:31)
[2022-07-21] MEDS: clonazePAM 0.5 MG TAB PO SCH (09:00)
[2022-07-21] MEDS: BACLOFEN 10 MG TAB PO SCH ×2 (09:00→13:31)
[2022-07-21] MEDS: FLUoxetine 20 MG CAP PO SCH (09:00)
[2022-07-21] MEDS: FUROSEMIDE 20 MG/2 ML VIAL IVP SCH (09:00)
[2022-07-21] MEDS: ENOXAPARIN 40 MG/0.4 ML SYR SUBQ SCH (09:00)
[2022-07-21] MEDS: PANTOPRAZOLE 40 MG INJ VIAL IVP SCH (09:00)
[2022-07-21] MEDS: methylPREDNISolone SS 40 MG/ML VIAL IVP SCH (09:00)
[2022-07-21] MEDS: FOLIC ACID 1 MG TAB PO SCH (09:00)
--- NOTE | 2022-07-21 11:00 | NUR ---
SPOKE TO PACKAGE WORKER WITH DC ORDERS TO TX PT TO [facility].
--- NOTE | 2022-07-21 12:30 | NUR ---
REPORT GIVEN TO QUINN PALMER AT [facility] FOR CONTINUATION OF CARE.
[2022-07-21] MEDS ORDERED: POTASSIUM CHLORIDE 20% 40 MEQ/15 ML UDC GT SCH (13:16)
--- NOTE | 2022-07-21 13:25 | NUR ---
NEW ORDERS FOR POTASSIUM 40 MEQ GTUBE MEDICATED TOLERATED WELL. [facility] AT BEDSIDE. REPORT GIVEN TO GARRET PALMER FOR CONTINUATION OF CARE. STABLE ON DC.
== END 2022-07-21 13:43 | DRG 4 ==
LOC: MED 08:57 → MMU 12:06 → MTU 06-23 04:08 → MIC 06-25 12:46
PROVIDERS: ADMIT Preventive Medicine Preventive Medicine/Occupational Environmental Medicine; ATTEND Preventive Medicine Preventive Medicine/Occupational Environmental Medicine
PROC: 5A09357 Assistance with Respiratory Ventilation, Less than 24 Consecutive Hours, Continuous Positive Airway Pressure (ICD-10-PCS; 2022-06-25)
PROC: 5A1955Z Respiratory Ventilation, Greater than 96 Consecutive Hours (ICD-10-PCS; principal; 2022-06-26)
PROC: 5A09357 Assistance with Respiratory Ventilation, Less than 24 Consecutive Hours, Continuous Positive Airway Pressure (ICD-10-PCS; 2022-06-26)
PROC: 0BH17EZ Insertion of Endotracheal Airway into Trachea, Via Natural or Artificial Opening (ICD-10-PCS; 2022-06-26)
PROC: 0B110F4 Bypass Trachea to Cutaneous with Tracheostomy Device, Open Approach (ICD-10-PCS; 2022-07-18)
PROC: 0DH63UZ Insertion of Feeding Device into Stomach, Percutaneous Approach (ICD-10-PCS; 2022-07-18)
PROC: 5A1945Z Respiratory Ventilation, 24-96 Consecutive Hours (ICD-10-PCS; 2022-07-18)
DX: A41.9 Sepsis, unspecified organism (principal); R65.21 Severe sepsis with septic shock; J96.01 Acute respiratory failure with hypoxia; J18.9 Pneumonia, unspecified organism; G93.41 Metabolic encephalopathy; N39.0 Urinary tract infection, site not specified; F03.918 Unspecified dementia, unspecified severity, with other behavioral disturbance; E87.1 Hypo-osmolality and hyponatremia; Z99.11 Dependence on respirator [ventilator] status; E87.0 Hyperosmolality and hypernatremia; B96.20 Unspecified Escherichia coli [E. coli] as the cause of diseases classified elsewhere; D64.9 Anemia, unspecified; D69.6 Thrombocytopenia, unspecified; E11.65 Type 2 diabetes mellitus with hyperglycemia; E83.42 Hypomagnesemia; E83.52 Hypercalcemia; R13.10 Dysphagia, unspecified; N32.81 Overactive bladder; K59.00 Constipation, unspecified; I51.7 Cardiomegaly; G47.00 Insomnia, unspecified; E88.09 Other disorders of plasma-protein metabolism, not elsewhere classified; E86.0 Dehydration; E87.6 Hypokalemia; E87.5 Hyperkalemia; G40.909 Epilepsy, unspecified, not intractable, without status epilepticus; Z88.0 Allergy status to penicillin; Z86.73 Personal history of transient ischemic attack (TIA), and cerebral infarction without residual deficits; Z79.899 Other long term (current) drug therapy
CPT/HCPCS: 31500; 36415; 36600; 70450; 71045; 74018; 76700; 80048; 80053; 80202; 80305; 81001; 81025; 82140; 82550; 82553; 82803; 82948; 83036; 83605; 83735; 83880; 84100; 84443; 84484; 85025; 85610; 85651; 85730; 86140; 87040; 87070; 87081; 87086; 87205; 89220; 92526; 93971; 94002; 94003; 94640; 94660; 96365; 96366; 96368; 99291; C1894; C9113; J0456; J0692; J0696; J1650; J1940; J2060; J2250; J2270; J2405; J2704; J2765; J2920; J3010; J3370; J3475; J3480; J3490; J7030; J7060; J7613; J7644; Q0092